=== PATIENT | female | born 1935 | race African-American/Black ===

== ENCOUNTER → 2017-01-03 | Outpatient (CLI) | payer MEDICARE, MEDICAID ==
[~2017-01-03] VITALS: Ht 162.6 cm; Wt 72.6 kg
[~2017-01-03] MED LIST: methylPREDNISolone 80 MG/ML (DEPO MEDROL) VIAL ONE
[2017-01-03 15:01] VITALS: BP 138/103
[2017-01-03 15:34] VITALS: BP 129/85
--- NOTE | 2017-01-07 16:44 | OPERATIVE REPORT ---
DATE OF SERVICE: 01/03/2017 DIAGNOSIS: Lumbar radiculopathy. PROCEDURE: Fluoroscopic guided interlaminar epidural steroid injection. PROCEDURE IN DETAIL: After obtaining informed consent from the patient, the patient's chart was reviewed. The patient was then brought to the procedure room and placed in the prone position. A timeout was performed. The back was prepped with antiseptic solution and under fluoro guidance, the patient's lumbar spine was identified at the level of L4-L5. The L4-L5 vertebra was identified with fluoro guidance and approximately 2 mL of 1.5% lidocaine solution was used to anesthetize the skin directly down to the pedicle of the L4-L5 and under fluoroscopic guidance, the tract was anesthetized up to the interlaminar space and the ligamentum flavum. This needle was withdrawn. Then, a 20-gauge 3.5 inch Tuohy needle was then directed following the same tract that was anesthetized with the spinal needle. Using loss of resistance, the epidural space was identified and then the syringe was switched for contrast solution which was injected, approximately 1 mL. After secondary confirmation of epidural access, another syringe was placed and 80 mg of Depo-Medrol was injected. The Tuohy needle was then flushed out with approximately 2 mL of the normal saline used from the loss of resistance syringe. Band-Aids were applied to all the procedure sites. The patient tolerated the procedure well and was taken to the recovery room in stable condition. COMPLICATIONS: None. Job ID: [id number] DocumentID: [id number] Dictated Date: 01/07/2017 09:33:11 Automatic Spreader Operator Date: 01/07/2017 16:44:12 Dictated By: JOEY ROGERS DO
== END ==
LOC: CARD 14:19
PROVIDERS: ATTEND Pain Medicine Interventional Pain Medicine
DX: M54.16 Radiculopathy, lumbar region (principal); M06.9 Rheumatoid arthritis, unspecified; M81.0 Age-related osteoporosis without current pathological fracture; F03.90 Unspecified dementia, unspecified severity, without behavioral disturbance, psychotic disturbance, mood disturbance, and anxiety; I11.9 Hypertensive heart disease without heart failure; G40.909 Epilepsy, unspecified, not intractable, without status epilepticus; D64.9 Anemia, unspecified; Z79.899 Other long term (current) drug therapy
CPT/HCPCS: 64483

== ENCOUNTER 2018-07-14 17:49 | Emergency (ER) | payer MEDICARE, MEDICAID ==
[~2018-07-14] VITALS: Ht 157.5 cm; Wt 71.7 kg
--- NOTE | 2018-07-14 18:32 | Diagnostic Imaging Report ---
INDICATION: Fall, left hip pain. EXAMINATION: Left hip dated 07/14/2018. COMPARISONS: None. FINDINGS: Three views of the left hip. There is marked deformity of the hip joint. There is diffuse subchondral cystic change and sclerosis. Marked narrowing in the joint space is also seen. The femoral head appears somewhat flattened perhaps due to chronic degenerative disease or superimposed AVN. A fracture of the hip is difficult to completely exclude given the marked deformity and positioning. There is a linear sclerotic line noted along the mid femoral neck on two views but not seen on the third view. A fracture in the region difficult to exclude. IMPRESSION: 1. Limited evaluation for fracture given the marked deformity and degenerative findings in the hip. A linear sclerotic appearing line is noted in the mid femoral neck and a fracture is difficult to exclude. Further imaging may be warranted. 2. Severe degenerative and chronic changes in the hip. Dictated by: Dictated on workstation # [id number]
--- OUTSIDE RECORDS SUMMARY | 2018-07-14 18:37 | XMS REPORT | Continuity of Care Document ---
Author Organization Unknown Address Unknown Allergies There is no data. Medications There is no data. Problems There is no data. Procedures There is no data. Results There is no data. Encounters ACCT No. Visit Date/Time Discharge Status Pt. Type Provider Facility Loc./Unit Complaint [id number] 06/04/2018 14:30:00 06/04/2018 23:59:59 [facility] Outpatient SHAYLEE MITCHELL [facility]
--- NOTE | 2018-07-14 18:41 | Diagnostic Imaging Report ---
INDICATION: Fall with neck pain TECHNIQUE: CT cervical spine obtained without IV contrast with axial slices and sagittal and coronal reconstructions FINDINGS: There is no evidence of cervical spine fracture. There is no subluxation or malalignment. There is diffuse degenerative change with disc space narrowing from C3-T1. There is diffuse facet degenerative change. There is loss of lordosis. IMPRESSION: Diffuse degenerative findings throughout the cervical spine at essentially all levels. No acute fracture or subluxation. Dictated by: Dictated on workstation # [id number]
[2018-07-14] MEDS ORDERED: HYDROcodone/APAP 10 MG/325 MG (LORTAB) TAB PO ONE (18:45)
--- NOTE | 2018-07-14 18:55 | ED Lower Extremity ---
General Chief Complaint: Lower Extremity Stated Complaint: FALL - LT HIP PAIN Nursing Triage Note: Patient c/o hip pain states she fell around 1530 landed on her left hip and also hit her head Nursing Sepsis Screen: No Definite Risk Source: patient Exam Limitations: no limitations History of Present Illness Date Seen by Provider: July 14, 2018 Time Seen by Provider: 18:00 Initial Comments Patient is an 82-year-old female who presents with accidental fall from walking. Patient was not using her walker and lost balance falling and hitting her left hip and striking her head. Patient denies headache, loss of consciousness or dizziness. She is not on anticoagulation therapy. She does report neck pain. Denies focal extremity weakness or loss of sensation. Also reports left hip pain. No deformity shortening or rotation on exam. No other acute symptoms or complaints. Patient denies medical symptoms prior to fall. Onset: just prior to arrival Method of Injury: fell Allergies and Home Medications Allergies Coded Allergies: No Known Drug Allergies (Unverified , 07/14/18) Patient Home Medication List Home Medication List Reviewed: Yes Review of Systems Constitutional: no symptoms reported, see HPI EENTM: see HPI Respiratory: no symptoms reported Cardiovascular: no symptoms reported Gastrointestinal: no symptoms reported Genitourinary: no symptoms reported Musculoskeletal: see HPI Skin: see HPI Psychiatric/Neurological: See HPI Past Xrwoipo-Lifekb-Qpznwx Hx Patient Social History Alcohol Use: Denies Use Recreational Drug Use: No Smoking Status: Never a Smoker 2nd Hand Smoke Exposure: No Recent Foreign Travel: No Contact w/Someone Who Travel: No Recent Infectious Disease Expo: No Recent Hopitalizations: No Physical Abuse: No Sexual Abuse: No Mistreated: No Fear: No Seasonal Allergies Seasonal Allergies: No Past Medical History Surgeries: Yes Tonsillectomy Respiratory: Yes Asthma Cardiac: Yes Hypertension Neurological: No Genitourinary: No Gastrointestinal: No Musculoskeletal: No Endocrine: No HEENT: No Cancer: No Psychosocial: No Integumentary: No Blood Disorders: No Physical Exam Vital Signs Vital Signs - First Documented 07/14/18 17:55 Temp 97.6 Pulse 74 Resp 16 B/P (MAP) 149/99 (116) Pulse Ox 95 O2 Delivery Room Air Capillary Refill : Less Than 3 Seconds Height, Weight, BMI Height: 5'2.00" Weight: 158lbs. 0.0oz. [id number]; 27.5 BMI Method:Stated General Appearance: WD/WN, no apparent distress HEENT: PERRL/EOMI, normal ENT inspection Neck: non-tender, full range of motion Cardiovascular: normal peripheral pulses, regular rate, rhythm, no edema Respiratory: chest non-tender, lungs clear Gastrointestinal: normal bowel sounds, non tender, soft Back: normal inspection, no CVA tenderness, no vertebral tenderness Hips: left hip bone tenderness, left hip limited range of motion, left hip pain , left hip soft tissue tenderness Legs: bilateral leg non-tender, bilateral leg normal inspection, bilateral leg normal range of motion Neurologic/Tendon: normal sensation, normal motor functions, normal tendon functions 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, no motor/sensory deficits, oriented x 3 Skin: normal color, warm/dry Progress/Results/Core Measures Results/Orders My Orders Orders - AYAKA MONIQUE DO Hip 2-3 View Left (07/14/18 18:04) Ct Cervical Spine Wo (07/14/18 18:04) Ct Pelvis Wo (07/14/18 18:36) Hydrocodone/Apap 10/325 Tablet (Lortab 1 (07/14/18 18:45) Medications Given in ED Current Medications Medications Dose Ordered Sig/Prakash Route Start Time Stop Time Status Last Admin Dose Admin Acetaminophen/ Hydrocodone Bitart 1 ea ONCE ONCE PO 07/14/18 18:45 07/14/18 18:46 DC 07/14/18 18:53 1 EA Vital Signs/I&O 07/14/18 17:55 Temp 97.6 Pulse 74 Resp 16 B/P (MAP) 149/99 (116) Pulse Ox 95 O2 Delivery Room Air Blood Pressure Mean: 116 Departure Communication (Admissions) CT cervical spine/pelvis, left hip/pelvis x-ray: No obvious displaced fracture on imaging review per radiology report Impression Primary Impression: Contracture, left hip Disposition: 01 HOME, SELF-CARE Condition: Improved Departure-Patient Inst. Decision time for Depature: 19:38 Referrals: SHAYLEE MITCHELL MD (PCP/Family) Primary Care Physician Patient Instructions: Contusion (DC) Add. Discharge Instructions: You were evaluated in the emergency department for an accidental fall resulting in neck pain and hip pain. CT imagings were performed do not show an obvious or displaced fracture. Please use walker at all times and continue home pain medication. Follow-up with your PCP in 3-5 days for reevaluation. All discharge instructions reviewed with patient and/or family. Voiced understanding. AYAKA MONIQUE DO July 14, 2018 18:55
--- NOTE | 2018-07-14 19:21 | Diagnostic Imaging Report ---
PROCEDURE: CT pelvis without contrast. TECHNIQUE: Multiple contiguous axial images were obtained through the pelvis without the use of intravenous contrast. Sagittal and coronal reformations were performed. Auto Exposure Controls were utilized during the CT exam to meet ALARA standards for radiation dose reduction. INDICATION: Left hip pain after fall. EXAMINATION: CT pelvis without contrast dated 07/14/2018. COMPARISON: Correlation made to radiographs of the left hip from the same date. FINDINGS: There is marked degenerative disease within the left hip with large subchondral cysts and sclerosis throughout the femoral head and adjacent acetabulum. Narrowing in the joint space is also seen with deformity of the femoral head chronic in appearance. There is also deformity of the left femoral neck. There are no displaced fractures. No dislocations. However, bone algorithm technique is not provided. There are degenerative findings throughout the right hip as well to a lesser degree with narrowing and spurring as well as subchondral cystic change. Diffuse degenerative findings and also postoperative changes seen in the visualized lumbar spine. The intrapelvic structures demonstrate no acute abnormalities. Multiple calcifications noted within the subcutaneous soft tissues in the buttock region bilaterally likely all iatrogenic perhaps injection granulomata. IMPRESSION: 1. Diffuse chronic degenerative findings in both hips left worse than right with acute fracture not visualized however given the marked degenerative findings and the osteopenia as well as lack of bone algorithm imaging, if patient has continued pain or cannot bear weight, MRI could evaluate for edema. Other findings as above. Dictated by: Dictated on workstation # [id number]
--- NOTE | 2018-07-14 19:38 | NUR ---
Patient able to ambulate with walker in room and hallway.
[2018-07-14 19:46] VITALS: BP 153/68
== END 2018-07-14 19:52 | disposition home or self-care (01) ==
LOC: EDUNIT# 17:49 → ER FS 17:51
DX: M24.552 Contracture, left hip (principal); J45.909 Unspecified asthma, uncomplicated; I10 Essential (primary) hypertension; Z90.89 Acquired absence of other organs; W01.198A Fall on same level from slipping, tripping and stumbling with subsequent striking against other object, initial encounter; Y93.01 Activity, walking, marching and hiking
CPT/HCPCS: 72125; 72192; 73502

== ENCOUNTER 2018-07-31 19:50 | Observation (INO) | payer MEDICARE, MEDICAID ==
[~2018-07-31] VITALS: Ht 157.5 cm; Wt 69.5 kg
--- OUTSIDE RECORDS SUMMARY | 2018-07-31 19:55 | XMS REPORT | Continuity of Care Document ---
Author Organization Unknown Address Unknown Allergies Active Description Code Type Severity Reaction Onset Reported/Identified Relationship to Patient Clinical Status Yes No Known Drug Allergies [id number] Drug Allergy Unknown N/A 07/14/2018 Medications There is no data. 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 01/17/2017 JOEY ROGERS DO, Ot M06.9 RHEUMATOID ARTHRITIS, UNSPECIFIED 01/17/2017 JOEY ROGERS DO Ot M54.16 RADICULOPATHY, LUMBAR REGION 01/17/2017 JOEY ROGERS DO Ot M81.0 AGE-RELATED OSTEOPOROSIS W/O CURRENT PAT 01/17/2017 JOEY ROGERS DO, Ot Z79.899 OTHER PRISON (CURRENT) DRUG THERAPY 01/19/2017 JOEY ROGERS DO, Ot D64.9 ANEMIA, UNSPECIFIED 01/19/2017 JOEY ROGERS DO, Ot F03.90 UNSPECIFIED DEMENTIA WITHOUT BEHAVIORAL 01/19/2017 JOEY ROGERS DO, Ot G40.909 EPILEPSY, UNSP, NOT INTRACTABLE, WITHOUT 01/19/2017 JOEY ROGERS DO, Ot 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 01/19/2017 JOEY ROGERS DO, Ot M06.9 RHEUMATOID ARTHRITIS, UNSPECIFIED 01/19/2017 JOEY ROGERS DO, Ot M54.16 RADICULOPATHY, LUMBAR REGION 01/19/2017 JOEY ROGERS DO Ot M81.0 AGE-RELATED OSTEOPOROSIS W/O CURRENT PAT 01/19/2017 KEN AQUINO JOEY Rider Ot Z79.899 OTHER PRISON (CURRENT) DRUG THERAPY 02/05/2017 HEARNDON DO, JOEY Rider Ot D64.9 ANEMIA, UNSPECIFIED 02/05/2017 HEARNDON DO, JOEY Rider Ot F03.90 UNSPECIFIED DEMENTIA WITHOUT BEHAVIORAL 02/05/2017 HEARNDON DO, JOEY Rider Ot G40.909 EPILEPSY, UNSP, NOT INTRACTABLE, WITHOUT 02/05/2017 HEARNDON DOJOEY Ot 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 02/05/2017 HEARNDON DO, JOEY Rider Ot M06.9 RHEUMATOID ARTHRITIS, UNSPECIFIED 02/05/2017 HEARNDON DO, JOEY Rider Ot M54.16 RADICULOPATHY, LUMBAR REGION 02/05/2017 HEARNDON DOJOEY Ot M81.0 AGE-RELATED OSTEOPOROSIS W/O CURRENT PAT 02/05/2017 HEARNDON DOJOEY Ot Z79.899 OTHER PRISON (CURRENT) DRUG THERAPY 02/14/2017 HEARNDON DOJOEY Ot D64.9 ANEMIA, UNSPECIFIED 02/14/2017 HEARNDON DO, JOEY Rider Ot F03.90 UNSPECIFIED DEMENTIA WITHOUT BEHAVIORAL 02/14/2017 HEARNDON DOJOEY Ot G40.909 EPILEPSY, UNSP, NOT INTRACTABLE, WITHOUT 02/14/2017 HEARNDON DOJOEY Ot 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 02/14/2017 HEARNDON DOJOEY Ot M06.9 RHEUMATOID ARTHRITIS, UNSPECIFIED 02/14/2017 HEARNDON DOJOEY Ot M54.16 RADICULOPATHY, LUMBAR REGION 02/14/2017 HEARNDON DOJOEY Ot M81.0 AGE-RELATED OSTEOPOROSIS W/O CURRENT PAT 02/14/2017 HEARNDON DOJOEY Ot 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 07/14/2018 HEARNDON DOJOEY Ot D64.9 ANEMIA, UNSPECIFIED 07/14/2018 HEARNDON DO, JOEY Rider Ot F03.90 UNSPECIFIED DEMENTIA WITHOUT BEHAVIORAL 07/14/2018 HEARNDON DO, JOEY Rider Ot G40.909 EPILEPSY, UNSP, NOT INTRACTABLE, WITHOUT 07/14/2018 HEARNDON DOJOEY Ot 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 07/14/2018 HEARNDON DO, JOEY Rider Ot M06.9 RHEUMATOID ARTHRITIS, UNSPECIFIED 07/14/2018 HEARNDSG DO, JOEY Rider Ot M54.16 RADICULOPATHY, LUMBAR REGION 07/14/2018 KEN AQUINOJOEY Ot M81.0 AGE-RELATED OSTEOPOROSIS W/O CURRENT PAT 07/14/2018 SUKUMARNDSG AQUINOJOEY Ot Z79.899 OTHER PRISON (CURRENT) DRUG THERAPY 07/14/2018 KEN AQUINOJOEY Ot D64.9 ANEMIA, UNSPECIFIED 07/14/2018 HEARNDON DO, JOEY Rider Ot F03.90 UNSPECIFIED DEMENTIA WITHOUT BEHAVIORAL 07/14/2018 SUKUMARNDSG AQUINOJOEY Ot G40.909 EPILEPSY, UNSP, NOT INTRACTABLE, WITHOUT 07/14/2018 HEARNDON DOJOEY Ot 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 07/14/2018 SUKUMARNDSG DOJOEY Ot M06.9 RHEUMATOID ARTHRITIS, UNSPECIFIED 07/14/2018 [facility] DOJOEY Ot M54.16 RADICULOPATHY, LUMBAR REGION 07/14/2018 [facility] INCEDSON DOJOEY Ot M81.0 AGE-RELATED OSTEOPOROSIS W/O CURRENT PAT 07/14/2018 SUKUMAREDSON AQUINOJOEY Ot Z79.899 OTHER PRISON (CURRENT) DRUG THERAPY 07/17/2018 AYAKA MONIQUE DO Ot I10 ESSENTIAL (PRIMARY) HYPERTENSION 07/17/2018 AYAKA MONIQUE DO Ot J45.909 UNSPECIFIED ASTHMA, UNCOMPLICATED 07/17/2018 AYAKA MONIQUE DO Ot 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, LEFT HIP 07/17/2018 AYAKA MONIQUE DO, Ot M25.552 PAIN IN LEFT HIP 07/17/2018 AYAKA MONIQUE DO Ot W01.198A FALL SAME LEV FROM SLIP/TRIP W STRIKE AG 07/17/2018 AYAKA MONIQUE DO Ot Y93.01 ACTIVITY, WALKING, MARCHING AND HIKING 07/17/2018 AYAKA MONIQUE DO Ot Z90.89 ACQUIRED ABSENCE OF OTHER ORGANS Procedures There is no data. Results There is no data. Encounters ACCT No. Visit Date/Time Discharge Status Pt. Type Provider Facility Loc./Unit Complaint [id number] 07/30/2018 13:30:00 [facility] Outpatient SHAYLEE MITCHELL [facility] [id number] 07/14/2018 17:51:00 07/14/2018 19:52:00 [facility] Outpatient AYAKA MONIQUE DO [facility] ER FS FALL - LT HIP PAIN [id number] 01/03/2017 14:19:00 01/03/2017 23:59:59 [facility] Outpatient JOEY ROGERS DO [facility] CARD M54.16 LUMBAR RADICULOPATHY
--- NOTE | 2018-07-31 20:53 | ED EENT ---
History of Present Illness General Chief Complaint: Facial Problems Stated Complaint: INSECT/ANIMAL BITE. RT SIDE FACIAL SWELLING & PAIN Nursing Triage Note: IT WAS REPORTED THAT THE PATIENT MAY HAVE A BUG BITE ON THE RIGHT SIDE OF HER FACE. UPON ARRIVAL TO ER5 THE PATIENT DOES HAVE RIGHT SIDED FACIAL SWELLING THE SITE IS RED AND SWOLLEN. PT. STATED HER EAR DOES NOT HURT JUST HER FACE. Source: patient, family History of Present Illness Date Seen by Provider: July 31, 2018 Time Seen by Provider: 20:53 Initial Comments 83-year-old female presenting with complaints of swelling and pain to the right side of her face. She states that she has felt like she was running a fever. She denies any trauma or injury to her face or top. She denies any pain going up into her ear. The area is red and swollen to the right mandible. She has increased pain with opening her mouth. She is edentulous. Allergies and Home Medications Allergies Coded Allergies: No Known Drug Allergies (Unverified , 07/14/18) Patient Home Medication List Home Medication List Reviewed: Yes Review of Systems Review of Systems Constitutional: No chills; fever (subjective), malaise Eyes: No Symptoms Reported Ears: No Symptoms Reported Nose: no symptoms reported Mouth: see HPI Throat: no symptoms reported Respiratory: no symptoms reported Cardiovascular: no symptoms reported Gastrointestinal: no symptoms reported Musculoskeletal: no symptoms reported Skin: see HPI Past Lpiedeq-Cevwkl-Rvoyhw Hx Past Med/Social Hx: Reviewed Nursing Past Med/Soc Hx Patient Social History 2nd Hand Smoke Exposure: No Recent Foreign Travel: No Contact w/Someone Who Travel: No Recent Infectious Disease Expo: No Recent Hopitalizations: No Physical Abuse: No Sexual Abuse: No Mistreated: No Fear: No Seasonal Allergies Seasonal Allergies: No Past Medical History Surgeries: Yes Tonsillectomy Respiratory: Yes Asthma Cardiac: Yes Hypertension Neurological: No Genitourinary: No Gastrointestinal: No Musculoskeletal: No Endocrine: No HEENT: No Cancer: No Psychosocial: No Integumentary: No Blood Disorders: No Physical Exam Vital Signs Vital Signs - First Documented 07/31/18 08/01/18 19:59 02:35 Temp 99.5 Pulse 107 Resp 16 B/P (MAP) 156/83 (107) Pulse Ox 94 O2 Delivery Room Air Height, Weight, BMI Height: 5'2.00" Weight: 158lbs. 0.0oz. 71.826104bk; 27.5 BMI Method:Stated General Appearance: WD/WN, no apparent distress Mouth/Throat: mandibular swelling (right side); No pharynx tenderness, No tongue swollen, No tonsillar exudate, No tonsillar swelling; trismus Neck: non-tender, full range of motion, supple Cardiovascular: normal peripheral pulses, regular rate, rhythm Respiratory: chest non-tender, lungs clear, normal breath sounds Gastrointestinal: normal bowel sounds, soft Neurologic/Psychiatric: alert, normal mood/affect, oriented x 3 Skin: warm/dry, other (erythema, swelling and pain to right mandible area) Progress/Results/Core Measures Results/Orders Lab Results Laboratory Tests Test 07/31/18 21:38 Range/Units White Blood Count 22.2 H 4.3-11.0 10^3/uL Red Blood Count 3.72 L 4.35-5.85 10^6/uL Hemoglobin 11.4 L 11.5-16.0 G/DL Hematocrit 34 L 35-52 % Mean Corpuscular Volume 92 80-99 FL Mean Corpuscular Hemoglobin 31 25-34 PG Mean Corpuscular Hemoglobin Concent 33 32-36 G/DL Red Cell Distribution Width 13.4 10.0-14.5 % Platelet Count 226 130-400 10^3/uL Mean Platelet Volume 9.9 7.4-10.4 FL Neutrophils (%) (Auto) 68 42-75 % Lymphocytes (%) (Auto) 22 12-44 % Monocytes (%) (Auto) 9 0-12 % Eosinophils (%) (Auto) 0 0-10 % Basophils (%) (Auto) 0 0-10 % Neutrophils # (Auto) 15.1 H 1.8-7.8 X 10^3 Lymphocytes # (Auto) 4.9 H 1.0-4.0 X 10^3 Monocytes # (Auto) 2.1 H 0.0-1.0 X 10^3 Eosinophils # (Auto) 0.1 0.0-0.3 10^3/uL Basophils # (Auto) 0.1 0.0-0.1 10^3/uL Neutrophils % (Manual) 65 % Lymphocytes % (Manual) 31 % Monocytes % (Manual) 4 % Eosinophils % (Manual) 0 % Basophils % (Manual) 0 % Band Neutrophils 0 % Blood Morphology Comment NORMAL Sodium Level 138 135-145 MMOL/L Potassium Level 4.7 3.6-5.0 MMOL/L Chloride Level 101 98-107 MMOL/L Carbon Dioxide Level 18 L 21-32 MMOL/L Anion Gap 19 H 5-14 MMOL/L Blood Urea Nitrogen 28 H 7-18 MG/DL Creatinine 1.27 0.60-1.30 MG/DL Estimat Glomerular Filtration Rate 48 BUN/Creatinine Ratio 22 Glucose Level 122 H 70-105 MG/DL Lactic Acid Level 0.70 0.50-2.00 MMOL/L Calcium Level 9.3 8.5-10.1 MG/DL Corrected Calcium 9.4 8.5-10.1 MG/DL Total Bilirubin 0.5 0.1-1.0 MG/DL Aspartate Amino Transf (AST/SGOT) 22 5-34 U/L Alanine Aminotransferase (ALT/SGPT) 14 0-55 U/L Alkaline Phosphatase 85 40-136 U/L Total Protein 6.7 6.4-8.2 GM/DL Albumin 3.9 3.2-4.5 GM/DL My Orders Orders - ABENA MEJIAS MD Cbc With Automated Diff (07/31/18 21:03) Comprehensive Metabolic Panel (07/31/18 21:03) Blood Culture (07/31/18 21:03) Ed Iv/Invasive Line Start (07/31/18 21:03) Ct Neck (Soft Tissue) W (07/31/18 21:03) Lactic Acid Analyzer (07/31/18 21:03) Manual Differential (07/31/18 21:38) Iohexol Injection (Omnipaque 350 Mg/Ml 1 (07/31/18 22:30) Received Contrast (Hold Metformin- Contr (07/31/18 22:30) Ns (Ivpb) (Sodium Chloride 0.9% Ivpb Bag (07/31/18 22:30) Ns Iv 500 Ml (Sodium Chloride 0.9%) (07/31/18 22:43) Fentanyl Injection (Sublimaze Injection (08/01/18 00:43) Clindamycin Injection (Cleocin Injection (08/01/18 00:43) Medications Given in ED Current Medications Medications Dose Ordered Sig/Prakash Route Start Time Stop Time Status Last Admin Dose Admin Iohexol 75 ml ONCE ONCE IV 07/31/18 22:30 07/31/18 22:31 DC 5/30/19 22:41 50 ML Sodium Chloride 100 ml ONCE ONCE IV 07/31/18 22:30 07/31/18 22:31 DC 07/31/18 22:41 100 ML Vital Signs/I&O 07/31/18 07/31/18 08/01/18 19:59 21:44 02:35 Temp 99.5 99.5 99.0 Pulse 107 107 105 Resp 16 16 20 B/P (MAP) 156/83 (107) 156/83 159/88 (111) Pulse Ox 94 O2 Delivery Room Air Room Air Room Air 08/01/18 00:00 Intake Total 500 ml Balance 500 ml Blood Pressure Mean: 107 Progress Progress Note #1: Progress Note Obtain labs and CT scan of the soft tissue neck to evaluate the swelling to her right cheek and mandible Progress Note #2: Progress Note Labs show elevated white blood cell count over 22,000. She has a negative lactic acid. She does have chronic renal insufficiency. The CT scan was showing evidence of parotitis without a stone present. There is a small amount of fluid present around the parotid gland. Will discuss with the hospitalist about admission for IV antibiotics Diagnostic Imaging Diagonstic Imaging: CT Plain Films/CT/US/NM/MRI: other (soft tissue neck) Comments Findings consistent with right parotitis without evidence of parotid stone or parotid ductal stone. Persistent patchy groundglass infiltrate to the right upper lobe. Read by radiologist Dr. Ernie Mccrary at [phone] with fax results at [phone] Departure Communication (Admissions) Time/Spoke to Admitting Phy: 01:21 D/w Dr. Ott about observation stay for IV antibiotics and treatment for Parotitis. Will place in isolation until further evaluated for possible Mumps per Dr. Ott. Impression Primary Impression: Acute suppurative parotitis Disposition: ADMITTED INPATIENT Condition: Stable Admissions Decision to Admit Reason: Admit from ER (General) Decision to Admit/Date: August 01, 2018 Time/Decision to Admit Time: 01:21 Departure-Patient Inst. Referrals: SHAYLEE MITCHELL MD (PCP/Family) Primary Care Physician Images Head/Face 1 - Moderate, Lesion (s), Swelling, Tenderness, Other-See Progress Note Progress area of firmness, swelling and erythema to Right mandible ABENA MEJIAS MD July 31, 2018 20:53
[2018-07-31 22:01] LABS: BASOPHILS # (AUTO) 0.1 10^3/uL (0.0-0.1); BASOPHILS % (AUTO) 0 % (0-10); EOSINOPHILS # (AUTO) 0.1 10^3/uL (0.0-0.3); EOSINOPHILS % (AUTO) 0 % (0-10); HEMATOCRIT 34 % (35-52); HEMOGLOBIN 11.4 G/DL (11.5-16.0); LYMPHOCYTES # (AUTO) 4.9 X 10^3 (1.0-4.0); LYMPHOCYTES % (AUTO) 22 % (12-44); MEAN CORPUSCULAR HEMOGLOBIN 31 PG (25-34); MEAN CORPUSCULAR HGB CONC 33 G/DL (32-36); MEAN CORPUSCULAR VOLUME 92 FL (80-99); MEAN PLATELET VOLUME 9.9 FL (7.4-10.4); MONOCYTES # (AUTO) 2.1 X 10^3 (0.0-1.0); MONOCYTES % (AUTO) 9 % (0-12); NEUTROPHILS # (AUTO) 15.1 X 10^3 (1.8-7.8); NEUTROPHILS % (AUTO) 68 % (42-75); PLATELET COUNT 226 10^3/uL (130-400); RED CELL DISTRIBUTION WIDTH 13.4 % (10.0-14.5); WHITE BLOOD COUNT 22.2 10^3/uL (4.3-11.0)
[2018-07-31 22:16] LABS: POTASSIUM 4.7 MMOL/L (3.6-5.0)
[2018-07-31 22:17] LABS: ALBUMIN 3.9 GM/DL (3.2-4.5); BILIRUBIN,TOTAL 0.5 MG/DL (0.1-1.0); CALCIUM 9.3 MG/DL (8.5-10.1); CREATININE SERUM 1.27 MG/DL (0.60-1.30); TOTAL PROTEIN 6.7 GM/DL (6.4-8.2)
[2018-07-31 22:21] LABS: BAND NEUTROPHILS 0 %; BASOPHILS % (MANUAL) 0 %; EOSINOPHILS % (MANUAL) 0 %; LYMPHOCYTES % (MANUAL) 31 %; MONOCYTES % (MANUAL) 4 %; NEUTROPHILS % (MANUAL) 65 %; RBC MORPH NORMAL
[2018-07-31] MEDS ORDERED: NS 100 ML (IVPB) BAG IV ONE (22:30)
[2018-07-31] MEDS ORDERED: HOLD METFORMIN - RECEIVED CONTRAST 20 ML VIAL IV SCH (22:30)
[2018-07-31] MEDS ORDERED: IOHEXOL 350 MG/ML 100 ML (OMNIPAQUE 350) VIAL IV ONE (22:30)
[2018-07-31] MEDS ORDERED: NS IV 500 ML 500 ML IV STA (22:43)
[2018-08-01] VITALS (7 sets, daily range): BP systolic 120–146; BP diastolic 61–74
[2018-08-01] MEDS ORDERED: fentaNYL INJECTION 100 MCG/2 ML AMP IVP STA (00:43)
[2018-08-01] MEDS ORDERED: CLINDAMYCIN INJECTION 300 MG in NS (IVPB) 50 ML IV STA (00:43)
--- OUTSIDE RECORDS SUMMARY | 2018-08-01 02:08 | XMS REPORT | Continuity of Care Document ---
Author Organization Unknown Address Unknown Allergies Active Description Code Type Severity Reaction Onset Reported/Identified Relationship to Patient Clinical Status Yes No Known Drug Allergies [id number] Drug Allergy Unknown N/A 07/14/2018 Medications There [...] 01/17/2017 JOEY ROGERS DO, Ot Z79.899 OTHER RETIREMENT (CURRENT) DRUG THERAPY 01/19/2017 JOEY ROGERS DO, [...] KEN AQUINO JOEY Rider Ot Z79.899 OTHER RETIREMENT (CURRENT) DRUG THERAPY 02/05/2017 HEARNDON DO, JOEY [...] PAT 02/05/2017 HEARNDON DOJOEY Ot Z79.899 OTHER RETIREMENT (CURRENT) DRUG THERAPY 02/14/2017 HEARNDON DOJOEY Ot [...] PAT 02/14/2017 HEARNDON DOJOEY Ot Z79.899 OTHER CAVALRY OFFICER (CURRENT) DRUG THERAPY 07/14/2018 HEARNDON DOJOEY Ot [...] PAT 07/14/2018 SUKUMARNDSG AQUINOJOEY Ot Z79.899 OTHER RETIREMENT (CURRENT) DRUG THERAPY 07/14/2018 KEN AQUINOJOEY Ot D64.9 ANEMIA, UNSPECIFIED 07/14/2018 HEARNDON DO, JOEY Rider Ot F03.90 UNSPECIFIED DEMENTIA WITHOUT BEHAVIORAL 07/14/2018 SUKUMARNDSG AQUINOJOEY Ot G40.909 EPILEPSY, UNSP, NOT INTRACTABLE, WITHOUT 07/14/2018 HEARNDON DOJOEY Ot 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 Type Provider Facility Loc./Unit Complaint [id number] 07/30/2018 13:30:00 ACT Outpatient SHAYLEE [facility] [id number] 07/14/2018 17:51:00 07/14/2018 19:52:00 DIS Outpatient AYAKA MONIQUE DO [facility] ER FS FALL - LT HIP PAIN [id number] 01/03/2017 14:19:00 01/03/2017 23:59:59 CLS Outpatient JOEY ROGERS DO [facility] CARD M54.16 LUMBAR RADICULOPATHY
[2018-08-01] MEDS: fentaNYL INJECTION 100 MCG/2 ML AMP IVP PRN ×5 (04:30→20:05)
[2018-08-01] MEDS ORDERED: AMPICILLIN/SULBACTAM INJECTION 3 GM in NS (IVPB) 100 ML IV SCH (08:45)
[2018-08-01 09:10] LABS: BASOPHILS % (AUTO) 0 % (0-10); EOSINOPHILS % (AUTO) 0 % (0-10); HEMATOCRIT 35 % (35-52); HEMOGLOBIN 11.5 G/DL (11.5-16.0); LYMPHOCYTES # (AUTO) 4.8 X 10^3 (1.0-4.0); LYMPHOCYTES % (AUTO) 22 % (12-44); MEAN CORPUSCULAR HEMOGLOBIN 30 PG (25-34); MEAN CORPUSCULAR HGB CONC 33 G/DL (32-36); MEAN CORPUSCULAR VOLUME 91 FL (80-99); MEAN PLATELET VOLUME 9.4 FL (7.4-10.4); MONOCYTES # (AUTO) 1.5 X 10^3 (0.0-1.0); MONOCYTES % (AUTO) 7 % (0-12); NEUTROPHILS # (AUTO) 15.5 X 10^3 (1.8-7.8); NEUTROPHILS % (AUTO) 71 % (42-75); PLATELET COUNT 232 10^3/uL (130-400); RED CELL DISTRIBUTION WIDTH 13.9 % (10.0-14.5); WHITE BLOOD COUNT 21.9 10^3/uL (4.3-11.0)
[2018-08-01 09:26] LABS: CALCIUM 9.6 MG/DL (8.5-10.1); CREATININE SERUM 1.07 MG/DL (0.60-1.30); POTASSIUM 4.3 MMOL/L (3.6-5.0)
[2018-08-01] MEDS ORDERED: POTA10TA10 PO (10:02)
[2018-08-01] MEDS ORDERED: PANT40TA3 PO (10:02)
[2018-08-01] MEDS ORDERED: MEMA14CA5 PO (10:02)
[2018-08-01] MEDS ORDERED: CHOL5000 PO (10:02)
[2018-08-01] MEDS ORDERED: CARV6.252 PO (10:02)
[2018-08-01] MEDS ORDERED: OXYC20TA54 PO (10:02)
[2018-08-01] MEDS ORDERED: FURO20TA4 PO (10:02)
[2018-08-01] MEDS ORDERED: TRAZ-222 PO (10:02)
[2018-08-01] MEDS ORDERED: MELO7.5T46 PO (10:02)
[2018-08-01] MEDS ORDERED: ASPI-983 PO (10:02)
[2018-08-01] MEDS ORDERED: LEVO50TA6 PO (10:02)
[2018-08-01] MEDS ORDERED: ACET-2267 PO (10:10)
[2018-08-01] MEDS ORDERED: IPRA3AMP31 NEB (10:10)
--- NOTE | 2018-08-01 10:21 | NUR ---
WENT OVER THE EXT MED HX WITH THE PATIENT AND SHE VERIFIED HOW SHE TAKES EACH MEDICATION. SHE STATES SHE TAKES HER LEVOTHYROXINE DAILY HOWEVER IT WAS DISPENSED 22 TABS FOR 28 DAYS. SHE STATE SHE DOES NOT TAKE ANYTHING OTC THAT IS NOT DISPENSED BY [facility] OTHER THAN TYLENOL PRN.
--- NOTE | 2018-08-01 10:49 | Diagnostic Imaging Report ---
PROCEDURE: CT neck soft tissue with contrast. TECHNIQUE: Multiple contiguous axial images were obtained through the neck after the administration of contrast. Auto Exposure Controls were utilized during the CT exam to meet ALARA standards for radiation dose reduction. DATE: July 31, 2018. INDICATION: 83-year-old female, dog bite on the right side of face. Right-sided facial swelling. COMPARISON: None. FINDINGS: There is heterogeneous attenuation of the right parotid gland with prominent inflammatory stranding adjacent to the right parotid gland. The left parotid gland is unremarkable in appearance. Unremarkable appearance of the bilateral submandibular glands. There is a right-sided low-attenuation thyroid nodule on axial image 58 which measures up to 9 mm in size. There is no identified mucosal or submucosal mass along the surface of the airway. There is no identified abnormally enlarged cervical lymph node which specifically meets CT size criteria for adenopathy. The partially visualized portions of the orbits are grossly unremarkable in appearance. There is a chronic appearing deformity of the right maxilla with areas of bone irregularity and bone thickening. There is no identified acute or aggressive appearing bone destruction. There are degenerative changes of the spine. There is chondrocalcinosis. There is no identified well marginated focal fluid collection to suggest abscess. There is a groundglass lung attenuation and a linear opacity in the right upper lobe may relate to chronic lung changes although are not specific. This appearance is unchanged from April 16, 2018. IMPRESSION: 1. Findings suggesting right-sided parotitis. Dictated by: Dictated on workstation # [id number]
[2018-08-01] MEDS ORDERED: 1/2 NS IV SOLUTION 1,000 ML IV SCH (12:00)
[2018-08-01] MEDS ORDERED: CATHETER FLUSH 10 ML SYR IV PRN (12:00)
--- NOTE | 2018-08-01 12:03 | History & Physicial (CHS) ---
HPI History of Present Illness: Right facial swelling x 2-3 days, congestion x 2 months. No fever. Date seen by provider: August 01, 2018 Time Seen by Provider: 11:55 Attending Physician Ghada Ott MD PCP Haim Talley MD Consult Date of Admission August 01, 2018 at 01:21 Home Medications Home Medications Reviewed patient Home Medication Reconciliation performed by pharmacy medication reconciliations natural gas technician and/or nursing. Patients Allergies have been reviewed. Allergies Coded Allergies: No Known Drug Allergies (Unverified , 07/14/18) NCG-Vxtjoy-Boxswc Hx Patient Social History Alcohol Use: Denies Use Recreational Drug Use: No Smoking Status: Former Smoker 2nd Hand Smoke Exposure: No Recent Foreign Travel: No Contact w/other who traveled: No Recent Hopitalizations: No Recent Infectious Disease Expo: No Past Medical History PMHx: HTN Pacemaker Alzheimer Osteoarthritis PSurgHx: Pacemaker Back surgery Appendectomy Review of Systems (CHC) Constitutional: No fever EENTM: see HPI Respiratory: No short of breath Cardiovascular: No chest pain Gastrointestinal: No abdominal pain Genitourinary: no symptoms reported Musculoskeletal: no symptoms reported Skin: no symptoms reported Psychiatric/Neurological: No Symptoms Reported Reviewed Test Results Reviewed Test Results Lab Laboratory Tests Test 07/31/18 21:38 08/01/18 09:03 Range/Units White Blood Count 22.2 H 21.9 H 4.3-11.0 10^3/uL Red Blood Count 3.72 L 3.85 L 4.35-5.85 10^6/uL Hemoglobin 11.4 L 11.5 11.5-16.0 G/DL Hematocrit 34 L 35 35-52 % Mean Corpuscular Volume 92 91 80-99 FL Mean Corpuscular Hemoglobin 31 30 25-34 PG Mean Corpuscular Hemoglobin Concent 33 33 32-36 G/DL Red Cell Distribution Width 13.4 13.9 10.0-14.5 % Platelet Count 226 232 130-400 10^3/uL Mean Platelet Volume 9.9 9.4 7.4-10.4 FL Neutrophils (%) (Auto) 68 71 42-75 % Lymphocytes (%) (Auto) 22 22 12-44 % Monocytes (%) (Auto) 9 7 0-12 % Eosinophils (%) (Auto) 0 0 0-10 % Basophils (%) (Auto) 0 0 0-10 % Neutrophils # (Auto) 15.1 H 15.5 H 1.8-7.8 X 10^3 Lymphocytes # (Auto) 4.9 H 4.8 H 1.0-4.0 X 10^3 Monocytes # (Auto) 2.1 H 1.5 H 0.0-1.0 X 10^3 Eosinophils # (Auto) 0.1 0.0 0.0-0.3 10^3/uL Basophils # (Auto) 0.1 0.0 0.0-0.1 10^3/uL Neutrophils % (Manual) 65 % Lymphocytes % (Manual) 31 % Monocytes % (Manual) 4 % Eosinophils % (Manual) 0 % Basophils % (Manual) 0 % Band Neutrophils 0 % Blood Morphology Comment NORMAL Sodium Level 138 136 135-145 MMOL/L Potassium Level 4.7 4.3 3.6-5.0 MMOL/L Chloride Level 101 106 98-107 MMOL/L Carbon Dioxide Level 18 L 22 21-32 MMOL/L Anion Gap 19 H 8 5-14 MMOL/L Blood Urea Nitrogen 28 H 18 7-18 MG/DL Creatinine 1.27 1.07 0.60-1.30 MG/DL Estimat Glomerular Filtration Rate 48 59 BUN/Creatinine Ratio 22 17 Glucose Level 122 H 111 H 70-105 MG/DL Lactic Acid Level 0.70 0.50-2.00 MMOL/L Calcium Level 9.3 9.6 8.5-10.1 MG/DL Corrected Calcium 9.4 8.5-10.1 MG/DL Total Bilirubin 0.5 0.1-1.0 MG/DL Aspartate Amino Transf (AST/SGOT) 22 5-34 U/L Alanine Aminotransferase (ALT/SGPT) 14 0-55 U/L Alkaline Phosphatase 85 40-136 U/L Total Protein 6.7 6.4-8.2 GM/DL Albumin 3.9 3.2-4.5 GM/DL Radiology CT neck 08/01: IMPRESSION: 1. Findings suggesting right-sided parotitis. Physical Exam-(CHC) Physical Exam Vital Signs VS - Last 72 Hours, by Label 07/31/18 07/31/18 08/01/18 08/01/18 19:59 21:44 02:35 03:45 Temp 99.5 99.5 99.0 Pulse 107 107 105 Resp 16 16 20 B/P (MAP) 156/83 (107) 156/83 159/88 (111) Pulse Ox 94 O2 Delivery Room Air Room Air Room Air Room Air 08/01/18 08/01/18 08/01/18 08/01/18 04:10 04:13 08:00 12:00 Temp 98.7 98.7 98.2 98.4 Pulse 88 88 89 93 Resp 20 20 18 20 B/P (MAP) 133/61 133/61 (85) 120/74 (89) 123/66 (85) Pulse Ox 93 93 95 95 O2 Delivery Room Air Room Air Room Air Room Air 08/01/18 16:00 Temp 98.8 Pulse 91 Resp 20 B/P (MAP) 129/61 (83) Pulse Ox 94 O2 Delivery Room Air Capillary Refill : Less Than 3 Seconds General Appearance: no apparent distress HEENT: other (right facial swelling and tenderness over maxilla to mandible, no pus spontaneously from [place]'s duct- difficult to visualize as she cannot open mouth adequately, edentulous) Respiratory: lungs clear, normal breath sounds Cardiovascular: regular rate, rhythm, no murmur Gastrointestinal: normal bowel sounds, tenderness Extremities: no pedal edema Assessment/Plan Assessment/Plan Admission Status: Observation (1) Acute suppurative parotitis Status: Acute Assessment & Plan: Suspect polymicrobial, age and dentures being risk factors. Unable to use Unasyn due to shortage. Nafcillin, ceftriaxone and metronidazole. (2) Sepsis Status: Acute Assessment & Plan: Secondary to parotitis, no evidence of severe sepsis. (3) Chronic pain Status: Chronic Assessment & Plan: Resume home meds, treat breakthrough with IV fentanyl (4) Alzheimer disease Status: Chronic Assessment & Plan: Resume home meds. Reports living at home, and is moderately independent in dressing and eating, uses walker for ambulating and toileting. Qualifiers: (5) Hypothyroidism Status: Chronic Assessment & Plan: Resume home levothyroxine (6) DVT prophylaxis Status: Acute Assessment & Plan: Enoxaparin Clinical Quality Measures DVT/VTE Risk/Contraindication: Risk Factor Score Per Nursin RFS Level Per Nursing on Admit: 3=High GHADA OTT MD August 01, 2018 12:03
--- NOTE | 2018-08-01 12:13 | NUR ---
Pt is Hinduism. Unitizer provided prayer and Communion.
[2018-08-01] MEDS: NS IV 1000 ML 1,000 ML IV SCH ×2 (12:17→22:02)
[2018-08-01] MEDS: SODIUM CHLORIDE IV SCH ×6 (12:18→22:02)
[2018-08-01] MEDS: NAFCILLIN IV SCH ×6 (12:18→22:02)
[2018-08-01] MEDS: cefTRIAXone 1,000 MG/SWFI 10 ML IV PUSH IV SCH ×2 (12:29)
[2018-08-01] MEDS: metroNIDAZOLE 500 MG/100 ML IVPB (PRE-MIX) IV SCH ×2 (14:41→22:02)
[2018-08-01] MEDS ORDERED: NON-FORMULARY MEDICATION 1 EA EA (Acetaminophen (Tylenol Extra Strength) 500 MG) PO PRN (15:30)
[2018-08-01] MEDS ORDERED: RT-ALBUTEROL/IPRATROPIUM 3 ML (DUONEB) VIAL IH PRN (15:30)
[2018-08-01] MEDS ORDERED: ACETAMINOPHEN 500 MG TAB (TYLENOL) PO PRN (16:45)
[2018-08-01] MEDS: ENOXAPARIN 40 MG/0.4 ML (LOVENOX) SYR SQ SCH (18:44)
[2018-08-01] MEDS ORDERED: OXYCODONE HCL 20 MG PO SCH (21:00)
[2018-08-01] MEDS ORDERED: oxyCODONE ER 20 MG (OxyCONTIN CR) TAB PO SCH (21:00)
[2018-08-01] MEDS: traZODone 50 MG (DESYREL) TAB PO SCH (22:01)
[2018-08-01] MEDS: CARVEDILOL 6.25 MG (COREG) TAB PO SCH (22:02)
[2018-08-02] MEDS: NAFCILLIN IV SCH ×12 (00:36→21:25)
[2018-08-02] MEDS: fentaNYL INJECTION 100 MCG/2 ML AMP IVP PRN ×5 (00:36→23:04)
[2018-08-02] MEDS: SODIUM CHLORIDE IV SCH ×12 (00:36→21:25)
--- NOTE | 2018-08-02 02:10 | NUR ---
PT STILL COMPLAINING OF SEVERE PAIN IN HER FACE. SPOKE WITH DR. VILLATORO AND INFORMED HER THAT THE PTS PAIN WAS NOT BEING CONTROLLED. TELEPHONE ORDERS RECEIVED FOR 1X DOSE FENTANYL 50MCG IV AND TO SWITCH SCHEDULED OXYCONTIN TO Q8HRS INSTEAD OF BID AND TO GIVE BOTH DOSES NOW. WILL CARRY OUT ORDERS AND CONTINUE TO MONITOR PT.
[2018-08-02] MEDS ORDERED: fentaNYL INJECTION 100 MCG/2 ML AMP IVP ONE (02:15)
[2018-08-02] MEDS: oxyCODONE ER 20 MG (OxyCONTIN CR) TAB PO SCH ×4 (02:32→21:25)
[2018-08-02 03:52] VITALS: BP 128/60
[2018-08-02] MEDS: metroNIDAZOLE 500 MG/100 ML IVPB (PRE-MIX) IV SCH ×3 (04:06→21:25)
[2018-08-02] MEDS: NS IV 1000 ML 1,000 ML IV SCH ×3 (04:07→21:26)
[2018-08-02 06:40] LABS: HEMOGLOBIN 10.9 G/DL (11.5-16.0); MEAN PLATELET VOLUME 10.2 FL (7.4-10.4); RED CELL DISTRIBUTION WIDTH 13.9 % (10.0-14.5); WHITE BLOOD COUNT 17.6 10^3/uL (4.3-11.0)
[2018-08-02] MEDS: LEVOTHYROXINE 50 MCG (LEVOTHROID) TAB PO SCH (06:41)
[2018-08-02] MEDS: KCL 10 MEQ TAB (MICRO K) PO SCH (06:41)
[2018-08-02] MEDS: PANTOPRAZOLE 40 MG (PROTONIX) TAB PO SCH (06:41)
[2018-08-02 06:58] LABS: BUN/CREATININE RATIO 14; CALCIUM 8.6 MG/DL (8.5-10.1); CARBON DIOXIDE 20 MMOL/L (21-32); CHLORIDE 111 MMOL/L (98-107); CREATININE SERUM 0.92 MG/DL (0.60-1.30); GFR ESTIMATED > 60; GLUCOSE 123 MG/DL (70-105); POTASSIUM 3.9 MMOL/L (3.6-5.0); SODIUM 140 MMOL/L (135-145)
[2018-08-02 08:00] VITALS: BP 100/52
[2018-08-02] MEDS: ASPIRIN E.C. 81 MG (ECOTRIN) TAB PO SCH (08:54)
[2018-08-02] MEDS: cefTRIAXone 1,000 MG/SWFI 10 ML IV PUSH IV SCH ×2 (08:54)
[2018-08-02] MEDS: CARVEDILOL 6.25 MG (COREG) TAB PO SCH ×2 (08:54→21:25)
[2018-08-02] MEDS: FUROSEMIDE 20 MG (LASIX) TAB PO SCH (08:54)
[2018-08-02] MEDS: MEMANTINE 5 MG (NAMENDA) TABLET PO SCH ×2 (08:55→21:25)
[2018-08-02] MEDS: MELOXICAM 7.5 MG (MOBIC) TABLET PO SCH (08:55)
[2018-08-02] MEDS ORDERED: MEMANTINE HCL 14 MG PO SCH (09:00)
[2018-08-02 12:00] VITALS: BP 122/65
[2018-08-02 15:50] VITALS: BP 146/73
[2018-08-02] MEDS: ENOXAPARIN 40 MG/0.4 ML (LOVENOX) SYR SQ SCH (18:18)
--- NOTE | 2018-08-02 20:02 | Progress Note (SOAP) ---
Subjective Subjective/Events-last exam States that she feels better this AM. She is taking PO easier today compared to yesterday. Tolerating PO and ambulation. Denies any shortness of breath, N/V. Review of Systems Date Seen by Provider: Aug 02, 2018 Time Seen by Provider: 14:00 Pulmonary: No Dyspnea, No Cough Cardiovascular: No: Chest Pain, Palpitations Gastrointestinal: Other (pain with swallowing); No: Nausea, Vomiting Focused Exam Lactate Level 07/31/18 21:38: Lactic Acid Level 0.70 Objective Exam Last Set of Vital Signs Vital Signs Date Time Temp Pulse Resp B/P (MAP) Pulse Ox O2 Delivery O2 Flow Rate FiO2 08/02/18 15:50 98.2 80 18 146/73 (97) 98 Room Air Capillary Refill : Less Than 3 Seconds I&O Intake and Output 08/02/18 00:00 Intake Total 3094 ml Balance 3094 ml Intake Oral 1790 ml IV Total 1304 ml # Voids 3 Daily Weight Change No No General: Alert, Oriented X3, Cooperative, No Acute Distress HEENT: Other (Right jaw swelling and erythema, ttp with induration around parotid gland) Neck: Supple, No Thyromegaly Lungs: Clear to Auscultation, Normal Air Movement Heart: Regular Rate, No Murmurs Abdomen: Normal Bowel Sounds, Soft, No Tenderness, No Masses Extremities: No Edema, No Tenderness/Swelling Results/Procedures Lab Laboratory Tests 08/02/18 06:07: White Blood Count 17.6H, Red Blood Count 3.63L, Hemoglobin 10.9L, Hematocrit 33L , Mean Corpuscular Volume 92, Mean Corpuscular Hemoglobin 30, Mean Corpuscular Hemoglobin Concent 33, Red Cell Distribution Width 13.9, Platelet Count 205, Mean Platelet Volume 10.2, Sodium Level 140, Potassium Level 3.9, Chloride Level 111H, Carbon Dioxide Level 20L, Anion Gap 9, Blood Urea Nitrogen 13, Creatinine 0.92, Estimat Glomerular Filtration Rate > 60, BUN/Creatinine Ratio 14, Glucose Level 123H, Calcium Level 8.6 Microbiology 07/31/18 Blood Culture - Preliminary, Resulted No growth Radiology CT neck 08/01: IMPRESSION: 1. Findings suggesting right-sided parotitis. Assessment/Plan Assessment/Plan (1) Acute suppurative parotitis Status: Acute Assessment & Plan: Suspect polymicrobial, age and dentures being risk factors. Unable to use Unasyn due to shortage. Nafcillin, ceftriaxone and metronidazole. 08/02: Continue IV antibiotics for at least 1 more day due to swelling and pain (2) Sepsis Status: Resolved Assessment & Plan: Secondary to parotitis, no evidence of severe sepsis. (3) Chronic pain Status: Chronic Assessment & Plan: Resume home meds, treat breakthrough with IV fentanyl (4) Alzheimer disease Status: Chronic Assessment & Plan: Resume home meds. Reports living at home, and is moderately independent in dressing and eating, uses walker for ambulating and toileting. Qualifiers: (5) Hypothyroidism Status: Chronic Assessment & Plan: Resume home levothyroxine (6) DVT prophylaxis Status: Acute Assessment & Plan: Enoxaparin Clinical Quality Measures DVT/VTE Risk/Contraindication: Risk Factor Score Per Nursin RFS Level Per Nursing on Admit: 3=High BEBA VILLATORO MD Aug 02, 2018 20:02
[2018-08-02 20:04] VITALS: BP 113/65
[2018-08-02] MEDS: traZODone 50 MG (DESYREL) TAB PO SCH (21:25)
[2018-08-02 23:54] VITALS: BP 134/63
[2018-08-03] MEDS: NS IV 1000 ML 1,000 ML IV SCH ×2 (01:21→07:10)
[2018-08-03] MEDS: SODIUM CHLORIDE IV SCH ×6 (01:21→07:12)
[2018-08-03] MEDS: NAFCILLIN IV SCH ×6 (01:21→07:12)
[2018-08-03] MEDS: fentaNYL INJECTION 100 MCG/2 ML AMP IVP PRN ×2 (02:27→07:09)
[2018-08-03 04:00] VITALS: BP 146/70
[2018-08-03] MEDS: metroNIDAZOLE 500 MG/100 ML IVPB (PRE-MIX) IV SCH (04:47)
[2018-08-03 05:18] VITALS: BP 146/70
[2018-08-03] MEDS: oxyCODONE ER 20 MG (OxyCONTIN CR) TAB PO SCH (06:07)
[2018-08-03] MEDS: PANTOPRAZOLE 40 MG (PROTONIX) TAB PO SCH (06:08)
[2018-08-03] MEDS: LEVOTHYROXINE 50 MCG (LEVOTHROID) TAB PO SCH (06:08)
[2018-08-03] MEDS: KCL 10 MEQ TAB (MICRO K) PO SCH (06:08)
[2018-08-03 07:12] LABS: BASOPHILS % (AUTO) 0 % (0-10); EOSINOPHILS # (AUTO) 0.3 10^3/uL (0.0-0.3); EOSINOPHILS % (AUTO) 3 % (0-10); HEMATOCRIT 31 % (35-52); HEMOGLOBIN 9.9 G/DL (11.5-16.0); LYMPHOCYTES # (AUTO) 3.6 X 10^3 (1.0-4.0); LYMPHOCYTES % (AUTO) 32 % (12-44); MEAN CORPUSCULAR HEMOGLOBIN 30 PG (25-34); MEAN CORPUSCULAR HGB CONC 32 G/DL (32-36); MEAN CORPUSCULAR VOLUME 94 FL (80-99); MEAN PLATELET VOLUME 9.7 FL (7.4-10.4); MONOCYTES # (AUTO) 0.8 X 10^3 (0.0-1.0); MONOCYTES % (AUTO) 7 % (0-12); NEUTROPHILS # (AUTO) 6.4 X 10^3 (1.8-7.8); NEUTROPHILS % (AUTO) 57 % (42-75); PLATELET COUNT 199 10^3/uL (130-400); RED CELL DISTRIBUTION WIDTH 14.3 % (10.0-14.5); WHITE BLOOD COUNT 11.2 10^3/uL (4.3-11.0)
[2018-08-03 08:00] VITALS: BP 126/84
[2018-08-03] MEDS: CARVEDILOL 6.25 MG (COREG) TAB PO SCH (08:40)
[2018-08-03] MEDS: FUROSEMIDE 20 MG (LASIX) TAB PO SCH (08:40)
[2018-08-03] MEDS: ASPIRIN E.C. 81 MG (ECOTRIN) TAB PO SCH (08:40)
[2018-08-03] MEDS: cefTRIAXone 1,000 MG/SWFI 10 ML IV PUSH IV SCH ×2 (08:40)
[2018-08-03] MEDS: MELOXICAM 7.5 MG (MOBIC) TABLET PO SCH (08:42)
[2018-08-03] MEDS: MEMANTINE 5 MG (NAMENDA) TABLET PO SCH (08:42)
--- NOTE | 2018-08-03 10:08 | Discharge Summary ---
Diagnosis/Chief Complaint Date of Admission August 01, 2018 at 01:21 Date of Discharge 08/03/18 Admission Diagnosis Admission Diagnosis See problem list Discharge Diagnosis See below Problems/Diagnosis: (1) Acute suppurative parotitis Assessment & Plan: Suspect polymicrobial, age and dentures being risk factors. Unable to use Unasyn due to shortage. Nafcillin, ceftriaxone and metronidazole. 08/02: Continue IV antibiotics for at least 1 more day due to swelling and pain 08/03: D/c with augmentin Status: Acute (2) Sepsis Assessment & Plan: Secondary to parotitis, no evidence of severe sepsis. Status: Resolved Resolution Date/Time: 08/02/18 @ 20:02 (3) Chronic pain Assessment & Plan: Resume home meds, treat breakthrough with IV fentanyl Status: Chronic (4) Alzheimer disease Assessment & Plan: Resume home meds. Reports living at home, and is moderately independent in dressing and eating, uses walker for ambulating and toileting. Qualifiers: Status: Chronic (5) Hypothyroidism Assessment & Plan: Resume home levothyroxine Status: Chronic (6) DVT prophylaxis Assessment & Plan: Enoxaparin Status: Acute Chief Complaint/HPI Chief Complaint/HPI Right facial swelling x 2-3 days, congestion x 2 months. No fever. Discharge Summary-Simple/Stand Consultations Discharge Physical Examination Allergies: Coded Allergies: No Known Drug Allergies (Unverified , 07/14/18) Vitals & I&Os Vital Sign - Last 12Hours Date Time Temp Pulse Resp B/P (MAP) Pulse Ox O2 Delivery O2 Flow Rate FiO2 08/03/18 08:00 97.3 77 18 126/84 (98) 93 Room Air Intake and Output 08/03/18 00:00 Intake Total 1550 ml Balance 1550 ml General Appearance: Alert, Oriented X3, Cooperative, No Acute Distress HEENT: Mucous Memb Moist/[place], Other (swelling and induration much improved, mild erythema ) Respiratory: Clear to Auscultation, Normal Air Movement Cardiovascular: Regular Rate, No Murmurs Abdominal: Normal Bowel Sounds, Soft, No Tenderness Extremities: No Edema, No Tenderness/Swelling Skin: No Rashes, No Breakdown Neuro: Normal Speech, Strength at 5/5 X4 Ext Psych/Mental Status: Mental Status NL, Mood NL Hospital Course Was the Problem List Reviewed?: Yes See final discharge diagnosis. Radiology Reviewed CT neck 08/01: IMPRESSION: 1. Findings suggesting right-sided parotitis. Discussion & Recommendations 83 yo F that was admitted with R acute parotidis. Improved with IV antibiotics and d/c to complete 10 day course. Pain well controlled at time of discharge. Discharge Condition at discharge stable Instructions to patient/family Please see electronic discharge instructions given to patient. Discharge Medications Reviewed and agree with Discharge Medication list on patient's Discharge Instruction sheet Clinical Quality Measures DVT/VTE Risk/Contraindication: Risk Factor Score Per Nursin RFS Level Per Nursing on Admit: 3=High Copy Copies To 1: SHAYLEE MITCHELL MD, HOLLY R MD Aug 03, 2018 10:08
[2018-08-03] MEDS ORDERED: AMOX-358 PO (10:10)
--- NOTE | 2018-08-03 10:11 | Discharge Instructions ---
Discharge [facility] Discharge Medications New, Converted or Re-Newed RX: Transmitted to Pharmacy New Medications: Amoxicillin/Potassium Clav (Augmentin 875-125 Tablet) 1 Each Tablet 1 EACH PO BID for 10 Days, #20 TAB Continued Medications: Acetaminophen (Tylenol Extra Strength) 500 Mg Tablet 500-1000 MG PO Q4H PRN for PAIN-MILD, TAB Aspirin (Aspirin EC) 81 Mg Tablet.dr 81 MG PO DAILY, TAB Carvedilol (Carvedilol) 6.25 Mg Tablet 6.25 MG PO BID, TAB Cholecalciferol (Vitamin D3) (Vitamin D3) 5,000 Unit Capsule 5000 UNITS PO Garcia, CAP Furosemide (Furosemide) 20 Mg Tablet 20 MG PO DAILY, TAB Ipratropium/Albuterol Sulfate (Iprat-Albut 0.5-3(2.5) mg/3 ml) 3 Ml Ampul.neb 3 ML NEB Q4H PRN for SHORTNESS OF BREATH, EA Levothyroxine Sodium (Levothyroxine Sodium) 50 Mcg Tablet 50 MCG PO DAILY, TAB Meloxicam (Meloxicam) 7.5 Mg Tablet 7.5 MG PO DAILY, TAB Memantine HCl (Memantine HCl ER) 14 Mg Cap.spr.24 14 MG PO DAILY, CAP Oxycodone HCl (Oxycontin) 20 Mg Tab.er.12h 20 MG PO BID, TAB Pantoprazole Sodium (Pantoprazole Sodium) 40 Mg Tablet.dr 40 MG PO DAILY, TAB Potassium Chloride (Potassium Chloride) 10 Meq Tablet.er 10 MEQ PO DAILY, TAB Trazodone HCl (Trazodone HCl) 50 Mg Tablet 50 MG PO HS, TAB Patient Instructions Goal/Follow Up Appt: F/u with Dr Mitchell next week Patient Instructions: - Make sure you complete your antibiotics Activity & Diet Discharge Diet: No Restrictions Activity as Tolerated: Yes Orders-Post D/C & Referrals Pneu Vac Indicated: Yes Copy Copies To 1: SHAYLEE MITCHELL MD, HOLLY R MD Aug 03, 2018 10:11
--- NOTE | 2018-08-03 11:00 | NUR ---
FOREST FIREFIGHTER NOTIFIED OF PT. NOT HAVING A RIDE HOME. CAB VOUCHER GIVEN TO PT.
[2018-08-03 11:10] VITALS: BP 126/84
--- NOTE | 2018-08-03 11:10 | NUR ---
FRANCO CHARLTON demonstrates understanding of discharge instructions and accurately returns instructions upon questioning. Copy of Post-Discharge Instructions given to PT. FRANCO CHARLTON is able to manage continuing needs after discharge. Patients belongings returned to PT. Patient discharged from [facility] on 08/03/18 at 11:10. FRANCO CHARLTON left floor via W/C, accompanied by STAFF AND AERIAL PHOTOGRAMMETRIST WITH VOUCHER TO RETURN HER HOME.
--- OUTSIDE RECORDS SUMMARY | 2018-08-05 14:11 | XMS REPORT | Continuity of Care Document ---
Author Organization Unknown Address Unknown Allergies Active Description Code Type Severity Reaction Onset Reported/Identified Relationship to Patient Clinical Status Yes No Known Drug Allergies [id number] Drug Allergy Unknown N/A 07/14/2018 Medications There [...] 01/17/2017 JOEY ROGERS DO, Ot Z79.899 OTHER DETENTION (CURRENT) DRUG THERAPY 01/19/2017 JOEY ROGERS DO, [...] KEN AQUINO JOEY Rider Ot Z79.899 OTHER DETENTION (CURRENT) DRUG THERAPY 02/05/2017 HEARNDON DO, JOEY [...] PAT 02/05/2017 HEARNDON DOJOEY Ot Z79.899 OTHER DETENTION (CURRENT) DRUG THERAPY 02/14/2017 HEARNDON DOJOEY Ot [...] PAT 02/14/2017 HEARNDON DOJOEY Ot Z79.899 OTHER LINING STRAP CLOSER (CURRENT) DRUG THERAPY 07/14/2018 HEARNDON DOJOEY Ot D64.9 ANEMIA, UNSPECIFIED 07/14/2018 HEARNDON DO, JOEY Rider Ot F03.90 UNSPECIFIED DEMENTIA WITHOUT BEHAVIORAL 07/14/2018 HEARNDON DO, JOEY Rider Ot G40.909 EPILEPSY, UNSP, NOT INTRACTABLE, WITHOUT 07/14/2018 HEARNDON DOJOEY Ot 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 07/14/2018 HEARNDON DO, JOEY L Ot M06.9 RHEUMATOID ARTHRITIS, UNSPECIFIED 07/14/2018 HEARNDSG DOJOEY Ot M54.16 RADICULOPATHY, LUMBAR REGION 07/14/2018 KEN AQUINOJOEY Ot M81.0 AGE-RELATED OSTEOPOROSIS W/O CURRENT PAT 07/14/2018 KEN AQUINOJOEY Ot Z79.899 OTHER DETENTION (CURRENT) DRUG THERAPY 07/14/2018 SUKUMAREDSON JOEY AQUINO Ot D64.9 ANEMIA, UNSPECIFIED 07/14/2018 SUKUMARNDON DO, JOEY Rider Ot F03.90 UNSPECIFIED DEMENTIA WITHOUT BEHAVIORAL 07/14/2018 SUKUMAREDSON AQUINOJOEY Ot G40.909 EPILEPSY, UNSP, NOT INTRACTABLE, WITHOUT 07/14/2018 SUKUMARNDON JOEY Ot 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 Results Test Result Range [facility] - 07/30/18 14:37 GLUCOSE 103 mg/dL 65-99 UREA NITROGEN (BUN) 32 mg/dL 7-25 CREATININE 1.60 mg/dL 0.60-0.88 eGFR NON-AFR. ANGUILLAN 29 mL/min/1.73m2 > OR=60 eGFR 34 mL/min/1.73m2 > OR=60 BUN/CREATININE RATIO 20 (calc) 6-22 SODIUM 138 mmol/L 135-146 POTASSIUM 5.7 mmol/L 3.5-5.3 CHLORIDE 106 mmol/L 98-110 CARBON DIOXIDE 21 mmol/L 20-32 CALCIUM 9.8 mg/dL 8.6-10.4 PROTEIN, TOTAL 6.8 g/dL 6.1-8.1 ALBUMIN 4.4 g/dL 3.6-5.1 GLOBULIN 2.4 g/dL (calc) 1.9-3.7 ALBUMIN/GLOBULIN RATIO 1.8 (calc) 1.0-2.5 BILIRUBIN, TOTAL 0.4 mg/dL 0.2-1.2 ALKALINE PHOSPHATASE 81 U/L 33-130 AST 22 U/L 10-35 ALT 11 U/L 6-29 CBC - 07/30/18 14:37 WHITE BLOOD CELL COUNT 13.1 Thousand/uL 3.8-10.8 RED BLOOD CELL COUNT 3.89 Million/uL 3.80-5.10 HEMOGLOBIN 12.0 g/dL 11.7-15.5 HEMATOCRIT 36.7 % 35.0-45.0 MCV 94.3 fL 80.0-100.0 MCH 30.8 pg 27.0-33.0 MCHC 32.7 g/dL 32.0-36.0 RDW 13.3 % 11.0-15.0 PLATELET COUNT 178 Thousand/uL 140-400 MPV 12.1 fL 7.5-12.5 ABSOLUTE NEUTROPHILS 7257 cells/uL 9806-5949 ABSOLUTE LYMPHOCYTES 4899 cells/uL 850-3900 ABSOLUTE MONOCYTES 603 cells/uL 200-950 ABSOLUTE EOSINOPHILS 236 cells/uL 15-500 ABSOLUTE BASOPHILS 105 cells/uL 0-200 NEUTROPHILS 55.4 % NRG LYMPHOCYTES 37.4 % NRG MONOCYTES 4.6 % NRG EOSINOPHILS 1.8 % NRG BASOPHILS 0.8 % NRG TSH - 07/30/18 14:37 TSH 0.90 mIU/L 0.40-4.50 CULTURE, URINE - 07/30/18 14:37 CULTURE, URINE, ROUTINE SEE NOTE NRG Bacterial blood culture - 07/31/18 10:38 Bacterial blood culture NG NRG Complete blood count (CBC) with automated white blood cell (WBC) differential - 07/31/18 21:38 Blood leukocytes automated count (number/volume) 22.2 10*3/uL 4.3-11.0 Blood erythrocytes automated count (number/volume) 3.72 10*6/uL 4.35-5.85 Venous blood hemoglobin measurement (mass/volume) 11.4 g/dL 11.5-16.0 Blood hematocrit (volume fraction) 34 % 35-52 Automated erythrocyte mean corpuscular volume 92 [foz_us] 80-99 Automated erythrocyte mean corpuscular hemoglobin (mass per erythrocyte) 31 pg 25-34 Automated erythrocyte mean corpuscular hemoglobin concentration measurement (mass/volume) 33 g/dL 32-36 Automated erythrocyte distribution width ratio 13.4 % 10.0- 14.5 Automated blood platelet count (count/volume) 226 10*3/uL 130-400 Automated blood platelet mean volume measurement 9.9 [foz_us] 7.4-10.4 Automated blood neutrophils/100 leukocytes 68 % 42-75 Automated blood lymphocytes/100 leukocytes 22 % 12-44 Blood monocytes/100 leukocytes 9 % 0-12 Automated blood eosinophils/100 leukocytes 0 % 0-10 Automated blood basophils/100 leukocytes 0 % 0-10 Blood neutrophils automated count (number/volume) 15.1 10*3 1.8-7.8 Blood lymphocytes automated count (number/volume) 4.9 10*3 1.0-4.0 Blood monocytes automated count (number/volume) 2.1 10*3 0.0- 1.0 Automated eosinophil count 0.1 10*3/uL 0.0-0.3 Automated blood basophil count (count/volume) 0.1 10*3/uL 0.0-0.1 Comprehensive metabolic panel - 07/31/18 21:38 Serum or plasma sodium measurement (moles/volume) 138 mmol/L 135-145 Serum or plasma potassium measurement (moles/volume) 4.7 mmol/L 3.6-5.0 Serum or plasma chloride measurement (moles/volume) 101 mmol/L 98-107 Carbon dioxide 18 mmol/L 21-32 Serum or plasma anion gap determination (moles/volume) 19 mmol/L 5-14 Serum or plasma urea nitrogen measurement (mass/volume) 28 mg/dL 7-18 Serum or plasma creatinine measurement (mass/volume) 1.27 mg/dL 0.60-1.30 Serum or plasma urea nitrogen/creatinine mass ratio 22 NRG Serum or plasma creatinine measurement with calculation of estimated glomerular filtration rate 48 NRG Serum or plasma glucose measurement (mass/volume) 122 mg/dL 70-105 Serum or plasma calcium measurement (mass/volume) 9.3 mg/dL 8.5-10.1 Serum or plasma total bilirubin measurement (mass/volume) 0.5 mg/dL 0.1-1.0 Serum or plasma alkaline phosphatase measurement (enzymatic activity/volume) 85 U/L 40-136 Serum or plasma aspartate aminotransferase measurement (enzymatic activity/volume) 22 U/L 5-34 Serum or plasma alanine aminotransferase measurement (enzymatic activity/volume) 14 U/L 0-55 Serum or plasma protein measurement (mass/volume) 6.7 g/dL 6.4-8.2 Serum or plasma albumin measurement (mass/volume) 3.9 g/dL 3.2-4.5 CALCIUM CORRECTED 9.4 mg/dL 8.5-10.1 Blood lactic acid measurement (moles/volume) - 07/31/18 21:38 Blood lactic acid measurement (moles/volume) 0.70 mmol/L 0.50- 2.00 Blood manual differential performed detection - 07/31/18 21:38 Blood monocytes/100 leukocytes 4 % NRG Manual blood segmented neutrophils/100 leukocytes 65 % NRG Blood band neutrophils/100 leukocytes 0 % NRG Manual blood lymphocytes/100 leukocytes 31 % NRG Manual eosinophils/100 leukocytes in nose 0 % NRG Manual blood basophils/100 leukocytes 0 % NRG Blood erythrocyte morphology finding identification NORMAL NR Bacterial blood culture - 07/31/18 21:38 Bacterial blood culture NG NR Complete blood count (CBC) with automated white blood cell (WBC) differential - 08/01/18 09:03 Blood leukocytes automated count (number/volume) 21.9 10*3/uL 4.3-11.0 Blood erythrocytes automated count (number/volume) 3.85 10*6/uL 4.35-5.85 Venous blood hemoglobin measurement (mass/volume) 11.5 g/dL 11.5-16.0 Blood hematocrit (volume fraction) 35 % 35-52 Automated erythrocyte mean corpuscular volume 91 [foz_us] 80-99 Automated erythrocyte mean corpuscular hemoglobin (mass per erythrocyte) 30 pg 25-34 Automated erythrocyte mean corpuscular hemoglobin concentration measurement (mass/volume) 33 g/dL 32-36 Automated erythrocyte distribution width ratio 13.9 % 10.0- 14.5 Automated blood platelet count (count/volume) 232 10*3/uL 130-400 Automated blood platelet mean volume measurement 9.4 [foz_us] 7.4-10.4 Automated blood neutrophils/100 leukocytes 71 % 42-75 Automated blood lymphocytes/100 leukocytes 22 % 12-44 Blood monocytes/100 leukocytes 7 % 0-12 Automated blood eosinophils/100 leukocytes 0 % 0-10 Automated blood basophils/100 leukocytes 0 % 0-10 Blood neutrophils automated count (number/volume) 15.5 10*3 1.8-7.8 Blood lymphocytes automated count (number/volume) 4.8 10*3 1.0-4.0 Blood monocytes automated count (number/volume) 1.5 10*3 0.0- 1.0 Automated eosinophil count 0.0 10*3/uL 0.0-0.3 Automated blood basophil count (count/volume) 0.0 10*3/uL 0.0-0.1 Whole blood basic metabolic panel - 08/01/18 09:03 Serum or plasma sodium measurement (moles/volume) 136 mmol/L 135-145 Serum or plasma potassium measurement (moles/volume) 4.3 mmol/L 3.6-5.0 Serum or plasma chloride measurement (moles/volume) 106 mmol/L 98-107 Carbon dioxide 22 mmol/L 21-32 Serum or plasma anion gap determination (moles/volume) 8 mmol/L 5-14 Serum or plasma urea nitrogen measurement (mass/volume) 18 mg/dL 7-18 Serum or plasma creatinine measurement (mass/volume) 1.07 mg/dL 0.60-1.30 Serum or plasma urea nitrogen/creatinine mass ratio 17 NRG Serum or plasma creatinine measurement with calculation of estimated glomerular filtration rate 59 NRG Serum or plasma glucose measurement (mass/volume) 111 mg/dL 70-105 Serum or plasma calcium measurement (mass/volume) 9.6 mg/dL 8.5-10.1 Automated blood complete blood count (hemogram) panel - 08/02/18 06:07 Blood leukocytes automated count (number/volume) 17.6 10*3/uL 4.3-11.0 Blood erythrocytes automated count (number/volume) 3.63 10*6/uL 4.35-5.85 Venous blood hemoglobin measurement (mass/volume) 10.9 g/dL 11.5-16.0 Blood hematocrit (volume fraction) 33 % 35-52 Automated erythrocyte mean corpuscular volume 92 [foz_us] 80-99 Automated erythrocyte mean corpuscular hemoglobin (mass per erythrocyte) 30 pg 25-34 Automated erythrocyte mean corpuscular hemoglobin concentration measurement (mass/volume) 33 g/dL 32-36 Automated erythrocyte distribution width ratio 13.9 % 10.0- 14.5 Automated blood platelet count (count/volume) 205 10*3/uL 130-400 Automated blood platelet mean volume measurement 10.2 [foz_us] 7.4-10.4 Whole blood basic metabolic panel - 08/02/18 06:07 Serum or plasma sodium measurement (moles/volume) 140 mmol/L 135-145 Serum or plasma potassium measurement (moles/volume) 3.9 mmol/L 3.6-5.0 Serum or plasma chloride measurement (moles/volume) 111 mmol/L 98-107 Carbon dioxide 20 mmol/L 21-32 Serum or plasma anion gap determination (moles/volume) 9 mmol/L 5-14 Serum or plasma urea nitrogen measurement (mass/volume) 13 mg/dL 7-18 Serum or plasma creatinine measurement (mass/volume) 0.92 mg/dL 0.60-1.30 Serum or plasma urea nitrogen/creatinine mass ratio 14 NRG Serum or plasma creatinine measurement with calculation of estimated glomerular filtration rate > NRG Serum or plasma glucose measurement (mass/volume) 123 mg/dL 70-105 Serum or plasma calcium measurement (mass/volume) 8.6 mg/dL 8.5-10.1 Complete blood count (CBC) with automated white blood cell (WBC) differential - 08/03/18 07:03 Blood leukocytes automated count (number/volume) 11.2 10*3/uL 4.3-11.0 Blood erythrocytes automated count (number/volume) 3.29 10*6/uL 4.35-5.85 Venous blood hemoglobin measurement (mass/volume) 9.9 g/dL 11.5-16.0 Blood hematocrit (volume fraction) 31 % 35-52 Automated erythrocyte mean corpuscular volume 94 [foz_us] 80-99 Automated erythrocyte mean corpuscular hemoglobin (mass per erythrocyte) 30 pg 25-34 Automated erythrocyte mean corpuscular hemoglobin concentration measurement (mass/volume) 32 g/dL 32-36 Automated erythrocyte distribution width ratio 14.3 % 10.0- 14.5 Automated blood platelet count (count/volume) 199 10*3/uL 130-400 Automated blood platelet mean volume measurement 9.7 [foz_us] 7.4-10.4 Automated blood neutrophils/100 leukocytes 57 % 42-75 Automated blood lymphocytes/100 leukocytes 32 % 12-44 Blood monocytes/100 leukocytes 7 % 0-12 Automated blood eosinophils/100 leukocytes 3 % 0-10 Automated blood basophils/100 leukocytes 0 % 0-10 Blood neutrophils automated count (number/volume) 6.4 10*3 1.8-7.8 Blood lymphocytes automated count (number/volume) 3.6 10*3 1.0-4.0 Blood monocytes automated count (number/volume) 0.8 10*3 0.0- 1.0 Automated eosinophil count 0.3 10*3/uL 0.0-0.3 Automated blood basophil count (count/volume) 0.0 10*3/uL 0.0-0.1 Encounters ACCT No. Visit Date/Time Discharge Status Pt. Type Provider Facility Loc./Unit Complaint [id number] 07/30/2018 13:30:00 07/30/2018 23:59:59 CLS Outpatient [facility] [id number] 07/30/2018 13:30:00 Document Registration [id number] 08/01/2018 01:21:00 08/03/2018 11:10:00 DIS Inpatient GHADA YEBOAH MD [facility] 4TH RIGHT PAROTITIS [id number] 07/14/2018 17:51:00 07/14/2018 19:52:00 DIS Outpatient AYAKA MONIQUE DO [facility] ER FS FALL - LT HIP PAIN [id number] 01/03/2017 14:19:00 01/03/2017 23:59:59 CLS Outpatient JOEY ROGERS DO [facility] CARD M54.16 LUMBAR RADICULOPATHY
== END 2018-08-03 10:10 | disposition home or self-care (01) ==
LOC: EDUNIT# 19:50 → ER FS 19:52 → 4TH 19:53 → UNDOADMOB 08-01 01:21 → 4TH 08-01 03:39 → UNDODISOB 08-03 11:10
PROVIDERS: ADMIT Family Medicine; ATTEND Family Medicine
DX: A41.9 Sepsis, unspecified organism (principal); K11.21 Acute sialoadenitis; I12.9 Hypertensive chronic kidney disease with stage 1 through stage 4 chronic kidney disease, or unspecified chronic kidney disease; N18.9 Chronic kidney disease, unspecified; J45.909 Unspecified asthma, uncomplicated; G30.9 Alzheimer's disease, unspecified; E03.9 Hypothyroidism, unspecified; M19.91 Primary osteoarthritis, unspecified site; G89.29 Other chronic pain; Z95.0 Presence of cardiac pacemaker; Z87.891 Personal history of nicotine dependence; Z79.891 Long term (current) use of opiate analgesic; Z79.899 Other long term (current) drug therapy
CPT/HCPCS: 36415; 70491; 80048; 80053; 83605; 85007; 85025; 85027; 87040; 94760; 96361; 96365; 96375; G0378

== ENCOUNTER → 2018-08-11 | Outpatient (CLI) | payer MEDICARE, MEDICAID ==
[~2018-08-11] MED LIST changes: +ACET-2267 PO; +AMOX-358 PO; +ASPI-983 PO; +CARV6.252 PO; +CHOL5000 PO; +FURO20TA4 PO; +IPRA3AMP31 NEB; +LEVO50TA6 PO; +MELO7.5T46 PO; +MEMA14CA5 PO; +OXYC20TA54 PO; +PANT40TA3 PO; +POTA10TA10 PO; +TRAZ-222 PO; -methylPREDNISolone 80 MG/ML (DEPO MEDROL) VIAL ONE
--- NOTE | 2018-08-11 13:41 | Diagnostic Imaging Report ---
INDICATION: Right foot pain. FINDINGS: Three views of the right foot show no fracture, dislocation, or other acute abnormalities. IMPRESSION: Negative right foot. Dictated by: Dictated on workstation # [id number]
== END ==
LOC: RAD FS 13:23
PROVIDERS: ATTEND Family Medicine
DX: M79.671 Pain in right foot (principal)
CPT/HCPCS: 73630

== ENCOUNTER 2018-11-01 08:50 | Inpatient (IN) | payer MEDICARE, MEDICAID | END 2018-11-17 12:15 | disposition home health service (06) ==

== ENCOUNTER → 2018-11-27 | Outpatient (CLI) | payer MEDICARE, MEDICAID ==
[~2018-11-27] MED LIST changes: +ACET325T49 PO; +ACHD5005 PO; +DICL100G18 TOP; +FERR325T18 PO; +HYDR100T27 PO; +MECL-106 PO; +POLY17PO6 PO; +TIZA2TAB4 PO
[2018-11-27 12:21] LABS: BACTERIA,URINE LARGE /HPF; BILIRUBIN,URINE NEGATIVE (NEGATIVE); CLARITY,URINE CLOUDY; COLOR,URINE YELLOW; GLUCOSE, URINE (UA) NEGATIVE (NEGATIVE); KETONES,URINE NEGATIVE (NEGATIVE); LEUKOCYTE ESTERASE ,URINE 3+ (NEGATIVE); NITRITE,URINE POSITIVE (NEGATIVE); PROTEIN,URINE 2+ (NEGATIVE); RBC,URINE 50-100 /HPF; UROBILINOGEN,URINE 0.2 MG/DL (NORMAL); WBC,URINE >100 /HPF
== END ==
LOC: LAB FS 11:24
PROVIDERS: ATTEND Family Medicine
DX: T14.8XXA Other injury of unspecified body region, initial encounter (principal); R30.0 Dysuria
CPT/HCPCS: 81000; 87077; 87088; 87186

== ENCOUNTER → 2019-01-08 | Outpatient (CLI) | payer MEDICARE, MEDICAID ==
--- NOTE | 2019-01-08 11:51 | Diagnostic Imaging Report ---
EXAMINATION: Lumbar spine at 1034 hours. INDICATION: Back pain. AP, lateral and spot lateral views were obtained. There are no prior lumbar spine examinations available for comparison. There is dextroscoliosis of the lumbar spine and there is moderate degenerative disc disease throughout the lumbar spine. There is no fracture or acute bony abnormality identified but the osseous structures are demineralized and difficult to assess. There is no sign of a paraspinal mass. There is a 1.1 cm perfectly rounded density overlying the gastric air shadow on the AP view. I suspect that this is related to ingested medication There also appears to be at least a moderate amount of fecal material within the colon. IMPRESSION: 1. There is dextroscoliosis of the lumbar spine and degenerative disease but there is no sign of an acute bony abnormality. 2. As with recommendation for the thoracic spine exam, if further imaging for an acute or subacute abnormality is desired, then CT should be performed. Dictated by: Dictated on workstation # [id number]
--- NOTE | 2019-01-08 11:56 | Diagnostic Imaging Report ---
Thoracic spine at 1032 hours. INDICATION: Back pain. AP, lateral and swimmer's views were obtained. FINDINGS: The AP view reveals that there is levoscoliosis of the lower thoracic spine. The levoscoliosis does seem somewhat more exaggerated than noted on the prior exam of 11/03/2018 but this is probably related to positioning. The vertebral body heights are within normal limits. There is no fracture identified. There is moderate generalized narrowing of the disc spaces at every level. There is no sign of a paraspinal mass. IMPRESSION: 1. There is levoscoliosis of the lower thoracic spine and degenerative disc disease throughout the spine. There is no acute bony abnormality identified. 2. If clinical concern regarding an underlying abnormality persists, then CT would be recommended for further study. The patient does have a pacemaker in place and this would preclude further evaluation by MRI. Dictated by: Dictated on workstation # [id number]
== END ==
LOC: RAD FS 10:27
PROVIDERS: ATTEND Nurse Practitioner
DX: M47.816 Spondylosis without myelopathy or radiculopathy, lumbar region (principal); M41.84 Other forms of scoliosis, thoracic region; M41.86 Other forms of scoliosis, lumbar region; M51.34 Other intervertebral disc degeneration, thoracic region
CPT/HCPCS: 72072; 72100

== ENCOUNTER 2019-01-21 09:37 | Emergency (ER) | payer MEDICARE, MEDICAID ==
[~2019-01-21] VITALS: Ht 157.5 cm; Wt 72.2 kg
--- NOTE | 2019-01-21 09:53 | ED General ---
General Stated Complaint: HIGH BP; SOB; DIZZINESS History of Present Illness Date Seen by Provider: Jan 21, 2019 Time Seen by Provider: 09:53 Initial Comments Patient presenting to emergency department for evaluation of multiple complaints including chest pain shortness of breath dizziness. She says the chest pain has been going on for 1 week constantly and she cannot characterize it further other than saying it hurts a 5 out of 10 level throughout her entire anterior chest with no radiation. She says she feels short of breath at both rest and exertion. The dizziness is a lightheaded sensation that comes and goes. She checks her blood pressure quite frequently and says that some of her blood pressures have been quite elevated in the 160/90 range but it has been lower as well such as right now it is 126/59. She said she called her primary care provider and was told to come to the emergency department. She does have a history of coronary artery disease and has had blood clots before in the past but she takes no blood thinners at this time. She is in no obvious distress with normal vital signs. Allergies and Home Medications Allergies Coded Allergies: aspirin (Verified Allergy, Severe, 11/01/18) clindamycin (Verified Allergy, Severe, swelling, 11/01/18) fosinopril (Verified Allergy, Severe, Rash, 11/01/18) lisinopril (Verified Allergy, Severe, Rash, 11/01/18) Home Medications Acetaminophen 325 Mg Tablet, 325 MG PO Q4H PRN for PAIN-MILD, (Reported) Carvedilol 6.25 Mg Tablet, 6.25 MG PO BID, (Reported) Cholecalciferol (Vitamin D3) 5,000 Unit Capsule, 5,000 UNITS PO Garcia, (Reported) Diclofenac Sodium 100 Gm Gel..gram., 1 GM TOP QID PRN for Pain Prescribed by: ELENA FRANCISCO on 11/16/18 1350 Ferrous Sulfate 325 Mg Tablet, 325 MG PO Q48H Prescribed by: ELENA FRANCISCO on 11/16/18 1350 Furosemide 20 Mg Tablet, 20 MG PO DAILY, (Reported) Hydralazine HCl 100 Mg Tablet, 100 MG PO Q6H PRN for BLOOD PRESSURE, (Reported) Hydrocodone Bit/Acetaminophen 1 Tab Tab, 1 TAB PO Q12HR PRN for PAIN-MODERATE Prescribed by: ELENA FRANCISCO on 11/16/18 1351 Levothyroxine Sodium 50 Mcg Tablet, 50 MCG PO DAILY, (Reported) Meclizine HCl 25 Mg Tablet, 25 MG PO DAILY PRN for DIZZINESS, (Reported) Memantine HCl 14 Mg Cap.spr.24, 14 MG PO DAILY, (Reported) Oxycodone HCl 20 Mg Tab.er.12h, 20 MG PO Q12H Prescribed by: ELENA FRANCISCO on 11/16/18 1350 Pantoprazole Sodium 40 Mg Tablet.dr, 40 MG PO DAILY, (Reported) Polyethylene Glycol 3350 17 Gm Powd.pack, 17 GM PO Q48H, (Reported) Potassium Chloride 10 Meq Tablet.er, 10 MEQ PO DAILY, (Reported) Tizanidine HCl 2 Mg Tablet, 2 MG PO TID PRN for MUSCLE SPASMS, (Reported) Trazodone HCl 50 Mg Tablet, 50 MG PO HS, (Reported) Patient Home Medication List Home Medication List Reviewed: Yes Review of Systems Review of Systems Constitutional: dizziness EENTM: no symptoms reported Respiratory: short of breath Cardiovascular: chest pain Gastrointestinal: nausea Genitourinary: no symptoms reported Musculoskeletal: no symptoms reported Skin: no symptoms reported Psychiatric/Neurological: No Symptoms Reported All Other Systems Reviewed Negative Unless Noted: Yes Past Soquaxg-Brvryv-Ggkwxa Hx Patient Social History Former Smoker, Quit: Nov 02, 1959 2nd Hand Smoke Exposure: No Recent Foreign Travel: No Recent Hopitalizations: Yes (LEFT HIP REPLACEMENT -) Seasonal Allergies Seasonal Allergies: No Past Medical History Surgeries: Yes Orthopedic, Tonsillectomy Respiratory: Yes Asthma, COPD Currently Using CPAP: No Currently Using BIPAP: No Cardiac: Yes Hypertension Neurological: Yes Dementia Genitourinary: Yes Bladder Infection Gastrointestinal: No Gastroesophageal Reflux, Hiatal Hernia Musculoskeletal: Yes (OSTEOARTHRITIS) Endocrine: Yes HEENT: Yes Hearing Impairment: Hard of Hearing Cancer: Yes Cervical Psychosocial: No Integumentary: No Blood Disorders: Yes (ANEMIA) Family Medical History Cardiovascular disease G8 BROTHER Diabetes mellitus 19 FATHER FH: leukemia 19 FATHER Hypertension 19 MOTHER Physical Exam Vital Signs Vital Signs - First Documented 01/21/19 09:39 Temp 37.0 Pulse 84 Resp 16 B/P (MAP) 139/69 (92) Pulse Ox 95 O2 Delivery Room Air Capillary Refill : Height, Weight, BMI Height: 5'2.00" Weight: 163lbs. 1.6oz. [id number]; 29.3 BMI Method:Stated General Appearance: No Apparent Distress, WD/WN HEENT: PERRL/EOMI Neck: Supple Respiratory: Lungs Clear, No Respiratory Distress Cardiovascular: Regular Rate, Rhythm Gastrointestinal: Non Tender, Soft Back: Normal Inspection Extremity: Normal Capillary Refill, No Pedal Edema Neurologic/Psychiatric: Alert, Oriented x3 Skin: Warm/Dry Progress/Results/Core Measures Suspected Sepsis SIRS Temperature: Pulse: Respiratory Rate: Laboratory Tests 01/21/19 10:05: White Blood Count 11.1H Blood Pressure / Mean: Laboratory Tests 01/21/19 10:05: Creatinine 1.50H, INR Comment 0.9, Platelet Count 289, Total Bilirubin 0.4 Results/Orders Lab Results Laboratory Tests Test 01/21/19 10:05 01/21/19 11:00 Range/Units White Blood Count 11.1 H 4.3-11.0 10^3/uL Red Blood Count 4.51 4.35-5.85 10^6/uL Hemoglobin 13.7 11.5-16.0 G/DL Hematocrit 43 35-52 % Mean Corpuscular Volume 95 80-99 FL Mean Corpuscular Hemoglobin 30 25-34 PG Mean Corpuscular Hemoglobin Concent 32 32-36 G/DL Red Cell Distribution Width 13.8 10.0-14.5 % Platelet Count 289 130-400 10^3/uL Mean Platelet Volume 9.5 7.4-10.4 FL Neutrophils (%) (Auto) 44 42-75 % Lymphocytes (%) (Auto) 47 H 12-44 % Monocytes (%) (Auto) 6 0-12 % Eosinophils (%) (Auto) 2 0-10 % Basophils (%) (Auto) 1 0-10 % Neutrophils # (Auto) 4.8 1.8-7.8 X 10^3 Lymphocytes # (Auto) 5.2 H 1.0-4.0 X 10^3 Monocytes # (Auto) 0.6 0.0-1.0 X 10^3 Eosinophils # (Auto) 0.3 0.0-0.3 10^3/uL Basophils # (Auto) 0.1 0.0-0.1 10^3/uL Prothrombin Time 12.3 12.2-14.7 SEC INR Comment 0.9 0.8-1.4 Activated Partial Thromboplast Time 25 24-35 SEC D-Dimer 7.40 H 0.00-0.49 UG/ML Sodium Level 139 135-145 MMOL/L Potassium Level 4.7 3.6-5.0 MMOL/L Chloride Level 101 98-107 MMOL/L Carbon Dioxide Level 23 21-32 MMOL/L Anion Gap 15 H 5-14 MMOL/L Blood Urea Nitrogen 20 H 7-18 MG/DL Creatinine 1.50 H 0.60-1.30 MG/DL Estimat Glomerular Filtration Rate 40 BUN/Creatinine Ratio 13 Glucose Level 125 H 70-105 MG/DL Calcium Level 10.1 8.5-10.1 MG/DL Corrected Calcium 9.9 8.5-10.1 MG/DL Magnesium Level 2.0 1.6-2.4 MG/DL Total Bilirubin 0.4 0.1-1.0 MG/DL Aspartate Amino Transf (AST/SGOT) 30 5-34 U/L Alanine Aminotransferase (ALT/SGPT) 22 0-55 U/L Alkaline Phosphatase 139 H 40-136 U/L Troponin I < 0.30 <0.30 NG/ML Pro-B-Type Natriuretic Peptide 413.3 H <75.0 PG/ML Total Protein 7.4 6.4-8.2 GM/DL Albumin 4.3 3.2-4.5 GM/DL Lipase 28 8-78 U/L Urine Color YELLOW Urine Clarity 7.0 Urine pH 1.010 5-9 Urine Specific [place] NEG 1.016-1.022 Urine Protein NEGATIVE NEGATIVE Urine Glucose (UA) NEGATIVE NEGATIVE Urine Ketones NEGATIVE NEGATIVE Urine Nitrite NEGATIVE NEGATIVE Urine Bilirubin NEGATIVE NEGATIVE Urine Urobilinogen 0.2 < = 1.0 MG/DL Urine Leukocyte Esterase TRACE H NEGATIVE Urine RBC (Auto) NEGATIVE NEGATIVE Urine RBC 0-2 /HPF Urine WBC 0-2 /HPF Urine Squamous Epithelial Cells NONE /HPF Urine Crystals NONE /LPF Urine Bacteria NEGATIVE /HPF Urine Casts NONE /LPF Urine Mucus NONE /LPF Urine Other /HPF Urine Culture Indicated NO My Orders Orders - MALINDA AVILA DO Cbc With Automated Diff (01/21/19 10:00) Comprehensive Metabolic Panel (01/21/19 10:00) Fibrin Degradation Products (01/21/19 10:00) Lipase (01/21/19 10:00) Magnesium (01/21/19 10:00) Partial Thromboplastin Time (01/21/19 10:00) Protime With Inr (01/21/19 10:00) Probnp Fs (01/21/19 10:00) Troponin I Fs (01/21/19 10:00) Ua Culture If Indicated (01/21/19 10:00) Chest 1 View Ap/Pa Only (01/21/19 10:00) Ekg Tracing (01/21/19 10:00) Fentanyl Injection (Sublimaze Injection (01/21/19 10:00) Ondansetron Injection (Zofran Injectio (01/21/19 10:00) Ed Iv/Invasive Line Start (01/21/19 10:21) Ct Angio Chest W (01/21/19 12:05) Ns Iv 500 Ml (Sodium Chloride 0.9%) (01/21/19 12:15) Iohexol Injection (Omnipaque 350 Mg/Ml 1 (01/21/19 12:45) Received Contrast (Hold Metformin- Contr (01/21/19 12:45) Sodium Chloride Flush (Catheter Flush Sy (01/21/19 12:45) Ns (Ivpb) (Sodium Chloride 0.9% Ivpb Bag (01/21/19 12:45) Ns Iv 500 Ml (Sodium Chloride 0.9%) (01/21/19 13:15) Medications Given in ED Current Medications Medications Dose Ordered Sig/Prakash Route Start Time Stop Time Status Last Admin Dose Admin Fentanyl Citrate 75 mcg ONCE ONCE IVP 01/21/19 10:00 01/21/19 10:02 DC 01/21/19 10:35 75 MCG Iohexol 100 ml ONCE ONCE IV 01/21/19 12:45 01/21/19 12:46 DC 01/21/19 13:08 100 ML Ondansetron HCl 4 mg ONCE ONCE IVP 01/21/19 10:00 01/21/19 10:02 DC 01/21/19 10:35 4 MG Sodium Chloride 10 ml NEEDED PRN IV 01/21/19 12:45 01/21/19 13:08 10 ML Sodium Chloride 100 ml ONCE ONCE IV 01/21/19 12:45 01/21/19 12:46 DC 01/21/19 13:08 80 ML Vital Signs/I&O 01/21/19 09:39 Temp 37.0 Pulse 84 Resp 16 B/P (MAP) 139/69 (92) Pulse Ox 95 O2 Delivery Room Air Capillary Refill : Progress Note : Progress Note Patient with multiple complaints in the setting of extensive medical history so she will get labs imaging attempt to treat symptoms. She looks quite comfortable with no respiratory distress and normal vital signs at this time. Workup unremarkable except for mildly elevated d-dimer and BNP. No signs of infection acute coronary syndrome or other acute pathology. CT angiogram showed no evidence of pulmonary emboli or aortic dissection. She has remained very comfortable throughout her entire emergency department stay and her vital signs of state normal as well. Her blood pressure is slightly on the lower side which is contributing to her dizziness in my opinion so told her she should follow with her primary care provider within the next 2-3 days to have her blood pressure rechecked and medicines modified if needed and she can also discuss getting an outpatient echocardiogram and cardiology consultation. Patient aware and agreeable with plan for discharge and verbalized understanding of the need for short-term follow-up and strict ED return precautions discussed as above. Departure Impression Primary Impression: Chest pain at rest Additional Impressions: Elevated d-dimer Elevated brain natriuretic peptide (BNP) level CRI (chronic renal insufficiency) Disposition: 01 HOME, SELF-CARE Condition: Stable Departure-Patient Inst. Referrals: SHAYLEE MITCHELL MD (PCP/Family) Primary Care Physician Patient Instructions: Chest Pain (DC) Add. Discharge Instructions: Follow with pcp in the next 2-3 days. Come back with any new or worsening symptoms. Thank you! MALINDA AVILA DO Jan 21, 2019 09:53 POS
[2019-01-21] MEDS ORDERED: fentaNYL INJECTION 100 MCG/2 ML AMP IVP ONE (10:00)
[2019-01-21] MEDS ORDERED: ONDANSETRON 4 MG/2 ML (SDV) Z0FRAN IVP ONE (10:00)
[2019-01-21 10:14] LABS: BASOPHILS % (AUTO) 1 % (0-10); EOSINOPHILS % (AUTO) 2 % (0-10); HEMATOCRIT 43 % (35-52); HEMOGLOBIN 13.7 G/DL (11.5-16.0); LYMPHOCYTES % (AUTO) 47 % (12-44); MEAN CORPUSCULAR HEMOGLOBIN 30 PG (25-34); MEAN CORPUSCULAR HGB CONC 32 G/DL (32-36); MEAN CORPUSCULAR VOLUME 95 FL (80-99); MEAN PLATELET VOLUME 9.5 FL (7.4-10.4); MONOCYTES % (AUTO) 6 % (0-12); NEUTROPHILS % (AUTO) 44 % (42-75); PLATELET COUNT 289 10^3/uL (130-400); RED CELL DISTRIBUTION WIDTH 13.8 % (10.0-14.5); WHITE BLOOD COUNT 11.1 10^3/uL (4.3-11.0)
[2019-01-21 10:15] LABS: BASOPHILS # (AUTO) 0.1 10^3/uL (0.0-0.1); EOSINOPHILS # (AUTO) 0.3 10^3/uL (0.0-0.3); LYMPHOCYTES # (AUTO) 5.2 X 10^3 (1.0-4.0); MONOCYTES # (AUTO) 0.6 X 10^3 (0.0-1.0); NEUTROPHILS # (AUTO) 4.8 X 10^3 (1.8-7.8)
--- NOTE | 2019-01-21 10:32 | Diagnostic Imaging Report ---
INDICATION: Chest pain and pressure. TIME OF EXAM: 09:59 a.m. Correlation is made with prior chest from 11/03/2018. FINDINGS: Heart size is stable. Cardiac pacemaker remains in place. There is some linear scarring or atelectasis in the left base. No infiltrate or failure is seen. There is no effusion or pneumothorax. IMPRESSION: Stable chest. No acute cardiopulmonary process is detected. Dictated by: Dictated on workstation # [id number]
[2019-01-21 10:45] LABS: ALANINE AMINOTRANSFERASE 22 U/L (0-55); ALKALINE PHOSPHATASE 139 U/L (40-136); BILIRUBIN,TOTAL 0.4 MG/DL (0.1-1.0); BUN/CREATININE RATIO 13; CALCIUM 10.1 MG/DL (8.5-10.1); CARBON DIOXIDE 23 MMOL/L (21-32); CHLORIDE 101 MMOL/L (98-107); GFR ESTIMATED 40; GLUCOSE 125 MG/DL (70-105); POTASSIUM 4.7 MMOL/L (3.6-5.0); SODIUM 139 MMOL/L (135-145)
[2019-01-21 10:46] LABS: ALBUMIN 4.3 GM/DL (3.2-4.5); LIPASE 28 U/L (8-78); TOTAL PROTEIN 7.4 GM/DL (6.4-8.2)
[2019-01-21 11:29] LABS: BILIRUBIN,URINE NEGATIVE (NEGATIVE); COLOR,URINE YELLOW; GLUCOSE, URINE (UA) NEGATIVE (NEGATIVE); KETONES,URINE NEGATIVE (NEGATIVE); NITRITE,URINE NEGATIVE (NEGATIVE); PROTEIN,URINE NEGATIVE (NEGATIVE)
[2019-01-21 11:30] LABS: BACTERIA,URINE NEGATIVE /HPF; LEUKOCYTE ESTERASE ,URINE TRACE (NEGATIVE); RBC,URINE 0-2 /HPF; WBC,URINE 0-2 /HPF
[2019-01-21 11:59] LABS: FIBRIN DEGRADATION PRODUCTS 7.4 UG/ML (0.00-0.49); INR 0.9 (0.8-1.4); PROTHROMBIN TIME PATIENT 12.3 SEC (12.2-14.7)
[2019-01-21] MEDS ORDERED: NS IV 500 ML 500 ML IV SCH ×2 (12:15→13:15)
[2019-01-21] MEDS ORDERED: HOLD METFORMIN - RECEIVED CONTRAST 20 ML VIAL IV SCH (12:45)
[2019-01-21] MEDS ORDERED: IOHEXOL 350 MG/ML 100 ML (OMNIPAQUE 350) VIAL IV ONE (12:45)
[2019-01-21] MEDS ORDERED: CATHETER FLUSH 10 ML SYR IV PRN (12:45)
[2019-01-21] MEDS ORDERED: NS 100 ML (IVPB) BAG IV ONE (12:45)
--- NOTE | 2019-01-21 13:39 | Diagnostic Imaging Report ---
INDICATION: Shortness of breath, recent left hip replacement. TECHNIQUE: Multiple contiguous axial images were obtained through the chest after uneventful bolus administration of intravenous contrast. 3D reconstructed CTA MIP acquisitions were also performed. Auto Exposure Controls were utilized during the CT exam to meet ALARA standards for radiation dose reduction. COMPARISON: There is no prior CTA chest for comparison. FINDINGS: The pulmonary parenchymal vessels are well-opacified with no CT evidence of pulmonary emboli. The thoracic aorta shows tortuosity but no evidence of aneurysm or dissection. The great vessel origins are patent and without stenosis. There is a dual-lead pacemaker device in place. There is cardiomegaly. There are no enlarged mediastinal or hilar nodes. There are no enlarged axillary nodes or chest wall lesions. There is no pleural or pericardial fluid. There are some calcified subcarinal nodes, compatible with old granulomatous disease. Lung parenchymal windows demonstrate some areas of linear scarring versus atelectasis in the lower lobes on both sides. There is no consolidation or pulmonary parenchymal mass. IMPRESSION: No CT evidence of pulmonary emboli, aortic dissection, or aneurysm. Parenchymal scarring in both lung bases with no consolidation or pleural fluid. Underlying cardiomegaly. Dictated by: Dictated on workstation # [id number]
[2019-01-21 14:05] VITALS: BP 124/61
== END 2019-01-21 14:05 | disposition home or self-care (01) ==
LOC: EDUNIT# 09:37 → ER FS 09:38
DX: R07.9 Chest pain, unspecified (principal); R79.1 Abnormal coagulation profile; R79.89 Other specified abnormal findings of blood chemistry; I12.9 Hypertensive chronic kidney disease with stage 1 through stage 4 chronic kidney disease, or unspecified chronic kidney disease; N18.9 Chronic kidney disease, unspecified; I25.10 Atherosclerotic heart disease of native coronary artery without angina pectoris; J44.9 Chronic obstructive pulmonary disease, unspecified; F03.90 Unspecified dementia, unspecified severity, without behavioral disturbance, psychotic disturbance, mood disturbance, and anxiety; K21.9 Gastro-esophageal reflux disease without esophagitis; Z85.41 Personal history of malignant neoplasm of cervix uteri; Z79.82 Long term (current) use of aspirin; Z88.1 Allergy status to other antibiotic agents; Z88.8 Allergy status to other drugs, medicaments and biological substances; Z87.891 Personal history of nicotine dependence; Z96.642 Presence of left artificial hip joint; Z90.89 Acquired absence of other organs; Z82.49 Family history of ischemic heart disease and other diseases of the circulatory system; Z80.6 Family history of leukemia
CPT/HCPCS: 36415; 71045; 71275; 80053; 81000; 83690; 83735; 83880; 84484; 85025; 85379; 85610; 85730; 93005; 96361; 96374; 96375

== ENCOUNTER 2019-03-01 17:41 | Inpatient (IN) | payer MEDICARE, MEDICAID ==
[~2019-03-01] VITALS: Ht 157.4 cm; Wt 74.0 kg
[2019-03-01] MEDS ORDERED: NS IV 1000 ML 1,000 ML IV SCH (17:48)
[2019-03-01] MEDS ORDERED: NS 100 ML (IVPB) BAG IV ONE (18:00)
[2019-03-01] MEDS ORDERED: HOLD METFORMIN - RECEIVED CONTRAST 20 ML VIAL IV SCH (18:00)
[2019-03-01] MEDS ORDERED: IOHEXOL 350 MG/ML 100 ML (OMNIPAQUE 350) VIAL IV ONE (18:00)
[2019-03-01] MEDS ORDERED: fentaNYL INJECTION 100 MCG/2 ML AMP IVP ONE (18:00)
[2019-03-01] MEDS ORDERED: CATHETER FLUSH 10 ML SYR IV PRN (18:00)
[2019-03-01] MEDS ORDERED: ONDANSETRON 4 MG/2 ML (SDV) Z0FRAN IVP ONE (18:00)
[2019-03-01 18:07] LABS: BASOPHILS # (AUTO) 0.1 10^3/uL (0.0-0.1); BASOPHILS % (AUTO) 1 % (0-10); EOSINOPHILS # (AUTO) 0.3 10^3/uL (0.0-0.3); EOSINOPHILS % (AUTO) 3 % (0-10); HEMATOCRIT 39 % (35-52); HEMOGLOBIN 12.5 G/DL (11.5-16.0); LYMPHOCYTES # (AUTO) 3.9 X 10^3 (1.0-4.0); LYMPHOCYTES % (AUTO) 37 % (12-44); MEAN CORPUSCULAR HEMOGLOBIN 30 PG (25-34); MEAN CORPUSCULAR HGB CONC 32 G/DL (32-36); MEAN CORPUSCULAR VOLUME 93 FL (80-99); MEAN PLATELET VOLUME 9.2 FL (7.4-10.4); MONOCYTES # (AUTO) 0.7 X 10^3 (0.0-1.0); MONOCYTES % (AUTO) 7 % (0-12); NEUTROPHILS # (AUTO) 5.5 X 10^3 (1.8-7.8); NEUTROPHILS % (AUTO) 52 % (42-75); PLATELET COUNT 254 10^3/uL (130-400); RED CELL DISTRIBUTION WIDTH 13.2 % (10.0-14.5); WHITE BLOOD COUNT 10.5 10^3/uL (4.3-11.0)
--- NOTE | 2019-03-01 18:29 | ED Abdominal Pain ---
General Chief Complaint: Abdominal/GI Problems Stated Complaint: ABD PAIN Nursing Triage Note: Brought in by EMS for abdominal pain that started 2 hours ago. States it is currently a 10/10 on pain scale. Denies fevers or vomiting. Has had some nausea. Last bowel movement was today and states it was a normal consistency. Sepsis Screen: No Definite Risk Source of Information: Patient, EMS History of Present Illness Date Seen by Provider: Mar 01, 2019 Time Seen by Provider: 17:41 Initial Comments 83 yo F presenting by EMS with complaints of severe pain in the abdomen. This started about 2 hours prior to arrival. She is rating the pain at 10 out of 10. She denies any fever or chills. She has had nausea but no vomiting. She has had decreased appetite and oral intake in the last day or 2. Her last bowel movement was today after the pain started and did not have any effect on the pain. She denied having any blood in the stool and no dark tarry stools. She denies any pain with urination and no blood in her urine. She denies having pain like this in the past in her abdomen. She has had surgery on her abdomen with a hysterectomy and appendectomy in the past. Allergies and Home Medications Allergies Coded Allergies: aspirin (Verified Allergy, Severe, 11/01/18) clindamycin (Verified Allergy, Severe, swelling, 11/01/18) fosinopril (Verified Allergy, Severe, Rash, 11/01/18) lisinopril (Verified Allergy, Severe, Rash, 11/01/18) Home Medications Acetaminophen 325 Mg Tablet, 325 MG PO Q4H PRN for PAIN-MILD, (Reported) Carvedilol 6.25 Mg Tablet, 6.25 MG PO BID, (Reported) Cholecalciferol (Vitamin D3) 5,000 Unit Capsule, 5,000 UNITS PO Garcia, (Reported) Diclofenac Sodium 100 Gm Gel..gram., 1 GM TOP QID PRN for Pain Prescribed by: ELENA FRANCISCO on 11/16/18 1350 Ferrous Sulfate 325 Mg Tablet, 325 MG PO Q48H Prescribed by: ELENA FRANCISCO on 11/16/18 1350 Furosemide 20 Mg Tablet, 20 MG PO DAILY, (Reported) Hydralazine HCl 100 Mg Tablet, 100 MG PO Q6H PRN for BLOOD PRESSURE, (Reported) Hydrocodone Bit/Acetaminophen 1 Tab Tab, 1 TAB PO Q12HR PRN for PAIN-MODERATE Prescribed by: ELENA FRANCISCO on 11/16/18 1351 Levothyroxine Sodium 50 Mcg Tablet, 50 MCG PO DAILY, (Reported) Meclizine HCl 25 Mg Tablet, 25 MG PO DAILY PRN for DIZZINESS, (Reported) Memantine HCl 14 Mg Cap.spr.24, 14 MG PO DAILY, (Reported) Oxycodone HCl 20 Mg Tab.er.12h, 20 MG PO Q12H Prescribed by: ELENA FRANCISCO on 11/16/18 1350 Pantoprazole Sodium 40 Mg Tablet.dr, 40 MG PO DAILY, (Reported) Polyethylene Glycol 3350 17 Gm Powd.pack, 17 GM PO Q48H, (Reported) Potassium Chloride 10 Meq Tablet.er, 10 MEQ PO DAILY, (Reported) Tizanidine HCl 2 Mg Tablet, 2 MG PO TID PRN for MUSCLE SPASMS, (Reported) Trazodone HCl 50 Mg Tablet, 50 MG PO HS, (Reported) Patient Home Medication List Home Medication List Reviewed: Yes Review of Systems Review of Systems Constitutional: No chills, No fever EENTM: No Symptoms Reported Respiratory: No Symptoms Reported Cardiovascular: No Symptoms Reported Gastrointestinal: See HPI Genitourinary: See HPI Musculoskeletal: no symptoms reported Skin: no symptoms reported Psychiatric/Neurological: No Symptoms Reported Endocrine: No Symptoms Reported Past Nlgjxjy-Oogejx-Dzkihq Hx Past Med/Social Hx: Reviewed Nursing Past Med/Soc Hx Patient Social History Alcohol Use: Denies Use Recreational Drug Use: No Smoking Status: Former Smoker Former Smoker, Quit: Nov 02, 1959 2nd Hand Smoke Exposure: No Recent Foreign Travel: No Contact w/Someone Who Travel: No Recent Infectious Disease Expo: No Recent Hopitalizations: Yes (LEFT HIP REPLACEMENT 8-19) Physical Abuse: No Sexual Abuse: No Mistreated: No Fear: No Seasonal Allergies Seasonal Allergies: No Past Medical History Surgeries: Yes Appendectomy, Hysterectomy, Orthopedic, Pacemaker, Tonsillectomy Respiratory: Yes Asthma, COPD Currently Using CPAP: No Currently Using BIPAP: No Cardiac: Yes Hypertension Neurological: Yes Dementia Genitourinary: Yes Bladder Infection Gastrointestinal: No Gastroesophageal Reflux, Hiatal Hernia Musculoskeletal: Yes (OSTEOARTHRITIS) Endocrine: Yes HEENT: Yes Hearing Impairment: Hard of Hearing Cancer: Yes Cervical Psychosocial: No Integumentary: No Blood Disorders: Yes (ANEMIA) Family Medical History Cardiovascular disease G8 BROTHER Diabetes mellitus 19 FATHER FH: leukemia 19 FATHER Hypertension 19 MOTHER Physical Exam Vital Signs Vital Signs - First Documented 03/01/19 17:57 Temp 36.3 Pulse 91 Resp 20 B/P (MAP) 171/104 (126) Pulse Ox 93 Capillary Refill : Less Than 3 Seconds Height/Weight/BMI Height: 5'2.00" Weight: 163lbs. 1.6oz. [id number]; 30.00 BMI Method:Stated General Appearance: moderate distress (complaining of abdominal pain and moaning in pain) HEENT: PERRL/EOMI (arcus senilis), pharynx normal Neck: non-tender, normal inspection Respiratory: chest non-tender, lungs clear, normal breath sounds Cardiovascular: normal peripheral pulses, regular rate, rhythm Gastrointestinal: soft, no pulsatile mass, abnormal bowel sounds (hypoactive bowel sounds), guarding; No rebound; tenderness (diffuse tenderness with guarding. no rebound) Rectal: deferred Extremities: normal range of motion, non-tender, normal capillary refill Neurologic/Psychiatric: alert; No oriented x 3 (oriented to self and place) Skin: normal color, warm/dry Focused Exam Lactate Level 03/01/19 17:50: Lactic Acid Level 1.07 Lactic Acid Level Laboratory Tests Test 03/01/19 17:50 Lactic Acid Level 1.07 MMOL/L (0.50-2.00) Progress/Results/Core Measures Results/Orders Lab Results Laboratory Tests Test 03/01/19 17:50 03/01/19 19:01 Range/Units White Blood Count 10.5 4.3-11.0 10^3/uL Red Blood Count 4.16 L 4.35-5.85 10^6/uL Hemoglobin 12.5 11.5-16.0 G/DL Hematocrit 39 35-52 % Mean Corpuscular Volume 93 80-99 FL Mean Corpuscular Hemoglobin 30 25-34 PG Mean Corpuscular Hemoglobin Concent 32 32-36 G/DL Red Cell Distribution Width 13.2 10.0-14.5 % Platelet Count 254 130-400 10^3/uL Mean Platelet Volume 9.2 7.4-10.4 FL Neutrophils (%) (Auto) 52 42-75 % Lymphocytes (%) (Auto) 37 12-44 % Monocytes (%) (Auto) 7 0-12 % Eosinophils (%) (Auto) 3 0-10 % Basophils (%) (Auto) 1 0-10 % Neutrophils # (Auto) 5.5 1.8-7.8 X 10^3 Lymphocytes # (Auto) 3.9 1.0-4.0 X 10^3 Monocytes # (Auto) 0.7 0.0-1.0 X 10^3 Eosinophils # (Auto) 0.3 0.0-0.3 10^3/uL Basophils # (Auto) 0.1 0.0-0.1 10^3/uL Sodium Level 138 135-145 MMOL/L Potassium Level 5.3 H 3.6-5.0 MMOL/L Chloride Level 103 98-107 MMOL/L Carbon Dioxide Level 23 21-32 MMOL/L Anion Gap 12 5-14 MMOL/L Blood Urea Nitrogen 23 H 7-18 MG/DL Creatinine 1.35 H 0.60-1.30 MG/DL Estimat Glomerular Filtration Rate 45 BUN/Creatinine Ratio 17 Glucose Level 121 H 70-105 MG/DL Lactic Acid Level 1.07 0.50-2.00 MMOL/L Calcium Level 9.5 8.5-10.1 MG/DL Corrected Calcium 9.7 8.5-10.1 MG/DL Total Bilirubin 0.2 0.1-1.0 MG/DL Aspartate Amino Transf (AST/SGOT) 108 H 5-34 U/L Alanine Aminotransferase (ALT/SGPT) 44 0-55 U/L Alkaline Phosphatase 135 40-136 U/L Troponin I < 0.30 <0.30 NG/ML Total Protein 6.8 6.4-8.2 GM/DL Albumin 3.7 3.2-4.5 GM/DL Lipase 1246 H 8-78 U/L Urine Color YELLOW Urine Clarity CLEAR Urine pH 5.5 5-9 Urine Specific [place] 1.015 L 1.016-1.022 Urine Protein NEGATIVE NEGATIVE Urine Glucose (UA) NEGATIVE NEGATIVE Urine Ketones NEGATIVE NEGATIVE Urine Nitrite NEGATIVE NEGATIVE Urine Bilirubin NEGATIVE NEGATIVE Urine Urobilinogen 0.2 < = 1.0 MG/DL Urine Leukocyte Esterase TRACE NEGATIVE Urine RBC (Auto) NEGATIVE NEGATIVE Urine RBC NONE /HPF Urine WBC 10-25 H /HPF Urine Squamous Epithelial Cells 10-25 H /HPF Urine Crystals NONE /LPF Urine Bacteria TRACE /HPF Urine Casts NONE /LPF Urine Mucus SMALL H /LPF Urine Culture Indicated YES My Orders Orders - ABENA MEJIAS MD Oxygen-Administer DAILY (03/01/19 20:28) Ns Iv 1000 Ml (Sodium Chloride 0.9%) (03/01/19 20:28) Piperacillin Sodium/Tazobactam (Zosyn Vi (03/01/19 20:38) Medications Given in ED Current Medications Medications Dose Ordered Sig/Prakash Route Start Time Stop Time Status Last Admin Dose Admin Fentanyl Citrate 50 mcg ONCE ONCE IVP 03/01/19 18:00 03/01/19 18:01 DC 03/01/19 18:15 50 MCG Iohexol 100 ml ONCE ONCE IV 03/01/19 18:00 03/01/19 18:01 DC 03/01/19 19:13 100 ML Ondansetron HCl 4 mg ONCE ONCE IVP 03/01/19 18:00 03/01/19 18:01 DC 03/01/19 18:15 4 MG Sodium Chloride 10 ml NEEDED PRN IV 03/01/19 18:00 03/01/19 19:13 10 ML Sodium Chloride 100 ml ONCE ONCE IV 03/01/19 18:00 03/01/19 18:01 DC 03/01/19 19:13 100 ML Vital Signs/I&O 03/01/19 17:57 Temp 36.3 Pulse 91 Resp 20 B/P (MAP) 171/104 (126) Pulse Ox 93 Blood Pressure Mean: 126 Progress Progress Note #1: Progress Note Patient was initially seen by Dr. Quigley on patient's arrival by EMS. He placed initial orders. On my evaluation of the patient she stated that she had not had pain like this before. She also denied having any history diverticulitis. Her pain did seem to be a little worse on the left side of her abdomen but was diffusely tender. There was no rebound tenderness and she had no rigidity of her abdomen. Awaiting labs to ensure that her creatinine was stable to be able to perform a CT scan with contrast. A lactic acid had also been ordered to evaluate for possible ischemic bowel. She had orders for that note for pain, Zofran for nausea and IV fluids for hydration. Progress Note #2: Progress Note Labs show white blood cell count of 10.5. Her hemoglobin was stable at 12.5. Her chemistry showed mild elevation of her creatinine of 1.35. Her lipase was having to be diluted due to how high it was. This would indicate that she has some pancreatitis. Her CT scan was able to be performed but she does have some renal insufficiency. Her electrocardiogram shows a paced rhythm. Her symptoms were improved with treatment. Awaiting CT and final lipase result. Progress Note #3: Progress Note CT scan shows cholecystitis but no inflammation of the pancreas. Discussed with Dr. Wheat from the surgery standpoint and Dr. Foster from a medical standpoint. They accepted the patient for admission to [facility]. She will be treated with IV antibiotics as well as fluids and pain medicine. Allow her gallbladder and pancreas to settle down from an inflammation standpoint prior to surgery. Initial ECG Impression Date: Mar 01, 2019 Initial ECG Impression Time: 17:58 Initial ECG Rate: 89 Initial ECG Comparisson: Unchanged Comment Paced rhythm with heart rate of 89 bpm. NC interval 193 ms. QT interval 376 ms and a QT corrected interval of 458 ms. This appears similar to prior tracings. Diagnostic Imaging Diagonstic Imaging: CT Plain Films/CT/US/NM/MRI: abdomen, pelvis Comments NAME: FRANCO CHARLTON MED REC#: [id number] PT STATUS: REG ER : 1935 PHYSICIAN: WING QUIGLEY MD ADMIT DATE: 03/01/19/ER FS Signed Date of Exam:03/01/19 CT ABDOMEN/PELVIS W PROCEDURE: CT abdomen and pelvis with contrast. TECHNIQUE: Multiple contiguous axial images were obtained through the abdomen and pelvis after administration of intravenous contrast. Auto Exposure Controls were utilized during the CT exam to meet ALARA standards for radiation dose reduction. INDICATION: Generalized abdominal pain COMPARISON: None FINDINGS: Lung bases are clear. There is some slight distention of the gallbladder with questionable pericholecystic fluid. No obvious gallstones or gallbladder wall thickening are seen. Consider ultrasound correlation. The liver, spleen, pancreas, adrenal glands and kidneys are grossly unremarkable. There is some mild constipation throughout the colon without obstruction or ileus. There is diverticulosis of the descending colon without diverticulitis. The small bowel is normal. Distal ureters and urinary bladder are normal. The appendix is not seen. However, no indirect signs of acute appendicitis are identified. Osseous structures are age-appropriate. IMPRESSION: 1. Slight gallbladder distention with questionable pericholecystic fluid. Consider ultrasound to exclude cholecystitis. 2. Normal-appearing pancreas. No CT evidence for acute pancreatitis is identified. 3. Mild constipation without bowel obstruction. 4. Diverticulosis of the descending and sigmoid colon without diverticulitis. Dictated by: Dictated on workstation # [id number] Dict: 03/01/191927 Trans: 03/01/191941 [facility] [id number] Interpreted by: STELLA DIGGS Electronically signed by: STELLA DIGGS 03/01/191941 Departure Communication (Admissions) Time/Spoke to Admitting Phy: 20:[address] Foster who is on-call for [facility] since patient follows with Dr. Mitchell. She accepted the patient for admission with a surgery consult from Dr. Wheat. Will continue IV antibiotics and hydration. Keep the patient nothing by mouth except meds with small sips for her cholecystitis and pancreatitis. Time/Spoke to Consulting Phy: 20:[address] Wehat to review the patient had findings for acute cholecystitis and pancreatitis from her CT scan and labs. He stated that he would see the patient in consult and have her get IVF, antibiotics and let her gallbladder and pancreas inflammation settle some before doing surgery and then plan to do a cholangiogram intraoperatively. Impression Primary Impression: Acute acalculous cholecystitis Additional Impression: Acute pancreatitis Qualified Codes: K85.90 - Acute pancreatitis without necrosis or infection, unspecified Disposition: ADMITTED INPATIENT Condition: Stable Admissions Decision to Admit Reason: Admit from ER (General) Decision to Admit/Date: Mar 01, 2019 Time/Decision to Admit Time: 20:34 Departure-Patient Inst. Referrals: SHAYLEE MITCHELL MD (PCP/Family) Primary Care Physician ABENA MEJIAS MD Mar 01, 2019 18:29
[2019-03-01 18:39] LABS: BILIRUBIN,TOTAL 0.2 MG/DL (0.1-1.0); BUN/CREATININE RATIO 17; CALCIUM 9.5 MG/DL (8.5-10.1); CARBON DIOXIDE 23 MMOL/L (21-32); CHLORIDE 103 MMOL/L (98-107); CREATININE SERUM 1.35 MG/DL (0.60-1.30); GFR ESTIMATED 45; GLUCOSE 121 MG/DL (70-105); POTASSIUM 5.3 MMOL/L (3.6-5.0); SODIUM 138 MMOL/L (135-145)
[2019-03-01 18:40] LABS: ALANINE AMINOTRANSFERASE 44 U/L (0-55); ALBUMIN 3.7 GM/DL (3.2-4.5); ALKALINE PHOSPHATASE 135 U/L (40-136); TOTAL PROTEIN 6.8 GM/DL (6.4-8.2)
[2019-03-01 19:13] LABS: LIPASE 1246 U/L (8-78)
[2019-03-01 19:14] LABS: BILIRUBIN,URINE NEGATIVE (NEGATIVE); CLARITY,URINE CLEAR; COLOR,URINE YELLOW; GLUCOSE, URINE (UA) NEGATIVE (NEGATIVE); KETONES,URINE NEGATIVE (NEGATIVE); LEUKOCYTE ESTERASE ,URINE TRACE (NEGATIVE); NITRITE,URINE NEGATIVE (NEGATIVE); PH,URINE 5.5 (5-9); PROTEIN,URINE NEGATIVE (NEGATIVE)
[2019-03-01 19:15] LABS: BACTERIA,URINE TRACE /HPF
--- NOTE | 2019-03-01 19:34 | Diagnostic Imaging Report ---
PROCEDURE: CT abdomen and pelvis with contrast. TECHNIQUE: Multiple contiguous axial images were obtained through the abdomen and pelvis after administration of intravenous contrast. Auto Exposure Controls were utilized during the CT exam to meet ALARA standards for radiation dose reduction. INDICATION: Generalized abdominal pain COMPARISON: None FINDINGS: Lung bases are clear. There is some slight distention of the gallbladder with questionable pericholecystic fluid. No obvious gallstones or gallbladder wall thickening are seen. Consider ultrasound correlation. The liver, spleen, pancreas, adrenal glands and kidneys are grossly unremarkable. There is some mild constipation throughout the colon without obstruction or ileus. There is diverticulosis of the descending colon without diverticulitis. The small bowel is normal. Distal ureters and urinary bladder are normal. The appendix is not seen. However, no indirect signs of acute appendicitis are identified. Osseous structures are age-appropriate. IMPRESSION: 1. Slight gallbladder distention with questionable pericholecystic fluid. Consider ultrasound to exclude cholecystitis. 2. Normal-appearing pancreas. No CT evidence for acute pancreatitis is identified. 3. Mild constipation without bowel obstruction. 4. Diverticulosis of the descending and sigmoid colon without diverticulitis. Dictated by: Dictated on workstation # [id number]
[2019-03-01] MEDS ORDERED: NS IV 1000 ML 1,000 ML IV STA (20:28)
[2019-03-01] MEDS ORDERED: PIPERACILLIN SODIUM/TAZOBACTAM 4.5 GM in NS (IVPB) 100 ML IV STA (20:38)
--- NOTE | 2019-03-01 22:00 | NUR ---
FRANCO GREENUGHN admitted to room 432-1, with an admitting diagnosis of ACUTE CHOLECYSTITIS, ACUTE PANCREATITIS, on 03/01/19 from [facility] ED via EMS, accompanied by EMS STAFF. FRANCO CHARLTON introduced to surroundings, call light, bed controls, phone, TV, temperature control, lights, meal times, smoking policy, visitor policy, side rail policy, bathrooms and showers. Patient Rights given to patient in the handbook. FRANCO CHARLTON verbalizes understanding that [facility] is not responsible for the loss or damage to any personal effects or valuables that are kept in the patients posession during their hospitalization. FRANCO CHARLTON verbalizes understanding of Interdisciplinary Patient Education. Patient and/or family were informed about the Rapid Response Team and its purpose.
[2019-03-01 23:43] VITALS: BP 157/87
[2019-03-01] MEDS ORDERED: ONDANSETRON 4 MG/2 ML (SDV) Z0FRAN IV PRN (23:45)
[2019-03-02] VITALS (7 sets, daily range): BP systolic 138–156; BP diastolic 68–112
[2019-03-02] MEDS: NS IV 1000 ML 1,000 ML IV SCH ×4 (00:11→23:53)
[2019-03-02] MEDS ORDERED: PIPERACILLIN/TAZO 4.5 GM VIAL (ZOSYN) IV ONE (01:50)
[2019-03-02] MEDS ORDERED: NS (IVPB) 100 ML ONE (01:50)
[2019-03-02] MEDS: PIPERACILLIN/TAZO 4.5 GM/NS 100 ML IV SCH ×6 (03:10→18:16)
[2019-03-02] MEDS: morphine INJ 4 MG/ML 1 ML (VIAL/SYRINGE) IV PRN ×3 (04:17→15:47)
[2019-03-02 06:39] LABS: BASOPHILS % (AUTO) 1 % (0-10); EOSINOPHILS # (AUTO) 0.2 10^3/uL (0.0-0.3); EOSINOPHILS % (AUTO) 3 % (0-10); HEMATOCRIT 36 % (35-52); HEMOGLOBIN 11.9 G/DL (11.5-16.0); LYMPHOCYTES # (AUTO) 3.1 X 10^3 (1.0-4.0); LYMPHOCYTES % (AUTO) 42 % (12-44); MEAN CORPUSCULAR HEMOGLOBIN 30 PG (25-34); MEAN CORPUSCULAR HGB CONC 33 G/DL (32-36); MEAN CORPUSCULAR VOLUME 92 FL (80-99); MEAN PLATELET VOLUME 9.1 FL (7.4-10.4); MONOCYTES # (AUTO) 0.4 X 10^3 (0.0-1.0); MONOCYTES % (AUTO) 6 % (0-12); NEUTROPHILS # (AUTO) 3.5 X 10^3 (1.8-7.8); NEUTROPHILS % (AUTO) 48 % (42-75); PLATELET COUNT 239 10^3/uL (130-400); RED CELL DISTRIBUTION WIDTH 13.5 % (10.0-14.5); WHITE BLOOD COUNT 7.2 10^3/uL (4.3-11.0)
[2019-03-02 07:00] LABS: ALBUMIN 3.3 GM/DL (3.2-4.5); BILIRUBIN,TOTAL 0.3 MG/DL (0.1-1.0); CREATININE SERUM 1.27 MG/DL (0.60-1.30); POTASSIUM 4.9 MMOL/L (3.6-5.0); TOTAL PROTEIN 5.8 GM/DL (6.4-8.2)
--- NOTE | 2019-03-02 09:00 | NUR ---
DR. FRANCISCO NOTIFIED OF ELEVATED BP, NEED FOR HOME MEDS, AND DVT PROPHYLAXIS.
[2019-03-02] MEDS ORDERED: amLODIPine 5 MG (NORVASC) TAB PO ONE (09:15)
[2019-03-02] MEDS ORDERED: CYCL10TA9 PO (09:30)
[2019-03-02] MEDS ORDERED: FURO-125 PO (09:30)
[2019-03-02] MEDS ORDERED: AMOX1TAB12 PO (09:30)
[2019-03-02] MEDS ORDERED: MELO7.5T46 PO (09:30)
[2019-03-02] MEDS ORDERED: ASPI-983 PO (09:30)
[2019-03-02] MEDS ORDERED: CARV3.122 PO (09:30)
[2019-03-02] MEDS ORDERED: FERR325T18 PO (09:30)
[2019-03-02] MEDS ORDERED: HYDR-3812 PO (09:40)
[2019-03-02] MEDS ORDERED: OXYC20TA54 PO (09:41)
--- NOTE | 2019-03-02 10:35 | NUR ---
SPOKE WITH THE PT , WENT THRU THE EXT MED HIST, AND CALLED MAIN TO COMPLETE THE MED REC. PT WAS ABLE TO TELL ME HER MEDS AND HOW/WHEN SHE TAKES EACH. HYDROCODONE 5/325: THIS WAS FILLED ON 12-25-2018 AND PT SAYS SHE TAKES IT PRN BETWEEN HER DOSES OF OXYCONTIN. HYDRALAZINE 100M Q 6 H PRF UNCONTROLLED HIGH BLOOD PRESSURE- PT COULD NOT REMEMBER AT WHAT READINGS TO TAKE THIS (SAYS SHE HAS IT WRITTEN AT HOME) AND IT WAS NOT LISTED ON THE PRESCRIPTION AT THE PHARMACY. VIT D 5,000: PT SAYS SHE IS NOW TAKING 2 CAPS TO EQUAL 10,000 ONCE WEEKLY, HOWEVER THE PHARMACY DOES NOT HAVE AN RX TO REFLECT THAT. OTC MEDS: TYLENOL ASPIRIN MIRALAX
--- NOTE | 2019-03-02 10:54 | History & Physical-Hospitalist ---
History of Present Illness HPI/Chief Complaint CC: Abdominal pain HPI: This is a 83yo -[place] female known to me from inpatient rehab course several months ago after a hip replacement who presented with abdominal pain, found to have elevated lipase and Dr. Wheat was consulted. Pt remains NPO. Pain is a lot better this morning. Lovenox 40 Mg subQ daily will be given. Home meds will be restarted. Tylenol will be given for her headache. I did give her a dose of Norvasc for elevated BP. Source: patient Exam Limitations: no limitations Date Seen 03/02/19 Time Seen by a Provider: 10:00 Attending Physician Tami Foster MD PCP Haim Talley MD Referring Physician Date of Admission Mar 01, 2019 at 21:06 Home Medications & Allergies Home Medications Reviewed patient Home Medication Reconciliation performed by pharmacy medication reconciliations tire technician and/or nursing. Patients Allergies have been reviewed. 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) Alcohol Use: Denies Use Recreational Drug Use: No Smoking Status: Former Smoker Former Smoker, Quit: Nov 02, 1959 2nd Hand Smoke Exposure: No Recent Foreign Travel: No Contact w/other who traveled: No Recent Hopitalizations: Yes (LEFT HIP REPLACEMENT 10-20) Recent Infectious Disease Expo: No Immunizations Up To Date Date of Pneumonia Vaccine: Mar 04, 2016 Date of Influenza Vaccine: Dec 02, 2018 Seasonal Allergies Seasonal Allergies: No Past Medical History Surgeries: Appendectomy, Hysterectomy, Orthopedic, Pacemaker, Tonsillectomy Respiratory: Pneumonia Currently Using CPAP: No Currently Using BIPAP: No Cardiac: Chronic Edema/Swelling, Hypertension Neurological: Dementia Genitourinary: Bladder Infection Gastrointestinal: Gastroesophageal Reflux, Hiatal Hernia Hearing Impairment: Hard of Hearing Cancer: Cervical History of Blood Disorders: Yes (ANEMIA) Family History Cardiovascular disease G8 BROTHER Diabetes mellitus 19 FATHER FH: leukemia 19 FATHER Hypertension 19 MOTHER Review of Systems Constitutional: see HPI Gastrointestinal: RUQ, abdominal pain, nausea, vomiting Physical Exam Physical Exam Vital Signs Vital Signs - First Documented 03/01/19 03/01/19 17:57 21:19 Temp 36.3 Pulse 91 Resp 20 B/P (MAP) 171/104 (126) Pulse Ox 93 O2 Delivery Room Air Capillary Refill : Less Than 3 Seconds Height, Weight, BMI Height: 5'2.00" Weight: 163lbs. 1.6oz. 73.736480sp; 29.86 BMI Method:Stated General Appearance: No Apparent Distress, WD/WN, Chronically ill Eyes: Right Eye Normal Inspection, Right Eye PERRL HEENT: PERRL/EOMI, Normal ENT Inspection, Pharynx Normal, Moist Mucous Membranes Neck: Full Range of Motion, Normal Inspection, Non Tender Respiratory: Chest Non Tender, Lungs Clear, Normal Breath Sounds, No Accessory Muscle Use, No Respiratory Distress Cardiovascular: Regular Rate, Rhythm, No Edema, No Gallop, No JVD, No Murmur, Normal Peripheral Pulses Gastrointestinal: Normal Bowel Sounds, No Organomegaly, No Pulsatile Mass, Soft, Tenderness Back: Normal Inspection, No CVA Tenderness, No Vertebral Tenderness Extremity: Normal Capillary Refill, Normal Inspection, Normal Range of Motion, Non Tender, No Calf Tenderness, No Pedal Edema Neurologic/Psychiatric: Alert, Oriented x3, No Motor/Sensory Deficits, Normal Mood/Affect Skin: Normal Color, Warm/Dry Lymphatic: No Adenopathy Results Results/Procedures Labs Laboratory Tests 03/01/19 17:50 03/02/19 06:26 Patient resulted labs reviewed. Assessment/Plan Admission Diagnosis Assessment: Acute pancreatitis Abdominal pain HTN HLP OA Plan: IVF Supportive care IV Zofran Admission Status: Inpatient Order (span 2 midnights) Reason for Inpatient Admission: pancreatitis Diagnosis/Problems Diagnosis/Problems (1) Acute pancreatitis Status: Acute Qualifiers: Pancreatitis type: unspecified pancreatitis type Acute pancreatitis complication: no infection or necrosis Qualified Codes: K85.90 - Acute pancreatitis without necrosis or infection, unspecified (2) Acute acalculous cholecystitis Status: Acute (3) Oxygen dependent Status: Chronic (4) Hypoxia Status: Acute (5) Chronic pain Status: Chronic (6) Hypertension Status: Chronic (7) Hypothyroidism Status: Chronic (8) Alzheimer disease Status: Chronic (9) CRI (chronic renal insufficiency) Status: Acute Clinical Quality Measures DVT/VTE Risk/Contraindication: Risk Factor Score Per Nursin RFS Level Per Nursing on Admit: 4+=Very High ELENA FRANCISCO DO Mar 02, 2019 10:54
[2019-03-02] MEDS ORDERED: DICLOFENAC 1% GEL 100 GM (VOLTAREN) TUBE TOP PRN (11:00)
[2019-03-02] MEDS ORDERED: FUROSEMIDE 20 MG (LASIX) TAB PO PRN (11:00)
[2019-03-02] MEDS ORDERED: MECLIZINE 25 MG (ANTIVERT) TAB PO PRN (11:00)
[2019-03-02] MEDS: FERROUS SULF 325 MG (IRON) TAB PO SCH (11:36)
[2019-03-02] MEDS: KCL 10 MEQ TAB (MICRO K) PO SCH (11:36)
[2019-03-02] MEDS: ACETAMINOPHEN 325 MG TABLET PO PRN (11:38)
[2019-03-02] MEDS ORDERED: hydrALAZINE (APRESOLINE) 25 MG TAB PO PRN (11:45)
[2019-03-02] MEDS: CYCLOBENZAPRINE 10 MG (FLEXERIL) TAB PO SCH ×2 (13:38→21:00)
[2019-03-02] MEDS: HYDROcodone/APAP 5 MG/325 MG (LORTAB) TAB PO PRN (13:40)
--- NOTE | 2019-03-02 13:42 | NUR ---
LORTAB PO FOR C/O PAIN.
--- NOTE | 2019-03-02 14:43 | NUR ---
Pt is Hindu. Web Marketing Strategist provided prayer and Communion.
--- NOTE | 2019-03-02 15:20 | Consultation - Surgery ---
LEO HINSON,MED STUDENT 03/02/19 1520: History of Present Illness History of Present Illness Patient Consulted On(dashawn/time) 03/02/19 15:19 Date Seen by Provider: Mar 02, 2019 Time Seen by Provider: 15:00 Reason for Visit: Abdominal Pain History of Present Illness Surgery was consulted regarding Acute Cholesystitis and Acute Pancreatitis HPI per ED report 03/01: 83 yo F presenting by EMS with complaints of severe pain in the abdomen. This started about 2 hours prior to arrival. She is rating the pain at 10 out of 10. She denies any fever or chills. She has had nausea but no vomiting. She has had decreased appetite and oral intake in the last day or 2. Her last bowel movement was today after the pain started and did not have any effect on the pain. She denied having any blood in the stool and no dark tarry stools. She denies any pain with urination and no blood in her urine. She denies having pain like this in the past in her abdomen. She has had surgery on her abdomen with a hysterectomy and appendectomy in the past. The patient reports that the pain started randomly while she was sitting and talking to a friend. She states it progressively got worse before she went to the ED. She states it is worse on the left side of her abdomen. She is also complaining of a headache but it has improved with the pain medication. Allergies and Home Medications Allergies Coded Allergies: aspirin (Verified Allergy, Severe, 11/01/18) clindamycin (Verified Allergy, Severe, swelling, 11/01/18) fosinopril (Verified Allergy, Severe, Rash, 11/01/18) lisinopril (Verified Allergy, Severe, Rash, 11/01/18) Home Medications Acetaminophen 325 Mg Tablet, 325 MG PO Q4H PRN for PAIN-MILD, (Reported) Amoxicillin/Potassium Clav 1 Each Tablet, 1 TAB PO BID, (Reported) FILLED #14 /7DS ON 02-27-2019 Aspirin 81 Mg Tablet.dr, 81 MG PO DAILY, (Reported) Carvedilol 3.125 Mg Tablet, 3.125 MG PO BID, (Reported) Cholecalciferol (Vitamin D3) 5,000 Unit Capsule, 10,000 UNITS PO Garcia, (Reported) Cyclobenzaprine HCl 10 Mg Tablet, 10 MG PO TID, (Reported) Diclofenac Sodium 100 Gm Gel..gram., 1 GM TOP QID PRN for Pain Prescribed by: ELENA FRANCISCO on 11/16/18 1350 Ferrous Sulfate 325 Mg Tablet, 325 MG PO Q48H, (Reported) Furosemide 20 Mg Tablet, 20 MG PO DAILY, (Reported) Furosemide 20 Mg Tablet, 20 MG PO DAILY PRN for FLUID RETENTION, (Reported) Hydralazine HCl 100 Mg Tablet, 100 MG PO Q6H PRN for BLOOD PRESSURE, (Reported) Hydrocodone/Acetaminophen 1 Each Tablet, 1 TAB PO Q12H PRN for PAIN-MODERATE (5- 7), (Reported) Levothyroxine Sodium 50 Mcg Tablet, 50 MCG PO DAILY, (Reported) Meclizine HCl 25 Mg Tablet, 25 MG PO DAILY PRN for DIZZINESS, (Reported) Meloxicam 7.5 Mg Tablet, 7.5 MG PO DAILY, (Reported) Memantine HCl 14 Mg Cap.spr.24, 14 MG PO DAILY, (Reported) Oxycodone HCl 20 Mg Tab.er.12h, 20 MG PO BID, (Reported) Pantoprazole Sodium 40 Mg Tablet.dr, 40 MG PO DAILY, (Reported) Polyethylene Glycol 3350 17 Gm Powd.pack, 17 GM PO DAILY PRN for CONSTIPATION- 2ND LINE, (Reported) Potassium Chloride 10 Meq Tablet.er, 10 MEQ PO 1200, (Reported) Trazodone HCl 50 Mg Tablet, 50 MG PO HS, (Reported) Past Ialsllv-Mtzbij-Abnwin Hx Patient Social History Alcohol Use: Denies Use Recreational Drug Use: No Smoking Status: Former Smoker Former Smoker, Quit: Nov 02, 1959 2nd Hand Smoke Exposure: No Recent Foreign Travel: No Contact w/Someone Who Travel: No Recent Infectious Disease Expo: No Recent Hopitalizations: Yes (LEFT HIP REPLACEMENT 8-19) Immunizations Up To Date Date of Pneumonia Vaccine: Mar 04, 2016 Date of Influenza Vaccine: Dec 02, 2018 Seasonal Allergies Seasonal Allergies: No Surgeries History of Surgeries: Yes Surgeries: Appendectomy, Hysterectomy, Orthopedic, Pacemaker, Tonsillectomy Respiratory History of Respiratory Disorde: Yes Respiratory Disorders: Asthma, COPD Cardiovascular History of Cardiac Disorders: Yes Cardiac Disorders: Hypertension Neurological History of Neurological Disord: Yes Neurological Disorders: Dementia 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 Genitourinary History of Genitourinary Disor: Yes Genitourinary Disorders: Bladder Infection Gastrointestinal History of Gastrointestinal Di: No Gastrointestinal Disorders: Gastroesophageal Reflux, Hiatal Hernia Musculoskeletal History of Musculoskeletal Dis: Yes (OSTEOARTHRITIS) Endocrine History of Endocrine Disorders: Yes HEENT History of HEENT Disorders: Yes Hearing Impairment: Hard of Hearing Cancer History of Cancer: Yes Cancer: Cervical Psychosocial History of Psychiatric Problem: No Integumentary History of Skin or Integumenta: No Blood Transfusions History of Blood Disorders: Yes (ANEMIA) Family Medical History Family Medial History: Cardiovascular disease G8 BROTHER Diabetes mellitus 19 FATHER FH: leukemia 19 FATHER Hypertension 19 MOTHER Review of Systems-General Constitutional: No dizziness, No fever, No weakness; other (headache) EENTM: nose congestion; No blurred vision, No double vision Respiratory: No cough, No short of breath, No wheezing Cardiovascular: No chest pain, No palpitations Gastrointestinal: abdominal pain (LUQ), constipation; No diarrhea, No melena Genitourinary: No decreased output, No dysuria, No frequency, No hematuria Musculoskeletal: No muscle weakness Skin: no symptoms reported Psychiatric/Neurological: No Symptoms Reported Physical Exam-General Problems Physical Exam Vital Signs Vital Signs - First Documented 03/01/19 03/01/19 17:57 21:19 Temp 36.3 Pulse 91 Resp 20 B/P (MAP) 171/104 (126) Pulse Ox 93 O2 Delivery Room Air Capillary Refill : Less Than 3 SecondsLess Than 3 Seconds General Appearance: no apparent distress HEENT: PERRL/EOMI, pharynx normal; No scleral icterus (R), No scleral icterus (L), No pharyngeal erythema, No tonsillar exudate Neck: supple, lymphadenopathy (L), tender lateral (tender under left side of mandible); No thyromegaly Respiratory: lungs clear, no respiratory distress, no accessory muscle use; No crackles, No wheezing Cardiovascular: normal peripheral pulses, regular rate, rhythm, no edema, no murmur Gastrointestinal: soft, no pulsatile mass, tenderness (worse on left side) Extremities: no pedal edema, normal capillary refill Neurologic/Psychiatric: alert, normal mood/affect Skin: normal color, warm/dry Lymphatic: other Data Review Labs Laboratory Tests 03/01/19 17:50: White Blood Count 10.5, Red Blood Count 4.16L, Hemoglobin 12.5, Hematocrit 39, Mean Corpuscular Volume 93, Mean Corpuscular Hemoglobin 30, Mean Corpuscular Hemoglobin Concent 32, Red Cell Distribution Width 13.2, Platelet Count 254, Mean Platelet Volume 9.2, Neutrophils (%) (Auto) 52, Lymphocytes (%) (Auto) 37, Monocytes (%) (Auto) 7, Eosinophils (%) (Auto) 3, Basophils (%) (Auto) 1, Neutrophils # (Auto) 5.5, Lymphocytes # (Auto) 3.9, Monocytes # (Auto) 0.7, Eosinophils # (Auto) 0.3, Basophils # (Auto) 0.1, Sodium Level 138, Potassium Level 5.3H, Chloride Level 103, Carbon Dioxide Level 23, Anion Gap 12, Blood Urea Nitrogen 23H, Creatinine 1.35H, Estimat Glomerular Filtration Rate 45, BUN/Creatinine Ratio 17, Glucose Level 121H, Lactic Acid Level 1.07, Calcium Level 9.5, Corrected Calcium 9.7, Total Bilirubin 0.2, Aspartate Amino Transf (AST/SGOT) 108H, Alanine Aminotransferase (ALT/SGPT) 44, Alkaline Phosphatase 135, Troponin I < 0.30, Total Protein 6.8, Albumin 3.7, Amylase Level 393H, Lipase 1246H 03/01/19 19:01: Urine Color YELLOW, Urine Clarity CLEAR, Urine pH 5.5, Urine Specific [place] 1.015L, Urine Protein NEGATIVE, Urine Glucose (UA) NEGATIVE, Urine Ketones NEGATIVE, Urine Nitrite NEGATIVE, Urine Bilirubin NEGATIVE, Urine Urobilinogen 0.2, Urine Leukocyte Esterase TRACE, Urine RBC (Auto) NEGATIVE, Urine RBC NONE, Urine WBC 10-25H, Urine Squamous Epithelial Cells 10-25H, Urine Crystals NONE, Urine Bacteria TRACE, Urine Casts NONE, Urine Mucus SMALLH, Urine Culture Indicated YES 03/02/19 06:26: White Blood Count 7.2, Red Blood Count 3.96L, Hemoglobin 11.9, Hematocrit 36, Mean Corpuscular Volume 92, Mean Corpuscular Hemoglobin 30, Mean Corpuscular Hemoglobin Concent 33, Red Cell Distribution Width 13.5, Platelet Count 239, Mean Platelet Volume 9.1, Neutrophils (%) (Auto) 48, Lymphocytes (%) (Auto) 42, Monocytes (%) (Auto) 6, Eosinophils (%) (Auto) 3, Basophils (%) (Auto) 1, Neutrophils # (Auto) 3.5, Lymphocytes # (Auto) 3.1, Monocytes # (Auto) 0.4, Eosinophils # (Auto) 0.2, Basophils # (Auto) 0.0, Sodium Level 141, Potassium Level 4.9, Chloride Level 109H, Carbon Dioxide Level 22, Anion Gap 10, Blood Urea Nitrogen 16, Creatinine 1.27, Estimat Glomerular Filtration Rate 48, BUN/Creatinine Ratio 13, Glucose Level 114H, Calcium Level 9.0, Corrected Calcium 9.6, Total Bilirubin 0.3, Aspartate Amino Transf (AST/SGOT) 83H, Alanine Aminotransferase (ALT/SGPT) 71H, Alkaline Phosphatase 120, Total Protein 5.8L, Albumin 3.3 Radiology per radiology report, CT scan done 03/01 showed gallbladder distension and possible pericholecystic fluid. There was also constipation with no evidence of bowel obstruction Clinical Quality Measures DVT/VTE Risk/Contraindication: Risk Factor Score Per Nursin RFS Level Per Nursing on Admit: 4+=Very High TAMAR GREEN DO 03/02/19 1607: History of Present Illness History of Present Illness Time Seen by Provider: 15:06 History of Present Illness Pt does not think she has had GB problems before this; denies problems with certain foods. Allergies and Home Medications Allergies Coded Allergies: aspirin (Verified Allergy, Severe, 11/01/18) clindamycin (Verified Allergy, Severe, swelling, 11/01/18) fosinopril (Verified Allergy, Severe, Rash, 11/01/18) lisinopril (Verified Allergy, Severe, Rash, 11/01/18) Home Medications Acetaminophen 325 Mg Tablet, 325 MG PO Q4H PRN for PAIN-MILD, (Reported) Amoxicillin/Potassium Clav 1 Each Tablet, 1 TAB PO BID, (Reported) FILLED #14 /7DS ON 02-27-2019 Aspirin 81 Mg Tablet.dr, 81 MG PO DAILY, (Reported) Carvedilol 3.125 Mg Tablet, 3.125 MG PO BID, (Reported) Cholecalciferol (Vitamin D3) 5,000 Unit Capsule, 10,000 UNITS PO Garcia, (Reported) Cyclobenzaprine HCl 10 Mg Tablet, 10 MG PO TID, (Reported) Diclofenac Sodium 100 Gm Gel..gram., 1 GM TOP QID PRN for Pain Prescribed by: ELENA FRANCISCO on 11/16/18 1350 Ferrous Sulfate 325 Mg Tablet, 325 MG PO Q48H, (Reported) Furosemide 20 Mg Tablet, 20 MG PO DAILY, (Reported) Furosemide 20 Mg Tablet, 20 MG PO DAILY PRN for FLUID RETENTION, (Reported) Hydralazine HCl 100 Mg Tablet, 100 MG PO Q6H PRN for BLOOD PRESSURE, (Reported) Hydrocodone/Acetaminophen 1 Each Tablet, 1 TAB PO Q12H PRN for PAIN-MODERATE (5- 7), (Reported) Levothyroxine Sodium 50 Mcg Tablet, 50 MCG PO DAILY, (Reported) Meclizine HCl 25 Mg Tablet, 25 MG PO DAILY PRN for DIZZINESS, (Reported) Meloxicam 7.5 Mg Tablet, 7.5 MG PO DAILY, (Reported) Memantine HCl 14 Mg Cap.spr.24, 14 MG PO DAILY, (Reported) Oxycodone HCl 20 Mg Tab.er.12h, 20 MG PO BID, (Reported) Pantoprazole Sodium 40 Mg Tablet.dr, 40 MG PO DAILY, (Reported) Polyethylene Glycol 3350 17 Gm Powd.pack, 17 GM PO DAILY PRN for CONSTIPATION- 2ND LINE, (Reported) Potassium Chloride 10 Meq Tablet.er, 10 MEQ PO 1200, (Reported) Trazodone HCl 50 Mg Tablet, 50 MG PO HS, (Reported) Patient Home Medication List Home Medication List Reviewed: Yes Past Zwiseyt-Byyhqq-Ihrzbk Hx Patient Social History Alcohol Use: Denies Use Smoking Status: Never a Smoker Surgeries History of Surgeries: Yes Surgeries: Appendectomy, Hysterectomy, Orthopedic, Pacemaker Family Medical History Significant Family History: Cancer, CAD Under 55 Years Old, Diabetes, Hypertension Family Medial History: Cardiovascular disease G8 BROTHER Diabetes mellitus 19 FATHER FH: leukemia 19 FATHER Hypertension 19 MOTHER Review of Systems-General Musculoskeletal: joint pain Skin: No change in color, No change in hair/nails Psychiatric/Neurological: Denies Anxiety, Denies Depressed, Denies Tremors; Other (Dementia) Other pt denies any hx of abnormal bleeding or bruising. Physical Exam-General Problems Physical Exam General Appearance: WD/WN, no apparent distress Eyes: Bilateral Eye PERRL, Bilateral Eye EOMI Gastrointestinal: no organomegaly, tenderness (worse on left side and pt stated when pushing on right, made left side hurt), other (??minimally firm on left) Extremities: no pedal edema, no calf tenderness Lymphatic: no adenopathy (neck, axilla or groin) Data Review Radiology CT ABDOMEN/PELVIS W PROCEDURE: CT abdomen and pelvis with contrast. TECHNIQUE: Multiple contiguous axial images were obtained through the abdomen and pelvis after administration of intravenous contrast. Auto Exposure Controls were utilized during the CT exam to meet ALARA standards for radiation dose reduction. INDICATION: Generalized abdominal pain COMPARISON: None FINDINGS: Lung bases are clear. There is some slight distention of the gallbladder with questionable pericholecystic fluid. No obvious gallstones or gallbladder wall thickening are seen. Consider ultrasound correlation. The liver, spleen, pancreas, adrenal glands and kidneys are grossly unremarkable. There is some mild constipation throughout the colon without obstruction or ileus. There is diverticulosis of the descending colon without diverticulitis. The small bowel is normal. Distal ureters and urinary bladder are normal. The appendix is not seen. However, no indirect signs of acute appendicitis are identified. Osseous structures are age-appropriate. IMPRESSION: 1. Slight gallbladder distention with questionable pericholecystic fluid. Consider ultrasound to exclude cholecystitis. 2. Normal-appearing pancreas. No CT evidence for acute pancreatitis is identified. 3. Mild constipation without bowel obstruction. 4. Diverticulosis of the descending and sigmoid colon without diverticulitis. Dictated by: Dictated on workstation # [id number] Assessment/Plan Assessment/Plan Assessment/Plan Acute Cholecystitis unknown status of cholelithiasis Pancreatitis Constipation HTN, COPD, Dementia, GERD, Osteoarthritis I looked at CT and saw carley-cholecystic fluid and ??inflammation at the head of pancreas. No obvious stones were seen, pt could have sludge but stones are better seen on US. Bilirubin was not elevated so I doubt she has a blocked CBD. Plan is to give IV fluids, IV ABX, pain control, NPO and then once abdominal pain is almost gone and pancreatic enzymes are back to normal will do Laparoscopic Cholecystectomy. I will do an Intraoperative Cholangiogram to make sure CBD is not obstructed. Discussed surgery with pt; risks and complications not limited to pain, bleeding, infection, scar, damage to bowel or bile duct and need for futher procedure. All questions answered to her satisfaction. Supervisory-Addendum Brief Verification & Attestation Participated in pt care: history, MDM, physical Personally performed: exam, history, MDM Care discussed with: Medical Student Procedures: n/a Verification and Attestation of Medical Student E/M Service A medical student performed and documented this service in my presence. I reviewed and verified all information documented by the medical student and made modifications to such information, when appropriate. I personally performed the physical exam and medical decision making. Tamar Green, Mar 02, 2019,16:14 LEO HINSON,MED STUDENT Mar 02, 2019 15:20 TAMAR GREEN DO Mar 02, 2019 16:07
[2019-03-02] MEDS: ENOXAPARIN 40 MG/0.4 ML (LOVENOX) SYR SC SCH (15:47)
[2019-03-02] MEDS: MEMANTINE 5 MG (NAMENDA) TABLET PO SCH (21:00)
[2019-03-02] MEDS: CARVEDILOL 3.125 MG (COREG) TABLET PO SCH (21:00)
[2019-03-02] MEDS: traZODone 50 MG (DESYREL) TAB PO SCH (21:00)
[2019-03-02] MEDS: oxyCODONE ER 20 MG (OxyCONTIN CR) TAB PO SCH (21:01)
[2019-03-03] MEDS: PIPERACILLIN/TAZO 4.5 GM/NS 100 ML IV SCH ×6 (02:16→18:14)
[2019-03-03 03:29] VITALS: BP 145/75
[2019-03-03 05:26] LABS: BASOPHILS # (AUTO) 0.1 10^3/uL (0.0-0.1); BASOPHILS % (AUTO) 1 % (0-10); EOSINOPHILS # (AUTO) 0.2 10^3/uL (0.0-0.3); EOSINOPHILS % (AUTO) 3 % (0-10); HEMATOCRIT 36 % (35-52); HEMOGLOBIN 11.6 G/DL (11.5-16.0); LYMPHOCYTES # (AUTO) 3.5 X 10^3 (1.0-4.0); LYMPHOCYTES % (AUTO) 44 % (12-44); MEAN CORPUSCULAR HEMOGLOBIN 30 PG (25-34); MEAN CORPUSCULAR HGB CONC 32 G/DL (32-36); MEAN CORPUSCULAR VOLUME 93 FL (80-99); MEAN PLATELET VOLUME 9.1 FL (7.4-10.4); MONOCYTES # (AUTO) 0.6 X 10^3 (0.0-1.0); MONOCYTES % (AUTO) 8 % (0-12); NEUTROPHILS # (AUTO) 3.5 X 10^3 (1.8-7.8); NEUTROPHILS % (AUTO) 44 % (42-75); PLATELET COUNT 235 10^3/uL (130-400); RED CELL DISTRIBUTION WIDTH 13.7 % (10.0-14.5); WHITE BLOOD COUNT 7.9 10^3/uL (4.3-11.0)
[2019-03-03 05:41] LABS: ALBUMIN 3.3 GM/DL (3.2-4.5); BILIRUBIN,TOTAL 0.4 MG/DL (0.1-1.0); CALCIUM 8.7 MG/DL (8.5-10.1); CREATININE SERUM 1.19 MG/DL (0.60-1.30); POTASSIUM 4.7 MMOL/L (3.6-5.0); TOTAL PROTEIN 5.5 GM/DL (6.4-8.2)
[2019-03-03] MEDS: NS IV 1000 ML 1,000 ML IV SCH ×2 (07:50→16:57)
[2019-03-03 08:00] VITALS: BP 145/75
--- NOTE | 2019-03-03 08:10 | Progress Note - Surgery ---
LEO HINSON,MED STUDENT 03/03/19 0810: Subjective Date Seen by a Provider: Mar 03, 2019 Time Seen by a Provider: 07:35 Subjective/Events-last exam Patient seen and examined in bed this morning. She feels like her abdominal pain has improved since yesterday. She states she was up multiple times throughout the night to urinate though. Her last bowel movement was 2 days ago. After palpating her abdomen, her pain returned. She states it is still worse on her left side Review of Systems General: No Chills, No Fatigue HEENT: No Head Aches, No Visual Changes Pulmonary: No Dyspnea, No Cough Cardiovascular: No: Chest Pain, Palpitations, Edema Gastrointestinal: Abdominal Pain (after palpation, worse on her left side), Constipation; No: Nausea, Vomiting Neurological: No: Weakness, Numbness Focused Exam Lactate Level 03/01/19 17:50: Lactic Acid Level 1.07 Objective Exam Vital Signs Date Time Temp Pulse Resp B/P (MAP) Pulse Ox O2 Delivery O2 Flow Rate FiO2 03/03/19 03:29 36.6 79 18 145/75 (98) 92 Room Air 03/02/19 23:44 36.7 77 20 142/68 (92) 91 Room Air 03/02/19 20:50 Room Air 03/02/19 19:33 36.4 87 20 156/81 (106) 94 Room Air 03/02/19 15:40 36.2 78 20 146/77 (100) 94 Room Air 03/02/19 11:54 36.4 73 18 142/69 (93) 93 Room Air I & O 03/03/19 07:00 Intake Total 2240 ml Balance 2240 ml Capillary Refill : Less Than 3 SecondsLess Than 3 Seconds General Appearance: No Apparent Distress, Chronically ill HEENT: PERRL/EOMI; No Scleral Icterus (L), No Scleral Icterus (R) Neck: Non Tender, Supple Respiratory: Lungs Clear, No Accessory Muscle Use Cardiovascular: Regular Rate, Rhythm, No Edema, No Murmur Peripheral Pulses: 2+ Dorsalis Pedis (R), 2+ Left Dors-Pedis (L), 2+ Radial Pulses (R), 2+ Radial Pulses (L) Gastrointestinal: no organomegaly, tenderness (worse on left side and pt stated when pushing on right, made left side hurt), other (??minimally firm on left) Extremity: Normal Capillary Refill, No Pedal Edema Neurologic/Psychiatric: Alert, Oriented x3, No Motor/Sensory Deficits, Normal Mood/Affect Skin: Normal Color, Warm/Dry Lymphatic: No Adenopathy (cervical, supraclavicular) Results Lab Laboratory Tests 03/03/19 05:10: White Blood Count 7.9, Red Blood Count 3.91L, Hemoglobin 11.6, Hematocrit 36, Mean Corpuscular Volume 93, Mean Corpuscular Hemoglobin 30, Mean Corpuscular Hemoglobin Concent 32, Red Cell Distribution Width 13.7, Platelet Count 235, Mean Platelet Volume 9.1, Neutrophils (%) (Auto) 44, Lymphocytes (%) (Auto) 44, Monocytes (%) (Auto) 8, Eosinophils (%) (Auto) 3, Basophils (%) (Auto) 1, Neutrophils # (Auto) 3.5, Lymphocytes # (Auto) 3.5, Monocytes # (Auto) 0.6, Eosinophils # (Auto) 0.2, Basophils # (Auto) 0.1, Sodium Level 143, Potassium Level 4.7, Chloride Level 113H, Carbon Dioxide Level 19L, Anion Gap 11, Blood Urea Nitrogen 12, Creatinine 1.19, Estimat Glomerular Filtration Rate 52, BUN/Creatinine Ratio 10, Glucose Level 92, Calcium Level 8.7, Corrected Calcium 9.3, Total Bilirubin 0.4, Aspartate Amino Transf (AST/SGOT) 48H, Alanine Aminotransferase (ALT/SGPT) 53, Alkaline Phosphatase 94, Total Protein 5.5L, Albumin 3.3, Lipase 40 Assessment/Plan Assessment/Plan Assessment/Plan Acute Cholecystitis unknown status of cholelithiasis Pancreatitis Constipation HTN, COPD, Dementia, GERD, Osteoarthritis I looked at CT and saw carley-cholecystic fluid and ??inflammation at the head of pancreas. No obvious stones were seen, pt could have sludge but stones are better seen on US. Bilirubin was not elevated so I doubt she has a blocked CBD. Plan is to give IV fluids, IV ABX, pain control, NPO and then once abdominal pain is almost gone and pancreatic enzymes are back to normal will do Laparoscopic Cholecystectomy. I will do an Intraoperative Cholangiogram to make sure CBD is not obstructed. Discussed surgery with pt; risks and complications not limited to pain, bleeding, infection, scar, damage to bowel or bile duct and need for futher procedure. All questions answered to her satisfaction. Clinical Quality Measures DVT/VTE Risk/Contraindication: Risk Factor Score Per Nursin RFS Level Per Nursing on Admit: 4+=Very High DIDIER WHEAT DO 03/03/19 1310: Subjective Time Seen by a Provider: 12:33 Subjective/Events-last exam Pt seen and examined, states pain is better. She is concerned because she was having occasional CP and is supposed to see Cardiology. Review of Systems General: No Chills, No Fatigue Pulmonary: No Dyspnea, No Cough Cardiovascular: Chest Pain; No: Palpitations Gastrointestinal: No: Nausea, Vomiting, Abdominal Pain (after palpation, worse on her left side) Objective Exam General Appearance: No Apparent Distress, Chronically ill HEENT: PERRL/EOMI, Other (edentulous) Respiratory: Lungs Clear, No Accessory Muscle Use, No Respiratory Distress Cardiovascular: Regular Rate, Rhythm, No Murmur Gastrointestinal: soft, no organomegaly, tenderness (worse on left side and pt stated when pushing on right, made left side hurt - better than yesterday) Assessment/Plan Assessment/Plan Assessment/Plan Pt still has some abdominal pain, but pancreatic enzymes are normal now. Will have Cardiology consult for surgical clearance and plan for surgery on ; pt is agreeable to this. Will start her on . Supervisory-Addendum Brief Verification & Attestation Participated in pt care: history, MDM, physical Personally performed: exam, history, MDM Care discussed with: Medical Student Procedures: n/a Verification and Attestation of Medical Student E/M Service A medical student performed and documented this service in my presence. I reviewed and verified all information documented by the medical student and made modifications to such information, when appropriate. I personally performed the physical exam and medical decision making. Didier Wheat, Mar 03, 2019,13:10 LEO HINSON,MED STUDENT Mar 03, 2019 08:10 DIDIER WHEAT DO Mar 03, 2019 13:10
[2019-03-03] MEDS: CYCLOBENZAPRINE 10 MG (FLEXERIL) TAB PO SCH ×2 (08:44→16:57)
[2019-03-03] MEDS: LEVOTHYROXINE 50 MCG (LEVOTHROID) TAB PO SCH (08:44)
[2019-03-03] MEDS: CARVEDILOL 3.125 MG (COREG) TABLET PO SCH ×2 (08:44→20:30)
[2019-03-03] MEDS: ASPIRIN E.C. 81 MG (ECOTRIN) TAB PO SCH (08:44)
[2019-03-03] MEDS: FUROSEMIDE 20 MG (LASIX) TAB PO SCH (08:44)
[2019-03-03] MEDS: PANTOPRAZOLE 40 MG (PROTONIX) TAB PO SCH (08:44)
[2019-03-03] MEDS: MEMANTINE 5 MG (NAMENDA) TABLET PO SCH ×2 (08:48→20:34)
[2019-03-03] MEDS: MELOXICAM 7.5 MG (MOBIC) TABLET PO SCH (08:48)
[2019-03-03] MEDS: oxyCODONE ER 20 MG (OxyCONTIN CR) TAB PO SCH ×2 (08:48→20:34)
--- NOTE | 2019-03-03 11:17 | Progress Note - Hospitalist ---
Subjective HPI/CC On Admission Date Seen by Provider: Mar 03, 2019 Time Seen by Provider: 10:00 CC: Abdominal pain HPI: This is a 83yo -[place] female known to me from inpatient rehab course several months ago after a hip replacement who presented with abdominal pain, found to have elevated lipase and Dr. Wheat was consulted. Pt remains NPO. Pain is a lot better this morning. Lovenox 40 Mg subQ daily will be given. Home meds will be restarted. Tylenol will be given for her headache. I did give her a dose of Norvasc for elevated BP. Subjective/Events-last exam Patient ready for cholecystectomy Abdominal pain much improved Had a little bit of nausea earlier today Checked meds and labs Appreciate general surgery Review of Systems Gastrointestinal: Nausea Focused Exam Lactate Level 03/01/19 17:50: Lactic Acid Level 1.07 Objective Exam Vital Signs Vital Signs Date Time Temp Pulse Resp B/P (MAP) Pulse Ox O2 Delivery O2 Flow Rate FiO2 03/03/19 08:00 Room Air 03/03/19 08:00 36.5 75 16 145/75 (98) 96 Capillary Refill : Less Than 3 SecondsLess Than 3 Seconds General Appearance: No Apparent Distress, WD/WN, Chronically ill Respiratory: Chest Non Tender, Lungs Clear, Normal Breath Sounds, No Accessory Muscle Use, No Respiratory Distress Cardiovascular: Regular Rate, Rhythm, No Edema, No Gallop, No JVD, No Murmur, Normal Peripheral Pulses Neurologic/Psychiatric: Alert, Oriented x3, No Motor/Sensory Deficits, Normal Mood/Affect Results/Procedures Lab Laboratory Tests 03/03/19 05:10 Patient resulted labs reviewed. Assessment/Plan Assessment and Plan Assess & Plan/Chief Complaint Assessment: Acute pancreatitis Gallbladder disease Abdominal pain HTN HLP OA Plan: IVF Nothing by mouth Cholecystectomy today Supportive care IV Zofran Diagnosis/Problems Diagnosis/Problems (1) Acute pancreatitis Status: Acute Qualifiers: Pancreatitis type: unspecified pancreatitis type Acute pancreatitis complication: no infection or necrosis Qualified Codes: K85.90 - Acute pancreatitis without necrosis or infection, unspecified (2) Acute acalculous cholecystitis Status: Acute (3) Oxygen dependent Status: Chronic (4) Hypoxia Status: Acute (5) Chronic pain Status: Chronic (6) Hypertension Status: Chronic (7) Hypothyroidism Status: Chronic (8) Alzheimer disease Status: Chronic (9) CRI (chronic renal insufficiency) Status: Acute Clinical Quality Measures DVT/VTE Risk/Contraindication: Risk Factor Score Per Nursin RFS Level Per Nursing on Admit: 4+=Very High ELENA FRANCISCO DO Mar 03, 2019 11:17
--- NOTE | 2019-03-03 11:32 | NUR ---
CM/SS: Visited with pt as to plan for discharge Plan: Pt to have surgery and return home with [facility] to be resumed Summary: Pt reports doing ok, and that she is to have gallbladder surgery sometime today as they are awaiting lab work. Pt asked about having a cardiac clearance, indicating that she has had some heart issues not too long ago. This information is reported to FERCHO Smith. Pt plans to go home on and wants to have [facility] Res[facility]. Pt is encouraged to call her daughter who lives in [place] and let her know about her possible surgery. Pt verbalizes understanding.
[2019-03-03 12:00] VITALS: BP 138/60
[2019-03-03 16:00] VITALS: BP 102/62
--- NOTE | 2019-03-03 16:20 | Consultation-Cardiology ---
HPI-Cardiology Cardiology Consultation: Date of Consultation 03/03/19 Date of Admission Attending Physician Catalina Francisco DO Admitting Physician Haim Talley MD Consulting Physician Joann DELEON MD HPI: Time Seen by a Provider: 14:00 Chief Complaint: Abdominal discomfort This is a 83-year-old lady who presented with severe abdominal pain. Diagnosis was acute pancreatitis, acute cholecystitis requiring gallbladder surgery on 03/05/2019. Dr. Wheat requested cardiology consultation for perioperative cardiovascular risk assessment. Patient has previous history of permanent pacem walt done for bradycardia. No details are available. According to the patient she does not have any other known cardiac problems. She was supposed to see Dr. Maloney who requested echocardiogram and nuclear stress testing previously however that was never done. She does have occasional chest discomfort. She denies any shortness of breath, syncope, near-syncope or palpitations. She denies active smoking. She denies any premature CAD in the family. She has reasonable functional capacity. Review of Systems-Cardiology Review of Systems Constitutional: As described under HPI; No As described under HPI, No no symptoms reported, No chills, No fever, No lightheadedness Eyes: No As described under HPI, No no symptoms reported, No blindness, No blurred vision, No contact lenses, No drainage, No decreased acuity, No foreign body sensation, No pain, No vision change Ears/Nose/Throat: No As described under HPI, No no symptoms reported, No chronic hearing loss, No ear discharge, No ear pain, No nasal drainage, No ulcerations Respiratory: No no symptoms reported; As described under HPI; No As described under HPI, No cough, No orthopnea, No shortness of breath, No SOB with excertion Cardiovascular: No no symptoms reported; As described under HPI; No As described under HPI, No chest pain, No edema, No irregular heart rate, No lightheadedness, No palpitations Gastrointestinal: No no symptoms reported, No As described under HPI, No abdomen distended; abdominal pain; No blood streaked bowels, No constipation, No diarrhea, No nausea, No vomiting, No stool coloration changes Genitourinary: No As described under HPI, No burning, No dysuria, No discharge, No frequency, No flank pain, No hematuria, No urgency : Yes : No Skin: No rash, No skin related problems, No ulcerations Psychiatric/Neurological: No anxiety, No depression, No seizure, No focal weakness, No syncope Hematologic: No bleeding abnormalities [id number] Hx Patient Social History Marrital Status: single 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 Family Medical History Family History: Cardiovascular disease G8 BROTHER Diabetes mellitus 19 FATHER FH: leukemia 19 FATHER Hypertension 19 MOTHER Allergies and Home Medications Allergies Coded Allergies: aspirin (Verified Allergy, Severe, 11/01/18) clindamycin (Verified Allergy, Severe, swelling, 11/01/18) fosinopril (Verified Allergy, Severe, Rash, 11/01/18) lisinopril (Verified Allergy, Severe, Rash, 11/01/18) Home Medications Acetaminophen 325 Mg Tablet, 325 MG PO Q4H PRN for PAIN-MILD, (Reported) Amoxicillin/Potassium Clav 1 Each Tablet, 1 TAB PO BID, (Reported) FILLED #14 /7DS ON 02-27-2019 Aspirin 81 Mg Tablet.dr, 81 MG PO DAILY, (Reported) Carvedilol 3.125 Mg Tablet, 3.125 MG PO BID, (Reported) Cholecalciferol (Vitamin D3) 5,000 Unit Capsule, 10,000 UNITS PO Garcia, (Reported) Cyclobenzaprine HCl 10 Mg Tablet, 10 MG PO TID, (Reported) Diclofenac Sodium 100 Gm Gel..gram., 1 GM TOP QID PRN for Pain Prescribed by: CATALINA FRANCISCO on 11/16/18 1350 Ferrous Sulfate 325 Mg Tablet, 325 MG PO Q48H, (Reported) Furosemide 20 Mg Tablet, 20 MG PO DAILY, (Reported) Furosemide 20 Mg Tablet, 20 MG PO DAILY PRN for FLUID RETENTION, (Reported) Hydralazine HCl 100 Mg Tablet, 100 MG PO Q6H PRN for BLOOD PRESSURE, (Reported) Hydrocodone/Acetaminophen 1 Each Tablet, 1 TAB PO Q12H PRN for PAIN-MODERATE (5- 7), (Reported) Levothyroxine Sodium 50 Mcg Tablet, 50 MCG PO DAILY, (Reported) Meclizine HCl 25 Mg Tablet, 25 MG PO DAILY PRN for DIZZINESS, (Reported) Meloxicam 7.5 Mg Tablet, 7.5 MG PO DAILY, (Reported) Memantine HCl 14 Mg Cap.spr.24, 14 MG PO DAILY, (Reported) Oxycodone HCl 20 Mg Tab.er.12h, 20 MG PO BID, (Reported) Pantoprazole Sodium 40 Mg Tablet.dr, 40 MG PO DAILY, (Reported) Polyethylene Glycol 3350 17 Gm Powd.pack, 17 GM PO DAILY PRN for CONSTIPATION- 2ND LINE, (Reported) Potassium Chloride 10 Meq Tablet.er, 10 MEQ PO 1200, (Reported) Trazodone HCl 50 Mg Tablet, 50 MG PO HS, (Reported) Patient Home Medication List Home Medication List Reviewed: Yes Physical Exam-Cardiology Physical Exam Vital Signs/I&O 03/03/19 03/03/19 03/03/19 08:00 08:00 12:00 Temp 36.5 36.5 Pulse 75 82 Resp 16 16 B/P (MAP) 145/75 (98) 138/60 (86) Pulse Ox 96 91 O2 Delivery Room Air Room Air Room Air 03/03/19 00:00 Intake Total 2120 ml Balance 2120 ml Capillary Refill : Less Than 3 SecondsLess Than 3 Seconds Constitutional: appears stated age, AAO x 3; No apparent distress; well- developed, well-nourished HEENT: PERRL; No discharge; hearing is well preserved, oral hygience is good; No ulceration, No xanthelasmas are seen Neck: No carotid bruit; carotid pulses are 2 + bilaterally Respiratory: chest is bilaterally symmetric, lungs clear to auscultation Cardiovascular: regular rate-rhythm, S1 and S2 Gastrointestinal: tenderness, audible bowel sounds; No spleenomegaly Rectal: deferred Extremities: No clubbing, No cyanosis; no lower extremity edema bilateral; No significant edema Neurologic/Psychiatric: no motor/sensory deficits, alert, normal mood/affect, oriented x 3, power is 5/5 both on sides Skin: normal color; No rash, No ulcerations Lymphatic: no adenopathy (neck, axilla or groin) Data Review Labs Laboratory Tests 03/03/19 05:10: White Blood Count 7.9, Red Blood Count 3.91L, Hemoglobin 11.6, Hematocrit 36, Mean Corpuscular Volume 93, Mean Corpuscular Hemoglobin 30, Mean Corpuscular Hemoglobin Concent 32, Red Cell Distribution Width 13.7, Platelet Count 235, Mean Platelet Volume 9.1, Neutrophils (%) (Auto) 44, Lymphocytes (%) (Auto) 44, Monocytes (%) (Auto) 8, Eosinophils (%) (Auto) 3, Basophils (%) (Auto) 1, Neutrophils # (Auto) 3.5, Lymphocytes # (Auto) 3.5, Monocytes # (Auto) 0.6, Eosinophils # (Auto) 0.2, Basophils # (Auto) 0.1, Sodium Level 143, Potassium Level 4.7, Chloride Level 113H, Carbon Dioxide Level 19L, Anion Gap 11, Blood Urea Nitrogen 12, Creatinine 1.19, Estimat Glomerular Filtration Rate 52, BUN/Creatinine Ratio 10, Glucose Level 92, Calcium Level 8.7, Corrected Calcium 9.3, Total Bilirubin 0.4, Aspartate Amino Transf (AST/SGOT) 48H, Alanine Aminotransferase (ALT/SGPT) 53, Alkaline Phosphatase 94, Total Protein 5.5L, Albumin 3.3, Lipase 40 Microbiology 03/01/19 Urine Culture - Final, Complete NO GROWTH ECG Impression ECG Initial ECG Rhythm: S.Tach Comment PVCs, left bundle branch block. A/P-Cardiology Assessment/Admission Diagnosis Acute pancreatitis, Acute cholecystitis, gallbladder surgery planned for 03/05/2019, Perioperative cardiovascular risk assessment, Cardiac pacemaker. Plan Acute pancreatitis, Acute cholecystitis, gallbladder surgery planned for 03/05/2019, Perioperative cardiovascular risk assessment, I will recommend an echocardiogram. I will discuss with Dr. Wheat to see if he can perform nuclear stress testing on morning. Cardiac pacemaker. No acute cardiac issues. Will try to get old records. Thank you for your consultation. Please call me if you have any questions. Hellen Deleon MD, FACP, FACC, FSCAI, FHRS, CCDS Interventional Cardiology Cardiac Electrophysiology Vascular Medicine and Endovascular Interventions Clinical Quality Measures DVT/VTE Risk/Contraindication: Risk Factor Score Per Nursin RFS Level Per Nursing on Admit: 4+=Very High Joann DELEON MD Mar 03, 2019 16:19
[2019-03-03] MEDS: KCL 10 MEQ TAB (MICRO K) PO SCH (16:57)
[2019-03-03] MEDS: ENOXAPARIN 40 MG/0.4 ML (LOVENOX) SYR SC SCH (16:58)
[2019-03-03 20:32] VITALS: BP 102/61
[2019-03-03] MEDS: traZODone 50 MG (DESYREL) TAB PO SCH (20:34)
[2019-03-03] MEDS: POLYETHYLENE GLYCOL 17 GM (MIRALAX) PACK PO PRN (20:34)
[2019-03-04 00:02] VITALS: BP 110/70
[2019-03-04] MEDS: CYCLOBENZAPRINE 10 MG (FLEXERIL) TAB PO SCH ×4 (00:05→20:43)
[2019-03-04] MEDS: NS IV 1000 ML 1,000 ML IV SCH ×2 (01:21→11:15)
[2019-03-04] MEDS: PIPERACILLIN/TAZO 4.5 GM/NS 100 ML IV SCH ×6 (02:33→17:54)
[2019-03-04 08:00] VITALS: BP 117/77
[2019-03-04] MEDS: PANTOPRAZOLE 40 MG (PROTONIX) TAB PO SCH (08:10)
[2019-03-04] MEDS: MEMANTINE 5 MG (NAMENDA) TABLET PO SCH ×2 (08:10→20:43)
[2019-03-04] MEDS: oxyCODONE ER 20 MG (OxyCONTIN CR) TAB PO SCH ×2 (08:10→20:43)
[2019-03-04] MEDS: ASPIRIN E.C. 81 MG (ECOTRIN) TAB PO SCH (08:10)
[2019-03-04] MEDS: ACETAMINOPHEN 325 MG TABLET PO PRN (08:11)
[2019-03-04] MEDS: FUROSEMIDE 20 MG (LASIX) TAB PO SCH (08:11)
[2019-03-04] MEDS: MELOXICAM 7.5 MG (MOBIC) TABLET PO SCH (08:11)
[2019-03-04] MEDS: LEVOTHYROXINE 50 MCG (LEVOTHROID) TAB PO SCH (08:11)
[2019-03-04] MEDS: CARVEDILOL 3.125 MG (COREG) TABLET PO SCH ×2 (08:11→20:43)
[2019-03-04] MEDS: POLYETHYLENE GLYCOL 17 GM (MIRALAX) PACK PO PRN (08:20)
[2019-03-04] MEDS: FERROUS SULF 325 MG (IRON) TAB PO SCH (11:15)
[2019-03-04] MEDS: KCL 10 MEQ TAB (MICRO K) PO SCH (11:15)
--- NOTE | 2019-03-04 12:31 | Progress Note - Hospitalist ---
Subjective HPI/CC On Admission Date Seen by Provider: Mar 04, 2019 Time Seen by Provider: 11:00 CC: Abdominal pain HPI: This is a 83yo -Russian female known to me from inpatient rehab course several months ago after a hip replacement who presented with abdominal pain, found to have elevated lipase and Dr. Wheat was consulted. Pt remains NPO. Pain is a lot better this morning. Lovenox 40 Mg subQ daily will be given. Home meds will be restarted. Tylenol will be given for her headache. I did give her a dose of Norvasc for elevated BP. Subjective/Events-last exam Choly scheduled for tomorrow Cardiology assessed the patient to be stable to undergo surgery BM large one today after Miralax HLIVF since she appears to be wheezing a bit Kpad will be ordered for her back pain which was helpful when she was in IRF Nebs ordered Conferred with professional bass fisherman of Systems General: Fatigue Focused Exam Lactate Level 03/01/19 17:50: Lactic Acid Level 1.07 Objective Exam Vital Signs Vital Signs Date Time Temp Pulse Resp B/P (MAP) Pulse Ox O2 Delivery O2 Flow Rate FiO2 03/04/19 08:00 36.5 69 16 117/77 (90) 92 Room Air 03/04/19 00:02 2.00 Capillary Refill : Less Than 3 SecondsLess Than 3 Seconds General Appearance: No Apparent Distress, WD/WN, Chronically ill Respiratory: Chest Non Tender, Lungs Clear, Normal Breath Sounds, No Accessory Muscle Use, No Respiratory Distress, Wheezing (subtle) Cardiovascular: Regular Rate, Rhythm, No Edema, No Gallop, No JVD, No Murmur, Normal Peripheral Pulses Neurologic/Psychiatric: Alert, Oriented x3, No Motor/Sensory Deficits, Normal Mood/Affect Results/Procedures Lab Patient resulted labs reviewed. Assessment/Plan Assessment and Plan Assess & Plan/Chief Complaint Assessment: Acute pancreatitis Gallbladder disease will have choly tomorrow Abdominal pain HTN HLP OA Plan: IVF NPO after midnight Cholecystectomy tomorrow Supportive care IV Zofran Kpad HLIVF Diagnosis/Problems Diagnosis/Problems (1) Acute pancreatitis Status: Acute Qualifiers: Pancreatitis type: unspecified pancreatitis type Acute pancreatitis complication: no infection or necrosis Qualified Codes: K85.90 - Acute pancreatitis without necrosis or infection, unspecified (2) Acute acalculous cholecystitis Status: Acute (3) Oxygen dependent Status: Chronic (4) Hypoxia Status: Acute (5) Chronic pain Status: Chronic (6) Hypertension Status: Chronic (7) Hypothyroidism Status: Chronic (8) Alzheimer disease Status: Chronic (9) CRI (chronic renal insufficiency) Status: Acute Clinical Quality Measures DVT/VTE Risk/Contraindication: Risk Factor Score Per Nursin RFS Level Per Nursing on Admit: 4+=Very High ELENA FRANCISCO DO Mar 04, 2019 12:31
--- NOTE | 2019-03-04 14:07 | Progress Note - Surgery ---
Subjective Time Seen by a Provider: 12:47 Subjective/Events-last exam Pt seen and examined, states basically no pain today. She was seen by Cardiology and plan is for stress test tomorrow am. Pt is tolerating diet. Review of Systems General: No Chills, No Night Sweats Pulmonary: No Dyspnea, No Cough Cardiovascular: No: Chest Pain, Palpitations Gastrointestinal: No: Nausea, Vomiting, Abdominal Pain Focused Exam Lactate Level 03/01/19 17:50: Lactic Acid Level 1.07 Objective Exam Vital Signs Date Time Temp Pulse Resp B/P (MAP) Pulse Ox O2 Delivery O2 Flow Rate FiO2 03/04/19 08:00 36.5 69 16 117/77 (90) 92 Room Air 03/04/19 08:00 95 Room Air 03/04/19 00:02 36.6 70 16 110/70 (83) 95 Nasal Cannula 2.00 03/03/19 20:32 102/61 (75) 03/03/19 20:00 Nasal Cannula 03/03/19 16:00 36.5 82 20 102/62 (75) 93 Room Air I & O 03/04/19 07:00 Intake Total 3320 ml Output Total 800 ml Balance 2520 ml Capillary Refill : Less Than 3 SecondsLess Than 3 Seconds General Appearance: No Apparent Distress, Chronically ill HEENT: PERRL/EOMI, Other (edentulous) Neck: Non Tender, Supple Respiratory: Lungs Clear, No Accessory Muscle Use, No Respiratory Distress Cardiovascular: Regular Rate, Rhythm, No Murmur Peripheral Pulses: 2+ Dorsalis Pedis (R), 2+ Left Dors-Pedis (L), 2+ Radial Pulses (R), 2+ Radial Pulses (L) Gastrointestinal: soft, no organomegaly, tenderness (worse on left side and pt stated when pushing on right, made left side hurt - better than yesterday) Extremity: Normal Capillary Refill, No Pedal Edema Neurologic/Psychiatric: Alert, Oriented x3, Normal Mood/Affect Results Lab Microbiology 03/01/19 Urine Culture - Final, Complete NO GROWTH Assessment/Plan Assessment/Plan Assessment/Plan Acute Pancreatitis - resolved Acute Cholecystitis CAD Pt is getting stress test and if cleared, I have added her to the surgery schedule tomorrow. Again discussed surgery with her and all questions answered to her satisfaction. Clinical Quality Measures DVT/VTE Risk/Contraindication: Risk Factor Score Per Nursin RFS Level Per Nursing on Admit: 4+=Very High TAMAR GREEN DO Mar 04, 2019 14:07
[2019-03-04] MEDS: RT-ALBUTEROL SULF 2.5 MG/3 ML PRE-MIX VIAL INH SCH ×2 (15:33→19:55)
--- NOTE | 2019-03-04 16:02 | Cardiology Progress Note ---
Cardiology SOAP Progress Note Subjective: No cardiac complaints. Objective: I&O/Vital Signs 03/04/19 03/04/19 08:00 08:00 Temp 36.5 Pulse 69 Resp 16 B/P (MAP) 117/77 (90) Pulse Ox 95 92 O2 Delivery Room Air Room Air 03/04/19 00:00 Intake Total 1200 ml Balance 1200 ml Weight (Pounds): 163 Weight (Ounces): 1.6 Weight (Calculated Kilograms): [id number] Constitutional: appears stated age, AAO x 3; No apparent distress; well- developed, well-nourished Respiratory: chest is bilaterally symmetric, lungs clear to auscultation Cardiovascular: regular rate-rhythm, S1 and S2 Gastrointestional: tenderness, audible bowel sounds; No spleenomegaly Extremities: No clubbing, No cyanosis; no lower extremity edema bilateral; No significant edema Neurologic/Psychiatric: no motor/sensory deficits, alert, normal mood/affect, oriented x 3, power is 5/5 both on sides Skin: normal color; No rash, No ulcerations Results/Procedures: Labs Microbiology 03/01/19 Urine Culture - Final, Complete NO GROWTH A/P: Assessment/Dx: Acute pancreatitis, Acute cholecystitis, gallbladder surgery planned for 03/05/2019, Perioperative cardiovascular risk assessment, Cardiac pacemaker. Plan: Acute pancreatitis, Acute cholecystitis, gallbladder surgery planned for 03/05/2019, Perioperative cardiovascular risk assessment, echocardiogram done 03/03/2019 shows normal LV function with moderate diastolic dysfunction. Moderate pulmonary hypertension is noted. Nuclear stress test tomorrow morning. Pulmonary hypertension. Cardiac pacemaker. No acute cardiac issues. Will try to get old records. Thank you for your consultation. Please call me if you have any questions. Hellen Deleon MD, FACP, FACC, FSCAI, FHRS, CCDS Interventional Cardiology Cardiac Electrophysiology Vascular Medicine and Endovascular Interventions Focused Exam Lactate Level 03/01/19 17:50: Lactic Acid Level 1.07 Joann DELEON MD Mar 04, 2019 16:02
[2019-03-04] MEDS: ENOXAPARIN 40 MG/0.4 ML (LOVENOX) SYR SC SCH (16:51)
[2019-03-04 16:55] VITALS: BP 105/59
[2019-03-04 19:50] VITALS: BP 124/61
[2019-03-04] MEDS: traZODone 50 MG (DESYREL) TAB PO SCH (20:43)
[2019-03-05] VITALS (11 sets, daily range): BP systolic 117–175; BP diastolic 57–95
[2019-03-05] MEDS: PIPERACILLIN/TAZO 4.5 GM/NS 100 ML IV SCH ×6 (02:22→19:31)
[2019-03-05 06:27] LABS: BASOPHILS # (AUTO) 0.1 10^3/uL (0.0-0.1); BASOPHILS % (AUTO) 1 % (0-10); EOSINOPHILS # (AUTO) 0.3 10^3/uL (0.0-0.3); EOSINOPHILS % (AUTO) 6 % (0-10); HEMATOCRIT 36 % (35-52); LYMPHOCYTES # (AUTO) 2.8 X 10^3 (1.0-4.0); LYMPHOCYTES % (AUTO) 48 % (12-44); MEAN CORPUSCULAR HEMOGLOBIN 29 PG (25-34); MEAN CORPUSCULAR HGB CONC 31 G/DL (32-36); MEAN CORPUSCULAR VOLUME 95 FL (80-99); MEAN PLATELET VOLUME 9.1 FL (7.4-10.4); MONOCYTES # (AUTO) 0.4 X 10^3 (0.0-1.0); MONOCYTES % (AUTO) 7 % (0-12); NEUTROPHILS # (AUTO) 2.2 X 10^3 (1.8-7.8); NEUTROPHILS % (AUTO) 38 % (42-75); PLATELET COUNT 189 10^3/uL (130-400); RED CELL DISTRIBUTION WIDTH 14.1 % (10.0-14.5); WHITE BLOOD COUNT 5.8 10^3/uL (4.3-11.0)
[2019-03-05] MEDS ORDERED: REGADENOSON 0.4 MG/5 ML SYR (LEXISCAN) IV ONE (06:45)
[2019-03-05 06:59] LABS: ALBUMIN 3.4 GM/DL (3.2-4.5); BILIRUBIN,TOTAL 0.3 MG/DL (0.1-1.0); CALCIUM 8.7 MG/DL (8.5-10.1); CREATININE SERUM 1.28 MG/DL (0.60-1.30); POTASSIUM 4.3 MMOL/L (3.6-5.0); TOTAL PROTEIN 5.8 GM/DL (6.4-8.2)
--- NOTE | 2019-03-05 07:42 | Progress Note - Surgery ---
LEO HINSON,MED STUDENT 03/05/19 0742: Subjective Date Seen by a Provider: Mar 05, 2019 Time Seen by a Provider: 06:09 Subjective/Events-last exam Patient seen and examined in bed this morning. She states she is feeling much better, and is not having any abdominal pain anymore. She is NPO for potential surgery today, pending results of a stress test. Review of Systems General: Chills; No Fatigue, No Malaise HEENT: No Head Aches, No Visual Changes Pulmonary: No Dyspnea, No Cough Cardiovascular: No: Chest Pain, Palpitations Gastrointestinal: No: Nausea, Vomiting, Abdominal Pain, Diarrhea, Constipation Musculoskeletal: back pain Objective Exam Vital Signs Date Time Temp Pulse Resp B/P (MAP) Pulse Ox O2 Delivery O2 Flow Rate FiO2 03/05/19 00:00 36.4 72 18 117/57 (77) 91 Room Air 03/04/19 20:40 Room Air 03/04/19 19:55 93 Room Air 03/04/19 19:50 36.8 80 20 124/61 (82) 92 Room Air 03/04/19 16:55 37.0 66 18 105/59 (74) 94 Room Air 03/04/19 08:00 36.5 69 16 117/77 (90) 92 Room Air 03/04/19 08:00 95 Room Air I & O 03/05/19 07:00 Intake Total 7160 ml Output Total 1100 ml Balance 6060 ml Capillary Refill : Less Than 3 SecondsLess Than 3 Seconds General Appearance: No Apparent Distress, WD/WN, Chronically ill HEENT: PERRL/EOMI; No Pharyngeal Erythema, No Scleral Icterus (L), No Scleral Icterus (R); Other (edentulous) Neck: Non Tender, Supple; No Lymphadenopathy (L), No Lymphadenopathy (R) Respiratory: Chest Non Tender, Lungs Clear, No Accessory Muscle Use, No Respiratory Distress Cardiovascular: Regular Rate, Rhythm, No Edema, No Murmur Peripheral Pulses: 2+ Dorsalis Pedis (R), 2+ Left Dors-Pedis (L), 2+ Radial Pulses (R), 2+ Radial Pulses (L) Gastrointestinal: non tender, soft, no organomegaly; No distended Extremity: Normal Capillary Refill, No Pedal Edema Neurologic/Psychiatric: Alert, Oriented x3, No Motor/Sensory Deficits, Normal Mood/Affect Results Lab Laboratory Tests 03/05/19 06:19: White Blood Count 5.8, Red Blood Count 3.81L, Hemoglobin 11.0L, Hematocrit 36, Mean Corpuscular Volume 95, Mean Corpuscular Hemoglobin 29, Mean Corpuscular Hemoglobin Concent 31L, Red Cell Distribution Width 14.1, Platelet Count 189, Mean Platelet Volume 9.1, Neutrophils (%) (Auto) 38L, Lymphocytes (%) (Auto) 48H , Monocytes (%) (Auto) 7, Eosinophils (%) (Auto) 6, Basophils (%) (Auto) 1, Neutrophils # (Auto) 2.2, Lymphocytes # (Auto) 2.8, Monocytes # (Auto) 0.4, Eosinophils # (Auto) 0.3, Basophils # (Auto) 0.1, Sodium Level 142, Potassium Level 4.3, Chloride Level 113H, Carbon Dioxide Level 18L, Anion Gap 11, Blood Urea Nitrogen 8, Creatinine 1.28, Estimat Glomerular Filtration Rate 48, BUN/Creatinine Ratio 6, Glucose Level 89, Calcium Level 8.7, Corrected Calcium 9.2, Total Bilirubin 0.3, Aspartate Amino Transf (AST/SGOT) 28, Alanine Aminotransferase (ALT/SGPT) 35, Alkaline Phosphatase 87, Total Protein 5.8L, Albumin 3.4 Microbiology 03/01/19 Urine Culture - Final, Complete NO GROWTH Assessment/Plan Assessment/Plan Assessment/Plan Acute Pancreatitis - resolved Acute Cholecystitis CAD Pt is getting stress test and if cleared, I have added her to the surgery schedule tomorrow. Again discussed surgery with her and all questions answered to her satisfaction. Clinical Quality Measures DVT/VTE Risk/Contraindication: Risk Factor Score Per Nursin RFS Level Per Nursing on Admit: 4+=Very High DIDIER WHEAT DO 03/05/191: Subjective Time Seen by a Provider: 09:46 Subjective/Events-last exam Pt seen and examined, she is ready for surgery but we are waiting on her stress test from this am. Objective Exam Respiratory: Chest Non Tender, Lungs Clear Gastrointestinal: non tender, soft; No distended Assessment/Plan Assessment/Plan Assessment/Plan Spoke with Dr. Deleon, he has not read stress test yet. Will await surgical clearance. Supervisory-Addendum Brief Verification & Attestation Participated in pt care: history, MDM, physical Personally performed: exam, history, MDM Care discussed with: Medical Student Procedures: n/a Verification and Attestation of Medical Student E/M Service A medical student performed and documented this service in my presence. I reviewed and verified all information documented by the medical student and made modifications to such information, when appropriate. I personally performed the physical exam and medical decision making. Didier Wheat, Mar 05, 2019,21:01 LEO HINSON,MED STUDENT Mar 05, 2019 07:42 DIDIER WHEAT DO Mar 05, 2019 21:01
--- NOTE | 2019-03-05 08:30 | NUR ---
patient off floor at this time for stress test via w/c. Addendum: 03/05/19 at 0831 by NAV GUIDO RN left floor at 0800
[2019-03-05] MEDS: RT-ALBUTEROL SULF 2.5 MG/3 ML PRE-MIX VIAL INH SCH (08:57)
--- NOTE | 2019-03-05 10:33 | NUR ---
Patient back to floor at this time via w/c, Dr. Norris notified that the patient was back in her room at this time.
[2019-03-05] MEDS: ASPIRIN E.C. 81 MG (ECOTRIN) TAB PO SCH (10:37)
[2019-03-05] MEDS: oxyCODONE ER 20 MG (OxyCONTIN CR) TAB PO SCH ×3 (10:42→20:24)
[2019-03-05] MEDS: CYCLOBENZAPRINE 10 MG (FLEXERIL) TAB PO SCH ×3 (10:42→19:32)
[2019-03-05] MEDS: PANTOPRAZOLE 40 MG (PROTONIX) TAB PO SCH (10:42)
[2019-03-05] MEDS: CARVEDILOL 3.125 MG (COREG) TABLET PO SCH ×2 (10:42→19:32)
[2019-03-05] MEDS: MELOXICAM 7.5 MG (MOBIC) TABLET PO SCH (10:43)
[2019-03-05] MEDS: MEMANTINE 5 MG (NAMENDA) TABLET PO SCH ×2 (10:43→19:32)
[2019-03-05] MEDS: FUROSEMIDE 20 MG (LASIX) TAB PO SCH (10:43)
[2019-03-05] MEDS: LEVOTHYROXINE 50 MCG (LEVOTHROID) TAB PO SCH (10:43)
--- NOTE | 2019-03-05 10:49 | Progress Note - Hospitalist ---
Subjective HPI/CC On Admission Date Seen by Provider: Mar 05, 2019 Time Seen by Provider: 09:00 CC: Abdominal pain HPI: This is a 83yo -[place] female known to me from inpatient rehab course several months ago after a hip replacement who presented with abdominal pain, found to have elevated lipase and Dr. Wheat was consulted. Pt remains NPO. Pain is a lot better this morning. Lovenox 40 Mg subQ daily will be given. Home meds will be restarted. Tylenol will be given for her headache. I did give her a dose of Norvasc for elevated BP. Subjective/Events-last exam Stress today before surgery. Cholecystectomy planned. Otherwise feels pretty good. Review of Systems Gastrointestinal: Abdominal Pain Objective Exam Vital Signs Vital Signs Date Time Temp Pulse Resp B/P (MAP) Pulse Ox O2 Delivery O2 Flow Rate FiO2 03/05/19 19:40 Room Air 03/05/19 18:00 81 16 168/80 (109) 03/05/19 16:00 94 03/05/19 16:00 36.7 03/05/19 08:00 2.00 Capillary Refill : Less Than 3 SecondsLess Than 3 Seconds General Appearance: No Apparent Distress, WD/WN, Chronically ill Results/Procedures Lab Laboratory Tests 03/05/19 06:19 Patient resulted labs reviewed. Assessment/Plan Assessment and Plan Assess & Plan/Chief Complaint Assessment: Acute pancreatitis Gallbladder disease will have choly today after EST Abdominal pain HTN HLP OA Plan: IVF NPO Cholecystectomy today Supportive care IV Zofran Kpad HLIVF Diagnosis/Problems Diagnosis/Problems (1) Acute pancreatitis Status: Acute Qualifiers: Pancreatitis type: unspecified pancreatitis type Acute pancreatitis complication: no infection or necrosis Qualified Codes: K85.90 - Acute pancreatitis without necrosis or infection, unspecified (2) Acute acalculous cholecystitis Status: Acute (3) Oxygen dependent Status: Chronic (4) Hypoxia Status: Acute (5) Chronic pain Status: Chronic (6) Hypertension Status: Chronic (7) Hypothyroidism Status: Chronic (8) Alzheimer disease Status: Chronic (9) CRI (chronic renal insufficiency) Status: Acute Clinical Quality Measures DVT/VTE Risk/Contraindication: Risk Factor Score Per Nursin RFS Level Per Nursing on Admit: 4+=Very High ELENA FRANCISCO DO Mar 05, 2019 10:49
--- NOTE | 2019-03-05 10:52 | NUR ---
CM/SS: Visited with pt as to plan for discharge Plan: Pt will have gallbladder surgery today and return home with Home Care resumed. Summary: Pt reports having a pretty good day. Pt shares she will have surgery today for her gallbladder and should be able to go home tomorrow with Home Care resumed. This worker will check back with pt to ensure follow up documentation sent to Home Care prior to discharge.
[2019-03-05] MEDS: KCL 10 MEQ TAB (MICRO K) PO SCH (11:24)
[2019-03-05] MEDS ORDERED: LIDOCAINE 1% INJ 20 ML 20 ML VIAL ONE (12:26)
[2019-03-05] MEDS ORDERED: HEParin 1000 UNIT/ML (10ML VIAL) FOR BOLUS ONE (12:26)
[2019-03-05] MEDS ORDERED: NS IV 1000 ML 3,000 ML ONE (12:26)
[2019-03-05] MEDS ORDERED: NS IV 1000 ML 1,000 ML IV SCH ×2 (14:00→14:23)
[2019-03-05] MEDS ORDERED: hydrALAZINE (APESOLINE) 20 MG/ML VIAL ONE (14:03)
--- NOTE | 2019-03-05 14:18 | Cardiology Progress Note ---
Cardiology SOAP Progress Note Subjective: No cardiac complaints. Objective: I&O/Vital Signs 03/05/19 03/05/19 03/05/19 08:00 08:00 09:40 Temp 36.2 Pulse 98 75 Resp 16 18 B/P (MAP) 118/58 (78) 159/92 (114) Pulse Ox 91 97 97 O2 Delivery Room Air Room Air Room Air O2 Flow Rate 2.00 03/05/19 00:00 Intake Total 3920 ml Balance 3920 ml Weight (Pounds): 163 Weight (Ounces): 1.6 Weight (Calculated Kilograms): 73.017990 Constitutional: appears stated age, AAO x 3; No apparent distress; well- developed, well-nourished Respiratory: chest is bilaterally symmetric, lungs clear to auscultation Cardiovascular: regular rate-rhythm, S1 and S2 Gastrointestional: tenderness, audible bowel sounds; No spleenomegaly Extremities: No clubbing, No cyanosis; no lower extremity edema bilateral; No significant edema Neurologic/Psychiatric: no motor/sensory deficits, alert, normal mood/affect, oriented x 3, power is 5/5 both on sides Skin: normal color; No rash, No ulcerations Results/Procedures: Labs Laboratory Tests 03/05/19 06:19: White Blood Count 5.8, Red Blood Count 3.81L, Hemoglobin 11.0L, Hematocrit 36, Mean Corpuscular Volume 95, Mean Corpuscular Hemoglobin 29, Mean Corpuscular Hemoglobin Concent 31L, Red Cell Distribution Width 14.1, Platelet Count 189, Mean Platelet Volume 9.1, Neutrophils (%) (Auto) 38L, Lymphocytes (%) (Auto) 48H , Monocytes (%) (Auto) 7, Eosinophils (%) (Auto) 6, Basophils (%) (Auto) 1, Neutrophils # (Auto) 2.2, Lymphocytes # (Auto) 2.8, Monocytes # (Auto) 0.4, Eosinophils # (Auto) 0.3, Basophils # (Auto) 0.1, Sodium Level 142, Potassium Level 4.3, Chloride Level 113H, Carbon Dioxide Level 18L, Anion Gap 11, Blood Urea Nitrogen 8, Creatinine 1.28, Estimat Glomerular Filtration Rate 48, BUN/Creatinine Ratio 6, Glucose Level 89, Calcium Level 8.7, Corrected Calcium 9.2, Total Bilirubin 0.3, Aspartate Amino Transf (AST/SGOT) 28, Alanine Aminotransferase (ALT/SGPT) 35, Alkaline Phosphatase 87, Total Protein 5.8L, Albumin 3.4 Microbiology 03/01/19 Urine Culture - Final, Complete NO GROWTH A/P: Assessment/Dx: Acute pancreatitis, Acute cholecystitis, gallbladder surgery planned for 03/05/2019, Perioperative cardiovascular risk assessment, Cardiac pacemaker. Plan: Acute pancreatitis, Acute cholecystitis, gallbladder surgery planned for 03/05/2019, Perioperative cardiovascular risk assessment, echocardiogram done 03/03/2019 shows normal LV function with moderate diastolic dysfunction. Moderate pulmonary hypertension is noted. Nuclear stress test done 03/05/2019 showed evidence of distal anterior/apical ischemia. Mild intensity. Small size. Coronary angiography is recommended. Pulmonary hypertension. Cardiac pacemaker. No acute cardiac issues. Will try to get old records. Thank you for your consultation. Please call me if you have any questions. Hellen Deleon MD, FACP, FACC, FSCAI, FHRS, CCDS Interventional Cardiology Cardiac Electrophysiology Vascular Medicine and Endovascular Interventions Joann DELEON MD Mar 05, 2019 14:18
--- NOTE | 2019-03-05 14:18 | Cardiology Stress Test Report ---
Stress Test Report Type of NM Stress Test: Test Type: LEXISCAN 0.4MG/5ML Date of Procedure/Referring: Date of Procedure: Mar 05, 2019 PCP Catalina Norris DO Admitting Physician Haim Talley MD Indications: Preoperative cardiovascular risk assessment. Baseline Heart Rate: 74 Baseline Blood Pressure: Blood Pressure Systolic: 159 Blood Pressure Diastolic: 92 Baseline EKG: Baseline EKG: sinus rhythm Summary & Conclusion: Summary: The patient was brought to the stress lab after informed consent was taken. Stress test was performed according to the Lexiscan protocol. 0.4 mg of IV Lexiscan was given. Low-grade exercise was performed. Baseline EKG showed sinus rhythm at 74 BPM. Blood pressure 172/94 mmHg. Maximum heart rate 82 bpm and blood pressure 170/95 mmHg. Patient did not have any chest pain, arrhythmias or ST segment changes during the stress test. 9.8 mCi of Myoview were given for rest imaging and 30.1 mCi of Myoview given for stress imaging. Transient ischemic dilatation score 1.11, EF 64 percent. Normal wall motion. Mild distal anterior apical reversible defect. SSS 6, SRS 4, SDS 2. Conclusion: Pharmacological stress test was negative for ischemia. Normal LV function with no wall motion abnormalities. Possible distal anterior apical ischemia. Coronary angiography is recommended. Joann GAONA MD Mar 05, 2019 14:18
--- NOTE | 2019-03-05 14:22 | Coronary Angiography Report ---
Coronary Angiography Report DATE OF PROCEDURE: 03/05/19 INDICATION: Perioperative cardiovascular risk assessment, abnormal nuclear stress test. PREOPERATIVE DIAGNOSIS: Perioperative cardiovascular risk assessment, abnormal nuclear stress test. POSTOPERATIVE DIAGNOSIS: Mild mid LAD bridging. HISTORY: This is a 83-year-old lady who has history of a permanent pacemaker. She presented with acute pancreatitis/cholecystitis. She needs to undergo gallbladder surgery. Cardiology was consulted for perioperative cardiovascular risk assessment. An echocardiogram was done which showed normal LV function w ith no wall motion abnormalities. Nuclear stress test showed evidence of distal anterior/apical ischemia. Therefore, the patient was scheduled for coronary angiography. PROCEDURES PERFORMED: 1.Coronary angiography. 2.Left heart catheterization. COMPLICATIONS: None. SPECIMENS: None. ESTIMATED BLOOD LOSS: 10 mL ANESTHESIA: Conscious sedation ANTICOAGULATION: None. CONTRAST: 44 mL. FLUOROSCOPY: 1.8 minutes. FLOUROSCOPY DOSE: 312 mgy. PROCEDURE DETAILS: The patient is a 83 female and was brought to the floating labor gang supervisor after informed consent was taken. All the risks and complications were explained in detail; this included the risk of bleeding, vascular damage, stroke, CA and even . The patient was draped and prepped in the usual sterile fashion. Keny's test was abnormal. Access was gained in the right femoral artery with a 6 Bengali sheath. Coronary angiography and left heart catheterization was performed with a JR4 and JL4 catheter. FINDINGS: 1.Left main: Patent. 2.LAD: Mid mild LAD bridging. No focal stenosis. Small vessel distally. 3.Left circumflex artery: Patent. 4.RCA: Patent. Nondominant. 5.Left heart catheterization: LV pressure 177/12 mmHg. LVEDP 23 mmHg. Aortic pressure 171/84 mmHg. Normal LV function with no wall motion abnormalities. No gradient across the aortic valve. CONCLUSIONS: 1. Patient is considered to be at low risk for major adverse perioperative cardiovascular events undergoing an intermediate risk noncardiac surgery. There is no cardiac contraindication for gallbladder surgery. Dr. Wheat was notified. 2. Hypertensive heart disease with elevated LVEDP suggesting diastolic dysfunction. Aggressive management of hypertension. Hellen Deleon MD, FACP, FACC, [facility] Interventional Cardiology Joann DELEON MD Mar 05, 2019 14:22
[2019-03-05] MEDS ORDERED: PATIENT MAY USE OWN MEDS, ALL PO SCH (14:30)
--- NOTE | 2019-03-05 18:35 | NUR ---
To room 432 from ICU post recovery from Heart Cath today. Awake and alert. Will resume care from FERCHO Boswell at shift change.
[2019-03-05] MEDS: ENOXAPARIN 40 MG/0.4 ML (LOVENOX) SYR SC SCH (19:16)
--- NOTE | 2019-03-05 19:17 | NUR ---
Do not administer scheduled 1600 Lovenox per Adrienne per FERCHO Boswell.
[2019-03-05] MEDS: traZODone 50 MG (DESYREL) TAB PO SCH (19:32)
[2019-03-06] VITALS (13 sets, daily range): BP systolic 16–180; BP diastolic 64–155
[2019-03-06] MEDS: PIPERACILLIN/TAZO 4.5 GM/NS 100 ML IV SCH ×6 (02:42→19:33)
[2019-03-06 06:19] LABS: BASOPHILS # (AUTO) 0.1 10^3/uL (0.0-0.1); BASOPHILS % (AUTO) 1 % (0-10); EOSINOPHILS # (AUTO) 0.3 10^3/uL (0.0-0.3); EOSINOPHILS % (AUTO) 4 % (0-10); HEMATOCRIT 37 % (35-52); LYMPHOCYTES # (AUTO) 3.3 X 10^3 (1.0-4.0); LYMPHOCYTES % (AUTO) 44 % (12-44); MEAN CORPUSCULAR HEMOGLOBIN 30 PG (25-34); MEAN CORPUSCULAR HGB CONC 32 G/DL (32-36); MEAN CORPUSCULAR VOLUME 92 FL (80-99); MEAN PLATELET VOLUME 9.6 FL (7.4-10.4); MONOCYTES # (AUTO) 0.4 X 10^3 (0.0-1.0); MONOCYTES % (AUTO) 6 % (0-12); NEUTROPHILS # (AUTO) 3.4 X 10^3 (1.8-7.8); NEUTROPHILS % (AUTO) 46 % (42-75); PLATELET COUNT 258 10^3/uL (130-400); RED CELL DISTRIBUTION WIDTH 13.7 % (10.0-14.5); WHITE BLOOD COUNT 7.5 10^3/uL (4.3-11.0)
[2019-03-06 06:36] LABS: ALBUMIN 3.3 GM/DL (3.2-4.5); BILIRUBIN,TOTAL 0.3 MG/DL (0.1-1.0); CALCIUM 8.9 MG/DL (8.5-10.1); CREATININE SERUM 1.3 MG/DL (0.60-1.30); POTASSIUM 3.9 MMOL/L (3.6-5.0); TOTAL PROTEIN 5.7 GM/DL (6.4-8.2)
--- NOTE | 2019-03-06 07:43 | Progress Note - Surgery ---
LEO HINSON,MED STUDENT 03/06/19 0743: Subjective Date Seen by a Provider: Mar 06, 2019 Time Seen by a Provider: 06:50 Subjective/Events-last exam Patient seen and examined this morning in bed. She states she is feeling well. She went to the laboratory technology teacher yesterday and has been having some chest pain on and off since then. She also states she is having some sinus pressure for the past few weeks. Denies abdominal pain. Review of Systems General: No Chills, No Night Sweats, No Fatigue HEENT: Head Aches; No Visual Changes, No Eye Pain; Sinus Congestion, Post Nasal Drip Pulmonary: No Dyspnea, No Cough Cardiovascular: Chest Pain; No: Palpitations, Edema Gastrointestinal: No: Nausea, Vomiting, Abdominal Pain, Diarrhea, Constipation Neurological: No: Weakness, Numbness Objective Exam Vital Signs Date Time Temp Pulse Resp B/P (MAP) Pulse Ox O2 Delivery O2 Flow Rate FiO2 03/06/19 03:55 36.2 81 18 156/70 (98) 94 Room Air 03/06/19 01:00 83 03/06/19 00:00 36.4 84 16 139/65 (89) 93 Room Air 03/05/19 19:40 Room Air 03/05/19 18:00 81 16 168/80 (109) Room Air 03/05/19 17:00 79 10 175/94 (121) Room Air 03/05/19 16:00 86 38 156/83 (107) 94 Room Air 03/05/19 16:00 36.7 03/05/19 15:30 87 16 151/95 (113) 97 Room Air 03/05/19 15:15 89 17 147/74 (98) 96 Room Air 03/05/19 15:00 91 03/05/19 15:00 89 20 141/71 (94) Room Air 03/05/19 14:45 91 15 122/64 (83) 98 Room Air 03/05/19 14:30 36.3 92 20 130/65 (86) 99 Room Air 03/05/19 09:40 75 18 159/92 (114) 97 Room Air 03/05/19 08:00 36.2 98 16 118/58 (78) 97 Room Air 03/05/19 08:00 91 Room Air 2.00 I & O 03/06/19 07:00 Intake Total 4450 ml Output Total 3250 ml Balance 1200 ml Capillary Refill : Less Than 3 SecondsLess Than 3 Seconds General Appearance: No Apparent Distress, WD/WN, Chronically ill HEENT: PERRL/EOMI, Pharynx Normal; No Pharyngeal Erythema, No Scleral Icterus (L), No Scleral Icterus (R); Other (edentulous) Neck: Non Tender (left sided tenderness), Supple; No Lymphadenopathy (L), No Lymphadenopathy (R) Respiratory: Chest Non Tender, Lungs Clear Cardiovascular: Regular Rate, Rhythm, No Edema, No Murmur Peripheral Pulses: 2+ Dorsalis Pedis (R), 2+ Left Dors-Pedis (L), 2+ Radial Pu lses (R), 2+ Radial Pulses (L) Gastrointestinal: normal bowel sounds, non tender, soft; No distended Extremity: Normal Capillary Refill, No Pedal Edema Neurologic/Psychiatric: Alert, Oriented x3, No Motor/Sensory Deficits, Normal Mood/Affect Skin: Normal Color, Warm/Dry Results Lab Laboratory Tests 03/06/19 05:45: White Blood Count 7.5, Red Blood Count 4.01L, Hemoglobin 12.0, Hematocrit 37, Mean Corpuscular Volume 92, Mean Corpuscular Hemoglobin 30, Mean Corpuscular Hemoglobin Concent 32, Red Cell Distribution Width 13.7, Platelet Count 258, Mean Platelet Volume 9.6, Neutrophils (%) (Auto) 46, Lymphocytes (%) (Auto) 44, Monocytes (%) (Auto) 6, Eosinophils (%) (Auto) 4, Basophils (%) (Auto) 1, Neutrophils # (Auto) 3.4, Lymphocytes # (Auto) 3.3, Monocytes # (Auto) 0.4, Eosinophils # (Auto) 0.3, Basophils # (Auto) 0.1, Sodium Level 143, Potassium Level 3.9, Chloride Level 111H, Carbon Dioxide Level 21, Anion Gap 11, Blood Urea Nitrogen 9, Creatinine 1.30, Estimat Glomerular Filtration Rate 47, BUN/Creatinine Ratio 7, Glucose Level 111H, Calcium Level 8.9, Corrected Calcium 9.5, Total Bilirubin 0.3, Aspartate Amino Transf (AST/SGOT) 24, Alanine Aminotransferase (ALT/SGPT) 27, Alkaline Phosphatase 83, Total Protein 5.7L, Albumin 3.3 Microbiology 03/01/19 Urine Culture - Final, Complete NO GROWTH Clinical Quality Measures DVT/VTE Risk/Contraindication: Risk Factor Score Per Nursin RFS Level Per Nursing on Admit: 4+=Very High DIDIER WHEAT DO 03/06/19 2300: Subjective Time Seen by a Provider: 09:21 Subjective/Events-last exam Pt seen just before surgery, no questions. Assessment/Plan Assessment/Plan Assessment/Plan Acute cholecystitis Plan to OR for lap isaías with IOC. Supervisory-Addendum Brief Verification & Attestation Participated in pt care: history, MDM, physical Personally performed: exam, history, MDM Care discussed with: Medical Student Procedures: n/a Verification and Attestation of Medical Student E/M Service A medical student performed and documented this service in my presence. I reviewed and verified all information documented by the medical student and made modifications to such information, when appropriate. I personally performed the physical exam and medical decision making. Didier Wheat, Mar 06, 2019,23:00 LEO HINSON,MED STUDENT Mar 06, 2019 07:43 DIDIER WHEAT DO Mar 06, 2019 23:00
[2019-03-06] MEDS: ASPIRIN E.C. 81 MG (ECOTRIN) TAB PO SCH (08:00)
[2019-03-06] MEDS: CARVEDILOL 3.125 MG (COREG) TABLET PO SCH ×2 (08:24→21:35)
[2019-03-06] MEDS ORDERED: proPOfol 200 MG/20 ML (DIPRIVAN) VIAL IV ONE (08:33)
[2019-03-06] MEDS ORDERED: ROCURONIUM 10 MG/ML 5 ML SYRINGE IV ONE (08:33)
[2019-03-06] MEDS ORDERED: NEOSTIGMINE 3 MG/3 ML VIAL ONE (08:33)
[2019-03-06] MEDS ORDERED: LIDOCAINE PF 2% 5 ML (XYLOCAINE) VIAL ONE (08:33)
[2019-03-06] MEDS ORDERED: ONDANSETRON 4 MG/2 ML (SDV) Z0FRAN ONE (08:33)
[2019-03-06] MEDS ORDERED: fentaNYL INJECTION 100 MCG/2 ML AMP ONE (08:33)
[2019-03-06] MEDS ORDERED: GLYCOPYRROLATE 0.2 MG/ML (ROBINUL) 2 ML VIAL ONE (08:33)
[2019-03-06] MEDS ORDERED: DEXAMETHASONE 10 MG/ML (DECADRON) 1 ML VIAL ONE (08:33)
--- NOTE | 2019-03-06 08:58 | NUR ---
Patient off floor to surgery at this time.
[2019-03-06] MEDS: CYCLOBENZAPRINE 10 MG (FLEXERIL) TAB PO SCH ×3 (09:00→21:35)
[2019-03-06] MEDS: FUROSEMIDE 20 MG (LASIX) TAB PO SCH (09:00)
[2019-03-06] MEDS: LEVOTHYROXINE 50 MCG (LEVOTHROID) TAB PO SCH (09:00)
[2019-03-06] MEDS: MELOXICAM 7.5 MG (MOBIC) TABLET PO SCH (09:00)
[2019-03-06] MEDS: oxyCODONE ER 20 MG (OxyCONTIN CR) TAB PO SCH ×2 (09:00→21:37)
[2019-03-06] MEDS: PANTOPRAZOLE 40 MG (PROTONIX) TAB PO SCH (09:00)
[2019-03-06] MEDS: MEMANTINE 5 MG (NAMENDA) TABLET PO SCH ×2 (09:00→21:37)
[2019-03-06] MEDS ORDERED: SEVOFLURANE (ULTANE) 15 ML INHAL SOLN ONE ×2 (10:52→11:07)
--- NOTE | 2019-03-06 10:52 | Diagnostic Imaging Report ---
INDICATION: Fluoroscopy during intraoperative cholangiogram. 11 seconds of fluoroscopic time was utilized for intraoperative cholangiogram. Contrast is seen within intrahepatic and extrahepatic bile ducts. Contrast passes into the duodenum. No filling defects are seen to suggest retained stone. IMPRESSION: Fluoroscopy for intraoperative cholangiogram. Dictated by: Dictated on workstation # [id number]
[2019-03-06] MEDS: FERROUS SULF 325 MG (IRON) TAB PO SCH (11:00)
[2019-03-06] MEDS ORDERED: BUP/EPI 0.5% 1:200,000 (SENSORCAINE) 30 ML VIAL ONE (11:05)
--- NOTE | 2019-03-06 11:15 | Progress Note-Post Operative ---
Post-Operative Progess Note Surgeon (s)/Tab Card Press Operator (s) Surgeon TAMAR GREEN DO Tab Card Press Operator: Justin Pre-Operative Diagnosis Acute Cholecystitis, Acute pancreatitis Post-Operative Diagnosis same plus adhesions Procedure & Operative Findings Date of Procedure 03/06/19 Procedure Performed/Findings Lap isaías with IOC Anesthesia Type GET Estimated Blood Loss Estimated blood loss (mL): 50ml Specimens/Packing Specimens Removed GB and contents TAMAR GREEN DO Mar 06, 2019 11:15
[2019-03-06] MEDS ORDERED: ONDANSETRON 4 MG/2 ML (SDV) Z0FRAN IVP PRN (11:30)
[2019-03-06] MEDS ORDERED: morphine INJ 10 MG/ML 1ML (SYR OR VIAL) IVP ONE (11:30)
[2019-03-06] MEDS ORDERED: MEPERIDINE (DEMEROL) INJ 50 MG/ML IVP ONE (11:30)
[2019-03-06] MEDS: morphine INJ 10 MG/ML 1ML (SYR OR VIAL) ONE ×2 (11:49→14:25)
--- NOTE | 2019-03-06 12:55 | Cardiology Progress Note ---
Cardiology SOAP Progress Note Subjective: Complaining of belly discomfort. Postop gallbladder surgery. Objective: I&O/Vital Signs 03/07/19 03/07/19 03/07/19 03/07/19 07:00 07:01 07:55 08:00 Temp 36.4 36.4 Pulse 88 88 Resp 20 B/P (MAP) 170/88 (115) 162/78 (106) Pulse Ox 95 O2 Delivery Room Air 03/07/19 03/07/19 03/07/19 03/07/19 08:04 09:05 09:45 09:45 Temp 36.4 36.4 Pulse Ox 94 O2 Delivery Room Air Room Air 03/07/19 03/07/19 13:00 14:26 Temp 36.4 Pulse 78 03/07/19 00:00 Intake Total 740 ml Balance 740 ml Weight (Pounds): 163 Weight (Ounces): 1.6 Weight (Calculated Kilograms): 73.583266 Constitutional: appears stated age, AAO x 3; No apparent distress; well-dev eloped, well-nourished Respiratory: chest is bilaterally symmetric, lungs clear to auscultation Cardiovascular: regular rate-rhythm, S1 and S2 Gastrointestional: tenderness, audible bowel sounds; No spleenomegaly Extremities: No clubbing, No cyanosis; no lower extremity edema bilateral; No significant edema Neurologic/Psychiatric: no motor/sensory deficits, alert, normal mood/affect, oriented x 3, power is 5/5 both on sides Skin: normal color; No rash, No ulcerations Results/Procedures: Labs Laboratory Tests 03/07/19 06:04: Sodium Level 139, Potassium Level 4.1, Chloride Level 109H, Carbon Dioxide Level 19L, Anion Gap 11, Blood Urea Nitrogen 11, Creatinine 1.18, Estimat Glomerular Filtration Rate 53, BUN/Creatinine Ratio 9, Glucose Level 117H, Calcium Level 8.5, Corrected Calcium 9.1, Total Bilirubin 0.3, Aspartate Amino Transf (AST/SGOT) 57H, Alanine Aminotransferase (ALT/SGPT) 42, Alkaline Phosphatase 78, Total Protein 5.8L, Albumin 3.3 03/07/19 06:43: White Blood Count 14.7H, Red Blood Count 3.83L, Hemoglobin 11.6, Hematocrit 36, Mean Corpuscular Volume 93, Mean Corpuscular Hemoglobin 30, Mean Corpuscular Hemoglobin Concent 33, Red Cell Distribution Width 14.0, Platelet Count 231, Mean Platelet Volume 9.2, Neutrophils (%) (Auto) 75, Lymphocytes (%) (Auto) 20, Monocytes (%) (Auto) 5, Eosinophils (%) (Auto) 0, Basophils (%) (Auto) 0, Neutrophils # (Auto) 11.0H, Lymphocytes # (Auto) 2.9, Monocytes # (Auto) 0.8, Eosinophils # (Auto) 0.0, Basophils # (Auto) 0.0, Neutrophils % (Manual) 76, Lymphocytes % (Manual) 21, Monocytes % (Manual) 3, Eosinophils % (Manual) 0, Basophils % (Manual) 0, Band Neutrophils 0, Blood Morphology Comment NORMAL Microbiology 03/04/19 MRSA Screen - Final, Complete MRSA not isolated 03/01/19 Urine Culture - Final, Complete NO GROWTH A/P: Assessment/Dx: Acute pancreatitis, Acute cholecystitis, gallbladder surgery planned for 03/05/2019, Perioperative cardiovascular risk assessment, Cardiac pacemaker. Plan: Acute pancreatitis, Acute cholecystitis, postop gallbladder surgery. Perioperative cardiovascular risk assessment, echocardiogram done 03/03/2019 shows normal LV function with moderate diastolic dysfunction. Moderate pulmonary hypertension is noted. Nuclear stress test done 03/05/2019 showed evidence of distal anterior/apical ischemia. Mild intensity. Small size. Coronary angiography did not show any significant CAD. Patient is considered to be low risk for operative major adverse cardiac events undergoing an intermediate risk noncardiac surgery gallbladder surgery. Pulmonary hypertension. Cardiac pacemaker. No acute cardiac issues. Will try to get old records. Thank you for your consultation. Please call me if you have any questions. Hellen Deleon MD, FACP, FACC, FSCAI, FHRS, CCDS Interventional Cardiology Cardiac Electrophysiology Vascular Medicine and Endovascular Interventions Joann DELEON MD Mar 06, 2019 12:55
--- NOTE | 2019-03-06 15:43 | NUR ---
CM/SS: Visited with pt as to plan for discharge Plan: Upon discharge pt to be returned home with [facility] to be resumed Summary: Pt resting from her surgery. Pt reports she is unclear as to when she can go home. Pt reports she will need a ride. Ride will need to be requested though her logisticare . . [facility]. This worker will leave this information with primary RN taking care of pt.
[2019-03-06] MEDS: KCL 10 MEQ TAB (MICRO K) PO SCH (15:44)
--- NOTE | 2019-03-06 15:52 | NUR ---
[facility] - [facility] - . To arrange transportation for pt to get home from Hospital.
[2019-03-06] MEDS: HYDROcodone/APAP 5 MG/325 MG (LORTAB) TAB PO PRN (17:27)
[2019-03-06] MEDS: ENOXAPARIN 40 MG/0.4 ML (LOVENOX) SYR SC SCH (17:35)
[2019-03-06] MEDS: RT-ALBUTEROL SULF 2.5 MG/3 ML PRE-MIX VIAL INH SCH ×2 (18:39→20:06)
--- NOTE | 2019-03-06 19:30 | OPERATIVE REPORT ---
DATE OF SERVICE: PREOPERATIVE DIAGNOSES: Acute cholecystitis and acute pancreatitis. POSTOPERATIVE DIAGNOSES: Acute cholecystitis and acute pancreatitis plus adhesions. PROCEDURE: Laparoscopic cholecystectomy, intraoperative cholangiogram. SURGEON: Didier Wheat DO. ADMIN ASSISTANT: Larry Anderson DO. ANESTHESIA: General endotracheal tube. SPECIMEN: Gallbladder and contents. BLOOD LOSS: Approximately 50 mL. FLUIDS: Per anesthesia. POSTOPERATIVE CONDITION: Stable. INDICATION FOR PROCEDURE: The patient is an 83-year-old female who had acute cholecystitis and pancreatitis has resolved and needs to get her gallbladder out. I believe she had a stone in the gallbladder as well. FINDINGS: The patient had multiple adhesions from her previous surgery, had a little bit of lysis of adhesions to be able to find the gallbladder and then the gallbladder looked like it had a stone in it. PROCEDURE NOTE: After informed consent was obtained, the patient was brought to the operating room, placed on the table in supine position. She was sterilely prepped and draped in normal fashion. Local lidocaine was used to infiltrate the skin above the umbilicus. I made the incision with #11 blade, carried down through the skin and subcutaneous tissue, then deepened down to subcutaneous tissue with Bovie electrocautery down to the fascia. Fascia was incised with Bovie electrocautery and then bluntly entered the abdomen, swept a finger around, felt adhesions, carefully tried to dissect these off bluntly with my finger. I then placed a limited trocar port, just started to create a pneumoperitoneum. There were a lot of adhesions. I used the scope to carefully bluntly dissect some of these down, able to continue gently dissecting these down, able to finally get over and see the right side of the abdomen, placed a 5 mm port with the VersaStep system done under direct visualization using local lidocaine, 11 blade for stab incision and watched the VersaStep come in. I then using this, started taking down these adhesions, found that the gallbladder and liver were stuck up to the abdominal wall, carefully continued taking down the adhesions. We were able to actually get into the midline a little bit just below the xiphoid, could see the abdominal wall and then put another port, another 5 mm VersaStep using local lidocaine, 11 blade for stab incision and VersaStep system, all done under direct visualization. At this point, I then able to grasp the gallbladder and take some adhesions off and then pulled the Mclaughlin's pouch down in the inferolateral direction, started dissecting out the cystic duct and cystic artery, able to get around the cystic duct and the cystic artery and placed 1 clip distally in the cystic duct and then 1 distally, 1 proximally in the cystic artery. Cut the cystic duct skilled nursing through Metzenbaum scissors and shot a cholangiogram. Good spillage of dye down the cystic duct into the common bile duct into the small intestine as well as up into common hepatic and right and left hepatics and actually started to see the pancreatic, which looked kind of like it had a big opening at the end with a very small, almost stricture at the duct between the pancreatic duct and the common bile duct. At this point, I then removed the cholangiogram catheter, placed 2 clips proximally on the cystic duct and cut the cystic duct and cystic artery with Metzenbaum scissors and then took the gallbladder off the bed of liver with L-hook cautery. There was some bleeding from the bed of the liver. This was controlled with Bovie electrocautery, placed a bag in the abdomen, placed the gallbladder in a bag and then removed through supraumbilical incision. There was some bleeding from the omentum and we had to open the midline incision, the supraumbilical incision just a little bit more to be able to get a hold of the omentum and control this. Once we were able to finally control this, I then also placed Surgicel and Gelfoam and then elected to close this incision with a #1 double stranded PDS suture running from superior portion to inferior portion tying to itself and then copiously irrigated the incisions and pulled all ports out under direct visualization, allowed pneumoperitoneum to escape and closed all the skin with felipe. Area was cleaned and dried, dressing was placed. The patient then transferred to recovery room in stable condition. Sponge, instrument and needle count correct at the end of the case. Dr. Anderson assisted in this case helping to make incisions, close incisions and identify anatomy, hold anatomy out of the way. Job ID: [id number] DocumentID: [id number] Dictated Date: 03/06/2019 12:08:41 Settlement Processor Date: 03/06/2019 19:29:43 Dictated By: DO RUSTY REEVES
[2019-03-06] MEDS: traZODone 50 MG (DESYREL) TAB PO SCH (21:35)
[2019-03-07] VITALS: BP 145/80
--- NOTE | 2019-03-07 00:30 | NUR ---
PT COMPLAINS OF COUGH, DR FRANCISCO CONTACTED, NEW MED ORDER RECEIVED, SEE ORDER HISTORY
[2019-03-07] MEDS: ACETAMINOPHEN 325 MG TABLET PO PRN (06:29)
[2019-03-07 06:35] LABS: ALBUMIN 3.3 GM/DL (3.2-4.5); BILIRUBIN,TOTAL 0.3 MG/DL (0.1-1.0); CALCIUM 8.5 MG/DL (8.5-10.1); CREATININE SERUM 1.18 MG/DL (0.60-1.30); POTASSIUM 4.1 MMOL/L (3.6-5.0); TOTAL PROTEIN 5.8 GM/DL (6.4-8.2)
[2019-03-07 06:53] LABS: BASOPHILS % (AUTO) 0 % (0-10); EOSINOPHILS % (AUTO) 0 % (0-10); HEMATOCRIT 36 % (35-52); HEMOGLOBIN 11.6 G/DL (11.5-16.0); LYMPHOCYTES # (AUTO) 2.9 X 10^3 (1.0-4.0); LYMPHOCYTES % (AUTO) 20 % (12-44); MEAN CORPUSCULAR HEMOGLOBIN 30 PG (25-34); MEAN CORPUSCULAR HGB CONC 33 G/DL (32-36); MEAN CORPUSCULAR VOLUME 93 FL (80-99); MEAN PLATELET VOLUME 9.2 FL (7.4-10.4); MONOCYTES # (AUTO) 0.8 X 10^3 (0.0-1.0); MONOCYTES % (AUTO) 5 % (0-12); NEUTROPHILS % (AUTO) 75 % (42-75); PLATELET COUNT 231 10^3/uL (130-400); WHITE BLOOD COUNT 14.7 10^3/uL (4.3-11.0)
[2019-03-07 07:28] LABS: BAND NEUTROPHILS 0 %; LYMPHOCYTES % (MANUAL) 21 %; MONOCYTES % (MANUAL) 3 %; NEUTROPHILS % (MANUAL) 76 %
[2019-03-07 07:29] LABS: BASOPHILS % (MANUAL) 0 %; EOSINOPHILS % (MANUAL) 0 %; RBC MORPH NORMAL
[2019-03-07 07:55] VITALS: BP 170/88
[2019-03-07 08:00] VITALS: BP 162/78
[2019-03-07] MEDS: RT-ALBUTEROL SULF 2.5 MG/3 ML PRE-MIX VIAL INH SCH ×3 (09:04→19:18)
[2019-03-07] MEDS: guaiFENesin/DM (ROBITUSSIN DM) 10 ML UDC PO PRN ×2 (09:12→22:02)
[2019-03-07] MEDS: FUROSEMIDE 20 MG (LASIX) TAB PO SCH (09:12)
[2019-03-07] MEDS: LEVOTHYROXINE 50 MCG (LEVOTHROID) TAB PO SCH (09:12)
[2019-03-07] MEDS: MEMANTINE 5 MG (NAMENDA) TABLET PO SCH ×2 (09:13→22:03)
[2019-03-07] MEDS: CARVEDILOL 3.125 MG (COREG) TABLET PO SCH ×2 (09:13→22:02)
[2019-03-07] MEDS: MELOXICAM 7.5 MG (MOBIC) TABLET PO SCH (09:13)
[2019-03-07] MEDS: PANTOPRAZOLE 40 MG (PROTONIX) TAB PO SCH (09:13)
[2019-03-07] MEDS: ASPIRIN E.C. 81 MG (ECOTRIN) TAB PO SCH (09:13)
[2019-03-07] MEDS: CYCLOBENZAPRINE 10 MG (FLEXERIL) TAB PO SCH ×3 (09:13→22:02)
[2019-03-07] MEDS: oxyCODONE ER 20 MG (OxyCONTIN CR) TAB PO SCH ×2 (09:14→22:03)
--- NOTE | 2019-03-07 12:01 | Discharge Inst-Surgical ---
D/C Lap Instructions-KIDO Reconcile Patient Problems Problems Reviewed?: Yes New, Converted, or Re-Newed RX: RX on Chart Follow Up Appt in [address] Wheat Activity as tolerated No driving while on pain medications Incentive Spirometry use every 2 hours while awake Regular Diet Symptoms to Report: Fever over 101 degree F, Nausea/Vomiting Infection Signs and Symptoms to report: Increased redness, Foul odor of wound, Increased drainage Bathing instructions: May shower Operative Area Clean/Dry; Keep incision clean/dry If any problems/questions: Contact your physician or go to Emergency Room DENI MAI APRN Mar 07, 2019 12:01
--- NOTE | 2019-03-07 12:07 | Progress Note ---
Subjective Date Seen by a Provider: Mar 07, 2019 Time Seen by a Provider: 11:30 Subjective/Events-last exam Patient seen with Dr. Valladares. Patient reports doing well. Tolerating diet with no N/V. Reports minimal abdominal discomfort. Ambulating. No Fever/chills. Objective Exam Vital Signs Date Time Temp Pulse Resp B/P (MAP) Pulse Ox O2 Delivery O2 Flow Rate FiO2 03/07/19 09:45 36.4 03/07/19 09:45 36.4 03/07/19 09:05 94 Room Air 03/07/19 08:04 Room Air 03/07/19 08:00 162/78 (106) 03/07/19 07:55 36.4 88 20 170/88 (115) 95 Room Air 03/07/19 07:01 36.4 03/07/19 07:00 88 03/07/19 01:00 87 03/07/19 00:00 36.5 85 18 145/80 (101) 92 Room Air 03/06/19 20:07 93 Room Air 03/06/19 20:00 Room Air 03/06/19 19:00 95 03/06/19 15:51 36.4 79 20 137/64 (88) 94 Nasal Cannula 3.00 03/06/19 12:45 Nasal Cannula 3 03/06/19 12:35 Nasal Cannula 3 03/06/19 12:30 36.8 16/155 (109) 70 Nasal Cannula 3 03/06/19 12:20 16 147/69 (95) 98 OxyMask 3 03/06/19 12:20 OxyMask 3 03/06/19 12:10 16 163/81 (108) 99 OxyMask 3 03/06/19 12:05 OxyMask 3 I & O 03/07/19 07:00 Intake Total 860 ml Balance 860 ml Capillary Refill : Less Than 3 SecondsLess Than 3 Seconds General Appearance: No Apparent Distress, WD/WN Neck: Full Range of Motion, Non Tender, Supple Respiratory: Normal Breath Sounds, No Accessory Muscle Use, No Respiratory Distress Cardiovascular: Regular Rate, Rhythm, No Murmur Gastrointestinal: normal bowel sounds, soft, tenderness Extremity: Normal Capillary Refill, Normal Inspection, Normal Range of Motion Neurologic/Psychiatric: Alert, Oriented x3 Skin: Normal Color, Warm/Dry, Other (Abdominal incision C/D/I with Skin felipe in place.) Results Lab Laboratory Tests 03/07/19 06:04: Sodium Level 139, Potassium Level 4.1, Chloride Level 109H, Carbon Dioxide Level 19L, Anion Gap 11, Blood Urea Nitrogen 11, Creatinine 1.18, Estimat Glomerular Filtration Rate 53, BUN/Creatinine Ratio 9, Glucose Level 117H, Calcium Level 8.5, Corrected Calcium 9.1, Total Bilirubin 0.3, Aspartate Amino Transf (AST/SGOT) 57H, Alanine Aminotransferase (ALT/SGPT) 42, Alkaline Phosphatase 78, Total Protein 5.8L, Albumin 3.3 03/07/19 06:43: White Blood Count 14.7H, Red Blood Count 3.83L, Hemoglobin 11.6, Hematocrit 36, Mean Corpuscular Volume 93, Mean Corpuscular Hemoglobin 30, Mean Corpuscular Hemoglobin Concent 33, Red Cell Distribution Width 14.0, Platelet Count 231, Mean Platelet Volume 9.2, Neutrophils (%) (Auto) 75, Lymphocytes (%) (Auto) 20, Monocytes (%) (Auto) 5, Eosinophils (%) (Auto) 0, Basophils (%) (Auto) 0, Neutrophils # (Auto) 11.0H, Lymphocytes # (Auto) 2.9, Monocytes # (Auto) 0.8, Eosinophils # (Auto) 0.0, Basophils # (Auto) 0.0, Neutrophils % (Manual) 76, Lymphocytes % (Manual) 21, Monocytes % (Manual) 3, Eosinophils % (Manual) 0, Basophils % (Manual) 0, Band Neutrophils 0, Blood Morphology Comment NORMAL Microbiology 03/04/19 MRSA Screen - Final, Complete MRSA not isolated 03/01/19 Urine Culture - Final, Complete NO GROWTH Assessment/Plan Assessment/Plan Assess & Plan/Chief Complaint An 83 year old female who is S/P lap isaías with IOC. Tolerating diet Ambulating well VSS Ok to DC from surgical standpoint and patient has pain meds at home that she takes on regular basis. Follow up with Dr. Wheat in 2 weeks. Clinical Quality Measures DVT/VTE Risk/Contraindication: Risk Factor Score Per Nursin RFS Level Per Nursing on Admit: 4+=Very High DENI MAI MEDICAL OFFICE ASSISTANT Mar 07, 2019 12:07
[2019-03-07] MEDS: KCL 10 MEQ TAB (MICRO K) PO SCH (12:17)
--- NOTE | 2019-03-07 12:35 | Discharge Summary ---
Discharge Summary Hospital Course Was the Problem List Reviewed?: Yes Problems/Dx: (1) Acute pancreatitis Status: Acute Qualifiers: Qualified Codes: K85.90 - Acute pancreatitis without necrosis or infection, unspecified (2) Acute acalculous cholecystitis Status: Acute (3) Oxygen dependent Status: Chronic (4) Hypoxia Status: Acute (5) Chronic pain Status: Chronic (6) Hypertension Status: Chronic (7) Hypothyroidism Status: Chronic (8) Alzheimer disease Status: Chronic (9) CRI (chronic renal insufficiency) Status: Acute Hospital Course Date of Admission: Mar 01, 2019 at 21:06 Admission Diagnosis : Family Physician/Provider: Haim Talley MD Date of Discharge: 03/07/19 Discharge Diagnosis: acute pancreatitis, s/p choly, chronic pain, left hip pain chronic s/p replacement 2018 Dr Estrada, HTN, dementia Hospital Course: Had a lengthy hospital course after admitted for abdominal pain and dx with acute pancreatitis so consulted Dr Wheat and found to have GB source so she was provided NPO status and supportive care and pain control and underwent cardiac evaluation and then had an uncomplicated choly and was deemed stable for DC and will restart all of her regular meds. Labs and Pending Lab Test: Laboratory Tests 03/07/19 06:04: Sodium Level 139, Potassium Level 4.1, Chloride Level 109H, Carbon Dioxide Level 19L, Anion Gap 11, Blood Urea Nitrogen 11, Creatinine 1.18, Estimat Glomerular Filtration Rate 53, BUN/Creatinine Ratio 9, Glucose Level 117H, Calcium Level 8.5, Corrected Calcium 9.1, Total Bilirubin 0.3, Aspartate Amino Transf (AST/SGOT) 57H, Alanine Aminotransferase (ALT/SGPT) 42, Alkaline Phosphatase 78, Total Protein 5.8L, Albumin 3.3 03/07/19 06:43: White Blood Count 14.7H, Red Blood Count 3.83L, Hemoglobin 11.6, Hematocrit 36, Mean Corpuscular Volume 93, Mean Corpuscular Hemoglobin 30, Mean Corpuscular Hemoglobin Concent 33, Red Cell Distribution Width 14.0, Platelet Count 231, Mean Platelet Volume 9.2, Neutrophils (%) (Auto) 75, Lymphocytes (%) (Auto) 20, Monocytes (%) (Auto) 5, Eosinophils (%) (Auto) 0, Basophils (%) (Auto) 0, Neutrophils # (Auto) 11.0H, Lymphocytes # (Auto) 2.9, Monocytes # (Auto) 0.8, Eosinophils # (Auto) 0.0, Basophils # (Auto) 0.0, Neutrophils % (Manual) 76, Lymphocytes % (Manual) 21, Monocytes % (Manual) 3, Eosinophils % (Manual) 0, Basophils % (Manual) 0, Band Neutrophils 0, Blood Morphology Comment NORMAL Microbiology 03/04/19 MRSA Screen - Final, Complete MRSA not isolated 03/01/19 Urine Culture - Final, Complete NO GROWTH Home Meds Active Voltaren (Diclofenac Sodium) 100 Gm Gel..gram. 1 Gm TOP QID PRN Reported Oxycontin (Oxycodone HCl) 20 Mg Tab.er.12h 20 Mg PO BID 7 Days Hydrocodone-Acetamin 5-325 mg (Hydrocodone/Acetaminophen) 1 Each Tablet 1 Tab PO Q12H PRN 7 Days Meloxicam 7.5 Mg Tablet 7.5 Mg PO DAILY Carvedilol 3.125 Mg Tablet 3.125 Mg PO BID Aspirin EC (Aspirin) 81 Mg Tablet.dr 81 Mg PO DAILY Lasix (Furosemide) 20 Mg Tablet 20 Mg PO DAILY PRN Ferrous Sulfate 325 Mg Tablet 325 Mg PO Q48H Cyclobenzaprine HCl 10 Mg Tablet 10 Mg PO TID Amox Tr-K Clv 875-125 mg Tab (Amoxicillin/Potassium Clav) 1 Each Tablet 1 Tab PO BID FILLED #14 /7DS ON 02-27-2019 Hydralazine HCl 100 Mg Tablet 100 Mg PO Q6H PRN Meclizine HCl 25 Mg Tablet 25 Mg PO DAILY PRN Miralax (Polyethylene Glycol 3350) 17 Gm Powd.pack 17 Gm PO DAILY PRN Acetaminophen 325 Mg Tablet 325 Mg PO Q4H PRN Memantine HCl ER (Memantine HCl) 14 Mg Cap.spr.24 14 Mg PO DAILY Trazodone HCl 50 Mg Tablet 50 Mg PO HS Pantoprazole Sodium 40 Mg Tablet.dr 40 Mg PO DAILY Vitamin D3 (Cholecalciferol (Vitamin D3)) 5,000 Unit Capsule 10,000 Units PO MARINO Furosemide 20 Mg Tablet 20 Mg PO DAILY Levothyroxine Sodium 50 Mcg Tablet 50 Mcg PO DAILY Potassium Chloride 10 Meq Tablet.er 10 Meq PO 1200 Assessment/Pt Instructions [facility]C 1 week Discharge Planning: <30 minutes discharge planning Discharge Instructions Discharge Diet: No Restrictions Activity as Tolerated: Yes Discharge Physical Examination Vital Signs Vital Signs Date Time Temp Pulse Resp B/P (MAP) Pulse Ox O2 Delivery O2 Flow Rate FiO2 03/07/19 09:45 36.4 03/07/19 09:05 94 Room Air 03/07/19 08:00 162/78 (106) 03/07/19 07:55 88 20 03/06/19 15:51 3.00 General Appearance: No Apparent Distress, WD/WN Respiratory: Chest Non Tender, Lungs Clear, Normal Breath Sounds, No Accessory Muscle Use, No Respiratory Distress Cardiovascular: Regular Rate, Rhythm, No Edema, No Gallop, No JVD, No Murmur, Normal Peripheral Pulses Neurologic/Psychiatric: Alert, Oriented x3, No Motor/Sensory Deficits, Normal Mood/Affect Allergies: Coded Allergies: aspirin (Verified Allergy, Severe, 11/01/18) clindamycin (Verified Allergy, Severe, swelling, 11/01/18) fosinopril (Verified Allergy, Severe, Rash, 11/01/18) lisinopril (Verified Allergy, Severe, Rash, 11/01/18) Discharge Summary Date of Admission Mar 01, 2019 at 21:06 Date of Discharge Discharge Date: Mar 07, 2019 Admission Diagnosis Assessment: Acute pancreatitis Abdominal pain HTN HLP OA Plan: IVF Supportive care IV Zofran Discharge Diagnosis Assessment: Acute pancreatitis Gallbladder disease will have choly today after EST Abdominal pain HTN HLP OA Plan: IVF NPO Cholecystectomy today Supportive care IV Zofran Kpad HLIVF (1) Acute pancreatitis Status: Acute Qualifiers: Qualified Codes: K85.90 - Acute pancreatitis without necrosis or infection, unspecified (2) Acute acalculous cholecystitis Status: Acute (3) Oxygen dependent Status: Chronic (4) Hypoxia Status: Acute (5) Chronic pain Status: Chronic (6) Hypertension Status: Chronic (7) Hypothyroidism Status: Chronic (8) Alzheimer disease Status: Chronic (9) CRI (chronic renal insufficiency) Status: Acute Clinical Quality Measures DVT/VTE Risk/Contraindication: Risk Factor Score Per Nursin RFS Level Per Nursing on Admit: 4+=Very High ELENA FRANCISCO DO Mar 07, 2019 12:35
--- NOTE | 2019-03-07 12:39 | D/C HH Face to Face Order ---
D/C Face to Face Orders Reconcile Patient Problems Problems Reviewed?: Yes Instructions for Patient Integrity Home Health Patient Instructions/FollowUp: Resume previous care Physician to follow Patient: Dr Talley Discharge Diet for Home: No Restrictions Patient Problems: s/p choly s/p pancreatitis Goals for Patient: independence Patient Data-Allergies,Ht & Wt Patient Allergies: Coded Allergies: aspirin (Verified Allergy, Severe, 11/01/18) clindamycin (Verified Allergy, Severe, swelling, 11/01/18) fosinopril (Verified Allergy, Severe, Rash, 11/01/18) lisinopril (Verified Allergy, Severe, Rash, 11/01/18) Height (Feet): 5 Height (Inches): 2.00 Weight (Pounds): 163 Weight (Ounces): 1.6 Home Health Need/Face to Face Date of Face to Face: Mar 07, 2019 Clinical Findings: Generalized weakness and fatigue, Instability, Muscle weakness, Unsteady gait I have seen Pt [id number]: Yes Discharged To: Home Diagnosis/Conditions: s/p choly s/p pancreatitis Patient is Homebound due to: CognItive deficits, Cl fall risk due to instabilty, Muscle weakness Homebound Status Due to the above stated illness, injury or surgical procedure (medical condition or diagnosis) and associated clinical findings, the patient is homebound because of his/her inability to leave home except with aid of a supportive device and/or person AND leaving the home requires a considerable and taxing effort or is medically contraindicated. Pt req the following assistanc: [facility] Nursing Orders Home Health Services Order: Nursing Services, Parent Educator-Evaluate & Treat, Physical Therapy-Evaluate & Treat Home Health Infusion Therapy Line Start Date: Mar 01, 2019 Certify Stmt I certify that this patient is under my care and that I, a nurse practitioner or a physician; a orthopedic physician assistant working with me, had a face to face encounter that - meets the physician face to face encounter requirements with this patient as dated. ELENA FRANCISCO DO Mar 07, 2019 12:39
--- NOTE | 2019-03-07 14:25 | NUR ---
NOTE THAT NUMBER FOR RIDE HOME WAS CALLED AND THIS RN WAS INFORMED THAT IT WOULD TAKE UP TO 4 HR Addendum: 03/07/19 at 1726 by AKIRA MCKINNEY RN Adry RIVERA SITE -- DSG WAS REMOVED SITE CLEANSED AND BANAID TO SITE -- ABD INCISON WITH STAPLE SITE -- DSG WAS REMOVED AND SITE CLEANSED WITH ALCOHOL AND ISLAND DSG APPLIED
[2019-03-07] MEDS: HYDROcodone/APAP 5 MG/325 MG (LORTAB) TAB PO PRN (14:26)
[2019-03-07 16:25] VITALS: BP 132/61
[2019-03-07] MEDS: ENOXAPARIN 40 MG/0.4 ML (LOVENOX) SYR SC SCH (17:00)
--- NOTE | 2019-03-07 20:16 | NUR ---
TRANSPORTATION SERVICE CALLED AT THIS TIME, THEY STATE THAT THEY ARE ARRANGING A NEW RIDE FOR PT.
--- NOTE | 2019-03-07 20:40 | Anesthesia-General Post-Op ---
General Patient Condition Mental Status/LOC: Same as Preop Cardiovascular: Satisfactory Nausea/Vomiting: Absent Respiratory: Satisfactory Pain: Controlled Complications: Absent Post Op Complications Complications None Follow Up Care/Instructions Patient Instructions None needed. Anesthesia/Patient Condition Patient Condition Patient is doing well, no complaints, stable vital signs, no apparent adverse anesthesia problems. No complications reported per nursing. ELAINE GUTIERREZ CRNA Mar 07, 2019 20:40
--- NOTE | 2019-03-07 20:53 | NUR ---
PT RIDE YET TO COME, NUMBER FOR TRANSPORTATION CALLED AGAIN, THEY STATE THEY WOULD REQUEST A RIDE AGAIN
[2019-03-07] MEDS: traZODone 50 MG (DESYREL) TAB PO SCH (22:03)
--- NOTE | 2019-03-07 22:18 | NUR ---
TRANSPORTATION SERVICE CALLED AGAIN AT THIS TIME
--- NOTE | 2019-03-07 23:00 | NUR ---
TRANSPORTATION SERVICE CALLED AGAIN AT THIS TIME, STATES THEY WOULD RE ROUTE THE RIDE REQUEST TO ANOTHER COMPANY AND WILL UPDATE THIS RN ONCE IT IS ARRANGED.
[2019-03-08] VITALS: BP 133/79
--- NOTE | 2019-03-08 00:45 | NUR ---
TRANSPORTATION SERVICE CALLED TO TELL THIS RN THEY WONT BE ABLE TO ARRANGE FOR A RIDE UNTIL MORNING FOR PT. INFORMATION RESOURCES DIRECTOR AND DR FRANCISCO NOTIFIED
[2019-03-08] MEDS: HYDROcodone/APAP 5 MG/325 MG (LORTAB) TAB PO PRN (05:54)
--- NOTE | 2019-03-08 06:50 | NUR ---
transportation service called at this time. said that they will arrange for a ride and call to update when ride will come to hospital
[2019-03-08] MEDS: FUROSEMIDE 20 MG (LASIX) TAB PO SCH (08:06)
[2019-03-08] MEDS: MEMANTINE 5 MG (NAMENDA) TABLET PO SCH (08:06)
[2019-03-08] MEDS: LEVOTHYROXINE 50 MCG (LEVOTHROID) TAB PO SCH (08:06)
[2019-03-08] MEDS: MELOXICAM 7.5 MG (MOBIC) TABLET PO SCH (08:06)
[2019-03-08] MEDS: CYCLOBENZAPRINE 10 MG (FLEXERIL) TAB PO SCH (08:06)
[2019-03-08] MEDS: CARVEDILOL 3.125 MG (COREG) TABLET PO SCH (08:06)
[2019-03-08] MEDS: PANTOPRAZOLE 40 MG (PROTONIX) TAB PO SCH (08:06)
[2019-03-08] MEDS: ASPIRIN E.C. 81 MG (ECOTRIN) TAB PO SCH (08:08)
[2019-03-08] MEDS: oxyCODONE ER 20 MG (OxyCONTIN CR) TAB PO SCH (08:12)
[2019-03-08 08:18] VITALS: BP 133/79
--- NOTE | 2019-03-08 08:18 | NUR ---
NOTE THAT [employer] [facility] HAD NOT GOT RIDE FOR PT TO GO HOME IN [facility], THIS RN CALLED [facility] AND ASKED ABOUT HOME ON [place] -- THIS WAS ARRANGED AND VOUCHE WAS DONE -- ATTEMPTS TO CALL [employer] [facility] was meet with that ride fell through to it will WILL BE SOON TO NOT BEING ABLE TO GIVE TIME ..
[2019-03-08] MEDS ORDERED: VITAMIN D3 5,000 UNITS (CHOLECALCIFEROL ) CAPSULE PO SCH (09:00)
== END 2019-03-08 08:18 | disposition home health service (06) | DRG 418 ==
LOC: EDUNIT# 17:41 → ER FS 17:42 → 4TH 21:06 → ICU 03-05 14:35 → 4TH 03-05 19:05
PROVIDERS: ADMIT Internal Medicine; ATTEND Internal Medicine
PROC: 4A023N7 Measurement of Cardiac Sampling and Pressure, Left Heart, Percutaneous Approach (ICD-10-PCS; 2019-03-05)
PROC: B2111ZZ Fluoroscopy of Multiple Coronary Arteries using Low Osmolar Contrast (ICD-10-PCS; 2019-03-05)
PROC: BF141ZZ Fluoroscopy of Gallbladder, Bile Ducts and Pancreatic Ducts using Low Osmolar Contrast (ICD-10-PCS; 2019-03-06)
PROC: 0FT44ZZ Resection of Gallbladder, Percutaneous Endoscopic Approach (ICD-10-PCS; principal; 2019-03-06 09:17)
DX: K85.90 Acute pancreatitis without necrosis or infection, unspecified (principal); K81.0 Acute cholecystitis; G89.29 Other chronic pain; I12.9 Hypertensive chronic kidney disease with stage 1 through stage 4 chronic kidney disease, or unspecified chronic kidney disease; G30.9 Alzheimer's disease, unspecified; F02.80 Dementia in other diseases classified elsewhere, unspecified severity, without behavioral disturbance, psychotic disturbance, mood disturbance, and anxiety; N18.9 Chronic kidney disease, unspecified; K59.00 Constipation, unspecified; K21.9 Gastro-esophageal reflux disease without esophagitis; J44.9 Chronic obstructive pulmonary disease, unspecified; Z95.0 Presence of cardiac pacemaker; Z87.891 Personal history of nicotine dependence; Z85.41 Personal history of malignant neoplasm of cervix uteri; M19.90 Unspecified osteoarthritis, unspecified site; Z87.01 Personal history of pneumonia (recurrent); E78.5 Hyperlipidemia, unspecified; Z90.710 Acquired absence of both cervix and uterus; Z90.49 Acquired absence of other specified parts of digestive tract; Z90.89 Acquired absence of other organs; I27.20 Pulmonary hypertension, unspecified; Z88.1 Allergy status to other antibiotic agents; Z88.8 Allergy status to other drugs, medicaments and biological substances; Z99.81 Dependence on supplemental oxygen
CPT/HCPCS: 36415; 74177; 78452; 80053; 81000; 82150; 83605; 83690; 84484; 85007; 85025; 85027; 87081; 87088; 88304; 93005; 93017; 93306; 93458; 94640; 94760; 96361; 96365; 96375

== ENCOUNTER 2019-05-05 10:15 | Outpatient (CLI) | payer MEDICARE, MEDICAID ==
[~2019-05-05] VITALS: Ht 157.5 cm; Wt 73.6 kg
[~2019-05-05 10:15] MED LIST changes: +AMOX1TAB12 PO; +CARV3.122 PO; +CYCL10TA9 PO; +FURO-125 PO; -MECL-106 PO; +MECL-149 PO; -TRAZ-222 PO; +TRZ50T PO
== END 2019-05-05 10:35 | disposition home or self-care (01) ==
LOC: PREOP 10:15
PROVIDERS: ATTEND Surgery
DX: Z01.818 Encounter for other preprocedural examination (principal)

== ENCOUNTER 2019-05-11 09:26 | Day surgery (SDC) | payer MEDICARE, MEDICAID ==
[2019-05-11 09:30] VITALS: BP 146/73
--- NOTE | 2019-05-11 09:30 | NUR ---
PATIENT REFUSES TO TAKE EGD ONLY COLONOSCOPY AND REPORTS TO TAKING ALL MEDICATIONS ON LIST YESTERDAY EXCEPT ASA 1 WEEK AGO.
[2019-05-11] MEDS ORDERED: PROPOFOL INJECTION 50 ML IV ONE (09:36)
[2019-05-11] MEDS ORDERED: LACTATED RINGERS 1,000 ML IV ONE (09:38)
[2019-05-11] MEDS ORDERED: LACTATED RINGERS 1,000 ML IV STA (09:39)
--- NOTE | 2019-05-11 09:41 | Progress Note-Pre Operative ---
Pre-Operative Progress Note H&P Reviewed The H&P was reviewed, patient examined and no changes noted. Time Seen by Provider: 09:38 Date H&P Reviewed: May 11, 2019 Time H&P Reviewed: 09:39 Pre-Operative Diagnosis: +Cologuard, Gastritis, abdominal pain TAMAR GREEN DO May 11, 2019 09:40
[2019-05-11] MEDS ORDERED: HURRICAINE EXT TUBE (BENZOCAINE) XX PRN (09:45)
[2019-05-11 10:30] VITALS: BP 70/37
--- NOTE | 2019-05-11 10:33 | Progress Note-Post Operative ---
Post-Operative Progess Note Surgeon (s)/Filenet P8 Developer (s) Surgeon TAMAR GREEN DO Filenet P8 Developer: none Pre-Operative Diagnosis +Cologuard, Gastritis, abdominal pain Post-Operative Diagnosis Diverticula Internal hemorrhoids Procedure & Operative Findings Date of Procedure 05/11/19 Procedure Performed/Findings colonoscopy Anesthesia Type IV sedation by DEBUBBLIZER Estimated Blood Loss Estimated blood loss (mL): none Specimens/Packing Specimens Removed none TAMAR GREEN DO May 11, 2019 10:33
[2019-05-11 10:35] VITALS: BP 87/47
--- NOTE | 2019-05-11 10:36 | Endoscopy Discharge Instruct ---
Endo Procedure/Findings Findings 1.: Diverticulosis 2.: Internal Hemorrhoids Discharge Instructions - Activity: You might feel a little sleepy until tomorrow. This is due to the medicine you received to relax you. Until tomorrow, you should: NOT drive a car, operate machinery or power tools. NOT drink any alcoholic beverages. NOT make any important decisions or sign importortant papers. Do not return to work until tomorrow, unless otherwise instructed. Resume previous activities tomorrow. Diet: Start by taking liquids. If you tolerate liquids, advance to solid food. make an appointment for 2 weeks. Notify Physician - If you experience excessive bleeding, unusual abdominal pain, fever, or chest pain, contact your doctor immediately. TAMAR GREEN DO May 11, 2019 10:36
[2019-05-11 10:40] VITALS: BP 93/48
[2019-05-11 10:45] VITALS: BP 93/48
--- NOTE | 2019-05-11 10:45 | Anesthesia-General Post-Op ---
MAC Patient Condition Mental Status/LOC: Same as Preop Cardiovascular: Satisfactory Nausea/Vomiting: Absent Respiratory: Satisfactory Pain: Controlled Complications: Absent Post Op Complications Complications None Follow Up Care/Instructions Patient Instructions None needed. Anesthesiology Discharge Order Discharge Order Patient is doing well, no complaints, stable vital signs, no apparent adverse anesthesia problems. No complications reported per nursing. VON DOMINGO CRNA May 11, 2019 10:44
[2019-05-11 11:18] VITALS: BP 96/57
--- NOTE | 2019-05-11 22:28 | OPERATIVE REPORT ---
DATE OF SERVICE: 05/11/2019 PREOPERATIVE DIAGNOSIS: Positive Cologuard. POSTOPERATIVE DIAGNOSES: Diverticula, internal hemorrhoids. PROCEDURE: Colonoscopy. SURGEON: Didier Wheat DO SOCIAL SERVICES SPECIALIST: None. ANESTHESIA: IV sedation by the PRODUCTION GRAPHIC DESIGNER. SPECIMENS: None. BLOOD LOSS: None. FLUIDS: Per anesthesia. POSTOPERATIVE CONDITION: Stable. INDICATION FOR PROCEDURE: The patient is an 83-year-old female who had a positive Cologuard and needed a workup. FINDINGS: The patient had some diverticula and internal hemorrhoids, but no other obvious pathology seen. PROCEDURE NOTE: After informed consent was obtained, the patient was brought to the endoscopy suite, placed in bed in left lateral decubitus position. She was administered IV sedation by the PRODUCTION GRAPHIC DESIGNER who then monitored her vitals the entire time, heart rate, blood pressure and pulse ox and the scope was inserted, pushed all the way to 140 cm, able to get all the way to cecum. On the way in, noted some diverticula, took picture of this. Once in the cecum, able to take a picture of appendiceal orifice, noted the ileocecal valve and then slowly withdrew the scope insufflating to look circumferentially at the qiu looking the cecum, up the ascending colon to the hepatic flexure, then down the transverse colon to the splenic flexure, into the descending colon and then down into the sigmoid and finally into the rectum, retroflexed in rectal vault, saw some minimal internal hemorrhoids. No other obvious pathology. Scope was removed. The patient tolerated the procedure, recovered in endoscopy suite. Job ID: [id number] DocumentID: [id number] Dictated Date: 05/11/2019 16:10:49 Supervisor In Charge Date: 05/11/2019 22:27:49 Dictated By: DIDIER WHEAT DO
--- OUTSIDE RECORDS SUMMARY | 2019-05-13 18:35 | XMS REPORT | Continuity of Care Document ---
Author Organization Unknown Address Unknown Phone Unavailable Allergies Active Description Code Type Severity Reaction Onset Reported/Identified Relationship to Patient Clinical Status Yes No Known Drug Allergies [id number] Drug Allergy Unknown N/A 07/14/2018 Yes aspirin [id number] Drug Allergy Severe N/A 05/11/2019 Yes clindamycin [id number] Drug Aller gy Severe swelling 05/11/2019 Yes fosinopril [id number] Drug Allerg y Severe Rash 05/11/2019 Yes lisinopril [id number] Drug Allerg y Severe Rash 05/11/2019 Medications There is no data. 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 01/19/2017 HEARNDON DO, JOEY Rider Ot M06.9 RHEUMATOID ARTHRITIS, UNSPECIFIED 01/19/2017 HEARNDON DO, JOEY Rider Ot M54.16 RADICULOPATHY, LUMBAR REGION 01/19/2017 HEARNDON DO, JOEY Rider Ot M81.0 AGE-RELATED OSTEOPOROSIS W/O CURRENT PAT 01/19/2017 HEARNDON DO, JOEY L Ot Z79.899 OTHER [facility] (CURRENT) DRUG THERAPY 02/05/2017 HEARNDON DO, JOEY Rider Ot D64.9 ANEMIA, UNSPECIFIED 02/05/2017 HEARNDON DO, JOEY L Ot F03.90 UNSPECIFIED DEMENTIA WITHOUT BEHAVIORAL 02/05/2017 HEARNDON DO, JOEY Rider Ot G40.909 EPILEPSY, UNSP, NOT INTRACTABLE, WITHOUT 02/05/2017 HEARNDON DOJOEY Ot 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 02/05/2017 HEARNDON DOJOEY Ot M06.9 RHEUMATOID ARTHRITIS, UNSPECIFIED 02/05/2017 HEARNDON DOJOEY Ot M54.16 RADICULOPATHY, LUMBAR REGION 02/05/2017 HEARNDON DOJOEY Ot M81.0 AGE-RELATED OSTEOPOROSIS W/O CURRENT PAT 02/05/2017 HEARNDON DO, JOEY iRder Ot Z79.899 OTHER [facility] (CURRENT) DRUG THERAPY 02/14/2017 HEARNDON DOJOEY Ot D64.9 ANEMIA, UNSPECIFIED 02/14/2017 HEARNDON DO, JOEY Rider Ot F03.90 UNSPECIFIED DEMENTIA WITHOUT BEHAVIORAL 02/14/2017 HEARNDON DOJOEY Ot G40.909 EPILEPSY, UNSP, NOT INTRACTABLE, WITHOUT 02/14/2017 HEARNDON DO, JOEY Rider Ot 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 02/14/2017 HEARNDON DO, JOEY Rider Ot M06.9 RHEUMATOID ARTHRITIS, UNSPECIFIED 02/14/2017 HEARNDON DO, JOEY Rider Ot M54.16 RADICULOPATHY, LUMBAR REGION 02/14/2017 HEARNDON DO, JOEY Rider Ot M81.0 AGE-RELATED OSTEOPOROSIS W/O CURRENT PAT 02/14/2017 HEARNDON DOJOEY Ot Z79.899 OTHER [employer]AD [employer] (CURRENT) DRUG THERAPY 07/14/2018 HEARNDON DOJOEY Ot D64.9 ANEMIA, UNSPECIFIED 07/14/2018 HEARNDON DO, JOEY Rider Ot F03.90 UNSPECIFIED DEMENTIA WITHOUT BEHAVIORAL 07/14/2018 HEARNDON DO, JOEY Rider Ot G40.909 EPILEPSY, UNSP, NOT INTRACTABLE, WITHOUT 07/14/2018 HEARNDON DO, JOEY Rider Ot 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 07/14/2018 HEARNDON DO, JOEY Rider Ot M06.9 RHEUMATOID ARTHRITIS, UNSPECIFIED 07/14/2018 HEARNDON DO, JOEY Rider Ot M54.16 RADICULOPATHY, LUMBAR REGION 07/14/2018 HEARNDON DO, JOEY Rider Ot M81.0 AGE-RELATED OSTEOPOROSIS W/O CURRENT PAT 07/14/2018 HEARNDON DO, JOEY Rider Ot Z79.899 OTHER [employer] (CURRENT) DRUG THERAPY 07/14/2018 HEARNDON DO, JOEY Rider Ot D64.9 ANEMIA, UNSPECIFIED 07/14/2018 HEARNDON DO, JOEY Rider Ot F03.90 UNSPECIFIED DEMENTIA WITHOUT BEHAVIORAL 07/14/2018 HEARNDON DO, JOEY Rider Ot G40.909 EPILEPSY, UNSP, NOT INTRACTABLE, WITHOUT 07/14/2018 HEARNDON DO, JOEY Rider Ot 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 07/14/2018 HEARNDON DO, JOEY Rider Ot M06.9 RHEUMATOID ARTHRITIS, UNSPECIFIED 07/14/2018 HEARNDON DO, JOEY Rider Ot M54.16 RADICULOPATHY, LUMBAR REGION 07/14/2018 HEARNDON DO, JOEY Rider Ot M81.0 AGE-RELATED OSTEOPOROSIS W/O CURRENT PAT 07/14/2018 HEARNDON DOJOEY Ot Z79.899 OTHER [facility] (CURRENT) DRUG THERAPY 07/14/2018 AYAKA MONIQUE DO Ot I10 ESSENTIAL (PRIMARY) HYPERTENSION 07/14/2018 AYAKA MONIQUE DO Ot J45.909 UNSPECIFIED ASTHMA, UNCOMPLICATED 07/14/2018 AYAKA MONIQUE DO Ot 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, LEFT HIP 07/14/2018 AYAKA MONIQUE DO Ot M25.552 PAIN IN LEFT HIP 07/14/2018 AYAKA MONIQUE DO Ot W01.198A FALL SAME LEV FROM SLIP/TRIP W STRIKE AG 07/14/2018 AYAKA MONIQUE DO Ot Y93.01 ACTIVITY, WALKING, MARCHING AND HIKING 07/14/2018 AYAKA MONIQUE DO Ot Z90.89 ACQUIRED ABSENCE OF OTHER ORGANS 07/17/2018 MONIQUE DO, AYAKA Ot I10 ESSENTIAL (PRIMARY) HYPERTENSION 07/17/2018 MONIQUE DO, AYAKA Ot J45.909 UNSPECIFIED ASTHMA, UNCOMPLICATED 07/17/2018 MONIQUE DO, AYAKA Ot 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, LEFT HIP 07/17/2018 MONIQUE DO, AYAKA Ot M25.552 PAIN IN LEFT HIP 07/17/2018 MONIQUE DO, AYAKA Ot W01.198A FALL SAME LEV FROM SLIP/TRIP W STRIKE AG 07/17/2018 MONIQUE DO, AYAKA Ot Y93.01 ACTIVITY, WALKING, MARCHING AND HIKING 07/17/2018 MONIQUE DO, AYAKA Ot Z90.89 ACQUIRED ABSENCE OF OTHER ORGANS 08/03/2018 GHADA YEBOAH MD Ot A41 .9 SEPSIS, UNSPECIFIED ORGANISM 08/03/2018 GHADA YEBOAH MD, Ot E03 .9 HYPOTHYROIDISM, UNSPECIFIED 08/03/2018 GHADA YEBOAH MD Ot G30 .9 ALZHEIMER'S DISEASE, UNSPECIFIED 08/03/2018 GHADA YEBOAH MD Ot G89.29 OTHER CHRONIC PAIN 08/03/2018 GHADA YEBOAH MD, Ot I12 .9 HYPERTENSIVE CHRONIC KIDNEY DISEASE W ST 08/03/2018 GHADA YEBOAH MD, Ot J45.909 UNSPECIFIED ASTHMA, UNCOMPLICATED 08/03/2018 GHADA YEBOAH MD Ot K11.21 ACUTE SIALOADENITIS 08/03/2018 GHADA YEBOAH MD Ot M19.91 PRIMARY OSTEOARTHRITIS, UNSPECIFIED SITE 08/03/2018 GHADA YEBOAH MD, Ot N18 .9 CHRONIC KIDNEY DISEASE, UNSPECIFIED 08/03/2018 GHADA YEBOAH MD Ot Z79.891 [employer] (CURRENT) USE OF OPIATE ANALGE 08/03/2018 GHADA YEBOAH MD, Ot Z79.899 OTHER [facility] (CURRENT) DRUG THERAPY 08/03/2018 GHADA YEBOAH MD, Ot Z87.891 PERSONAL HISTORY OF NICOTINE DEPENDENCE 08/03/2018 GHADA YEBOAH MD Ot Z95 .0 PRESENCE OF CARDIAC PACEMAKER 08/17/2018 STEPHEN WILKERSON, SHAYLEE Isabel Ot M79.671 PAIN IN RIGHT FOOT 11/17/2018 ELENA FRANCISCO DO Ot B96.5 PSEUDOMONAS (MALLEI) CAUSING DISEASES CL 11/17/2018 FRANCISCO DO, ELENA Ot D64.9 ANEMIA, UNSPECIFIED 11/17/2018 FRANCISCO DO, ELENA Ot E03.9 HYPOTHYROIDISM, UNSPECIFIED 11/17/2018 FRANCISCO DO, ELENA Ot F02.80 DEMENTIA IN OT DISEASES CLASSD ELSWHR W 11/17/2018 FRANCISCO DO, ELENA Ot F32.9 MAJOR DEPRESSIVE DISORDER, SINGLE EPISOD 11/17/2018 FRANCISCO DO, ELENA Ot F41.9 ANXIETY DISORDER, UNSPECIFIED 11/17/2018 FRANCISCO DO, ELENA Ot G30.9 ALZHEIMER'S DISEASE, UNSPECIFIED 11/17/2018 FRANCISCO DO, ELENA Ot H61.21 IMPACTED CERUMEN, RIGHT EAR 11/17/2018 FRANCISCO DO, ELENA Ot I12.9 HYPERTENSIVE CHRONIC KIDNEY DISEASE W ST 11/17/2018 FRANCISCO DO, ELENA Ot J98.11 ATELECTASIS 11/17/2018 FRANCISCO DO, ELENA Ot K21.0 GASTRO-ESOPHAGEAL REFLUX DISEASE WITH ES 11/17/2018 FRANCISCO DO, ELENA Ot K22.2 ESOPHAGEAL OBSTRUCTION 11/17/2018 FRANCISCO DO, ELENA Ot K29.70 GASTRITIS, UNSPECIFIED, WITHOUT BLEEDING 11/17/2018 FRANCISCO DO, ELENA Ot K59.03 DRUG INDUCED CONSTIPATION 11/17/2018 FRANCISCO DO, ELENA Ot N18.9 CHRONIC KIDNEY DISEASE, UNSPECIFIED 11/17/2018 FRANCISCO DO, ELENA Ot N31.9 NEUROMUSCULAR DYSFUNCTION OF BLADDER, UN 11/17/2018 FRANCISCO DO, ELENA Ot N32.81 OVERACTIVE BLADDER 11/17/2018 FRANCISCO DO, ELENA Ot N39.0 URINARY TRACT INFECTION, SITE NOT SPECIF 11/17/2018 FRANCISCO DO, ELENA Ot R09.02 HYPOXEMIA 11/17/2018 FRANCISCO DO, ELENA Ot R13.10 DYSPHAGIA, UNSPECIFIED 11/17/2018 FRANCISCO DO, ELENA Ot R29.6 REPEATED FALLS 11/17/2018 FRANCISCO DO, ELENA Ot R32 UNSPECIFIED URINARY INCONTINENCE 11/17/2018 FRANCISCO DO, ELENA Ot R33.9 RETENTION OF URINE, UNSPECIFIED 11/17/2018 FRANCISCO DO, ELENA Ot T40.60 5A ADVERSE EFFECT OF UNSPECIFIED NARCOTICS, 11/17/2018 ELENA FRANCISCO DO, Ot Z47.1 AFTERCARE FOLLOWING JOINT REPLACEMENT MARINO 11/17/2018 ELENA FRANCISCO DO, Ot Z96.64 2 PRESENCE OF LEFT ARTIFICIAL HIP JOINT 11/17/2018 ELENA FRANCISCO DO, Ot Z99.81 DEPENDENCE ON SUPPLEMENTAL OXYGEN 11/30/2018 SHAYLEE MITCHELL MD Ot R30.0 DYSURIA 11/30/2018 SHAYLEE MITCHELL MD Ot T14.8XXA OTHER INJURY OF UNSPECIFIED BODY REGION, 01/21/2019 MALINDA AVILA DO, Ot F03.90 UNSPECIFIED DEMENTIA WITHOUT BEHAVIORAL 01/21/2019 MALINDA AVILA DO, Ot I12 .9 HYPERTENSIVE CHRONIC KIDNEY DISEASE W ST 01/21/2019 MALINDA AVILA DO, Ot I25.10 ATHSCL HEART DISEASE OF [place] CORONARY 01/21/2019 MALINDA AVILA DO, Ot J44 .9 CHRONIC OBSTRUCTIVE PULMONARY DISEASE, U 01/21/2019 MALINDA AVILA DO, Ot K21 .9 GASTRO-ESOPHAGEAL REFLUX DISEASE WITHOUT 01/21/2019 MALINDA AVILA DO, Ot N18 .9 CHRONIC KIDNEY DISEASE, UNSPECIFIED 01/21/2019 MALINDA AVILA DO, Ot R07 .9 CHEST PAIN, UNSPECIFIED 01/21/2019 MALINDA AVILA DO, Ot R79 .1 ABNORMAL COAGULATION PROFILE 01/21/2019 MALINDA AVILA DO, Ot R79.89 OTHER SPECIFIED ABNORMAL FINDINGS OF BLO 01/21/2019 MALINDA AVILA DO, Ot Z79.82 [facility] (CURRENT) USE OF ASPIRIN 01/21/2019 MALINDA AVILA DO, Ot Z80 .6 FAMILY HISTORY OF LEUKEMIA 01/21/2019 MALINDA AVILA DO, Ot Z82.49 FAMILY HX OF ISCHEM HEART DIS AND OTH DI 01/21/2019 MALINDA AVILA DO, Ot Z85.41 PERSONAL HISTORY OF MALIGNANT NEOPLASM O 01/21/2019 MALINDA AVILA DO, Ot Z87.891 PERSONAL HISTORY OF NICOTINE DEPENDENCE 01/21/2019 MALINDA AVILA DO, Ot Z88 .1 ALLERGY STATUS TO OTHER ANTIBIOTIC AGENT 01/21/2019 MALINDA AVILA DO, Ot Z88 .8 ALLERGY STATUS TO [facility] DRUG/MEDS/BIOL SUB 01/21/2019 MALINDA AVILA DO, Ot Z90.89 ACQUIRED ABSENCE OF OTHER ORGANS 01/21/2019 MALINDA AVILA DO, Ot Z96.642 PRESENCE OF LEFT ARTIFICIAL HIP JOINT 01/23/2019 MALINDA AVILA DO, Ot F03.90 UNSPECIFIED DEMENTIA WITHOUT BEHAVIORAL 01/23/2019 MALINDA AVILA DO, Ot I12 .9 HYPERTENSIVE CHRONIC KIDNEY DISEASE W ST 01/23/2019 MALINDA AVILA DO, Ot I25.10 ATHSCL HEART DISEASE OF [place] CORONARY 01/23/2019 MALINDA AVILA DO, Ot J44 .9 CHRONIC OBSTRUCTIVE PULMONARY DISEASE, U 01/23/2019 MALINDA AVILA DO, Ot K21 .9 GASTRO-ESOPHAGEAL REFLUX DISEASE WITHOUT 01/23/2019 MALINDA AVILA DO, Ot N18 .9 CHRONIC KIDNEY DISEASE, UNSPECIFIED 01/23/2019 MALINDA AVILA DO, Ot R07 .9 CHEST PAIN, UNSPECIFIED 01/23/2019 MALINDA AVILA DO, Ot R79 .1 ABNORMAL COAGULATION PROFILE 01/23/2019 MALINDA AVILA DO, Ot R79.89 OTHER SPECIFIED ABNORMAL FINDINGS OF BLO 01/23/2019 MALINDA AVILA DO, Ot Z79.82 LEAD [employer] (CURRENT) USE OF ASPIRIN 01/23/2019 MALINDA AVILA DO, Ot Z80 .6 FAMILY HISTORY OF LEUKEMIA 01/23/2019 MALINDA AVILA DO, Ot Z82.49 FAMILY HX OF ISCHEM HEART DIS AND OTH DI 01/23/2019 MALINDA AVILA DO, Ot Z85.41 PERSONAL HISTORY OF MALIGNANT NEOPLASM O 01/23/2019 MALINDA AVILA DO, Ot Z87.891 PERSONAL HISTORY OF NICOTINE DEPENDENCE 01/23/2019 MALINDA AVILA DO, Ot Z88 .1 ALLERGY STATUS TO OTHER ANTIBIOTIC AGENT 01/23/2019 MALINDA AVILA DO, Ot Z88 .8 ALLERGY STATUS TO OT DRUG/MEDS/BIOL SUB 01/23/2019 MALINDA AVILA DO, Ot Z90.89 ACQUIRED ABSENCE OF OTHER ORGANS 01/23/2019 MALINDA AVILA DO, Ot Z96.642 PRESENCE OF LEFT ARTIFICIAL HIP JOINT 02/19/2019 STEPHEN WILKERSON, SHAYLEE Isabel Ot M79.671 PAIN IN RIGHT FOOT 03/04/2019 ELENA FRANCISCO DO Ot E78.5 HYPERLIPIDEMIA, UNSPECIFIED 03/04/2019 ELENA FRANCISCO DO Ot F02.80 DEMENTIA IN OT DISEASES CLASSD ELSWHR W 03/04/2019 FRANCISCO DO, ELENA Ot G30.9 ALZHEIMER'S DISEASE, UNSPECIFIED 03/04/2019 FRANCISCO DO, ELENA Ot G89.29 OTHER CHRONIC PAIN 03/04/2019 FRANCISCO DO, ELENA Ot I12.9 HYPERTENSIVE CHRONIC KIDNEY DISEASE W ST 03/04/2019 FRANCISCO DO, ELENA Ot J44.9 CHRONIC OBSTRUCTIVE PULMONARY DISEASE, U 03/04/2019 FRANCISCO DO, ELENA Ot K21.9 GASTRO-ESOPHAGEAL REFLUX DISEASE WITHOUT 03/04/2019 FRANCISCO DO, ELENA Ot K44.9 DIAPHRAGMATIC HERNIA WITHOUT OBSTRUCTION 03/04/2019 FRANCISCO DO, ELENA Ot K59.00 CONSTIPATION, UNSPECIFIED 03/04/2019 FRANCISCO DO, ELENA Ot K81.0 ACUTE CHOLECYSTITIS 03/04/2019 FRANCISCO DO, ELENA Ot K85.90 ACUTE PANCREATITIS WITHOUT NECROSIS OR I 03/04/2019 FRANCISCO DO, ELENA Ot M19.91 PRIMARY OSTEOARTHRITIS, UNSPECIFIED SITE 03/04/2019 FRANCISCO DO, ELENA Ot N18.9 CHRONIC KIDNEY DISEASE, UNSPECIFIED 03/04/2019 FRANCISCO DO, ELENA Ot Z85.41 PERSONAL HISTORY OF MALIGNANT NEOPLASM O 03/04/2019 FRANCISCO DO, ELENA Ot Z87.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 03/04/2019 FRANCISCO DO, ELENA Ot Z90.49 ACQUIRED ABSENCE OF OTHER SPECIFIED PART 03/04/2019 FRANCISCO DO, ELENA Ot Z90.71 0 ACQUIRED ABSENCE OF BOTH CERVIX AND UTER 03/04/2019 FRANCISCO DO, ELENA Ot Z90.89 ACQUIRED ABSENCE OF OTHER ORGANS 03/04/2019 FRANCISCO DO, ELENA Ot Z95.0 PRESENCE OF CARDIAC PACEMAKER 03/04/2019 FRANCISCO DO, ELENA Ot Z99.81 DEPENDENCE ON SUPPLEMENTAL OXYGEN 03/05/2019 FRANCISCO DO, ELENA Ot E78.5 HYPERLIPIDEMIA, UNSPECIFIED 03/05/2019 FRANCISCO DO, ELENA Ot F02.80 DEMENTIA IN OTH DISEASES CLASSD ELSWHR W 03/05/2019 FRANCISCO DO, ELENA Ot G30.9 ALZHEIMER'S DISEASE, UNSPECIFIED 03/05/2019 FRANCISCO DO, ELENA Ot G89.29 OTHER CHRONIC PAIN 03/05/2019 FRANCISCO DO, ELENA Ot I12.9 HYPERTENSIVE CHRONIC KIDNEY DISEASE W ST 03/05/2019 FRANCISCO DO, ELENA Ot J44.9 CHRONIC OBSTRUCTIVE PULMONARY DISEASE, U 03/05/2019 FRANCISCO DO, ELENA Ot K21.9 GASTRO-ESOPHAGEAL REFLUX DISEASE WITHOUT 03/05/2019 FRANCISCO DO, ELENA Ot K44.9 DIAPHRAGMATIC HERNIA WITHOUT OBSTRUCTION 03/05/2019 FRANCISCO DO, ELENA Ot K59.00 CONSTIPATION, UNSPECIFIED 03/05/2019 FRANCISCO DO, ELENA Ot K81.0 ACUTE CHOLECYSTITIS 03/05/2019 FRANCISCO DO, ELENA Ot K85.90 ACUTE PANCREATITIS WITHOUT NECROSIS OR I 03/05/2019 FRANCISCO DO, ELENA Ot M19.91 PRIMARY OSTEOARTHRITIS, UNSPECIFIED SITE 03/05/2019 FRANCISCO DO, ELENA Ot N18.9 CHRONIC KIDNEY DISEASE, UNSPECIFIED 03/05/2019 FRANCISCO DO, ELENA Ot Z85.41 PERSONAL HISTORY OF MALIGNANT NEOPLASM O 03/05/2019 FRANCISCO DO, ELENA Ot Z87.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 03/05/2019 FRANCISCO DO, ELENA Ot Z90.49 ACQUIRED ABSENCE OF OTHER SPECIFIED PART 03/05/2019 FRANCISCO DO, ELENA Ot Z90.71 0 ACQUIRED ABSENCE OF BOTH CERVIX AND UTER 03/05/2019 FRANCISCO DO, ELENA Ot Z90.89 ACQUIRED ABSENCE OF OTHER ORGANS 03/05/2019 FRANCISCO DO, ELENA Ot Z95.0 PRESENCE OF CARDIAC PACEMAKER 03/05/2019 FRANCISCO DO, ELENA Ot Z99.81 DEPENDENCE ON SUPPLEMENTAL OXYGEN 03/05/2019 FRANCISCO DO, ELENA Ot E78.5 HYPERLIPIDEMIA, UNSPECIFIED 03/05/2019 FRANCISCO DO, ELENA Ot F02.80 DEMENTIA IN OT DISEASES CLASSD ELSWHR W 03/05/2019 FRANCISCO DO, ELENA Ot G30.9 ALZHEIMER'S DISEASE, UNSPECIFIED 03/05/2019 FRANCISCO DO, ELENA Ot G89.29 OTHER CHRONIC PAIN 03/05/2019 FRANCISCO DO, ELENA Ot I12.9 HYPERTENSIVE CHRONIC KIDNEY DISEASE W ST 03/05/2019 FRANCISCO DO, ELENA Ot J44.9 CHRONIC OBSTRUCTIVE PULMONARY DISEASE, U 03/05/2019 FRANCISCO DO, ELENA Ot K21.9 GASTRO-ESOPHAGEAL REFLUX DISEASE WITHOUT 03/05/2019 FRANCISCO DO, ELENA Ot K44.9 DIAPHRAGMATIC HERNIA WITHOUT OBSTRUCTION 03/05/2019 FRANCISCO DO, ELENA Ot K59.00 CONSTIPATION, UNSPECIFIED 03/05/2019 FRANCISCO DO, ELENA Ot K81.0 ACUTE CHOLECYSTITIS 03/05/2019 FRANCISCO DO, ELENA Ot K85.90 ACUTE PANCREATITIS WITHOUT NECROSIS OR I 03/05/2019 FRANCISCO DO, ELENA Ot M19.91 PRIMARY OSTEOARTHRITIS, UNSPECIFIED SITE 03/05/2019 FRANCISCO DO, ELENA Ot N18.9 CHRONIC KIDNEY DISEASE, UNSPECIFIED 03/05/2019 FRANCISCO DO, ELENA Ot Z85.41 PERSONAL HISTORY OF MALIGNANT NEOPLASM O 03/05/2019 FRANCISCO DO, ELENA Ot Z87.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 03/05/2019 FRANCISCO DO, ELENA Ot Z90.49 ACQUIRED ABSENCE OF OTHER SPECIFIED PART 03/05/2019 FRANCISCO DO, ELENA Ot Z90.71 0 ACQUIRED ABSENCE OF BOTH CERVIX AND UTER 03/05/2019 FRANCISCO DO, ELENA Ot Z90.89 ACQUIRED ABSENCE OF OTHER ORGANS 03/05/2019 FRANCISCO DO, ELENA Ot Z95.0 PRESENCE OF CARDIAC PACEMAKER 03/05/2019 FRANCISCO DO, ELENA Ot Z99.81 DEPENDENCE ON SUPPLEMENTAL OXYGEN 03/05/2019 FRANCISCO DO, ELENA Ot E78.5 HYPERLIPIDEMIA, UNSPECIFIED 03/05/2019 FRANCISCO DO, ELENA Ot F02.80 DEMENTIA IN OT DISEASES CLASSD ELSWHR W 03/05/2019 FRANCISCO DO, ELENA Ot G30.9 ALZHEIMER'S DISEASE, UNSPECIFIED 03/05/2019 FRANCISCO DO, ELENA Ot G89.29 OTHER CHRONIC PAIN 03/05/2019 FRANCISCO DO, ELENA Ot I12.9 HYPERTENSIVE CHRONIC KIDNEY DISEASE W ST 03/05/2019 FRANCISCO DO, ELENA Ot J44.9 CHRONIC OBSTRUCTIVE PULMONARY DISEASE, U 03/05/2019 FRANCISCO DO, ELENA Ot K21.9 GASTRO-ESOPHAGEAL REFLUX DISEASE WITHOUT 03/05/2019 FRANCISCO DO, ELENA Ot K44.9 DIAPHRAGMATIC HERNIA WITHOUT OBSTRUCTION 03/05/2019 FRANCISCO DO, ELENA Ot K59.00 CONSTIPATION, UNSPECIFIED 03/05/2019 FRANCISCO DO, ELENA Ot K81.0 ACUTE CHOLECYSTITIS 03/05/2019 FRANCISCO DO, ELENA Ot K85.90 ACUTE PANCREATITIS WITHOUT NECROSIS OR I 03/05/2019 FRANCISCO DO, ELENA Ot M19.91 PRIMARY OSTEOARTHRITIS, UNSPECIFIED SITE 03/05/2019 FRANCISCO DO, ELENA Ot N18.9 CHRONIC KIDNEY DISEASE, UNSPECIFIED 03/05/2019 FRANCISCO DO, ELENA Ot Z85.41 PERSONAL HISTORY OF MALIGNANT NEOPLASM O 03/05/2019 FRANCISCO DO, ELENA Ot Z87.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 03/05/2019 FRANCISCO DO, ELENA Ot Z90.49 ACQUIRED ABSENCE OF OTHER SPECIFIED PART 03/05/2019 FRANCISCO DO, ELENA Ot Z90.71 0 ACQUIRED ABSENCE OF BOTH CERVIX AND UTER 03/05/2019 FRANCISCO DO, ELENA Ot Z90.89 ACQUIRED ABSENCE OF OTHER ORGANS 03/05/2019 FRANCISCO DO, ELENA Ot Z95.0 PRESENCE OF CARDIAC PACEMAKER 03/05/2019 FRANCISCO DO, ELENA Ot Z99.81 DEPENDENCE ON SUPPLEMENTAL OXYGEN 03/05/2019 FRANCISCO DO, ELENA Ot E78.5 HYPERLIPIDEMIA, UNSPECIFIED 03/05/2019 FRANCISCO DO, ELENA Ot F02.80 DEMENTIA IN OT DISEASES CLASSD ELSWHR W 03/05/2019 FRANCISCO DO, ELENA Ot G30.9 ALZHEIMER'S DISEASE, UNSPECIFIED 03/05/2019 FRANCISCO DO, ELENA Ot G89.29 OTHER CHRONIC PAIN 03/05/2019 FRANCISCO DO, ELENA Ot I12.9 HYPERTENSIVE CHRONIC KIDNEY DISEASE W ST 03/05/2019 FRANCISCO DO, ELENA Ot J44.9 CHRONIC OBSTRUCTIVE PULMONARY DISEASE, U 03/05/2019 FRANCISCO DO, ELENA Ot K21.9 GASTRO-ESOPHAGEAL REFLUX DISEASE WITHOUT 03/05/2019 FRANCISCO DO, ELENA Ot K44.9 DIAPHRAGMATIC HERNIA WITHOUT OBSTRUCTION 03/05/2019 FRANCISCO DO, ELENA Ot K59.00 CONSTIPATION, UNSPECIFIED 03/05/2019 FRANCISCO DO, ELENA Ot K81.0 ACUTE CHOLECYSTITIS 03/05/2019 FRANCISCO DO, ELENA Ot K85.90 ACUTE PANCREATITIS WITHOUT NECROSIS OR I 03/05/2019 FRANCISCO DO, ELENA Ot M19.91 PRIMARY OSTEOARTHRITIS, UNSPECIFIED SITE 03/05/2019 FRANCISCO DO, ELENA Ot N18.9 CHRONIC KIDNEY DISEASE, UNSPECIFIED 03/05/2019 FRANCISCO DO, ELENA Ot Z85.41 PERSONAL HISTORY OF MALIGNANT NEOPLASM O 03/05/2019 FRANCISCO DO, ELENA Ot Z87.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 03/05/2019 FRANCISCO DO, ELENA Ot Z90.49 ACQUIRED ABSENCE OF OTHER SPECIFIED PART 03/05/2019 FRANCISCO DO, ELENA Ot Z90.71 0 ACQUIRED ABSENCE OF BOTH CERVIX AND UTER 03/05/2019 FRANCISCO DO, ELENA Ot Z90.89 ACQUIRED ABSENCE OF OTHER ORGANS 03/05/2019 FRANCISCO DO, ELENA Ot Z95.0 PRESENCE OF CARDIAC PACEMAKER 03/05/2019 FRANCISCO DO, ELENA Ot Z99.81 DEPENDENCE ON SUPPLEMENTAL OXYGEN 03/05/2019 FRANCISCO DO, ELENA Ot E78.5 HYPERLIPIDEMIA, UNSPECIFIED 03/05/2019 FRANCISCO DO, ELENA Ot F02.80 DEMENTIA IN OT DISEASES CLASSD ELSWHR W 03/05/2019 FRANCISCO DO, ELENA Ot G30.9 ALZHEIMER'S DISEASE, UNSPECIFIED 03/05/2019 FRANCISCO DO, ELENA Ot G89.29 OTHER CHRONIC PAIN 03/05/2019 FRANCISCO DO, ELENA Ot I12.9 HYPERTENSIVE CHRONIC KIDNEY DISEASE W ST 03/05/2019 FRANCISCO DO, ELENA Ot J44.9 CHRONIC OBSTRUCTIVE PULMONARY DISEASE, U 03/05/2019 FRANCISCO DO, ELENA Ot K21.9 GASTRO-ESOPHAGEAL REFLUX DISEASE WITHOUT 03/05/2019 FRANCISCO DO, ELENA Ot K44.9 DIAPHRAGMATIC HERNIA WITHOUT OBSTRUCTION 03/05/2019 FRANCISCO DO, ELENA Ot K59.00 CONSTIPATION, UNSPECIFIED 03/05/2019 FRANCISCO DO, ELENA Ot K81.0 ACUTE CHOLECYSTITIS 03/05/2019 FRANCISCO DO, ELENA Ot K85.90 ACUTE PANCREATITIS WITHOUT NECROSIS OR I 03/05/2019 FRANCISCO DO, ELENA Ot M19.91 PRIMARY OSTEOARTHRITIS, UNSPECIFIED SITE 03/05/2019 FRANCISCO DO, ELENA Ot N18.9 CHRONIC KIDNEY DISEASE, UNSPECIFIED 03/05/2019 FRANCISCO DO, ELENA Ot Z85.41 PERSONAL HISTORY OF MALIGNANT NEOPLASM O 03/05/2019 FRANCISCO DO, ELENA Ot Z87.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 03/05/2019 FRANCISCO DO, ELENA Ot Z90.49 ACQUIRED ABSENCE OF OTHER SPECIFIED PART 03/05/2019 FRANCISCO DO, ELENA Ot Z90.71 0 ACQUIRED ABSENCE OF BOTH CERVIX AND UTER 03/05/2019 FRANCISCO DO, ELENA Ot Z90.89 ACQUIRED ABSENCE OF OTHER ORGANS 03/05/2019 FRANCISCO DO, ELENA Ot Z95.0 PRESENCE OF CARDIAC PACEMAKER 03/05/2019 FRANCISCO DO, ELENA Ot Z99.81 DEPENDENCE ON SUPPLEMENTAL OXYGEN 03/05/2019 FRANCISCO DO, ELENA Ot E78.5 HYPERLIPIDEMIA, UNSPECIFIED 03/05/2019 FRANCISCO DO, ELENA Ot F02.80 DEMENTIA IN OTH DISEASES CLASSD ELSWHR W 03/05/2019 FRANCISCO DO, ELENA Ot G30.9 ALZHEIMER'S DISEASE, UNSPECIFIED 03/05/2019 FRANCISCO DO, ELENA Ot G89.29 OTHER CHRONIC PAIN 03/05/2019 FRANCISCO DO, ELENA Ot I12.9 HYPERTENSIVE CHRONIC KIDNEY DISEASE W ST 03/05/2019 FRANCISCO DO, ELENA Ot J44.9 CHRONIC OBSTRUCTIVE PULMONARY DISEASE, U 03/05/2019 FRANCISCO DO, ELENA Ot K21.9 GASTRO-ESOPHAGEAL REFLUX DISEASE WITHOUT 03/05/2019 FRANCISCO DO, ELENA Ot K44.9 DIAPHRAGMATIC HERNIA WITHOUT OBSTRUCTION 03/05/2019 FRANCISCO DO, ELENA Ot K59.00 CONSTIPATION, UNSPECIFIED 03/05/2019 FRANCISCO DO, ELENA Ot K81.0 ACUTE CHOLECYSTITIS 03/05/2019 FRANCISCO DO, ELENA Ot K85.90 ACUTE PANCREATITIS WITHOUT NECROSIS OR I 03/05/2019 FRANCISCO DO, ELENA Ot M19.91 PRIMARY OSTEOARTHRITIS, UNSPECIFIED SITE 03/05/2019 FRANCISCO DO, ELENA Ot N18.9 CHRONIC KIDNEY DISEASE, UNSPECIFIED 03/05/2019 FRANCISCO DO, ELENA Ot Z85.41 PERSONAL HISTORY OF MALIGNANT NEOPLASM O 03/05/2019 FRANCISCO DO, ELENA Ot Z87.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 03/05/2019 FRANCISCO DO, ELENA Ot Z90.49 ACQUIRED ABSENCE OF OTHER SPECIFIED PART 03/05/2019 FRANCISCO DO, ELENA Ot Z90.71 0 ACQUIRED ABSENCE OF BOTH CERVIX AND UTER 03/05/2019 FRANCISCO DO, ELENA Ot Z90.89 ACQUIRED ABSENCE OF OTHER ORGANS 03/05/2019 FRANCISCO DO, ELENA Ot Z95.0 PRESENCE OF CARDIAC PACEMAKER 03/05/2019 FRANCISCO DO, ELENA Ot Z99.81 DEPENDENCE ON SUPPLEMENTAL OXYGEN 03/08/2019 FRANCISCO DO, ELENA Ot E78.5 HYPERLIPIDEMIA, UNSPECIFIED 03/08/2019 FRANCISCO DO, ELENA Ot F02.80 DEMENTIA IN OTH DISEASES CLASSD ELSWHR W 03/08/2019 FRANCISCO DO, ELENA Ot G30.9 ALZHEIMER'S DISEASE, UNSPECIFIED 03/08/2019 FRANCISCO DO, ELENA Ot G89.29 OTHER CHRONIC PAIN 03/08/2019 FRANCISCO DO, ELENA Ot I12.9 HYPERTENSIVE CHRONIC KIDNEY DISEASE W ST 03/08/2019 FRANCISCO DO, ELENA Ot J44.9 CHRONIC OBSTRUCTIVE PULMONARY DISEASE, U 03/08/2019 FRANCISCO DO, ELENA Ot K21.9 GASTRO-ESOPHAGEAL REFLUX DISEASE WITHOUT 03/08/2019 FRANCISCO DO, ELENA Ot K44.9 DIAPHRAGMATIC HERNIA WITHOUT OBSTRUCTION 03/08/2019 FRANCISCO DO, ELENA Ot K59.00 CONSTIPATION, UNSPECIFIED 03/08/2019 FRANCISCO DO, ELENA Ot K81.0 ACUTE CHOLECYSTITIS 03/08/2019 FRANCISCO DO, ELENA Ot K85.90 ACUTE PANCREATITIS WITHOUT NECROSIS OR I 03/08/2019 FRANCISCO DO, ELENA Ot M19.91 PRIMARY OSTEOARTHRITIS, UNSPECIFIED SITE 03/08/2019 FRANCISCO DO, ELENA Ot N18.9 CHRONIC KIDNEY DISEASE, UNSPECIFIED 03/08/2019 FRANCISCO DO, ELENA Ot Z85.41 PERSONAL HISTORY OF MALIGNANT NEOPLASM O 03/08/2019 FRANCISCO DO, ELENA Ot Z87.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 03/08/2019 FRANCISCO DO, ELENA Ot Z90.49 ACQUIRED ABSENCE OF OTHER SPECIFIED PART 03/08/2019 FRANCISCO DO, ELENA Ot Z90.71 0 ACQUIRED ABSENCE OF BOTH CERVIX AND UTER 03/08/2019 FRANCISCO DO, ELENA Ot Z90.89 ACQUIRED ABSENCE OF OTHER ORGANS 03/08/2019 FRANCISCO DO, ELENA Ot Z95.0 PRESENCE OF CARDIAC PACEMAKER 03/08/2019 FRANCISCO DO, ELENA Ot Z99.81 DEPENDENCE ON SUPPLEMENTAL OXYGEN 03/08/2019 FRANCISCO DO, ELENA Ot E78.5 HYPERLIPIDEMIA, UNSPECIFIED 03/08/2019 FRANCISCO DO, ELENA Ot F02.80 DEMENTIA IN OTH DISEASES CLASSD ELSWHR W 03/08/2019 FRANCISCO DO, ELENA Ot G30.9 ALZHEIMER'S DISEASE, UNSPECIFIED 03/08/2019 FRANCISCO DO, ELENA Ot G89.29 OTHER CHRONIC PAIN 03/08/2019 FRANCISCO DO, ELENA Ot I12.9 HYPERTENSIVE CHRONIC KIDNEY DISEASE W ST 03/08/2019 FRANCISCO DO, ELENA Ot I27.20 PULMONARY HYPERTENSION, UNSPECIFIED 03/08/2019 FRANCISCO DO, ELENA Ot J44.9 CHRONIC OBSTRUCTIVE PULMONARY DISEASE, U 03/08/2019 FRANCISCO DO, ELENA Ot K21.9 GASTRO-ESOPHAGEAL REFLUX DISEASE WITHOUT 03/08/2019 FRANCISCO DO, ELENA Ot K44.9 DIAPHRAGMATIC HERNIA WITHOUT OBSTRUCTION 03/08/2019 FRANCISCO DO, ELENA Ot K59.00 CONSTIPATION, UNSPECIFIED 03/08/2019 FRANCISCO DO, ELENA Ot K81.0 ACUTE CHOLECYSTITIS 03/08/2019 FRANCISCO DO, ELENA Ot K85.90 ACUTE PANCREATITIS WITHOUT NECROSIS OR I 03/08/2019 FRANCISCO DO, ELENA Ot M19.90 UNSPECIFIED OSTEOARTHRITIS, UNSPECIFIED 03/08/2019 FRANCISCO DO, ELENA Ot M19.91 PRIMARY OSTEOARTHRITIS, UNSPECIFIED SITE 03/08/2019 FRANCISCO DO, ELENA Ot N18.9 CHRONIC KIDNEY DISEASE, UNSPECIFIED 03/08/2019 FRANCISCO DO, ELENA Ot Z85.41 PERSONAL HISTORY OF MALIGNANT NEOPLASM O 03/08/2019 FRANCISCO DO, ELENA Ot Z87.01 PERSONAL HISTORY OF PNEUMONIA (RECURRENT 03/08/2019 FRANCISCO DO, ELENA Ot Z87.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 03/08/2019 FRANCISCO DO, ELENA Ot Z88.1 ALLERGY STATUS TO OTHER ANTIBIOTIC AGENT 03/08/2019 FRANCISCO DO, ELENA Ot Z88.8 ALLERGY STATUS TO OTH DRUG/MEDS/BIOL SUB 03/08/2019 FRANCISCO DO, ELENA Ot Z90.49 ACQUIRED ABSENCE OF OTHER SPECIFIED PART 03/08/2019 FRANCISCO DO, ELENA Ot Z90.71 0 ACQUIRED ABSENCE OF BOTH CERVIX AND UTER 03/08/2019 FRANCISCO DO, ELENA Ot Z90.89 ACQUIRED ABSENCE OF OTHER ORGANS 03/08/2019 FRANCISCO DO, ELENA Ot Z95.0 PRESENCE OF CARDIAC PACEMAKER 03/08/2019 NOLAN DO ELENA Ot Z99.81 DEPENDENCE ON SUPPLEMENTAL OXYGEN 03/09/2019 JOEY ROGERS DO Ot D64.9 ANEMIA, UNSPECIFIED 03/09/2019 JOEY ROGERS DO Ot F03.90 UNSPECIFIED DEMENTIA WITHOUT BEHAVIORAL 03/09/2019 JOEY ROGERS DO Ot G40.909 EPILEPSY, UNSP, NOT INTRACTABLE, WITHOUT 03/09/2019 HEARNDON DO, JOEY Rider Ot 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 03/09/2019 HEARNDON DO, JOEY Rider Ot M06.9 RHEUMATOID ARTHRITIS, UNSPECIFIED 03/09/2019 HEARNDON DO, JOEY Rider Ot M54.16 RADICULOPATHY, LUMBAR REGION 03/09/2019 SUKUMARNDON JOEY AQUINO Ot M81.0 AGE-RELATED OSTEOPOROSIS W/O CURRENT PAT 03/09/2019 SUKUMARNDON , JOEY Rider Ot Z79.899 OTHER [facility] (CURRENT) DRUG THERAPY 03/09/2019 STEPHEN WILKERSON, SHAYLEE Isabel Ot M79.671 PAIN IN RIGHT FOOT 03/09/2019 STEPHEN WILKERSON, SHAYLEE Isabel Ot R30.0 DYSURIA 03/09/2019 STEPHEN WILKERSON, SHAYLEE Isabel Ot T14.8XXA OTHER INJURY OF UNSPECIFIED BODY REGION, 03/09/2019 WYATT SIDDIQUI Ot M41.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, THORACIC REGIO 03/09/2019 WYATT SIDDIQUI Ot M41.86 OTHER FORMS OF SCOLIOSIS, LUMBAR REGION 03/09/2019 WYATT SIDDIQUI Ot M47.816 SPONDYLOSIS W/O MYELOPATHY OR RADICULOPA 03/09/2019 WYATT SIDDIQUI Ot M51.34 OTHER INTERVERTEBRAL DISC DEGENERATION, 05/05/2019 TAMAR GREEN DO Ot Z01.8 18 ENCOUNTER FOR OTHER PREPROCEDURAL EXAMIN 05/11/2019 JOEY ROGERS DO Ot D64.9 ANEMIA, UNSPECIFIED 05/11/2019 SUKUMARND DOJOEY Ot F03.90 UNSPECIFIED DEMENTIA WITHOUT BEHAVIORAL 05/11/2019 SUKUMARND DOJOEY Ot G40.909 EPILEPSY, UNSP, NOT INTRACTABLE, WITHOUT 05/11/2019 HEARNDON DO, JOEY Rider Ot 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 05/11/2019 SUKUMARNDON DO, JOEY Rider Ot M06.9 RHEUMATOID ARTHRITIS, UNSPECIFIED 05/11/2019 SUKUMARNDON DOJOEY Ot M54.16 RADICULOPATHY, LUMBAR REGION 05/11/2019 SUKUMARND DOJOEY Ot M81.0 AGE-RELATED OSTEOPOROSIS W/O CURRENT PAT 05/11/2019 JOEY ROGERS DO Ot Z79.899 OTHER [facility] (CURRENT) DRUG THERAPY 05/11/2019 STEPHEN WILKERSON, SHAYLEE Isabel Ot M79.671 PAIN IN RIGHT FOOT 05/11/2019 STEPHEN WILKERSON, SHAYLEE Isabel Ot R30.0 DYSURIA 05/11/2019 STEPHEN WILKERSON, SHAYLEE Isabel Ot T14.8XXA OTHER INJURY OF UNSPECIFIED BODY REGION, 05/11/2019 WYATT SIDDIQUI Ot M41.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, THORACIC REGIO 05/11/2019 WYATT SIDDIQUI Ot M41.86 OTHER FORMS OF SCOLIOSIS, LUMBAR REGION 05/11/2019 WYATT SIDDIQUI Ot M47.816 SPONDYLOSIS W/O MYELOPATHY OR RADICULOPA 05/11/2019 WYATT SIDDIQUI Ot M51.34 OTHER INTERVERTEBRAL DISC DEGENERATION, 05/13/2019 NORMA AQUINO TAMAR B Ot D64.9 ANEMIA, UNSPECIFIED 05/13/2019 NORMA AQUINO TAMAR B Ot F03.9 0 UNSPECIFIED DEMENTIA WITHOUT BEHAVIORAL 05/13/2019 NORMA AQUINO TAMAR B Ot I13.0 HYP HRT CHR KDNY DIS W HRT FAIL AND ST 05/13/2019 NORMA AQUINO TAMAR B Ot I50.9 HEART FAILURE, UNSPECIFIED 05/13/2019 NORMA AQUINO TAMAR B Ot J44.9 CHRONIC OBSTRUCTIVE PULMONARY DISEASE, U 05/13/2019 NORMA AQUINO TAMAR B Ot K21.9 GASTRO-ESOPHAGEAL REFLUX DISEASE WITHOUT 05/13/2019 NORMA AQUINO TAMAR B Ot K29.5 0 UNSPECIFIED CHRONIC GASTRITIS WITHOUT BL 05/13/2019 NORMA AQUINO TAMAR B Ot K57.3 0 DVRTCLOS OF LG INT W/O PERFORATION OR AB 05/13/2019 NORMA AQUINO TAMAR B Ot K64.8 OTHER HEMORRHOIDS 05/13/2019 NORMA AQUINO TAMAR B Ot M19.9 0 UNSPECIFIED OSTEOARTHRITIS, UNSPECIFIED 05/13/2019 NORMA AQUINO TAMAR B Ot N18.9 CHRONIC KIDNEY DISEASE, UNSPECIFIED 05/13/2019 NORMA AQUINO TAMAR B Ot R19.5 OTHER FECAL ABNORMALITIES 05/13/2019 NORMA AQUINO TAMAR B Ot Z79.8 2 LEAD [employer] (CURRENT) USE OF ASPIRIN 05/13/2019 NORMA AQUINO TAMAR B Ot Z79.8 99 OTHER LEAD [employer]ON T[employer]ER (CURRENT) DRUG THERAPY 05/13/2019 NORMA AQUINO TAMAR B Ot Z83.3 FAMILY HISTORY OF DIABETES MELLITUS 05/13/2019 NORMA AQUINO TAMAR B Ot Z87.8 91 PERSONAL HISTORY OF NICOTINE DEPENDENCE 05/13/2019 NORMA AQUINO TAMAR B Ot Z88.1 ALLERGY STATUS TO OTHER ANTIBIOTIC AGENT 05/13/2019 NORMA AQUINO TAMAR B Ot Z88.6 ALLERGY STATUS TO ANALGESIC AGENT STATUS 05/13/2019 NORMA AQUINO TAMAR B Ot Z88.8 ALLERGY STATUS TO OTH DRUG/MEDS/BIOL SUB 05/13/2019 JANEEN GREEN DOIC B Ot Z90.4 9 ACQUIRED ABSENCE OF OTHER SPECIFIED PART 05/13/2019 JANEEN GREEN DOIC B Ot Z90.7 10 ACQUIRED ABSENCE OF BOTH CERVIX AND UTER 05/13/2019 NORMA AQUINO TAMAR B Ot Z90.8 9 ACQUIRED ABSENCE OF OTHER ORGANS 05/13/2019 NORMA AQUINO TAMAR B Ot 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 Procedures Code Description Performed By Per johan On [id number] DI LATION OF LOWER ESOPHAGUS, ENDO 11/03/2018 [id number] EX CISION OF ESOPHAGOGASTRIC JUNCTION, EN 11/03/2018 [id number] EX CISION OF STOMACH, PYLORUS, ENDO, DIAG 11/03/2018 [id number] ME ASURE OF CARDIAC SAMPL PRESSURE, L H 03/05/2019 [id number] FL UOROSCOPY OF MULT COR ART USING L OSM 03/05/2019 [id number] RE SECTION OF GALLBLADDER, PERCUTANEOUS E 03/06/2019 [id number] FL UOROSCOPY OF GALLBL, BILE, PANCR DUCT 03/06/2019 Results Test Result Range [facility] - 07/30/18 14:37 GLUCOSE 103 mg/dL 65-99 UREA NITROGEN (BUN) 32 mg/dL 7-25 CREATININE 1.60 mg/dL 0.60-0.88 eGFR NON-AFR. BELGIAN 29 mL/min/1.73m2 > OR = 60 eGFR 34 mL/min/1.73m2 > OR = 60 BUN/CREATININE RATIO 20 (calc) 6-22 SODIUM 138 mmol/L 135-146 POTASSIUM 5.7 mmol/L 3.5-5.3 CHLORIDE 106 mmol/L 98-110 CARBON DIOXIDE 21 mmol/L 20-32 CALCIUM 9.8 mg/dL 8.6-10.4 PROTEIN, TOTAL 6.8 g/dL 6.1-8.1 ALBUMIN 4.4 g/dL 3.6-5.1 GLOBULIN 2.4 g/dL (calc) 1.9-3.7 ALBUMIN/GLOBULIN RATIO 1.8 (calc) 1.0-2. 5 BILIRUBIN, TOTAL 0.4 mg/dL 0.2-1.2 ALKALINE PHOSPHATASE 81 U/L 33-130 AST 22 U/L 10-35 ALT 11 U/L 6-29 CBC - 07/30/18 14:37 WHITE BLOOD CELL COUNT 13.1 Thousand/uL 3.8-10.8 RED BLOOD CELL COUNT 3.89 Million/uL 3.8 0-5.10 HEMOGLOBIN 12.0 g/dL 11.7-15.5 HEMATOCRIT 36.7 % 35.0-45.0 MCV 94.3 fL 80.0-100.0 MCH 30.8 pg 27.0-33.0 MCHC 32.7 g/dL 32.0-36.0 RDW 13.3 % 11.0-15.0 PLATELET COUNT 178 Thousand/uL 140-400 MPV 12.1 fL 7.5-12.5 ABSOLUTE NEUTROPHILS 7257 cells/uL 1500- 7800 ABSOLUTE LYMPHOCYTES 4899 cells/uL 850-3 900 ABSOLUTE MONOCYTES 603 cells/uL 200-950 ABSOLUTE EOSINOPHILS [...] NG NRG Complete blood count (CBC) with automate d white blood cell (WBC) differential - 07/31/18 21:38 Blood leukocytes automated count (number/volume) 22.2 10*3/uL 4.3-11.0 Blood erythrocytes automated count (number/volume) 3.72 10*6/uL 4.35-5.85 Venous blood hemoglobin measurement (mass/volume) 11.4 g/dL 11.5-16.0 Blood hematocrit (volume fraction) 34 % 35-52 Automated erythrocyte mean corpuscular volume 92 [ foz_us] 80-99 Automated erythrocyte mean corpuscular h emoglobin (mass per erythrocyte) 31 pg 25-34 Automated erythrocyte mean corpuscular h emoglobin concentration measurement (mass/volume) 33 g/dL 32-36 Automated erythrocyte distribution width ratio 13. 4 % 10.0- 14.5 Automated blood platelet count [...] 10*3 1.0-4.0 Blood monocytes automated count (number/volume) 2. 1 10*3 0.0-1.0 Automated eosinophil count 0.1 10*3/uL 0 .0-0.3 Automated blood basophil count (count/volume) 0.1 10*3/uL 0.0-0.1 Comprehensive metabolic panel - 07/31/18 21:38 Serum or plasma sodium measurement (moles/volume) 138 mmol/L 135-145 Serum or plasma potassium measurement (moles/volume) 4.7 mmol/L 3.6-5.0 Serum or plasma chloride measurement (moles/volume) 101 mmol/L 98-107 Carbon dioxide 18 mmol/L 21-32 Serum or plasma anion gap determination (moles/volume) 19 mmol/L 5-14 Serum or plasma urea nitrogen measurement (mass/volume ) 28 mg/dL 7-18 Serum or plasma creatinine measurement (mass/volume) 1.27 mg/dL 0.60-1.30 Serum or plasma urea nitrogen/creatinine mass ratio 22 NRG Serum or plasma creatinine measurement w ith calculation of estimated glomerular filtration rate 48 NRG Serum or plasma glucose measurement (mass/volume) 122 mg/dL 70-105 Serum or plasma calcium measurement (mass/volume) 9.3 mg/dL 8.5-10.1 Serum or plasma total bilirubin measurement (mass/volu me) 0.5 mg/dL 0.1-1.0 Serum or plasma alkaline phosphatase mau surement (enzymatic activity/volume) 85 U/L 40-136 Serum or plasma aspartate aminotransfera se measurement (enzymatic activity/volume) 22 U/L 5-34 Serum or plasma alanine aminotransferase measurement (enzymatic activity/volume) 14 U/L 0-55 Serum or plasma protein measurement (mass/volume) 6.7 g/dL 6.4-8.2 Serum or plasma albumin measurement (mass/volume) 3.9 g/dL 3.2-4.5 CALCIUM CORRECTED 9.4 mg/dL 8.5-10.1 Blood lactic acid measurement (moles/vol ume) - 07/31/18 21:38 Blood lactic acid measurement (moles/volume) 0.70 mmol/L 0.50-2.00 Blood manual differential performed dete ction - 07/31/18 21:38 Blood monocytes/100 leukocytes 4 % NRG Manual blood segmented neutrophils/100 leukocytes 65 % NRG Blood band neutrophils/100 leukocytes 0 % NRG Manual blood lymphocytes/100 leukocytes 31 % NRG Manual eosinophils/100 leukocytes in nose 0 % NRG Manual blood basophils/100 leukocytes 0 % NRG Blood erythrocyte morphology finding identification NORMAL NRG Bacterial blood culture - 07/31/18 21:38 Bacterial blood culture NG NRG Complete blood count (CBC) with automate d white blood cell (WBC) differential - 08/01/18 09:03 Blood leukocytes automated count (number/volume) 21.9 10*3/uL 4.3-11.0 Blood erythrocytes automated count (number/volume) 3.85 10*6/uL 4.35-5.85 Venous blood hemoglobin measurement (mass/volume) 11.5 g/dL 11.5-16.0 Blood hematocrit (volume fraction) 35 % 35-52 Automated erythrocyte mean corpuscular volume 91 [ foz_us] 80-99 Automated erythrocyte mean corpuscular h emoglobin (mass per erythrocyte) 30 pg 25-34 Automated erythrocyte mean corpuscular h emoglobin concentration measurement (mass/volume) 33 g/dL 32-36 Automated erythrocyte distribution width ratio 13. 9 % 10.0- 14.5 Automated blood platelet count [...] 10*3 1.0-4.0 Blood monocytes automated count (number/volume) 1. 5 10*3 0.0-1.0 Automated eosinophil count 0.0 10*3/uL 0 .0-0.3 Automated blood basophil count (count/volume) 0.0 10*3/uL 0.0-0.1 Whole blood basic metabolic panel - 07/04 03/22 09:03 Serum or plasma sodium measurement (moles/volume) 136 mmol/L 135-145 Serum or plasma potassium measurement (moles/volume) 4.3 mmol/L 3.6-5.0 Serum or plasma chloride measurement (moles/volume) 106 mmol/L 98-107 Carbon dioxide 22 mmol/L 21-32 Serum or plasma anion gap determination (moles/volume) 8 mmol/L 5-14 Serum or plasma urea nitrogen measurement (mass/volume ) 18 mg/dL 7-18 Serum or plasma creatinine measurement (mass/volume) 1.07 mg/dL 0.60-1.30 Serum or plasma urea nitrogen/creatinine mass ratio 17 NRG Serum or plasma creatinine measurement w ith calculation of estimated glomerular filtration rate 59 NRG Serum or plasma glucose measurement (mass/volume) 111 mg/dL 70-105 Serum or plasma calcium measurement (mass/volume) 9.6 mg/dL 8.5-10.1 Automated blood complete blood count (he mogram) panel - 08/02/18 06:07 Blood leukocytes automated count (number/volume) 17.6 10*3/uL 4.3-11.0 Blood erythrocytes automated count (number/volume) 3.63 10*6/uL 4.35-5.85 Venous blood hemoglobin measurement (mass/volume) 10.9 g/dL 11.5-16.0 Blood hematocrit (volume fraction) 33 % 35-52 Automated erythrocyte mean corpuscular volume 92 [ foz_us] 80-99 Automated erythrocyte mean corpuscular h emoglobin (mass per erythrocyte) 30 pg 25-34 Automated erythrocyte mean corpuscular h emoglobin concentration measurement (mass/volume) 33 g/dL 32-36 Automated erythrocyte distribution width ratio 13. 9 % 10.0- 14.5 Automated blood platelet count (count/volume) 205 10*3/uL 130-400 Automated blood platelet mean volume measurement 10.2 [foz_us] 7.4-10.4 Whole blood basic metabolic panel - 03/22 06:07 Serum or plasma sodium measurement (moles/volume) 140 mmol/L 135-145 Serum or plasma potassium measurement (moles/volume) 3.9 mmol/L 3.6-5.0 Serum or plasma chloride measurement (moles/volume) 111 mmol/L 98-107 Carbon dioxide 20 mmol/L 21-32 Serum or plasma anion gap determination (moles/volume) 9 mmol/L 5-14 Serum or plasma urea nitrogen measurement (mass/volume ) 13 mg/dL 7-18 Serum or plasma creatinine measurement (mass/volume) 0.92 mg/dL 0.60-1.30 Serum or plasma urea nitrogen/creatinine mass ratio 14 NRG Serum or plasma creatinine measurement w ith calculation of estimated glomerular filtration rate > NRG Serum or plasma glucose measurement (mass/volume) 123 mg/dL 70-105 Serum or plasma calcium measurement (mass/volume) 8.6 mg/dL 8.5-10.1 Complete blood count (CBC) with automate d white blood cell (WBC) differential - 08/03/18 07:03 Blood leukocytes automated count (number/volume) 11.2 10*3/uL 4.3-11.0 Blood erythrocytes automated count (number/volume) 3.29 10*6/uL 4.35-5.85 Venous blood hemoglobin measurement (mass/volume) 9.9 g/dL 11.5-16.0 Blood hematocrit (volume fraction) 31 % 35-52 Automated erythrocyte mean corpuscular volume 94 [ foz_us] 80-99 Automated erythrocyte mean corpuscular h emoglobin (mass per erythrocyte) 30 pg 25-34 Automated erythrocyte mean corpuscular h emoglobin concentration measurement (mass/volume) 32 g/dL 32-36 Automated erythrocyte distribution width ratio 14. 3 % 10.0- 14.5 Automated blood platelet count [...] 10*3 1.0-4.0 Blood monocytes automated count (number/volume) 0. 8 10*3 0.0-1.0 Automated eosinophil count 0.3 10*3/uL 0 .0-0.3 Automated blood basophil count (count/volume) 0.0 10*3/uL 0.0-0.1 Complete blood count (CBC) with automate d white blood cell (WBC) differential - 11/01/18 11:29 Blood leukocytes automated count (number/volume) 13.1 10*3/uL 4.3-11.0 Blood erythrocytes automated count (number/volume) 2.54 10*6/uL 4.35-5.85 Venous blood hemoglobin measurement (mass/volume) 7.9 g/dL 11.5-16.0 Blood hematocrit (volume fraction) 25 % 35-52 Automated erythrocyte mean corpuscular volume 97 [ foz_us] 80-99 Automated erythrocyte mean corpuscular h emoglobin (mass per erythrocyte) 31 pg 25-34 Automated erythrocyte mean corpuscular h emoglobin concentration measurement (mass/volume) 32 g/dL 32-36 Automated erythrocyte distribution width ratio 12. 9 % 10.0- 14.5 Automated blood platelet count (count/volume) 175 10*3/uL 130-400 Automated blood platelet mean volume measurement 9.6 [foz_us] 7.4-10.4 Automated blood neutrophils/100 leukocytes 69 % 42-75 Automated blood lymphocytes/100 leukocytes 22 % 12-44 Blood monocytes/100 leukocytes 8 % 0-12 Automated blood eosinophils/100 leukocytes 1 % 0-10 Automated blood basophils/100 leukocytes 0 % 0-10 Blood neutrophils automated count (number/volume) 9.0 10*3 1.8-7.8 Blood lymphocytes automated count (number/volume) 2.9 10*3 1.0-4.0 Blood monocytes automated count (number/volume) 1. 0 10*3 0.0-1.0 Automated eosinophil count 0.1 10*3/uL 0 .0-0.3 Automated blood basophil count (count/volume) 0.0 10*3/uL 0.0-0.1 Comprehensive metabolic panel - 11/01/18 11:29 Serum or plasma sodium measurement (moles/volume) 137 mmol/L 135-145 Serum or plasma potassium measurement (moles/volume) 4.1 mmol/L 3.6-5.0 Serum or plasma chloride measurement (moles/volume) 103 mmol/L 98-107 Carbon dioxide 25 mmol/L 21-32 Serum or plasma anion gap determination (moles/volume) 9 mmol/L 5-14 Serum or plasma urea nitrogen measurement (mass/volume ) 20 mg/dL 7-18 Serum or plasma creatinine measurement (mass/volume) 1.07 mg/dL 0.60-1.30 Serum or plasma urea nitrogen/creatinine mass ratio 19 NRG Serum or plasma creatinine measurement w ith calculation of estimated glomerular filtration rate 59 NRG Serum or plasma glucose measurement (mass/volume) 125 mg/dL 70-105 Serum or plasma calcium measurement (mass/volume) 8.9 mg/dL 8.5-10.1 Serum or plasma total bilirubin measurement (mass/volu me) 0.7 mg/dL 0.1-1.0 Serum or plasma alkaline phosphatase mau surement (enzymatic activity/volume) 75 U/L 40-136 Serum or plasma aspartate aminotransfera se measurement (enzymatic activity/volume) 40 U/L 5-34 Serum or plasma alanine aminotransferase measurement (enzymatic activity/volume) 10 U/L 0-55 Serum or plasma protein measurement (mass/volume) 5.9 g/dL 6.4-8.2 Serum or plasma albumin measurement (mass/volume) 3.2 g/dL 3.2-4.5 CALCIUM CORRECTED 9.5 mg/dL 8.5-10.1 THYROID STIMULATING HORMONE - 11/01/18 1 1:29 THYROID STIMULATING HORMONE 0.25 u[iU]/mL 0.35-4.94 IRON TEST - 11/01/18 11:29 Serum or plasma iron measurement (mass/volume) 13 % 35-180 Complete blood count (CBC) with automate d white blood cell (WBC) differential - 11/02/18 13:30 Blood leukocytes automated count (number/volume) 17.6 10*3/uL 4.3-11.0 Blood erythrocytes automated count (number/volume) 2.90 10*6/uL 4.35-5.85 Venous blood hemoglobin measurement (mass/volume) 9.0 g/dL 11.5-16.0 Blood hematocrit (volume fraction) 28 % 35-52 Automated erythrocyte mean corpuscular volume 96 [ foz_us] 80-99 Automated erythrocyte mean corpuscular h emoglobin (mass per erythrocyte) 31 pg 25-34 Automated erythrocyte mean corpuscular h emoglobin concentration measurement (mass/volume) 32 g/dL 32-36 Automated erythrocyte distribution width ratio 12. 5 % 10.0- 14.5 Automated blood platelet count (count/volume) 260 10*3/uL 130-400 Automated blood platelet mean volume measurement 9.4 [foz_us] 7.4-10.4 Automated blood neutrophils/100 leukocytes 68 % 42-75 Automated blood lymphocytes/100 leukocytes 27 % 12-44 Blood monocytes/100 leukocytes 5 % 0-12 Automated blood eosinophils/100 leukocytes 0 % 0-10 Automated blood basophils/100 leukocytes 0 % 0-10 Blood neutrophils automated count (number/volume) 12.0 10*3 1.8-7.8 Blood lymphocytes automated count (number/volume) 4.8 10*3 1.0-4.0 Blood monocytes automated count (number/volume) 0. 8 10*3 0.0-1.0 Automated eosinophil count 0.0 10*3/uL 0 .0-0.3 Automated blood basophil count (count/volume) 0.0 10*3/uL 0.0-0.1 Comprehensive metabolic panel - 11/02/18 13:30 Serum or plasma sodium measurement (moles/volume) 140 mmol/L 135-145 Serum or plasma potassium measurement (moles/volume) 4.4 mmol/L 3.6-5.0 Serum or plasma chloride measurement (moles/volume) 103 mmol/L 98-107 Carbon dioxide 25 mmol/L 21-32 Serum or plasma anion gap determination (moles/volume) 12 mmol/L 5-14 Serum or plasma urea nitrogen measurement (mass/volume ) 18 mg/dL 7-18 Serum or plasma creatinine measurement (mass/volume) 0.83 mg/dL 0.60-1.30 Serum or plasma urea nitrogen/creatinine mass ratio 22 NRG Serum or plasma creatinine measurement w ith calculation of estimated glomerular filtration rate > NRG Serum or plasma glucose measurement (mass/volume) 148 mg/dL 70-105 Serum or plasma calcium measurement (mass/volume) 9.9 mg/dL 8.5-10.1 Serum or plasma total bilirubin measurement (mass/volu me) 0.9 mg/dL 0.1-1.0 Serum or plasma alkaline phosphatase mau surement (enzymatic activity/volume) 67 U/L 40-136 Serum or plasma aspartate aminotransfera se measurement (enzymatic activity/volume) 32 U/L 5-34 Serum or plasma alanine aminotransferase measurement (enzymatic activity/volume) 12 U/L 0-55 Serum or plasma protein measurement (mass/volume) 6.7 g/dL 6.4-8.2 Serum or plasma albumin measurement (mass/volume) 3.6 g/dL 3.2-4.5 CALCIUM CORRECTED 10.2 mg/dL 8.5-10.1 Manual absolute plasma cell count - 03/22 13:30 Blood monocytes/100 leukocytes 5 % NRG Manual blood segmented neutrophils/100 leukocytes 75 % NRG Blood band neutrophils/100 leukocytes 0 % NRG Manual blood lymphocytes/100 leukocytes 20 % NRG Manual eosinophils/100 leukocytes in nose 0 % NRG Manual blood basophils/100 leukocytes 0 % NRG Blood polychromasia detection by light microscopy SLIGHT NRG Blood hypochromia detection by light microscopy SL IGHT NRG Methicillin resistant Staphylococcus aur eus (MRSA) screening culture - 11/02/18 16:30 Methicillin resistant Staphylococcus aureus (MRSA) scr eening culture NEG NRG Complete urinalysis with reflex to cultu re - 11/02/18 16:45 Urine color determination YELLOW NRG Urine clarity determination CLEAR NR G Urine pH measurement by test strip 5 5-9 Specific gravity of urine by test strip 1.020 1.016-1.022 Urine protein assay by test strip, semi-quantitative 2+ NEGATIVE Urine glucose detection by automated test strip NE GATIVE NEGATIVE Erythrocytes detection in urine sediment by light micr oscopy 2+ NEGATIVE Urine ketones detection by automated test strip 3+ NEGATIVE Urine nitrite detection by test strip NEGATIVE NEGATIVE Urine total bilirubin detection by test strip NEGA TIVE NEGATIVE Urine urobilinogen measurement by automated test strip (mass/volume) NORMAL NORMAL Urine leukocyte esterase detection by dipstick 3+ NEGATIVE Automated urine sediment erythrocyte cou nt by microscopy (number/high power field) [HPF] NRG Automated urine sediment leukocyte count by microscopy (number/high power field) [HPF] NRG Bacteria detection in urine sediment by light microsco py TRACE NRG Squamous epithelial cells detection in u rine sediment by light microscopy 2-5 NRG Crystals detection in urine sediment by light microsco py NONE NRG Casts detection in urine sediment by light microscopy PRESENT NRG Mucus detection in urine sediment by light microscopy NEGATIVE NRG Complete urinalysis with reflex to culture YES NRG Hyaline casts detection in urine sediment by light ольга roscopy RARE NRG Bacterial urine culture - 11/02/18 16:45 Bacterial urine culture [id number] NRG COLONY COUNT >100,000/ML NRG FTX;REPORTABLE SUSCEPTIBILITY REPORTED 11/04 12:15 NRG Dirithromycin susceptibility test by dis k diffusion - 11/02/18 16:45 Gentamicin susceptibility test by minimum inhibitory c oncentration <= NRG Levofloxacin susceptibility test by minimum inhibitory concentration 2 NRG Tobramycin susceptibility test by minimum inhibitory c oncentration <= NRG Piperacillin/tazobactam susceptibility t est by minimum inhibitory concentration = NRG Ciprofloxacin susceptibility test by minimum inhibitor y concentration <= NRG Meropenem susceptibility test by minimum inhibitory co ncentration 0.5 NRG Aztreonam susceptibility test by minimum inhibitory co ncentration 8 NRG Cefepime susceptibility test by minimum inhibitory con centration 4 NRG Imipenem susceptibility test by minimum inhibitory con centration 2 NRG Ceftazidime susceptibility test by minimum inhibitory concentration 4 NRG Complete blood count (CBC) with automate d white blood cell (WBC) differential - 11/03/18 07:11 Blood leukocytes automated count (number/volume) 10.1 10*3/uL 4.3-11.0 Blood erythrocytes automated count (number/volume) 2.44 10*6/uL 4.35-5.85 Venous blood hemoglobin measurement (mass/volume) 7.5 g/dL 11.5-16.0 Blood hematocrit (volume fraction) 24 % 35-52 Automated erythrocyte mean corpuscular volume 97 [ foz_us] 80-99 Automated erythrocyte mean corpuscular h emoglobin (mass per erythrocyte) 31 pg 25-34 Automated erythrocyte mean corpuscular h emoglobin concentration measurement (mass/volume) 32 g/dL 32-36 Automated erythrocyte distribution width ratio 12. 9 % 10.0- 14.5 Automated blood platelet count (count/volume) 233 10*3/uL 130-400 Automated blood platelet mean volume measurement 9.6 [foz_us] 7.4-10.4 Automated blood neutrophils/100 leukocytes 58 % 42-75 Automated blood lymphocytes/100 leukocytes 33 % 12-44 Blood monocytes/100 leukocytes 8 % 0-12 Automated blood eosinophils/100 leukocytes 2 % 0-10 Automated blood basophils/100 leukocytes 0 % 0-10 Blood neutrophils automated count (number/volume) 5.8 10*3 1.8-7.8 Blood lymphocytes automated count (number/volume) 3.3 10*3 1.0-4.0 Blood monocytes automated count (number/volume) 0. 8 10*3 0.0-1.0 Automated eosinophil count 0.2 10*3/uL 0 .0-0.3 Automated blood basophil count (count/volume) 0.0 10*3/uL 0.0-0.1 Comprehensive metabolic panel - 11/03/18 07:11 Serum or plasma sodium measurement (moles/volume) 140 mmol/L 135-145 Serum or plasma potassium measurement (moles/volume) 3.6 mmol/L 3.6-5.0 Serum or plasma chloride measurement (moles/volume) 106 mmol/L 98-107 Carbon dioxide 27 mmol/L 21-32 Serum or plasma anion gap determination (moles/volume) 7 mmol/L 5-14 Serum or plasma urea nitrogen measurement (mass/volume ) 20 mg/dL 7-18 Serum or plasma creatinine measurement (mass/volume) 0.99 mg/dL 0.60-1.30 Serum or plasma urea nitrogen/creatinine mass ratio 20 NRG Serum or plasma creatinine measurement w ith calculation of estimated glomerular filtration rate > NRG Serum or plasma glucose measurement (mass/volume) 112 mg/dL 70-105 Serum or plasma calcium measurement (mass/volume) 8.8 mg/dL 8.5-10.1 Serum or plasma total bilirubin measurement (mass/volu me) 1.0 mg/dL 0.1-1.0 Serum or plasma alkaline phosphatase mau surement (enzymatic activity/volume) 63 U/L 40-136 Serum or plasma aspartate aminotransfera se measurement (enzymatic activity/volume) 27 U/L 5-34 Serum or plasma alanine aminotransferase measurement (enzymatic activity/volume) 11 U/L 0-55 Serum or plasma protein measurement (mass/volume) 5.5 g/dL 6.4-8.2 Serum or plasma albumin measurement (mass/volume) 2.9 g/dL 3.2-4.5 CALCIUM CORRECTED 9.7 mg/dL 8.5-10.1 Complete blood count (CBC) with automate d white blood cell (WBC) differential - 11/04/18 07:36 Blood leukocytes automated count (number/volume) 9.8 10*3/uL 4.3-11.0 Blood erythrocytes automated count (number/volume) 2.34 10*6/uL 4.35-5.85 Venous blood hemoglobin measurement (mass/volume) 7.2 g/dL 11.5-16.0 Blood hematocrit (volume fraction) 23 % 35-52 Automated erythrocyte mean corpuscular volume 98 [ foz_us] 80-99 Automated erythrocyte mean corpuscular h emoglobin (mass per erythrocyte) 31 pg 25-34 Automated erythrocyte mean corpuscular h emoglobin concentration measurement (mass/volume) 31 g/dL 32-36 Automated erythrocyte distribution width ratio 12. 9 % 10.0- 14.5 Automated blood platelet count (count/volume) 226 10*3/uL 130-400 Automated blood platelet mean volume measurement 9.3 [foz_us] 7.4-10.4 Automated blood neutrophils/100 leukocytes 56 % 42-75 Automated blood lymphocytes/100 leukocytes 33 % 12-44 Blood monocytes/100 leukocytes 9 % 0-12 Automated blood eosinophils/100 leukocytes 2 % 0-10 Automated blood basophils/100 leukocytes 0 % 0-10 Blood neutrophils automated count (number/volume) 5.5 10*3 1.8-7.8 Blood lymphocytes automated count (number/volume) 3.2 10*3 1.0-4.0 Blood monocytes automated count (number/volume) 0. 9 10*3 0.0-1.0 Automated eosinophil count 0.2 10*3/uL 0 .0-0.3 Automated blood basophil count (count/volume) 0.0 10*3/uL 0.0-0.1 Comprehensive metabolic panel - 11/04/18 07:36 Serum or plasma sodium measurement (moles/volume) 142 mmol/L 135-145 Serum or plasma potassium measurement (moles/volume) 3.5 mmol/L 3.6-5.0 Serum or plasma chloride measurement (moles/volume) 109 mmol/L 98-107 Carbon dioxide 25 mmol/L 21-32 Serum or plasma anion gap determination (moles/volume) 8 mmol/L 5-14 Serum or plasma urea nitrogen measurement (mass/volume ) 18 mg/dL 7-18 Serum or plasma creatinine measurement (mass/volume) 0.99 mg/dL 0.60-1.30 Serum or plasma urea nitrogen/creatinine mass ratio 18 NRG Serum or plasma creatinine measurement w ith calculation of estimated glomerular filtration rate > NRG Serum or plasma glucose measurement (mass/volume) 110 mg/dL 70-105 Serum or plasma calcium measurement (mass/volume) 8.8 mg/dL 8.5-10.1 Serum or plasma total bilirubin measurement (mass/volu me) 0.8 mg/dL 0.1-1.0 Serum or plasma alkaline phosphatase mau surement (enzymatic activity/volume) 54 U/L 40-136 Serum or plasma aspartate aminotransfera se measurement (enzymatic activity/volume) 19 U/L 5-34 Serum or plasma alanine aminotransferase measurement (enzymatic activity/volume) 9 U/L 0-55 Serum or plasma protein measurement (mass/volume) 5.2 g/dL 6.4-8.2 Serum or plasma albumin measurement (mass/volume) 2.9 g/dL 3.2-4.5 CALCIUM CORRECTED 9.7 mg/dL 8.5-10.1 Complete blood count (CBC) with automate d white blood cell (WBC) differential - 11/05/18 06:20 Blood leukocytes automated count (number/volume) 10.2 10*3/uL 4.3-11.0 Blood erythrocytes automated count (number/volume) 2.26 10*6/uL 4.35-5.85 Venous blood hemoglobin measurement (mass/volume) 7.0 g/dL 11.5-16.0 Blood hematocrit (volume fraction) 22 % 35-52 Automated erythrocyte mean corpuscular volume 97 [ foz_us] 80-99 Automated erythrocyte mean corpuscular h emoglobin (mass per erythrocyte) 31 pg 25-34 Automated erythrocyte mean corpuscular h emoglobin concentration measurement (mass/volume) 32 g/dL 32-36 Automated erythrocyte distribution width ratio 12. 9 % 10.0- 14.5 Automated blood platelet count (count/volume) 270 10*3/uL 130-400 Automated blood platelet mean volume measurement 9.0 [foz_us] 7.4-10.4 Automated blood neutrophils/100 leukocytes 54 % 42-75 Automated blood lymphocytes/100 leukocytes 35 % 12-44 Blood monocytes/100 leukocytes 9 % 0-12 Automated blood eosinophils/100 leukocytes 2 % 0-10 Automated blood basophils/100 leukocytes 0 % 0-10 Blood neutrophils automated count (number/volume) 5.5 10*3 1.8-7.8 Blood lymphocytes automated count (number/volume) 3.5 10*3 1.0-4.0 Blood monocytes automated count (number/volume) 0. 9 10*3 0.0-1.0 Automated eosinophil count 0.2 10*3/uL 0 .0-0.3 Automated blood basophil count (count/volume) 0.0 10*3/uL 0.0-0.1 Comprehensive metabolic panel - 11/05/18 06:20 Serum or plasma sodium measurement (moles/volume) 141 mmol/L 135-145 Serum or plasma potassium measurement (moles/volume) 3.7 mmol/L 3.6-5.0 Serum or plasma chloride measurement (moles/volume) 110 mmol/L 98-107 Carbon dioxide 24 mmol/L 21-32 Serum or plasma anion gap determination (moles/volume) 7 mmol/L 5-14 Serum or plasma urea nitrogen measurement (mass/volume ) 15 mg/dL 7-18 Serum or plasma creatinine measurement (mass/volume) 0.98 mg/dL 0.60-1.30 Serum or plasma urea nitrogen/creatinine mass ratio 15 NRG Serum or plasma creatinine measurement w ith calculation of estimated glomerular filtration rate > NRG Serum or plasma glucose measurement (mass/volume) 111 mg/dL 70-105 Serum or plasma calcium measurement (mass/volume) 8.6 mg/dL 8.5-10.1 Serum or plasma total bilirubin measurement (mass/volu me) 0.5 mg/dL 0.1-1.0 Serum or plasma alkaline phosphatase mau surement (enzymatic activity/volume) 55 U/L 40-136 Serum or plasma aspartate aminotransfera se measurement (enzymatic activity/volume) 18 U/L 5-34 Serum or plasma alanine aminotransferase measurement (enzymatic activity/volume) 10 U/L 0-55 Serum or plasma protein measurement (mass/volume) 5.1 g/dL 6.4-8.2 Serum or plasma albumin measurement (mass/volume) 2.8 g/dL 3.2-4.5 CALCIUM CORRECTED 9.6 mg/dL 8.5-10.1 RED CELLS LEUKO REDUCED AS1 - 11/05/18 0 9:30 RED CELLS LEUKO REDUCED AS1 T RANSFUSED 11/05/18 1440 NRG Blood type T Indirect antibody screen pa tammy - 11/05/18 09:30 WRISTBAND NUMBER [id number] NRG ABO+Rh group OP NRG Blood group antibody screen NEGATIVE NR G Complete blood count (CBC) with automate d white blood cell (WBC) differential - 11/06/18 04:24 Blood leukocytes automated count (number/volume) 14.2 10*3/uL 4.3-11.0 Blood erythrocytes automated count (number/volume) 3.20 10*6/uL 4.35-5.85 Venous blood hemoglobin measurement (mass/volume) 9.7 g/dL 11.5-16.0 Blood hematocrit (volume fraction) 29 % 35-52 Automated erythrocyte mean corpuscular volume 92 [ foz_us] 80-99 Automated erythrocyte mean corpuscular h emoglobin (mass per erythrocyte) 30 pg 25-34 Automated erythrocyte mean corpuscular h emoglobin concentration measurement (mass/volume) 33 g/dL 32-36 Automated erythrocyte distribution width ratio 14. 8 % 10.0- 14.5 Automated blood platelet count (count/volume) 288 10*3/uL 130-400 Automated blood platelet mean volume measurement 9.1 [foz_us] 7.4-10.4 Automated blood neutrophils/100 leukocytes 59 % 42-75 Automated blood lymphocytes/100 leukocytes 33 % 12-44 Blood monocytes/100 leukocytes 7 % 0-12 Automated blood eosinophils/100 leukocytes 2 % 0-10 Automated blood basophils/100 leukocytes 0 % 0-10 Blood neutrophils automated count (number/volume) 8.3 10*3 1.8-7.8 Blood lymphocytes automated count (number/volume) 4.6 10*3 1.0-4.0 Blood monocytes automated count (number/volume) 1. 0 10*3 0.0-1.0 Automated eosinophil count 0.2 10*3/uL 0 .0-0.3 Automated blood basophil count (count/volume) 0.0 10*3/uL 0.0-0.1 Manual absolute plasma cell count - 07/20 04:24 Blood monocytes/100 leukocytes 6 % NRG Manual blood segmented neutrophils/100 leukocytes 65 % NRG Blood band neutrophils/100 leukocytes 0 % NRG Manual blood lymphocytes/100 leukocytes 29 % NRG Manual eosinophils/100 leukocytes in nose 0 % NRG Manual blood basophils/100 leukocytes 0 % NRG Blood anisocytosis detection by light microscopy S LIGHT NRG Blood hypersegmented neutrophils detection by light mi croscopy SLIGHT NRG Comprehensive metabolic panel - 11/06/18 04:24 Serum or plasma sodium measurement (moles/volume) 141 mmol/L 135-145 Serum or plasma potassium measurement (moles/volume) 3.8 mmol/L 3.6-5.0 Serum or plasma chloride measurement (moles/volume) 109 mmol/L 98-107 Carbon dioxide 23 mmol/L 21-32 Serum or plasma anion gap determination (moles/volume) 9 mmol/L 5-14 Serum or plasma urea nitrogen measurement (mass/volume ) 14 mg/dL 7-18 Serum or plasma creatinine measurement (mass/volume) 0.86 mg/dL 0.60-1.30 Serum or plasma urea nitrogen/creatinine mass ratio 16 NRG Serum or plasma creatinine measurement w ith calculation of estimated glomerular filtration rate > NRG Serum or plasma glucose measurement (mass/volume) 108 mg/dL 70-105 Serum or plasma calcium measurement (mass/volume) 8.7 mg/dL 8.5-10.1 Serum or plasma total bilirubin measurement (mass/volu me) 0.8 mg/dL 0.1-1.0 Serum or plasma alkaline phosphatase mau surement (enzymatic activity/volume) 60 U/L 40-136 Serum or plasma aspartate aminotransfera se measurement (enzymatic activity/volume) 18 U/L 5-34 Serum or plasma alanine aminotransferase measurement (enzymatic activity/volume) 11 U/L 0-55 Serum or plasma protein measurement (mass/volume) 5.2 g/dL 6.4-8.2 Serum or plasma albumin measurement (mass/volume) 3.0 g/dL 3.2-4.5 CALCIUM CORRECTED 9.5 mg/dL 8.5-10.1 Complete blood count (CBC) with automate d white blood cell (WBC) differential - 11/10/18 06:13 Blood leukocytes automated count (number/volume) 11.3 10*3/uL 4.3-11.0 Blood erythrocytes automated count (number/volume) 3.08 10*6/uL 4.35-5.85 Venous blood hemoglobin measurement (mass/volume) 9.4 g/dL 11.5-16.0 Blood hematocrit (volume fraction) 29 % 35-52 Automated erythrocyte mean corpuscular volume 96 [ foz_us] 80-99 Automated erythrocyte mean corpuscular h emoglobin (mass per erythrocyte) 31 pg 25-34 Automated erythrocyte mean corpuscular h emoglobin concentration measurement (mass/volume) 32 g/dL 32-36 Automated erythrocyte distribution width ratio 13. 7 % 10.0- 14.5 Automated blood platelet count (count/volume) 336 10*3/uL 130-400 Automated blood platelet mean volume measurement 9.0 [foz_us] 7.4-10.4 Automated blood neutrophils/100 leukocytes 59 % 42-75 Automated blood lymphocytes/100 leukocytes 32 % 12-44 Blood monocytes/100 leukocytes 7 % 0-12 Automated blood eosinophils/100 leukocytes 2 % 0-10 Automated blood basophils/100 leukocytes 0 % 0-10 Blood neutrophils automated count (number/volume) 6.7 10*3 1.8-7.8 Blood lymphocytes automated count (number/volume) 3.6 10*3 1.0-4.0 Blood monocytes automated count (number/volume) 0. 8 10*3 0.0-1.0 Automated eosinophil count 0.2 10*3/uL 0 .0-0.3 Automated blood basophil count (count/volume) 0.0 10*3/uL 0.0-0.1 Comprehensive metabolic panel - 11/10/18 06:13 Serum or plasma sodium measurement (moles/volume) 143 mmol/L 135-145 Serum or plasma potassium measurement (moles/volume) 3.8 mmol/L 3.6-5.0 Serum or plasma chloride measurement (moles/volume) 110 mmol/L 98-107 Carbon dioxide 24 mmol/L 21-32 Serum or plasma anion gap determination (moles/volume) 9 mmol/L 5-14 Serum or plasma urea nitrogen measurement (mass/volume ) 13 mg/dL 7-18 Serum or plasma creatinine measurement (mass/volume) 0.81 mg/dL 0.60-1.30 Serum or plasma urea nitrogen/creatinine mass ratio 16 NRG Serum or plasma creatinine measurement w ith calculation of estimated glomerular filtration rate > NRG Serum or plasma glucose measurement (mass/volume) 110 mg/dL 70-105 Serum or plasma calcium measurement (mass/volume) 9.0 mg/dL 8.5-10.1 Serum or plasma total bilirubin measurement (mass/volu me) 0.4 mg/dL 0.1-1.0 Serum or plasma alkaline phosphatase mau surement (enzymatic activity/volume) 80 U/L 40-136 Serum or plasma aspartate aminotransfera se measurement (enzymatic activity/volume) 15 U/L 5-34 Serum or plasma alanine aminotransferase measurement (enzymatic activity/volume) 8 U/L 0-55 Serum or plasma protein measurement (mass/volume) 5.3 g/dL 6.4-8.2 Serum or plasma albumin measurement (mass/volume) 2.9 g/dL 3.2-4.5 CALCIUM CORRECTED 9.9 mg/dL 8.5-10.1 Complete blood count (CBC) with automate d white blood cell (WBC) differential - 11/17/18 04:49 Blood leukocytes automated count (number/volume) 6.2 10*3/uL 4.3-11.0 Blood erythrocytes automated count (number/volume) 2.77 10*6/uL 4.35-5.85 Venous blood hemoglobin measurement (mass/volume) 8.4 g/dL 11.5-16.0 Blood hematocrit (volume fraction) 27 % 35-52 Automated erythrocyte mean corpuscular volume 98 [ foz_us] 80-99 Automated erythrocyte mean corpuscular h emoglobin (mass per erythrocyte) 30 pg 25-34 Automated erythrocyte mean corpuscular h emoglobin concentration measurement (mass/volume) 31 g/dL 32-36 Automated erythrocyte distribution width ratio 13. 6 % 10.0- 14.5 Automated blood platelet count (count/volume) 350 10*3/uL 130-400 Automated blood platelet mean volume measurement 9.2 [foz_us] 7.4-10.4 Automated blood neutrophils/100 leukocytes 51 % 42-75 Automated blood lymphocytes/100 leukocytes 38 % 12-44 Blood monocytes/100 leukocytes 9 % 0-12 Automated blood eosinophils/100 leukocytes 2 % 0-10 Automated blood basophils/100 leukocytes 0 % 0-10 Blood neutrophils automated count (number/volume) 3.1 10*3 1.8-7.8 Blood lymphocytes automated count (number/volume) 2.3 10*3 1.0-4.0 Blood monocytes automated count (number/volume) 0. 6 10*3 0.0-1.0 Automated eosinophil count 0.2 10*3/uL 0 .0-0.3 Automated blood basophil count (count/volume) 0.0 10*3/uL 0.0-0.1 Comprehensive metabolic panel - 11/17/18 04:49 Serum or plasma sodium measurement (moles/volume) 142 mmol/L 135-145 Serum or plasma potassium measurement (moles/volume) 4.3 mmol/L 3.6-5.0 Serum or plasma chloride measurement (moles/volume) 109 mmol/L 98-107 Carbon dioxide 23 mmol/L 21-32 Serum or plasma anion gap determination (moles/volume) 10 mmol/L 5-14 Serum or plasma urea nitrogen measurement (mass/volume ) 15 mg/dL 7-18 Serum or plasma creatinine measurement (mass/volume) 1.03 mg/dL 0.60-1.30 Serum or plasma urea nitrogen/creatinine mass ratio 15 NRG Serum or plasma creatinine measurement w ith calculation of estimated glomerular filtration rate > NRG Serum or plasma glucose measurement (mass/volume) 101 mg/dL 70-105 Serum or plasma calcium measurement (mass/volume) 8.8 mg/dL 8.5-10.1 Serum or plasma total bilirubin measurement (mass/volu me) 0.2 mg/dL 0.1-1.0 Serum or plasma alkaline phosphatase mau surement (enzymatic activity/volume) 90 U/L 40-136 Serum or plasma aspartate aminotransfera se measurement (enzymatic activity/volume) 19 U/L 5-34 Serum or plasma alanine aminotransferase measurement (enzymatic activity/volume) 13 U/L 0-55 Serum or plasma protein measurement (mass/volume) 5.2 g/dL 6.4-8.2 Serum or plasma albumin measurement (mass/volume) 2.9 g/dL 3.2-4.5 CALCIUM CORRECTED 9.7 mg/dL 8.5-10.1 Complete urinalysis with reflex to cultu re - 11/27/18 00:00 Urine color determination YELLOW NRG Urine clarity determination CLOUDY NR G Urine pH measurement by test strip 7.0 5-9 Specific gravity of urine by test strip 1.020 1.016-1.022 Urine protein assay by test strip, semi-quantitative 2+ NEGATIVE Urine glucose detection by automated test strip NE GATIVE NEGATIVE Erythrocytes detection in urine sediment by light micr oscopy 3+ NEGATIVE Urine ketones detection by automated test strip NE GATIVE NEGATIVE Urine nitrite detection by test strip POSITIVE NEGATIVE Urine total bilirubin detection by test strip NEGA TIVE NEGATIVE Urine urobilinogen measurement by automated test strip (mass/volume) 0.2 mg/dL NORMAL Urine leukocyte esterase detection by dipstick 3+ NEGATIVE Automated urine sediment erythrocyte cou nt by microscopy (number/high power field) [HPF] NRG Automated urine sediment leukocyte count by microscopy (number/high power field) > [HPF] NRG Bacteria detection in urine sediment by light microsco py LARGE NRG Squamous epithelial cells detection in u rine sediment by light microscopy NONE NRG Crystals detection in urine sediment by light microsco py NONE NRG Casts detection in urine sediment by light microscopy NONE NRG Mucus detection in urine sediment by light microscopy NEGATIVE NRG Complete urinalysis with reflex to culture YES NRG Bacterial urine culture - 11/27/18 00:00 Bacterial urine culture [id number] NRG COLONY COUNT >100,000/ML NRG FTX;REPORTABLE SUSCEPTIBILITY REPORTED 11-29-18, 13 43 NRG Dirithromycin susceptibility test by dis k diffusion - 11/27/18 00:00 Gentamicin susceptibility test by minimum inhibitory c oncentration 8 NRG Trimethoprim/sulfamethoxazole susceptibi lity test by minimum inhibitoryconcentration <= NRG Levofloxacin susceptibility test by minimum inhibitory concentration <= NRG Ampicillin susceptibility test by minimum inhibitory c oncentration > NRG Cefazolin susceptibility test by minimum inhibitory co ncentration 2 NRG Ceftriaxone susceptibility test by minimum inhibitory concentration <= NRG Ciprofloxacin susceptibility test by minimum inhibitor y concentration <= NRG Meropenem susceptibility test by minimum inhibitory co ncentration <= NRG Nitrofurantoin susceptibility test by mi nimum inhibitory concentration <= NRG Amoxicillin and clavulanate potassium susc ОЛЬГА = NRG CMP - 12/25/18 13:20 GLUCOSE 85 mg/dL 65-99 UREA NITROGEN (BUN) 36 mg/dL 7-25 CREATININE 1.55 mg/dL 0.60-0.88 eGFR NON-AFR. BELGIAN 30 mL/min/1.73m2 > OR = 60 eGFR 35 mL/min/1.73m2 > OR = 60 BUN/CREATININE RATIO 23 (calc) 6-22 SODIUM 138 mmol/L 135-146 POTASSIUM 5.2 mmol/L 3.5-5.3 CHLORIDE 104 mmol/L 98-110 CARBON DIOXIDE 22 mmol/L 20-32 CALCIUM 10.0 mg/dL 8.6-10.4 PROTEIN, TOTAL 6.6 g/dL 6.1-8.1 ALBUMIN 4.2 g/dL 3.6-5.1 GLOBULIN 2.4 g/dL (calc) 1.9-3.7 ALBUMIN/GLOBULIN RATIO 1.8 (calc) 1.0-2. 5 BILIRUBIN, TOTAL 0.4 mg/dL 0.2-1.2 ALKALINE PHOSPHATASE 102 U/L 33-130 AST 22 U/L 10-35 ALT 14 U/L 6-29 TSH - 12/25/18 13:20 TSH 1.28 mIU/L 0.40-4.50 CBC - 12/25/18 13:20 WHITE BLOOD CELL COUNT 9.1 Thousand/uL 3 .8-10.8 RED BLOOD CELL COUNT 4.12 Million/uL 3.8 0-5.10 HEMOGLOBIN 12.5 g/dL 11.7-15.5 HEMATOCRIT 38.0 % 35.0-45.0 MCV 92.2 fL 80.0-100.0 MCH 30.3 pg 27.0-33.0 MCHC 32.9 g/dL 32.0-36.0 RDW 12.9 % 11.0-15.0 PLATELET COUNT 244 Thousand/uL 140-400 MPV 10.3 fL 7.5-12.5 ABSOLUTE NEUTROPHILS 4259 cells/uL 1500- 7800 ABSOLUTE LYMPHOCYTES 3986 cells/uL 850-3 900 ABSOLUTE MONOCYTES 510 cells/uL 200-950 ABSOLUTE EOSINOPHILS 282 cells/uL 15-500 ABSOLUTE BASOPHILS 64 cells/uL 0-200 NEUTROPHILS 46.8 % NRG LYMPHOCYTES 43.8 % NRG MONOCYTES 5.6 % NRG EOSINOPHILS 3.1 % NRG BASOPHILS 0.7 % NRG COMMENT(S) NRG CULTURE, URINE - 12/25/18 13:32 CULTURE, URINE, ROUTINE SEE NOTE NRG Complete blood count (CBC) with automate d white blood cell (WBC) differential - 01/21/19 10:05 Blood leukocytes automated count (number/volume) 11.1 10*3/uL 4.3-11.0 Blood erythrocytes automated count (number/volume) 4.51 10*6/uL 4.35-5.85 Venous blood hemoglobin measurement (mass/volume) 13.7 g/dL 11.5-16.0 Blood hematocrit (volume fraction) 43 % 35-52 Automated erythrocyte mean corpuscular volume 95 [ foz_us] 80-99 Automated erythrocyte mean corpuscular h emoglobin (mass per erythrocyte) 30 pg 25-34 Automated erythrocyte mean corpuscular h emoglobin concentration measurement (mass/volume) 32 g/dL 32-36 Automated erythrocyte distribution width ratio 13. 8 % 10.0- 14.5 Automated blood platelet count (count/volume) 289 10*3/uL 130-400 Automated blood platelet mean volume measurement 9.5 [foz_us] 7.4-10.4 Automated blood neutrophils/100 leukocytes 44 % 42-75 Automated blood lymphocytes/100 leukocytes 47 % 12-44 Blood monocytes/100 leukocytes 6 % 0-12 Automated blood eosinophils/100 leukocytes 2 % 0-10 Automated blood basophils/100 leukocytes 1 % 0-10 Blood neutrophils automated count (number/volume) 4.8 10*3 1.8-7.8 Blood lymphocytes automated count (number/volume) 5.2 10*3 1.0-4.0 Blood monocytes automated count (number/volume) 0. 6 10*3 0.0-1.0 Automated eosinophil count 0.3 10*3/uL 0 .0-0.3 Automated blood basophil count (count/volume) 0.1 10*3/uL 0.0-0.1 Comprehensive metabolic panel - 01/21/19 10:05 Serum or plasma sodium measurement (moles/volume) 139 mmol/L 135-145 Serum or plasma potassium measurement (moles/volume) 4.7 mmol/L 3.6-5.0 Serum or plasma chloride measurement (moles/volume) 101 mmol/L 98-107 Carbon dioxide 23 mmol/L 21-32 Serum or plasma anion gap determination (moles/volume) 15 mmol/L 5-14 Serum or plasma urea nitrogen measurement (mass/volume ) 20 mg/dL 7-18 Serum or plasma creatinine measurement (mass/volume) 1.50 mg/dL 0.60-1.30 Serum or plasma urea nitrogen/creatinine mass ratio 13 NRG Serum or plasma creatinine measurement w ith calculation of estimated glomerular filtration rate 40 NRG Serum or plasma glucose measurement (mass/volume) 125 mg/dL 70-105 Serum or plasma calcium measurement (mass/volume) 10.1 mg/dL 8.5-10.1 Serum or plasma total bilirubin measurement (mass/volu me) 0.4 mg/dL 0.1-1.0 Serum or plasma alkaline phosphatase mau surement (enzymatic activity/volume) 139 U/L 40-136 Serum or plasma aspartate aminotransfera se measurement (enzymatic activity/volume) 30 U/L 5-34 Serum or plasma alanine aminotransferase measurement (enzymatic activity/volume) 22 U/L 0-55 Serum or plasma protein measurement (mass/volume) 7.4 g/dL 6.4-8.2 Serum or plasma albumin measurement (mass/volume) 4.3 g/dL 3.2-4.5 CALCIUM CORRECTED 9.9 mg/dL 8.5-10.1 Magnesium - 01/21/19 10:05 Magnesium 2.0 mg/dL 1.6-2.4 TROPONIN I FS - 01/21/19 10:05 TROPONIN I FS < 0.30 <0.30 PROBNP FS - 01/21/19 10:05 PROBNP FS 413.3 pg/mL <75.0 Lipase - 01/21/19 10:05 Lipase 28 U/L 8-78 PT panel in platelet poor plasma by coag ulation assay - 01/21/19 10:05 Prothrombin time (PT) in platelet poor plasma by coagu lation assay 12.3 s 12.2-14.7 INR in platelet poor plasma or blood by coagulation as say 0.9 0.8-1.4 Activated partial thromboplastin time (a PTT) in platelet poor plasma bycoagulation assay - 01/21/19 10:05 Activated partial thromboplastin time (a PTT) in platelet poor plasma bycoagulation assay 25 s 24-35 Fibrin D-dimer FEU measurement in platel et poor plasma (mass/volume) - 01/21/19 10:05 Fibrin D-dimer FEU measurement in platelet poor plasma (mass/volume) 7.40 ug/mL 0.00-0.49 Complete urinalysis with reflex to cultu re - 01/21/19 11:00 Urine color determination YELLOW NRG Urine clarity determination 7.0 NR G Urine pH measurement by test strip 1.010 5-9 Specific gravity of urine by test strip NEG 1.016-1.022 Urine protein assay by test strip, semi-quantitative NEGATIVE NEGATIVE Urine glucose detection by automated test strip NE GATIVE NEGATIVE Erythrocytes detection in urine sediment by light micr oscopy NEGATIVE NEGATIVE Urine ketones detection by automated test strip NE GATIVE NEGATIVE Urine nitrite detection by test strip NEGATIVE NEGATIVE Urine total bilirubin detection by test strip NEGA TIVE NEGATIVE Urine urobilinogen measurement by automated test strip (mass/volume) 0.2 mg/dL < = 1.0 Urine leukocyte esterase detection by dipstick TRA CE NEGATIVE Automated urine sediment erythrocyte cou nt by microscopy (number/high power field) [HPF] NRG Automated urine sediment leukocyte count by microscopy (number/high power field) [HPF] NRG Bacteria detection in urine sediment by light microsco py NEGATIVE NRG Squamous epithelial cells detection in u rine sediment by light microscopy NONE NRG Crystals detection in urine sediment by light microsco py NONE NRG Casts detection in urine sediment by light microscopy NONE NRG Mucus detection in urine sediment by light microscopy NONE NRG Complete urinalysis with reflex to culture NO NRG Complete blood count (CBC) with automate d white blood cell (WBC) differential - 03/01/19 17:50 Blood leukocytes automated count (number/volume) 10.5 10*3/uL 4.3-11.0 Blood erythrocytes automated count (number/volume) 4.16 10*6/uL 4.35-5.85 Venous blood hemoglobin measurement (mass/volume) 12.5 g/dL 11.5-16.0 Blood hematocrit (volume fraction) 39 % 35-52 Automated erythrocyte mean corpuscular volume 93 [ foz_us] 80-99 Automated erythrocyte mean corpuscular h emoglobin (mass per erythrocyte) 30 pg 25-34 Automated erythrocyte mean corpuscular h emoglobin concentration measurement (mass/volume) 32 g/dL 32-36 Automated erythrocyte distribution width ratio 13. 2 % 10.0- 14.5 Automated blood platelet count (count/volume) 254 10*3/uL 130-400 Automated blood platelet mean volume measurement 9.2 [foz_us] 7.4-10.4 Automated blood neutrophils/100 leukocytes 52 % 42-75 Automated blood lymphocytes/100 leukocytes 37 % 12-44 Blood monocytes/100 leukocytes 7 % 0-12 Automated blood eosinophils/100 leukocytes 3 % 0-10 Automated blood basophils/100 leukocytes 1 % 0-10 Blood neutrophils automated count (number/volume) 5.5 10*3 1.8-7.8 Blood lymphocytes automated count (number/volume) 3.9 10*3 1.0-4.0 Blood monocytes automated count (number/volume) 0. 7 10*3 0.0-1.0 Automated eosinophil count 0.3 10*3/uL 0 .0-0.3 Automated blood basophil count (count/volume) 0.1 10*3/uL 0.0-0.1 Blood lactic acid measurement (moles/vol ume) - 03/01/19 17:50 Blood lactic acid measurement (moles/volume) 1.07 mmol/L 0.50-2.00 Comprehensive metabolic panel - 03/01/19 17:50 Serum or plasma sodium measurement (moles/volume) 138 mmol/L 135-145 Serum or plasma potassium measurement (moles/volume) 5.3 mmol/L 3.6-5.0 Serum or plasma chloride measurement (moles/volume) 103 mmol/L 98-107 Carbon dioxide 23 mmol/L 21-32 Serum or plasma anion gap determination (moles/volume) 12 mmol/L 5-14 Serum or plasma urea nitrogen measurement (mass/volume ) 23 mg/dL 7-18 Serum or plasma creatinine measurement (mass/volume) 1.35 mg/dL 0.60-1.30 Serum or plasma urea nitrogen/creatinine mass ratio 17 NRG Serum or plasma creatinine measurement w ith calculation of estimated glomerular filtration rate 45 NRG Serum or plasma glucose measurement (mass/volume) 121 mg/dL 70-105 Serum or plasma calcium measurement (mass/volume) 9.5 mg/dL 8.5-10.1 Serum or plasma total bilirubin measurement (mass/volu me) 0.2 mg/dL 0.1-1.0 Serum or plasma alkaline phosphatase mau surement (enzymatic activity/volume) 135 U/L 40-136 Serum or plasma aspartate aminotransfera se measurement (enzymatic activity/volume) 108 U/L 5-34 Serum or plasma alanine aminotransferase measurement (enzymatic activity/volume) 44 U/L 0-55 Serum or plasma protein measurement (mass/volume) 6.8 g/dL 6.4-8.2 Serum or plasma albumin measurement (mass/volume) 3.7 g/dL 3.2-4.5 CALCIUM CORRECTED 9.7 mg/dL 8.5-10.1 TROPONIN I FS - 03/01/19 17:50 TROPONIN I FS < 0.30 <0.30 Lipase - 03/01/19 17:50 Lipase 1246 U/L 8-78 Serum or plasma amylase measurement (enz ymatic activity/volume) - 03/01/19 17:50 Serum or plasma amylase measurement (enzymatic activit y/volume) 393 U/L 25-125 Complete urinalysis with reflex to cultu re - 03/01/19 19:01 Urine color determination YELLOW NRG Urine clarity determination CLEAR NR G Urine pH measurement by test strip 5.5 5-9 Specific gravity of urine by test strip 1.015 1.016-1.022 Urine protein assay by test strip, semi-quantitative NEGATIVE NEGATIVE Urine glucose detection by automated test strip NE GATIVE NEGATIVE Erythrocytes detection in urine sediment by light micr oscopy NEGATIVE NEGATIVE Urine ketones detection by automated test strip NE GATIVE NEGATIVE Urine nitrite detection by test strip NEGATIVE NEGATIVE Urine total bilirubin detection by test strip NEGA TIVE NEGATIVE Urine urobilinogen measurement by automated test strip (mass/volume) 0.2 mg/dL < = 1.0 Urine leukocyte esterase detection by dipstick TRA CE NEGATIVE Automated urine sediment erythrocyte cou nt by microscopy (number/high power field) NONE NRG Automated urine sediment leukocyte count by microscopy (number/high power field) [HPF] NRG Bacteria detection in urine sediment by light microsco py TRACE NRG Squamous epithelial cells detection in u rine sediment by light microscopy 10-25 NRG Crystals detection in urine sediment by light microsco py NONE NRG Casts detection in urine sediment by light microscopy NONE NRG Mucus detection in urine sediment by light microscopy SMALL NRG Complete urinalysis with reflex to culture YES NRG Bacterial urine culture - 03/01/19 19:01 Bacterial urine culture NG NRG Complete blood count (CBC) with automate d white blood cell (WBC) differential - 03/02/19 06:26 Blood leukocytes automated count (number/volume) 7.2 10*3/uL 4.3-11.0 Blood erythrocytes automated count (number/volume) 3.96 10*6/uL 4.35-5.85 Venous blood hemoglobin measurement (mass/volume) 11.9 g/dL 11.5-16.0 Blood hematocrit (volume fraction) 36 % 35-52 Automated erythrocyte mean corpuscular volume 92 [ foz_us] 80-99 Automated erythrocyte mean corpuscular h emoglobin (mass per erythrocyte) 30 pg 25-34 Automated erythrocyte mean corpuscular h emoglobin concentration measurement (mass/volume) 33 g/dL 32-36 Automated erythrocyte distribution width ratio 13. 5 % 10.0- 14.5 Automated blood platelet count (count/volume) 239 10*3/uL 130-400 Automated blood platelet mean volume measurement 9.1 [foz_us] 7.4-10.4 Automated blood neutrophils/100 leukocytes 48 % 42-75 Automated blood lymphocytes/100 leukocytes 42 % 12-44 Blood monocytes/100 leukocytes 6 % 0-12 Automated blood eosinophils/100 leukocytes 3 % 0-10 Automated blood basophils/100 leukocytes 1 % 0-10 Blood neutrophils automated count (number/volume) 3.5 10*3 1.8-7.8 Blood lymphocytes automated count (number/volume) 3.1 10*3 1.0-4.0 Blood monocytes automated count (number/volume) 0. 4 10*3 0.0-1.0 Automated eosinophil count 0.2 10*3/uL 0 .0-0.3 Automated blood basophil count (count/volume) 0.0 10*3/uL 0.0-0.1 Comprehensive metabolic panel - 03/02/19 06:26 Serum or plasma sodium measurement (moles/volume) 141 mmol/L 135-145 Serum or plasma potassium measurement (moles/volume) 4.9 mmol/L 3.6-5.0 Serum or plasma chloride measurement (moles/volume) 109 mmol/L 98-107 Carbon dioxide 22 mmol/L 21-32 Serum or plasma anion gap determination (moles/volume) 10 mmol/L 5-14 Serum or plasma urea nitrogen measurement (mass/volume ) 16 mg/dL 7-18 Serum or plasma creatinine measurement (mass/volume) 1.27 mg/dL 0.60-1.30 Serum or plasma urea nitrogen/creatinine mass ratio 13 NRG Serum or plasma creatinine measurement w ith calculation of estimated glomerular filtration rate 48 NRG Serum or plasma glucose measurement (mass/volume) 114 mg/dL 70-105 Serum or plasma calcium measurement (mass/volume) 9.0 mg/dL 8.5-10.1 Serum or plasma total bilirubin measurement (mass/volu me) 0.3 mg/dL 0.1-1.0 Serum or plasma alkaline phosphatase mau surement (enzymatic activity/volume) 120 U/L 40-136 Serum or plasma aspartate aminotransfera se measurement (enzymatic activity/volume) 83 U/L 5-34 Serum or plasma alanine aminotransferase measurement (enzymatic activity/volume) 71 U/L 0-55 Serum or plasma protein measurement (mass/volume) 5.8 g/dL 6.4-8.2 Serum or plasma albumin measurement (mass/volume) 3.3 g/dL 3.2-4.5 CALCIUM CORRECTED 9.6 mg/dL 8.5-10.1 Complete blood count (CBC) with automate d white blood cell (WBC) differential - 03/03/19 05:10 Blood leukocytes automated count (number/volume) 7.9 10*3/uL 4.3-11.0 Blood erythrocytes automated count (number/volume) 3.91 10*6/uL 4.35-5.85 Venous blood hemoglobin measurement (mass/volume) 11.6 g/dL 11.5-16.0 Blood hematocrit (volume fraction) 36 % 35-52 Automated erythrocyte mean corpuscular volume 93 [ foz_us] 80-99 Automated erythrocyte mean corpuscular h emoglobin (mass per erythrocyte) 30 pg 25-34 Automated erythrocyte mean corpuscular h emoglobin concentration measurement (mass/volume) 32 g/dL 32-36 Automated erythrocyte distribution width ratio 13. 7 % 10.0- 14.5 Automated blood platelet count (count/volume) 235 10*3/uL 130-400 Automated blood platelet mean volume measurement 9.1 [foz_us] 7.4-10.4 Automated blood neutrophils/100 leukocytes 44 % 42-75 Automated blood lymphocytes/100 leukocytes 44 % 12-44 Blood monocytes/100 leukocytes 8 % 0-12 Automated blood eosinophils/100 leukocytes 3 % 0-10 Automated blood basophils/100 leukocytes 1 % 0-10 Blood neutrophils automated count (number/volume) 3.5 10*3 1.8-7.8 Blood lymphocytes automated count (number/volume) 3.5 10*3 1.0-4.0 Blood monocytes automated count (number/volume) 0. 6 10*3 0.0-1.0 Automated eosinophil count 0.2 10*3/uL 0 .0-0.3 Automated blood basophil count (count/volume) 0.1 10*3/uL 0.0-0.1 Comprehensive metabolic panel - 03/03/19 05:10 Serum or plasma sodium measurement (moles/volume) 143 mmol/L 135-145 Serum or plasma potassium measurement (moles/volume) 4.7 mmol/L 3.6-5.0 Serum or plasma chloride measurement (moles/volume) 113 mmol/L 98-107 Carbon dioxide 19 mmol/L 21-32 Serum or plasma anion gap determination (moles/volume) 11 mmol/L 5-14 Serum or plasma urea nitrogen measurement (mass/volume ) 12 mg/dL 7-18 Serum or plasma creatinine measurement (mass/volume) 1.19 mg/dL 0.60-1.30 Serum or plasma urea nitrogen/creatinine mass ratio 10 NRG Serum or plasma creatinine measurement w ith calculation of estimated glomerular filtration rate 52 NRG Serum or plasma glucose measurement (mass/volume) 92 mg/dL 70-105 Serum or plasma calcium measurement (mass/volume) 8.7 mg/dL 8.5-10.1 Serum or plasma total bilirubin measurement (mass/volu me) 0.4 mg/dL 0.1-1.0 Serum or plasma alkaline phosphatase mau surement (enzymatic activity/volume) 94 U/L 40-136 Serum or plasma aspartate aminotransfera se measurement (enzymatic activity/volume) 48 U/L 5-34 Serum or plasma alanine aminotransferase measurement (enzymatic activity/volume) 53 U/L 0-55 Serum or plasma protein measurement (mass/volume) 5.5 g/dL 6.4-8.2 Serum or plasma albumin measurement (mass/volume) 3.3 g/dL 3.2-4.5 CALCIUM CORRECTED 9.3 mg/dL 8.5-10.1 Lipase - 03/03/19 05:10 Lipase 40 U/L 8-78 Methicillin resistant Staphylococcus aur eus (MRSA) screening culture - 03/04/19 17:30 Methicillin resistant Staphylococcus aureus (MRSA) scr eening culture NEG NRG Complete blood count (CBC) with automate d white blood cell (WBC) differential - 03/05/19 06:19 Blood leukocytes automated count (number/volume) 5.8 10*3/uL 4.3-11.0 Blood erythrocytes automated count (number/volume) 3.81 10*6/uL 4.35-5.85 Venous blood hemoglobin measurement (mass/volume) 11.0 g/dL 11.5-16.0 Blood hematocrit (volume fraction) 36 % 35-52 Automated erythrocyte mean corpuscular volume 95 [ foz_us] 80-99 Automated erythrocyte mean corpuscular h emoglobin (mass per erythrocyte) 29 pg 25-34 Automated erythrocyte mean corpuscular h emoglobin concentration measurement (mass/volume) 31 g/dL 32-36 Automated erythrocyte distribution width ratio 14. 1 % 10.0- 14.5 Automated blood platelet count (count/volume) 189 10*3/uL 130-400 Automated blood platelet mean volume measurement 9.1 [foz_us] 7.4-10.4 Automated blood neutrophils/100 leukocytes 38 % 42-75 Automated blood lymphocytes/100 leukocytes 48 % 12-44 Blood monocytes/100 leukocytes 7 % 0-12 Automated blood eosinophils/100 leukocytes 6 % 0-10 Automated blood basophils/100 leukocytes 1 % 0-10 Blood neutrophils automated count (number/volume) 2.2 10*3 1.8-7.8 Blood lymphocytes automated count (number/volume) 2.8 10*3 1.0-4.0 Blood monocytes automated count (number/volume) 0. 4 10*3 0.0-1.0 Automated eosinophil count 0.3 10*3/uL 0 .0-0.3 Automated blood basophil count (count/volume) 0.1 10*3/uL 0.0-0.1 Comprehensive metabolic panel - 03/05/19 06:19 Serum or plasma sodium measurement (moles/volume) 142 mmol/L 135-145 Serum or plasma potassium measurement (moles/volume) 4.3 mmol/L 3.6-5.0 Serum or plasma chloride measurement (moles/volume) 113 mmol/L 98-107 Carbon dioxide 18 mmol/L 21-32 Serum or plasma anion gap determination (moles/volume) 11 mmol/L 5-14 Serum or plasma urea nitrogen measurement (mass/volume ) 8 mg/dL 7-18 Serum or plasma creatinine measurement (mass/volume) 1.28 mg/dL 0.60-1.30 Serum or plasma urea nitrogen/creatinine mass ratio 6 NRG Serum or plasma creatinine measurement w ith calculation of estimated glomerular filtration rate 48 NRG Serum or plasma glucose measurement (mass/volume) 89 mg/dL 70-105 Serum or plasma calcium measurement (mass/volume) 8.7 mg/dL 8.5-10.1 Serum or plasma total bilirubin measurement (mass/volu me) 0.3 mg/dL 0.1-1.0 Serum or plasma alkaline phosphatase mau surement (enzymatic activity/volume) 87 U/L 40-136 Serum or plasma aspartate aminotransfera se measurement (enzymatic activity/volume) 28 U/L 5-34 Serum or plasma alanine aminotransferase measurement (enzymatic activity/volume) 35 U/L 0-55 Serum or plasma protein measurement (mass/volume) 5.8 g/dL 6.4-8.2 Serum or plasma albumin measurement (mass/volume) 3.4 g/dL 3.2-4.5 CALCIUM CORRECTED 9.2 mg/dL 8.5-10.1 Complete blood count (CBC) with automate d white blood cell (WBC) differential - 03/06/19 05:45 Blood leukocytes automated count (number/volume) 7.5 10*3/uL 4.3-11.0 Blood erythrocytes automated count (number/volume) 4.01 10*6/uL 4.35-5.85 Venous blood hemoglobin measurement (mass/volume) 12.0 g/dL 11.5-16.0 Blood hematocrit (volume fraction) 37 % 35-52 Automated erythrocyte mean corpuscular volume 92 [ foz_us] 80-99 Automated erythrocyte mean corpuscular h emoglobin (mass per erythrocyte) 30 pg 25-34 Automated erythrocyte mean corpuscular h emoglobin concentration measurement (mass/volume) 32 g/dL 32-36 Automated erythrocyte distribution width ratio 13. 7 % 10.0- 14.5 Automated blood platelet count (count/volume) 258 10*3/uL 130-400 Automated blood platelet mean volume measurement 9.6 [foz_us] 7.4-10.4 Automated blood neutrophils/100 leukocytes 46 % 42-75 Automated blood lymphocytes/100 leukocytes 44 % 12-44 Blood monocytes/100 leukocytes 6 % 0-12 Automated blood eosinophils/100 leukocytes 4 % 0-10 Automated blood basophils/100 leukocytes 1 % 0-10 Blood neutrophils automated count (number/volume) 3.4 10*3 1.8-7.8 Blood lymphocytes automated count (number/volume) 3.3 10*3 1.0-4.0 Blood monocytes automated count (number/volume) 0. 4 10*3 0.0-1.0 Automated eosinophil count 0.3 10*3/uL 0 .0-0.3 Automated blood basophil count (count/volume) 0.1 10*3/uL 0.0-0.1 Comprehensive metabolic panel - 03/06/19 05:45 Serum or plasma sodium measurement (moles/volume) 143 mmol/L 135-145 Serum or plasma potassium measurement (moles/volume) 3.9 mmol/L 3.6-5.0 Serum or plasma chloride measurement (moles/volume) 111 mmol/L 98-107 Carbon dioxide 21 mmol/L 21-32 Serum or plasma anion gap determination (moles/volume) 11 mmol/L 5-14 Serum or plasma urea nitrogen measurement (mass/volume ) 9 mg/dL 7-18 Serum or plasma creatinine measurement (mass/volume) 1.30 mg/dL 0.60-1.30 Serum or plasma urea nitrogen/creatinine mass ratio 7 NRG Serum or plasma creatinine measurement w ith calculation of estimated glomerular filtration rate 47 NRG Serum or plasma glucose measurement (mass/volume) 111 mg/dL 70-105 Serum or plasma calcium measurement (mass/volume) 8.9 mg/dL 8.5-10.1 Serum or plasma total bilirubin measurement (mass/volu me) 0.3 mg/dL 0.1-1.0 Serum or plasma alkaline phosphatase mau surement (enzymatic activity/volume) 83 U/L 40-136 Serum or plasma aspartate aminotransfera se measurement (enzymatic activity/volume) 24 U/L 5-34 Serum or plasma alanine aminotransferase measurement (enzymatic activity/volume) 27 U/L 0-55 Serum or plasma protein measurement (mass/volume) 5.7 g/dL 6.4-8.2 Serum or plasma albumin measurement (mass/volume) 3.3 g/dL 3.2-4.5 CALCIUM CORRECTED 9.5 mg/dL 8.5-10.1 Comprehensive metabolic panel - 03/07/19 06:04 Serum or plasma sodium measurement (moles/volume) 139 mmol/L 135-145 Serum or plasma potassium measurement (moles/volume) 4.1 mmol/L 3.6-5.0 Serum or plasma chloride measurement (moles/volume) 109 mmol/L 98-107 Carbon dioxide 19 mmol/L 21-32 Serum or plasma anion gap determination (moles/volume) 11 mmol/L 5-14 Serum or plasma urea nitrogen measurement (mass/volume ) 11 mg/dL 7-18 Serum or plasma creatinine measurement (mass/volume) 1.18 mg/dL 0.60-1.30 Serum or plasma urea nitrogen/creatinine mass ratio 9 NRG Serum or plasma creatinine measurement w ith calculation of estimated glomerular filtration rate 53 NRG Serum or plasma glucose measurement (mass/volume) 117 mg/dL 70-105 Serum or plasma calcium measurement (mass/volume) 8.5 mg/dL 8.5-10.1 Serum or plasma total bilirubin measurement (mass/volu me) 0.3 mg/dL 0.1-1.0 Serum or plasma alkaline phosphatase mau surement (enzymatic activity/volume) 78 U/L 40-136 Serum or plasma aspartate aminotransfera se measurement (enzymatic activity/volume) 57 U/L 5-34 Serum or plasma alanine aminotransferase measurement (enzymatic activity/volume) 42 U/L 0-55 Serum or plasma protein measurement (mass/volume) 5.8 g/dL 6.4-8.2 Serum or plasma albumin measurement (mass/volume) 3.3 g/dL 3.2-4.5 CALCIUM CORRECTED 9.1 mg/dL 8.5-10.1 Complete blood count (CBC) with automate d white blood cell (WBC) differential - 03/07/19 06:43 Blood leukocytes automated count (number/volume) 14.7 10*3/uL 4.3-11.0 Blood erythrocytes automated count (number/volume) 3.83 10*6/uL 4.35-5.85 Venous blood hemoglobin measurement (mass/volume) 11.6 g/dL 11.5-16.0 Blood hematocrit (volume fraction) 36 % 35-52 Automated erythrocyte mean corpuscular volume 93 [ foz_us] 80-99 Automated erythrocyte mean corpuscular h emoglobin (mass per erythrocyte) 30 pg 25-34 Automated erythrocyte mean corpuscular h emoglobin concentration measurement (mass/volume) 33 g/dL 32-36 Automated erythrocyte distribution width ratio 14. 0 % 10.0- 14.5 Automated blood platelet count (count/volume) 231 10*3/uL 130-400 Automated blood platelet mean volume measurement 9.2 [foz_us] 7.4-10.4 Automated blood neutrophils/100 leukocytes 75 % 42-75 Automated blood lymphocytes/100 leukocytes 20 % 12-44 Blood monocytes/100 leukocytes 5 % 0-12 Automated blood eosinophils/100 leukocytes 0 % 0-10 Automated blood basophils/100 leukocytes 0 % 0-10 Blood neutrophils automated count (number/volume) 11.0 10*3 1.8-7.8 Blood lymphocytes automated count (number/volume) 2.9 10*3 1.0-4.0 Blood monocytes automated count (number/volume) 0. 8 10*3 0.0-1.0 Automated eosinophil count 0.0 10*3/uL 0 .0-0.3 Automated blood basophil count (count/volume) 0.0 10*3/uL 0.0-0.1 Manual absolute plasma cell count - 06/21 06:43 Blood monocytes/100 leukocytes 3 % NRG Manual blood segmented neutrophils/100 leukocytes 76 % NRG Blood band neutrophils/100 leukocytes 0 % NRG Manual blood lymphocytes/100 leukocytes 21 % NRG Manual eosinophils/100 leukocytes in nose 0 % NRG Manual blood basophils/100 leukocytes 0 % NRG Blood erythrocyte morphology finding identification NORMAL NRG Encounters ACCT No. Visit Date/Time Discharge Status Pt. Type Provider Facility Loc./Unit Complaint [id number] 02/27/2019 11:00:00 02/27/2019 23:59: 59 CLS Outpatient SHAYLEE MITCHELL [facility] [id number] 01/01/2019 00:00:00 Document Registration [id number] 01/01/2019 00:00:00 Document Registration [id number] 01/01/2019 00:00:00 Document Registration [id number] 12/25/2018 10:45:00 Document Registration [id number] 07/30/2018 13:30:00 Document Registration [id number] 05/11/2019 09:26:00 11:30:00 DIS Outpatient NORMA AQUINO TAMAR B [facility] ENDO +COLOGUARD/ABD PAIN [id number] 05/05/2019 10:15:00 10:35:00 DIS Outpatient NORMA AQUINO TAMAR B [facility] PREOP COLONOSCOPY/EGD [id number] 03/01/2019 21:06:00 08:18:00 DIS Inpatient NOLAN AQUINO ELENA [facility] 4TH ABD PAIN [id number] 02/20/2019 15:17:00 23:59:59 CLS Preadmit HARPAL FIELD MD [facility] CARD CHEST PAIN,CHRONIC SYST OLIC CONGESTIVE HEART FAILU [id number] 01/27/2019 11:50:00 23:59:59 CLS Preadmit GUERITA HINDS [facility] CARD SOB [id number] 01/21/2019 09:38:00 14:05:00 DIS Emergency AUSTIN DOMALINDA [facility] ER FS HIGH BP; SOB; DIZZINESS [id number] 01/08/2019 10:27:00 23:59:59 CLS Outpatient WYATT SIDDIQUI [facility] RAD FS M54.5 M54.6 [id number] 11/27/2018 11:24:00 23:59:59 CLS Outpatient SHAYLEE MITCHELL MD [facility] LAB FS DYSURIA [id number] 11/01/2018 08:50:00 12:15:00 DIS Inpatient FRANCISCOELENA SCHAEFER DO, [facility] IRF L MELY [id number] 08/11/2018 13:23:00 23:59:59 CLS Outpatient SHAYLEE MITCHELL MD [facility] RAD FS M79.671 [id number] 07/31/2018 19:53:00 10:10:00 DIS Inpatient EDILIA WILKERSON, GHADA May [facility] 4TH RIGHT PAROTITIS [id number] 07/14/2018 17:51:00 19:52:00 DIS Emergency AYAKA MONIQUE DO [facility] ER FS FALL - LT HIP PAIN [id number] 01/03/2017 14:19:00 23:59:59 CLS Outpatient JOEY ROGERS DO [facility] CARD M54.16 LUMBAR RADICULOPATHY
== END 2019-05-11 11:30 | disposition home or self-care (01) ==
LOC: ENDO 09:26
PROVIDERS: ATTEND Surgery
DX: K57.30 Diverticulosis of large intestine without perforation or abscess without bleeding (principal); K64.8 Other hemorrhoids; R19.5 Other fecal abnormalities; K21.9 Gastro-esophageal reflux disease without esophagitis; M19.90 Unspecified osteoarthritis, unspecified site; D64.9 Anemia, unspecified; I50.9 Heart failure, unspecified; I13.0 Hypertensive heart and chronic kidney disease with heart failure and stage 1 through stage 4 chronic kidney disease, or unspecified chronic kidney disease; N18.9 Chronic kidney disease, unspecified; K29.50 Unspecified chronic gastritis without bleeding; J44.9 Chronic obstructive pulmonary disease, unspecified; F03.90 Unspecified dementia, unspecified severity, without behavioral disturbance, psychotic disturbance, mood disturbance, and anxiety; Z88.6 Allergy status to analgesic agent; Z88.1 Allergy status to other antibiotic agents; Z88.8 Allergy status to other drugs, medicaments and biological substances; Z79.899 Other long term (current) drug therapy; Z99.89 Dependence on other enabling machines and devices; Z90.49 Acquired absence of other specified parts of digestive tract; Z90.89 Acquired absence of other organs; Z90.710 Acquired absence of both cervix and uterus; Z79.82 Long term (current) use of aspirin; Z87.891 Personal history of nicotine dependence; Z83.3 Family history of diabetes mellitus

== ENCOUNTER → 2020-06-06 | Outpatient (CLI) | payer MEDICARE, MEDICAID ==
[~2020-06-06] MED LIST changes: +ASPI-1238 PO; -ASPI-983 PO; -PANT40TA3 PO; +PANT40TA52 PO; +TIZA-169 PO; -TIZA2TAB4 PO
== END ==
LOC: CARD 13:48
PROVIDERS: ATTEND Physician Assistant
DX: I10 Essential (primary) hypertension (principal); I34.0 Nonrheumatic mitral (valve) insufficiency
CPT/HCPCS: 93306

== ENCOUNTER 2020-06-30 15:29 | Observation (INO) | payer MEDICARE, MEDICAID ==
[~2020-06-30] VITALS: Ht 157.5 cm; Wt 91.7 kg
[2020-06-30] MEDS ORDERED: NS IV 1000 ML 1,000 ML IV STA (16:26)
--- NOTE | 2020-06-30 16:37 | ED General ---
General Chief Complaint: General Problems/Pain Stated Complaint: GENERAL PAIN; NEAR SYNCOPE Nursing Triage Note: UPPER BACK PAIN AND NECK PAIN THAT HAS BEEN GOING ON OFF AND ON FOR QUITE AWHILE. PT WAS SENT FROM URGENT CARE. Nursing Sepsis Screen: No Definite Risk Source of Information: Patient, Family History of Present Illness Date Seen by Provider: Jun 30, 2020 Time Seen by Provider: 15:38 Initial Comments 84-year-old female presenting with complaints of generally not feeling well, pain in her upper neck and back, increased cough and shortness of breath, pain over the lower abdomen. She is on antibiotics for UTI but states it is amoxicillin which did not help previously. She has a history of COPD and takes oxygen at home for the. She states in the last several days to week she has been more tired and rundown. She has been falling asleep more easily. She had denied any recent falls or injury but was having pain to the sides of her neck and into her shoulders. She also is complaining of some headaches. She denied any nausea, vomiting, diarrhea. She denies fever or chills Allergies and Home Medications Allergies Coded Allergies: aspirin (Verified Allergy, Severe, 05/11/19) clindamycin (Verified Allergy, Severe, swelling, 05/11/19) fosinopril (Verified Allergy, Severe, Rash, 05/11/19) lisinopril (Verified Allergy, Severe, Rash, 05/11/19) Home Medications Acetaminophen 325 Mg Tablet, 325 MG PO Q4H PRN for PAIN-MILD, (Reported) Aspirin 81 Mg Tablet.dr, 81 MG PO DAILY, (Reported) Carvedilol 3.125 Mg Tablet, 3.125 MG PO BID, (Reported) Cholecalciferol (Vitamin D3) 5,000 Unit Capsule, 10,000 UNITS PO Garcia, (Reported) Cyclobenzaprine HCl 10 Mg Tablet, 10 MG PO TID, (Reported) Diclofenac Sodium 100 Gm Gel..gram., 1 GM TOP QID PRN for Pain Prescribed by: ELENA FRNACISCO on 11/16/18 1350 Ferrous Sulfate 325 Mg Tablet, 325 MG PO Q48H, (Reported) Furosemide 20 Mg Tablet, 20 MG PO DAILY, (Reported) Furosemide 20 Mg Tablet, 20 MG PO DAILY PRN for FLUID RETENTION, (Reported) Hydralazine HCl 100 Mg Tablet, 100 MG PO Q6H PRN for BLOOD PRESSURE, (Reported) Hydrocodone Bit/Acetaminophen 1 Each Tablet, 1 TAB PO Q12H PRN for PAIN-MODERATE (5-7), (Reported) Levothyroxine Sodium 50 Mcg Tablet, 50 MCG PO DAILY, (Reported) Meclizine HCl 25 Mg Tablet, 25 MG PO DAILY PRN for DIZZINESS, (Reported) Meloxicam 7.5 Mg Tablet, 7.5 MG PO DAILY, (Reported) Memantine HCl 14 Mg Cap.spr.24, 14 MG PO DAILY, (Reported) Oxycodone HCl 20 Mg Tab.er.12h, 20 MG PO BID, (Reported) Pantoprazole Sodium 40 Mg Tablet.dr, 40 MG PO DAILY, (Reported) Polyethylene Glycol 3350 17 Gm Powd.pack, 17 GM PO DAILY PRN for CONSTIPATION- 2ND LINE, (Reported) Potassium Chloride 10 Meq Tablet.er, 10 MEQ PO 1200, (Reported) Trazodone HCl 50 Mg Tablet, 50 MG PO HS, (Reported) Patient Home Medication List Home Medication List Reviewed: Yes Review of Systems Review of Systems Constitutional: No chills, No fever; malaise, weakness (general) EENTM: no symptoms reported Respiratory: cough (chronic but worse than usual), short of breath (chronic) Cardiovascular: No chest pain, No palpitations, No syncope Gastrointestinal: abdominal pain (suprapubic and worse with palpation and urination); No nausea, No vomiting Genitourinary: dysuria Musculoskeletal: back pain (chronic), joint pain (pain in shoulders), neck pain (pain to both sides of neck for last several days) Skin: No rash Psychiatric/Neurological: Headache; Denies Numbness, Denies Paresthesia; Weakness (general) Past Kpepows-Oecvvq-Gzthhu Hx Past Med/Social Hx: Reviewed Nursing Past Med/Soc Hx Patient Social History Alcohol Use: Denies Use Smoking Status: Never a Smoker Former Smoker, Quit: Nov 02, 1959 2nd Hand Smoke Exposure: No Recent Infectious Disease Expo: No Recent Hopitalizations: Yes Immunizations Up To Date Date of Pneumonia Vaccine: Mar 04, 2016 Date of Influenza Vaccine: Dec 02, 2018 Seasonal Allergies Seasonal Allergies: No Past Medical History Surgeries: Yes Appendectomy, Gallbladder, Hysterectomy, Orthopedic, Pacemaker Respiratory: Yes Asthma, COPD Currently Using CPAP: No Currently Using BIPAP: No Cardiac: Yes Chronic Edema/Swelling, Hypertension 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 Genitourinary: Yes Bladder Infection Gastrointestinal: Yes Gastroesophageal Reflux, Hiatal Hernia Musculoskeletal: Yes (OSTEOARTHRITIS) Endocrine: Yes Hypothyroidsim HEENT: Yes Hearing Impairment: Hard of Hearing Cancer: Yes Cervical What Type of Treatment Did You: Surgical Intervention Psychosocial: No Integumentary: No Blood Disorders: Yes (ANEMIA) Family Medical History Cardiovascular disease G8 BROTHER Diabetes mellitus 19 FATHER FH: leukemia 19 FATHER Hypertension 19 MOTHER Cancer, CAD Under 55 Years Old, Diabetes, Hypertension Physical Exam Vital Signs Vital Signs - First Documented 06/30/20 15:40 Temp 36.4 Pulse 78 Resp 18 B/P (MAP) 94/53 (67) Pulse Ox 95 O2 Delivery Room Air Capillary Refill : Less Than 3 Seconds Height, Weight, BMI Height: 5'2.00" Weight: 163lbs. 1.6oz. 73.266384uo; 30.00 BMI Method:Stated General Appearance: No Apparent Distress, Chronically ill HEENT: PERRL/EOMI; No Moist Mucous Membranes (slightly dry mucous membranes) Neck: Full Range of Motion, Supple, Tender Lateral (tender to palpation on paraspinal and trapezius muscles bilaterally) Respiratory: Chest Non Tender, No Accessory Muscle Use, No Respiratory Distress, Decreased Breath Sounds Cardiovascular: Regular Rate, Rhythm, Normal Peripheral Pulses Gastrointestinal: Normal Bowel Sounds, No Pulsatile Mass, Soft, Tenderness (suprapubic without rebound or guarding) Rectal: Deferred Extremity: Normal Capillary Refill, No Pedal Edema Neurologic/Psychiatric: Alert, Oriented x3, watermaster II-XII Norm as Tested Skin: Normal Color, Warm/Dry Focused Exam Lactate Level 06/30/20 18:18: Lactic Acid Level 0.55 Lactic Acid Level Laboratory Tests Test 06/30/20 18:18 Lactic Acid Level 0.55 MMOL/L (0.50-2.00) Progress/Results/Core Measures Suspected Sepsis Recent Fever Within 48 Hours: No Infection Criteria Present: None New/Unexplained Altered Menta: No Sepsis Screen: No Definite Risk SIRS Temperature: Pulse: 78 Respiratory Rate: 18 Laboratory Tests 06/30/20 16:30: White Blood Count 14.0H Blood Pressure 94 /53 Mean: 67 06/30/20 18:18: Lactic Acid Level 0.55 Laboratory Tests 06/30/20 16:30: Creatinine 2.04H, Platelet Count 196, Total Bilirubin 0.3 Results/Orders Lab Results Laboratory Tests Test 06/30/20 16:30 06/30/20 16:48 06/30/20 18:18 Range/Units White Blood Count 14.0 H 4.3-11.0 10^3/uL Red Blood Count 3.66 L 4.35-5.85 10^6/uL Hemoglobin 11.5 11.5-16.0 G/DL Hematocrit 36 35-52 % Mean Corpuscular Volume 97 80-99 FL Mean Corpuscular Hemoglobin 31 25-34 PG Mean Corpuscular Hemoglobin Concent 32 32-36 G/DL Red Cell Distribution Width 13.8 10.0-14.5 % Platelet Count 196 130-400 10^3/uL Mean Platelet Volume 9.5 7.4-10.4 FL Immature Granulocyte % (Auto) 0 % Neutrophils (%) (Auto) 63 42-75 % Lymphocytes (%) (Auto) 27 12-44 % Monocytes (%) (Auto) 8 0-12 % Eosinophils (%) (Auto) 2 0-10 % Basophils (%) (Auto) 0 0-10 % Neutrophils # (Auto) 8.8 H 1.8-7.8 X 10^3 Lymphocytes # (Auto) 3.8 1.0-4.0 X 10^3 Monocytes # (Auto) 1.1 H 0.0-1.0 X 10^3 Eosinophils # (Auto) 0.3 0.0-0.3 10^3/uL Basophils # (Auto) 0.1 0.0-0.1 10^3/uL Immature Granulocyte # (Auto) 0.1 0.0-0.1 10^3/uL Neutrophils % (Manual) 65 % Lymphocytes % (Manual) 23 % Monocytes % (Manual) 8 % Eosinophils % (Manual) 3 % Basophils % (Manual) 1 % Blood Morphology Comment NORMAL Sodium Level 131 L 135-145 MMOL/L Potassium Level 5.4 H 3.6-5.0 MMOL/L Chloride Level 103 98-107 MMOL/L Carbon Dioxide Level 18 L 21-32 MMOL/L Anion Gap 10 5-14 MMOL/L Blood Urea Nitrogen 37 H 7-18 MG/DL Creatinine 2.04 H 0.60-1.30 MG/DL Estimat Glomerular Filtration Rate 28 BUN/Creatinine Ratio 18 Glucose Level 116 H 70-105 MG/DL Calcium Level 9.0 8.5-10.1 MG/DL Corrected Calcium 9.4 8.5-10.1 MG/DL Total Bilirubin 0.3 0.1-1.0 MG/DL Aspartate Amino Transf (AST/SGOT) 24 5-34 U/L Alanine Aminotransferase (ALT/SGPT) 20 0-55 U/L Alkaline Phosphatase 105 40-136 U/L C-Reactive Protein 7.78 H <0.50 MG/DL Total Protein 6.6 6.4-8.2 GM/DL Albumin 3.5 3.2-4.5 GM/DL Urine Color YELLOW Urine Clarity CLEAR Urine pH 6.0 5-9 Urine Specific [place] 1.015 L 1.016-1.022 Urine Protein NEGATIVE NEGATIVE Urine Glucose (UA) NEGATIVE NEGATIVE Urine Ketones NEGATIVE NEGATIVE Urine Nitrite NEGATIVE NEGATIVE Urine Bilirubin NEGATIVE NEGATIVE Urine Urobilinogen 0.2 < = 1.0 MG/DL Urine Leukocyte Esterase NEGATIVE NEGATIVE Urine RBC (Auto) NEGATIVE NEGATIVE Urine RBC NONE /HPF Urine WBC 2-5 /HPF Urine Squamous Epithelial Cells 0-2 /HPF Urine Crystals NONE /LPF Urine Bacteria NEGATIVE /HPF Urine Casts PRESENT /LPF Urine Hyaline Casts 10-25 H /LPF Urine Mucus NEGATIVE /LPF Urine Culture Indicated NO Lactic Acid Level 0.55 0.50-2.00 MMOL/L My Orders Orders - ABENA MEJIAS MD Cbc With Automated Diff (06/30/20 16:26) Comprehensive Metabolic Panel (06/30/20 16:26) Ua Culture If Indicated (06/30/20 16:26) Chest 1 View Ap/Pa Only (06/30/20 16:26) Ed Iv/Invasive Line Start (06/30/20 16:26) Crp Fs (06/30/20 16:26) Ct Head/Cervical Spine Wo (06/30/20 16:26) Ns Iv 1000 Ml (Sodium Chloride 0.9%) (06/30/20 16:26) Manual Differential (06/30/20 16:30) Blood Culture (06/30/20 17:38) Lactic Acid Analyzer (06/30/20 17:38) Vital Signs/I&O 06/30/20 06/30/20 15:40 18:24 Temp 36.4 36.0 Pulse 78 70 Resp 18 18 B/P (MAP) 94/53 (67) 100/62 Pulse Ox 95 96 O2 Delivery Room Air Room Air Capillary Refill : Less Than 3 Seconds Blood Pressure Mean: 67 Progress Note #1: Progress Note With patient's multiple vague complaints and feeling weak and fatigued will do some general testing. Obtain CT of her head and cervical spine to evaluate for any acute intracranial process or cervical fracture. X-ray of her chest with her complaint of increased shortness of breath and cough. Check basic labs to look for electrolyte imbalance or acute anemia or blood count abnormality. Differential diagnosis includes UTI with sepsis, dehydration, electrolyte imbalance, stroke, pneumonia, anemia, renal failure Progress Note #2: Progress Note Labs shows elevated white blood cell count with mild left shift similar to CBC from March 2019. Her chemistry panel does show elevated BUN and creatinine with BUN of 37 and creatinine of 2.04. This is about twice her baseline. Her urine appears clear without signs of infection. She states that she is taking amoxicillin for UTI but again that appears to be helping, based off of her urinalysis today. The CT head and cervical spine show chronic changes but no acute intracranial abnormality or spine fracture. The chest x-ray does not show any acute infiltrate or effusion. [address] Ott for [facility] about observation admit to hydrate pt and show that her kidney function is improving. She requested lactic acid and blood cultures be added with elevated WBC count. Diagnostic Imaging Diagonstic Imaging: CT Plain Films/CT/US/NM/MRI: c-spine, head Comments NAME: FRANCO CHARLTON [facility] REC#: [id number] PT STATUS: REG ER : 1935 PHYSICIAN: ABENA MEJIAS MD ADMIT DATE: 06/30/20/ER FS Draft Date of Exam:06/30/20 CT HEAD/CERVICAL SPINE WO PROCEDURE: CT head and CT cervical spine without contrast. TECHNIQUE: Multiple contiguous axial images were obtained through the brain and cervical spine without the use of intravenous contrast. Sagittal and coronal reformations through the cervical spine were then performed. Auto Exposure Controls were utilized during the CT exam to meet ALARA standards for radiation dose reduction. INDICATION: Head pain. COMPARISON: No priors. CT Head: There is cerebral cortical atrophy and ventriculomegaly. No periventricular edema. Basilar cisterns are patent. There is no sulcal effacement. No mass effect. No focal or generalized cerebral edema. There are no acute extra-axial fluid collections. There are no findings of hemorrhage. No evidence for an elevation of the intracerebral pressures. Orbits, sinuses and calvarium appeared nonacute. CT cervical spine: There are degenerative changes throughout the cervical spine with disc space narrowing, endplate sclerosis, subcortical cyst, facet arthrosis and uncovertebral joint spurring. There was however no cervical fracture or traumatic malalignment. No findings of a paraspinal hematoma. Degenerative changes at C4-C5 result in mild canal and mild biforaminal stenosis. At C5-C6 there is nxgy-vk-erweshoo canal and sbyq-uu-vmuptnnv bi-foraminal stenosis. Craniocervical relationship in the central skull base appeared intact. IMPRESSION: CT Head: Atrophy and ventriculomegaly without periventricular edema. No hemorrhage or cerebral edema. CT Cervical Spine: Degenerative changes without fracture or traumatic malalignment. Dictated on workstation # [id number] Dict: 06/30/201701 Trans: 06/30/20 1716 [facility] [id number] Interpreted by: NANCY MARTINEZ Electronically signed by: [facility] Imaging: Xray Plain Films/CT/US/NM/MRI: chest Comments [facility] [place] NAME: FRANCO CHARLTON [facility] REC#: [id number] PT STATUS: REG ER : 1935 PHYSICIAN: ABENA MEJIAS MD ADMIT DATE: 06/30/20/ER FS Draft Date of Exam:06/30/20 CHEST 1 VIEW AP/PA ONLY INDICATION: Cough. EXAMINATION: Frontal chest obtained at 05:01 p.m. FINDINGS: Heart is normal in size. Pacemaker is unchanged. There is some scarring in the right midlung versus atelectasis. There is some left basilar scarring versus atelectasis as well. There is no benito consolidation or pneumothorax or pleural fluid. IMPRESSION: Areas of parenchymal scarring and/or atelectasis in both lungs are noted. There is no pneumothorax or pleural fluid or consolidation. Dictated on workstation # [id number] Dict: 06/30/201702 Trans: 06/30/20 1709 [facility] [id number] Interpreted by: HILL WATSON MD Electronically signed by: Departure Communication (Admissions) Time/Spoke to Admitting Phy: 17:32 d/w Dr. Ott about admit for dehydration and acute kidney injury with elevated WBC count. Will add on lactic acid and blood cultures. observation admit for hydration and monitor improving labs and oral intake Impression Primary Impression: Acute kidney injury Additional Impressions: Dehydration Neck muscle strain Qualified Codes: S16.1XXA - Strain of muscle, fascia and tendon at neck level, initial encounter Disposition: 30 STILL A PATIENT Condition: Stable Admissions Decision to Admit Reason: Admit from ER (General) Decision to Admit/Date: Jun 30, 2020 Time/Decision to Admit Time: 17:32 Departure-Patient Inst. Referrals: SHAYLEE MITCHELL MD (PCP/Family) Primary Care Physician ABENA MEJIAS MD Jun 30, 2020 16:37
[2020-06-30 16:42] LABS: BASOPHILS # (AUTO) 0.1 10^3/uL (0.0-0.1); BASOPHILS % (AUTO) 0 % (0-10); EOSINOPHILS # (AUTO) 0.3 10^3/uL (0.0-0.3); EOSINOPHILS % (AUTO) 2 % (0-10); HEMATOCRIT 36 % (35-52); HEMOGLOBIN 11.5 G/DL (11.5-16.0); LYMPHOCYTES # (AUTO) 3.8 X 10^3 (1.0-4.0); LYMPHOCYTES % (AUTO) 27 % (12-44); MEAN CORPUSCULAR HEMOGLOBIN 31 PG (25-34); MEAN CORPUSCULAR HGB CONC 32 G/DL (32-36); MEAN CORPUSCULAR VOLUME 97 FL (80-99); MEAN PLATELET VOLUME 9.5 FL (7.4-10.4); MONOCYTES # (AUTO) 1.1 X 10^3 (0.0-1.0); MONOCYTES % (AUTO) 8 % (0-12); NEUTROPHILS # (AUTO) 8.8 X 10^3 (1.8-7.8); NEUTROPHILS % (AUTO) 63 % (42-75); PLATELET COUNT 196 10^3/uL (130-400)
[2020-06-30 16:53] LABS: BASOPHILS % (MANUAL) 1 %; EOSINOPHILS % (MANUAL) 3 %; LYMPHOCYTES % (MANUAL) 23 %; MONOCYTES % (MANUAL) 8 %; NEUTROPHILS % (MANUAL) 65 %
[2020-06-30 16:54] LABS: RBC MORPH NORMAL
[2020-06-30 16:56] LABS: BILIRUBIN,URINE NEGATIVE (NEGATIVE); CLARITY,URINE CLEAR; COLOR,URINE YELLOW; GLUCOSE, URINE (UA) NEGATIVE (NEGATIVE); KETONES,URINE NEGATIVE (NEGATIVE); LEUKOCYTE ESTERASE ,URINE NEGATIVE (NEGATIVE); NITRITE,URINE NEGATIVE (NEGATIVE); PROTEIN,URINE NEGATIVE (NEGATIVE)
[2020-06-30 16:58] LABS: ALBUMIN 3.5 GM/DL (3.2-4.5); BILIRUBIN,TOTAL 0.3 MG/DL (0.1-1.0); CREATININE SERUM 2.04 MG/DL (0.60-1.30); POTASSIUM 5.4 MMOL/L (3.6-5.0); TOTAL PROTEIN 6.6 GM/DL (6.4-8.2)
[2020-06-30 17:02] LABS: BACTERIA,URINE NEGATIVE /HPF; SQUAMOUS EPITHELIAL CELL,UR 0-2 /HPF
--- NOTE | 2020-06-30 17:09 | Diagnostic Imaging Report ---
INDICATION: Cough. EXAMINATION: Frontal chest obtained at 05:01 p.m. FINDINGS: Heart is normal in size. Pacemaker is unchanged. There is some scarring in the right midlung versus atelectasis. There is some left basilar scarring versus atelectasis as well. There is no benito consolidation or pneumothorax or pleural fluid. IMPRESSION: Areas of parenchymal scarring and/or atelectasis in both lungs are noted. There is no pneumothorax or pleural fluid or consolidation. Dictated by: Dictated on workstation # [id number]
--- NOTE | 2020-06-30 17:17 | Diagnostic Imaging Report ---
PROCEDURE: CT head and CT cervical spine without contrast. TECHNIQUE: Multiple contiguous axial images were obtained through the brain and cervical spine without the use of intravenous contrast. Sagittal and coronal reformations through the cervical spine were then performed. Auto Exposure Controls were utilized during the CT exam to meet ALARA standards for radiation dose reduction. INDICATION: Head pain. COMPARISON: No priors. CT Head: There is cerebral cortical atrophy and ventriculomegaly. No periventricular edema. Basilar cisterns are patent. There is no sulcal effacement. No mass effect. No focal or generalized cerebral edema. There are no acute extra-axial fluid collections. There are no findings of hemorrhage. No evidence for an elevation of the intracerebral pressures. Orbits, sinuses and calvarium appeared nonacute. CT cervical spine: There are degenerative changes throughout the cervical spine with disc space narrowing, endplate sclerosis, subcortical cyst, facet arthrosis and uncovertebral joint spurring. There was however no cervical fracture or traumatic malalignment. No findings of a paraspinal hematoma. Degenerative changes at C4-C5 result in mild canal and mild biforaminal stenosis. At C5-C6 there is atbw-bf-pijfzrkj canal and cpjv-ei-ijgkustw bi-foraminal stenosis. Craniocervical relationship in the central skull base appeared intact. IMPRESSION: CT Head: Atrophy and ventriculomegaly without periventricular edema. No hemorrhage or cerebral edema. CT Cervical Spine: Degenerative changes without fracture or traumatic malalignment. Dictated by: Dictated on workstation # [id number]
[2020-06-30] MEDS ORDERED: CATHETER FLUSH 10 ML SYR IV PRN (19:45)
[2020-06-30 19:48] VITALS: BP 148/67
[2020-06-30] MEDS: NS IV 1000 ML 1,000 ML IV SCH (19:55)
[2020-06-30] MEDS ORDERED: CITA20TA9 PO (20:42)
[2020-06-30] MEDS ORDERED: ZOLP5TAB PO (20:43)
[2020-06-30] MEDS ORDERED: ALLO100T PO (20:44)
[2020-06-30] MEDS ORDERED: FERROUS SULF 325 MG (IRON) TAB PO SCH (20:45)
[2020-06-30] MEDS ORDERED: OXYC18CA PO (20:45)
[2020-06-30] MEDS ORDERED: ACETAMINOPHEN 325 MG TABLET PO PRN (20:45)
[2020-06-30] MEDS ORDERED: OXYCODONE MYRISTATE PO SCH (20:45)
[2020-06-30] MEDS ORDERED: ACHD5005 PO (20:48)
[2020-06-30 21:00] VITALS: BP 94/53
[2020-06-30] MEDS ORDERED: RT-ALBUTEROL/IPRATROPIUM 3 ML (DUONEB) VIAL INH PRN (21:15)
[2020-06-30] MEDS ORDERED: traZODone 50 MG (DESYREL) TAB ONE (21:16)
[2020-06-30] MEDS ORDERED: HYDROcodone/APAP 5 MG/325 MG (LORTAB) TAB ONE (21:16)
[2020-06-30] MEDS ORDERED: FERROUS SULF 325 MG (IRON) TAB PO ONE (21:16)
[2020-06-30] MEDS: traZODone 50 MG (DESYREL) TAB PO SCH (21:25)
[2020-06-30] MEDS: HYDROcodone/APAP 5 MG/325 MG (LORTAB) TAB PO PRN (21:26)
[2020-06-30] MEDS: MEMANTINE 5 MG (NAMENDA) TABLET PO SCH (22:41)
[2020-06-30 23:17] VITALS: BP 113/59
[2020-07-01] MEDS: RT-ALBUTEROL/IPRATROPIUM 3 ML (DUONEB) VIAL INH SCH ×4 (02:30→21:58)
[2020-07-01 03:40] VITALS: BP 112/57
[2020-07-01 06:00] LABS: BASOPHILS % (AUTO) 0 % (0-10); EOSINOPHILS # (AUTO) 0.2 10^3/uL (0.0-0.3); EOSINOPHILS % (AUTO) 2 % (0-10); HEMATOCRIT 34 % (35-52); HEMOGLOBIN 10.7 g/dL (11.5-16.0); LYMPHOCYTES # (AUTO) 3.1 10^3/uL (1.0-4.0); LYMPHOCYTES % (AUTO) 25 % (12-44); MEAN CORPUSCULAR HEMOGLOBIN 31 pg (25-34); MEAN CORPUSCULAR HGB CONC 32 g/dL (32-36); MEAN CORPUSCULAR VOLUME 99 fL (80-99); MEAN PLATELET VOLUME 10.2 fL (9.0-12.2); MONOCYTES # (AUTO) 0.9 10^3/uL (0.0-1.0); MONOCYTES % (AUTO) 7 % (0-12); NEUTROPHILS # (AUTO) 8.3 10^3/uL (1.8-7.8); NEUTROPHILS % (AUTO) 66 % (42-75); PLATELET COUNT 196 10^3/uL (130-400); WHITE BLOOD COUNT 12.5 10^3/uL (4.3-11.0)
[2020-07-01 06:22] LABS: ALBUMIN 3.4 GM/DL (3.2-4.5); BILIRUBIN,TOTAL 0.4 MG/DL (0.1-1.0); CALCIUM 8.8 MG/DL (8.5-10.1); CREATININE SERUM 1.55 MG/DL (0.60-1.30); POTASSIUM 4.6 MMOL/L (3.6-5.0)
[2020-07-01] MEDS: NS IV 1000 ML 1,000 ML IV SCH ×3 (06:32→19:45)
[2020-07-01] MEDS: LEVOTHYROXINE 50 MCG (LEVOTHROID) TAB PO SCH (06:36)
[2020-07-01] MEDS: PANTOPRAZOLE 40 MG (PROTONIX) TAB PO SCH (06:36)
[2020-07-01 06:57] LABS: EOSINOPHILS % (MANUAL) 3 %; LYMPHOCYTES % (MANUAL) 20 %; MONOCYTES % (MANUAL) 4 %; NEUTROPHILS % (MANUAL) 73 %
[2020-07-01 06:58] LABS: RBC MORPH NORMAL
[2020-07-01 07:26] VITALS: BP 124/56
[2020-07-01] MEDS: HYDROcodone/APAP 5 MG/325 MG (LORTAB) TAB PO PRN ×2 (07:41→17:30)
[2020-07-01] MEDS: ASPIRIN E.C. 81 MG (ECOTRIN) TAB PO SCH (07:41)
[2020-07-01] MEDS: MEMANTINE 5 MG (NAMENDA) TABLET PO SCH ×2 (07:42→20:41)
[2020-07-01] MEDS ORDERED: CHOL500044 PO (09:30)
[2020-07-01] MEDS ORDERED: AMOX1TAB11 PO (09:30)
[2020-07-01] MEDS ORDERED: POTA10TA36 PO (09:30)
[2020-07-01] MEDS ORDERED: ZOLP5TAB7 PO (09:30)
--- NOTE | 2020-07-01 11:16 | History & Physical ---
JULIANA FINN,MED STUDENT 07/01/20 1116: HPI History of Present Illness: She reports that she has been feeling more tired and weak the last 3 weeks. She has been sleeping more, and feels like doing less than normal. She has had neck pain, back pain, and chest pain intermittently. Chest pain is intermittent and not exacerbated by exercise, and is across her whole upper chest. She is unsure if it is worsened by movement. She also thinks that her pacemaker may have shifted, which she doesn't' report happening before. Her neck pain is worsened with movement and positioning. Back pain is diffuse, but she has some pain focused on costovertebral areas. She reports some headache pain, which has improved since admission. Denies any falls recently. Denies fevers/chills/SOB. No reported edema. She overall feels a little better today than on admission. Source: patient Exam Limitations: no limitations Time Seen by Provider: 10:00 Attending Physician Ghada Ott MD PCP Haim Talley MD Consult Date of Admission Jun 30, 2020 at 19:28 Home Medications Home Medications Reviewed patient Home Medication Reconciliation performed by pharmacy medication reconciliations cooking appliance repair technician and/or nursing. Patients Allergies have been reviewed. Allergies Coded Allergies: aspirin (Verified Allergy, Severe, 05/11/19) clindamycin (Verified Allergy, Severe, swelling, 05/11/19) fosinopril (Verified Allergy, Severe, Rash, 05/11/19) lisinopril (Verified Allergy, Severe, Rash, 05/11/19) ISZ-Eeuwwk-Quoptf Hx Patient Social History Smoking Status: Former Smoker 2nd Hand Smoke Exposure: No Recent Hopitalizations: Yes Alcohol Use?: No Tobacco type used: Cigarettes Have you traveled recently?: No Immunizations Up To Date Date of Pneumonia Vaccine: Mar 04, 2016 Date of Influenza Vaccine: Dec 02, 2018 Past Medical History PMHx: HTN Pacemaker Alzheimer Osteoarthritis Hypothyroidism Cervical Cancer PSurgHx: Pacemaker Back surgery Appendectomy Hysterectomy Family Medical History Significant Family History: Cancer, CAD Under 55 Years Old, Diabetes, Hypertension Family History: Cardiovascular disease G8 BROTHER Diabetes mellitus 19 FATHER FH: leukemia 19 FATHER Hypertension 19 MOTHER Review of Systems ([facility]) Constitutional: No chills, No diaphoresis; malaise, weakness EENTM: No hearing loss, No vision loss Respiratory: No cough, No short of breath Cardiovascular: chest pain (intermittent, not worsened with exertion); No syncope Gastrointestinal: No abdominal pain, No constipation, No diarrhea, No nausea, No vomiting Genitourinary: No dysuria Musculoskeletal: see HPI Skin: No lesions, No rash Psychiatric/Neurological: Denies Anxiety, Denies Depressed Reviewed Test Results Reviewed Test Results Lab Laboratory Tests Test 06/30/20 16:30 06/30/20 16:48 06/30/20 18:18 07/01/20 05:23 Range/Units White Blood Count 14.0 H 12.5 H 4.3-11.0 10^3/uL Red Blood Count 3.66 L 3.41 L 3.80-5.11 10^6/uL Hemoglobin 11.5 10.7 L 11.5-16.0 g/dL Hematocrit 36 34 L 35-52 % Mean Corpuscular Volume 97 99 80-99 fL Mean Corpuscular Hemoglobin 31 31 25-34 pg Mean Corpuscular Hemoglobin Concent 32 32 32-36 g/dL Red Cell Distribution Width 13.8 13.7 10.0-14.5 % Platelet Count 196 196 130-400 10^3/uL Mean Platelet Volume 9.5 10.2 9.0-12.2 fL Immature Granulocyte % (Auto) 0 1 % Neutrophils (%) (Auto) 63 66 42-75 % Lymphocytes (%) (Auto) 27 25 12-44 % Monocytes (%) (Auto) 8 7 0-12 % Eosinophils (%) (Auto) 2 2 0-10 % Basophils (%) (Auto) 0 0 0-10 % Neutrophils # (Auto) 8.8 H 8.3 H 1.8-7.8 10^3/uL Lymphocytes # (Auto) 3.8 3.1 1.0-4.0 10^3/uL Monocytes # (Auto) 1.1 H 0.9 0.0-1.0 10^3/uL Eosinophils # (Auto) 0.3 0.2 0.0-0.3 10^3/uL Basophils # (Auto) 0.1 0.0 0.0-0.1 10^3/uL Immature Granulocyte # (Auto) 0.1 0.1 0.0-0.1 10^3/uL Neutrophils % (Manual) 65 73 % Lymphocytes % (Manual) 23 20 % Monocytes % (Manual) 8 4 % Eosinophils % (Manual) 3 3 % Basophils % (Manual) 1 % Blood Morphology Comment NORMAL NORMAL Sodium Level 131 L 139 135-145 MMOL/L Potassium Level 5.4 H 4.6 3.6-5.0 MMOL/L Chloride Level 103 107 98-107 MMOL/L Carbon Dioxide Level 18 L 22 21-32 MMOL/L Anion Gap 10 10 5-14 MMOL/L Blood Urea Nitrogen 37 H 30 H 7-18 MG/DL Creatinine 2.04 H 1.55 H 0.60-1.30 MG/DL Estimat Glomerular Filtration Rate 28 38 BUN/Creatinine Ratio 18 19 Glucose Level 116 H 118 H 70-105 MG/DL Calcium Level 9.0 8.8 8.5-10.1 MG/DL Corrected Calcium 9.4 9.3 8.5-10.1 MG/DL Total Bilirubin 0.3 0.4 0.1-1.0 MG/DL Aspartate Amino Transf (AST/SGOT) 24 21 5-34 U/L Alanine Aminotransferase (ALT/SGPT) 20 20 0-55 U/L Alkaline Phosphatase 105 95 40-136 U/L C-Reactive Protein 7.78 H <0.50 MG/DL Total Protein 6.6 6.0 L 6.4-8.2 GM/DL Albumin 3.5 3.4 3.2-4.5 GM/DL Urine Color YELLOW Urine Clarity CLEAR Urine pH 6.0 5-9 Urine Specific [place] 1.015 L 1.016-1.022 Urine Protein NEGATIVE NEGATIVE Urine Glucose (UA) NEGATIVE NEGATIVE Urine Ketones NEGATIVE NEGATIVE Urine Nitrite NEGATIVE NEGATIVE Urine Bilirubin NEGATIVE NEGATIVE Urine Urobilinogen 0.2 < = 1.0 MG/DL Urine Leukocyte Esterase NEGATIVE NEGATIVE Urine RBC (Auto) NEGATIVE NEGATIVE Urine RBC NONE /HPF Urine WBC 2-5 /HPF Urine Squamous Epithelial Cells 0-2 /HPF Urine Crystals NONE /LPF Urine Bacteria NEGATIVE /HPF Urine Casts PRESENT /LPF Urine Hyaline Casts 10-25 H /LPF Urine Mucus NEGATIVE /LPF Urine Culture Indicated NO Lactic Acid Level 0.55 0.50-2.00 MMOL/L Radiology Date of Exam:06/30/20 CHEST 1 VIEW AP/PA ONLY INDICATION: Cough. EXAMINATION: Frontal chest obtained at 05:01 p.m. FINDINGS: Heart is normal in size. Pacemaker is unchanged. There is some scarring in the right midlung versus atelectasis. There is some left basilar scarring versus atelectasis as well. There is no benito consolidation or pneumothorax or pleural fluid. IMPRESSION: Areas of parenchymal scarring and/or atelectasis in both lungs are noted. There is no pneumothorax or pleural fluid or consolidation. Date of Exam:06/30/20 CT HEAD/CERVICAL SPINE WO PROCEDURE: CT head and CT cervical spine without contrast. TECHNIQUE: Multiple contiguous axial images were obtained through the brain and cervical spine without the use of intravenous contrast. Sagittal and coronal reformations through the cervical spine were then performed. Auto Exposure Controls were utilized during the CT exam to meet ALARA standards for radiation dose reduction. INDICATION: Head pain. COMPARISON: No priors. CT Head: There is cerebral cortical atrophy and ventriculomegaly. No periventricular edema. Basilar cisterns are patent. There is no sulcal effacement. No mass effect. No focal or generalized cerebral edema. There are no acute extra-axial fluid collections. There are no findings of hemorrhage. No evidence for an elevation of the intracerebral pressures. Orbits, sinuses and calvarium appeared nonacute. CT cervical spine: There are degenerative changes throughout the cervical spine with disc space narrowing, endplate sclerosis, subcortical cyst, facet arthrosis and uncovertebral joint spurring. There was however no cervical fracture or traumatic malalignment. No findings of a paraspinal hematoma. Degenerative changes at C4-C5 result in mild canal and mild biforaminal stenosis. At C5-C6 there is [id number] canal and voeh-ro-bysccatf bi-foraminal stenosis. Craniocervical relationship in the central skull base appeared intact. IMPRESSION: CT Head: Atrophy and ventriculomegaly without periventricular edema. No hemorrhage or cerebral edema. CT Cervical Spine: Degenerative changes without fracture or traumatic malalignment. Physical Exam-([facility]) Physical Exam Vital Signs VS - Last 72 Hours, by Label 06/30/20 06/30/20 06/30/20 06/30/20 15:40 18:24 19:48 20:43 Temp 36.4 36.0 36.4 Pulse 78 70 88 Resp 18 18 16 B/P (MAP) 94/53 (67) 100/62 148/67 (94) Pulse Ox 95 96 92 O2 Delivery Room Air Room Air Room Air Room Air 06/30/20 06/30/20 06/30/20 07/01/20 21:00 22:11 23:17 02:30 Temp 36.4 36.6 Pulse 78 91 Resp 18 B/P (MAP) 113/59 (77) Pulse Ox 95 86 97 91 O2 Delivery Room Air Nasal Cannula Room Air O2 Flow Rate 4.00 FiO2 21 07/01/20 07/01/20 07/01/20 07/01/20 03:40 07:26 07:48 10:18 Temp 35.6 36.3 Pulse 83 79 Resp 18 18 B/P (MAP) 112/57 (75) 124/56 (78) Pulse Ox 95 96 95 96 O2 Delivery Nasal Cannula Nasal Cannula Nasal Cannula Nasal Cannula O2 Flow Rate 4.00 4.00 4.00 4.00 Capillary Refill : Less Than 3 Seconds General Appearance: WD/WN, no apparent distress Eyes: Bilateral Eye Normal Inspection, Bilateral Eye EOMI HEENT: No scleral icterus (R), No scleral icterus (L) Neck: supple, other (mild tenderness to palpation bilaterally) Respiratory: normal breath sounds, no respiratory distress, no accessory muscle use Cardiovascular: regular rate, rhythm, no edema, no JVD Gastrointestinal: normal bowel sounds, non tender, soft Back: CVA tenderness (R), CVA tenderness (L) Extremities: normal range of motion Neurologic/Psychiatric: alert, normal mood/affect, oriented x 3 Skin: normal color, warm/dry Assessment/Plan Assessment/Plan (1) Acute kidney injury Status: Acute Assessment & Plan: Improved from 2.04 on admission to 1.55 today. Continue fluids. (2) Neck muscle strain Status: Acute Assessment & Plan: Ct Head/Neck negative for any fracture/acute process, showed chronic degeneration in spine. Suspect MSK pain, due to positional nature. Qualifiers: Qualified Codes: S16.1XXA - Strain of muscle, fascia and tendon at neck level, initial encounter (3) Dehydration Status: Acute Assessment & Plan: Hyponatremia resolved at 139 (from 131) today, continue fluids. (4) Hypothyroidism Status: Chronic Assessment & Plan: Continue IVORY POLISHER Levothyroxine (5) Alzheimer disease Status: Chronic Assessment & Plan: Continue IVORY POLISHER Memantine. (6) Leukocytosis Status: Acute Assessment & Plan: Leukocytosis of 14 on admission, down to 12.5. Patient is afebrile, no current sources of infection. Continue to monitor. GHADA OTT MD 07/01/20 1229: Home Medications Allergies Coded Allergies: aspirin (Verified Allergy, Severe, 05/11/19) clindamycin (Verified Allergy, Severe, swelling, 05/11/19) fosinopril (Verified Allergy, Severe, Rash, 05/11/19) lisinopril (Verified Allergy, Severe, Rash, 05/11/19) DZH-Ehrhul-Ciwufi Hx Family Medical History Family History: Cardiovascular disease G8 BROTHER Diabetes mellitus 19 FATHER FH: leukemia 19 FATHER Hypertension 19 MOTHER Physical Exam-([facility]) Physical Exam General Appearance: WD/WN, no apparent distress Respiratory: lungs clear, normal breath sounds, no respiratory distress Cardiovascular: regular rate, rhythm, no edema Gastrointestinal: normal bowel sounds, non tender, soft Neurologic/Psychiatric: alert, normal mood/affect, oriented x 3 Skin: normal color, warm/dry Assessment/Plan Assessment/Plan Admission Status: Observation Supervisory-Addendum Brief Verification & Attestation Participated in pt care: history, MDM, physical Personally performed: exam, history, MDM Care discussed with: Medical Student Procedures: n/a I personally saw and examined patient today, I did my own history which matches that documented by the medical student. See my physical exam for my findings. I directed the plan of care as documented. JULIANA FINN,MED STUDENT Jul 01, 2020 11:16 GHADA OTT MD Jul 01, 2020 12:29
[2020-07-01 11:25] VITALS: BP 103/50
[2020-07-01] MEDS: ENOXAPARIN 30 MG/0.3 ML (LOVENOX) SYR SC SCH (14:22)
[2020-07-01 16:00] VITALS: BP 126/61
[2020-07-01 19:16] VITALS: BP 131/62
[2020-07-01] MEDS: traZODone 50 MG (DESYREL) TAB PO SCH (20:41)
[2020-07-02 00:20] VITALS: BP 121/52
[2020-07-02] MEDS: RT-ALBUTEROL/IPRATROPIUM 3 ML (DUONEB) VIAL INH SCH ×2 (03:04→10:39)
[2020-07-02] MEDS: HYDROcodone/APAP 5 MG/325 MG (LORTAB) TAB PO PRN (04:30)
[2020-07-02] MEDS: PANTOPRAZOLE 40 MG (PROTONIX) TAB PO SCH (04:30)
[2020-07-02] MEDS: LEVOTHYROXINE 50 MCG (LEVOTHROID) TAB PO SCH (04:30)
[2020-07-02 05:12] LABS: MEAN PLATELET VOLUME 9.9 fL (9.0-12.2); WHITE BLOOD COUNT 9.2 10^3/uL (4.3-11.0)
[2020-07-02 05:30] LABS: CALCIUM 8.8 MG/DL (8.5-10.1); CREATININE SERUM 1.14 MG/DL (0.60-1.30); POTASSIUM 4.5 MMOL/L (3.6-5.0)
[2020-07-02 08:00] VITALS: BP 180/65
[2020-07-02] MEDS: ASPIRIN E.C. 81 MG (ECOTRIN) TAB PO SCH (08:03)
[2020-07-02] MEDS: MEMANTINE 5 MG (NAMENDA) TABLET PO SCH (08:04)
--- NOTE | 2020-07-02 10:12 | Discharge Summary ---
Diagnosis/Chief Complaint Date of Admission Jun 30, 2020 at 19:28 Date of Discharge Discharge Date: July 02, 2020 Primary Care Shaylee Talley MD Discharge Summary Discharge Physical Exam Allergies: Coded Allergies: aspirin (Verified Allergy, Severe, 05/11/19) clindamycin (Verified Allergy, Severe, swelling, 05/11/19) fosinopril (Verified Allergy, Severe, Rash, 05/11/19) lisinopril (Verified Allergy, Severe, Rash, 05/11/19) Vitals & I&Os Vital Signs Date Time Temp Pulse Resp B/P (MAP) Pulse Ox O2 Delivery O2 Flow Rate FiO2 07/02/20 08:00 Nasal Cannula 4.00 07/02/20 08:00 36.2 88 20 180/65 (103) 97 06/30/20 21:00 21 General Appearance: No Apparent Distress Respiratory: Chest Non Tender, Lungs Clear, Normal Breath Sounds, No Accessory Muscle Use, No Respiratory Distress Cardiovascular: Regular Rate, Rhythm, No Edema, No Gallop, No JVD, No Murmur, Normal Peripheral Pulses Hospital Course Was the Problem List Reviewed?: Yes She reports that she has been feeling more tired and weak the last 3 weeks. She has been sleeping more, and feels like doing less than normal. She has had neck pain, back pain, and chest pain intermittently. Chest pain is intermittent and not exacerbated by exercise, and is across her whole upper chest. She is unsure if it is worsened by movement. She also thinks that her pacemaker may have shifted, which she doesn't' report happening before. Her neck pain is worsened with movement and positioning. Back pain is diffuse, but she has some pain focused on costovertebral areas. She reports some headache pain, which has improved since admission. Denies any falls recently. Denies fevers/chills/SOB. No reported edema. She overall feels a little better today than on admission. Patient had an uneventful hospital course. Her creatinine decreased from 2 down to 1.1 with a discharge BUN lower as well to 20. She stated that she was feeling well and wished to be discharged. She was tolerating solids and liquids. She reports she still has some neck stiffness but no chills or fever and this has been going on for the past 6days. She was ambulating with her walker independently. Chest x-ray revealed no pneumonia and UA with was not consistent with infection. Advised that she discontinue meloxicam and also stop cyclobenzaprine as well as holding potassium and furosemide for now. She was advised to follow-up with her doctor.Also on review of her record a TSH was not obtained and she is on thyroid replacement so if it is been a while would advocate this as well. Labs (last 24 hrs) Laboratory Tests 07/02/20 04:40: White Blood Count 9.2, Red Blood Count 3.48L, Hemoglobin 11.0L, Hematocrit 35, Mean Corpuscular Volume 102H, Mean Corpuscular Hemoglobin 32, Mean Corpuscular Hemoglobin Concent 31L, Red Cell Distribution Width 13.9, Platelet Count 188, Mean Platelet Volume 9.9, Sodium Level 140, Potassium Level 4.5, Chloride Level 112H, Carbon Dioxide Level 18L, Anion Gap 10, Blood Urea Nitrogen 22H, Creatinine 1.14, Estimat Glomerular Filtration Rate 55, BUN/Creatinine Ratio 19, Glucose Level 117H, Calcium Level 8.8 Microbiology 06/30/20 Blood Culture - Preliminary, Resulted No growth Patient resulted labs reviewed. Pending Labs Laboratory Tests 07/02/20 04:40: White Blood Count 9.2, Red Blood Count 3.48, Hemoglobin 11.0, Hematocrit 35, Mean Corpuscular Volume 102, Mean Corpuscular Hemoglobin 32, Mean Corpuscular Hemoglobin Concent 31, Red Cell Distribution Width 13.9, Platelet Count 188, Mean Platelet Volume 9.9, Sodium Level 140, Potassium Level 4.5, Chloride Level 112, Carbon Dioxide Level 18, Anion Gap 10, Blood Urea Nitrogen 22, Creatinine 1.14, Estimat Glomerular Filtration Rate 55, BUN/Creatinine Ratio 19, Glucose Level 117, Calcium Level 8.8 Discussion & Recommendations Discharge Planning: >30 minutes discharge planning Discharge Home Medications: Active Scripts Active Reported Potassium Chloride 10 Meq Tab.er.prt 10 Meq PO 1200 Zolpidem Tartrate 5 Mg Tablet 5 Mg PO HS PRN Amox Tr-K Clv 500-125 mg Tab (Amoxicillin/Potassium Clav) 1 Each Tablet 1 Ea PO BID FILLED 06-21-2020 #20/ DAY SUPPLY Vitamin D3 (Cholecalciferol (Vitamin D3)) 125 Mcg Tablet 125 Mcg PO SUN Hydrocodone-Acetamin 5-325 mg (Hydrocodone/Acetaminophen) 1 Each Tablet 1 Tab PO TID PRN Xtampza ER (Oxycodone Myristate) 18 Mg Cap.spr.12 1 Cap PO Q12H Allopurinol 100 Mg Tablet 100 Mg PO DAILY Citalopram HBr (Citalopram Hydrobromide) 20 Mg Tablet 20 Mg PO DAILY Meloxicam 7.5 Mg Tablet 7.5 Mg PO 1200 W/MEAL Carvedilol 3.125 Mg Tablet 3.125 Mg PO BID Aspirin EC (Aspirin) 81 Mg Tablet.dr 81 Mg PO DAILY Ferrous Sulfate 325 Mg Tablet 325 Mg PO Q48H Cyclobenzaprine HCl 10 Mg Tablet 10 Mg PO TID Meclizine HCl 25 Mg Tablet 25 Mg PO DAILY PRN Miralax (Polyethylene Glycol 3350) 17 Gm Powd.pack 17 Gm PO DAILY PRN Acetaminophen 325 Mg Tablet 325 Mg PO Q4H PRN Memantine HCl ER (Memantine HCl) 14 Mg Cap.spr.24 14 Mg PO DAILY Trazodone HCl 50 Mg Tablet 50 Mg PO HS Pantoprazole Sodium 40 Mg Tablet.dr 40 Mg PO DAILY Furosemide 20 Mg Tablet 20 Mg PO DAILY Levothyroxine Sodium 50 Mcg Tablet 50 Mcg PO DAILY Instructions to patient/family Please see electronic discharge instructions given to patient. Copy Copies To 1: SHAYLEE TALLEY MD, MARK D MD July 02, 2020 10:12
[2020-07-02] MEDS: NS IV 1000 ML 1,000 ML IV SCH (12:59)
[2020-07-02] MEDS: ENOXAPARIN 30 MG/0.3 ML (LOVENOX) SYR SC SCH (14:36)
[2020-07-02 15:42] VITALS: BP 180/65
== END 2020-07-02 15:42 | disposition home or self-care (01) ==
LOC: EDUNIT# 15:29 → ER FS 15:31 → 4TH 19:28
PROVIDERS: ADMIT Family Medicine; ATTEND Internal Medicine
DX: E86.0 Dehydration (principal); I10 Essential (primary) hypertension; J44.9 Chronic obstructive pulmonary disease, unspecified; K21.9 Gastro-esophageal reflux disease without esophagitis; K44.9 Diaphragmatic hernia without obstruction or gangrene; E03.9 Hypothyroidism, unspecified; S16.1XXA Strain of muscle, fascia and tendon at neck level, initial encounter; N17.9 Acute kidney failure, unspecified; Z79.899 Other long term (current) drug therapy; Z79.82 Long term (current) use of aspirin; Z79.890 Hormone replacement therapy; D64.9 Anemia, unspecified; Z83.3 Family history of diabetes mellitus; Z80.6 Family history of leukemia
CPT/HCPCS: 36415; 70450; 71045; 72125; 80048; 80053 ×2; 81000; 83605; 85007 ×2; 85027 ×3; 86141; 87040; 94640 ×3; 94760; 99284; G0378

== ENCOUNTER → 2020-07-29 | Outpatient (CLI) | payer MEDICARE, MEDICAID ==
[~2020-07-29] MED LIST changes: +ALLO100T PO; +AMOX1TAB11 PO; +CHOL500044 PO; +CITA20TA9 PO; +OXYC18CA PO; +POTA10TA36 PO; +ZOLP5TAB PO; +ZOLP5TAB7 PO
--- NOTE | 2020-07-29 15:01 | Diagnostic Imaging Report ---
INDICATION: Mid and lower back pain. EXAMINATION: Lumbar spine at 2:09 p.m. Three views were obtained. FINDINGS: The prior exam of 01/08/2019 noted dextroscoliosis of the lumbar spine and degenerative disc and bony disease. On this study, the degenerative changes are again evident and do not appear to have progressed significantly. There is still no fracture or acute bony abnormality appreciated. There is no sign of a paraspinal mass. There is mild symmetrical scoliosis of the sacroiliac joint. There does appear to be a minimal impaction fracture of the right femoral neck. I suspect this injury is long-standing in nature. However, if there is clinical concern regarding an acute abnormality in this area then CT would be recommended. The patient does have a pacemaker in place and this would preclude further evaluation by MRI. 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 IMPRESSION: 1. There is still no evidence for an acute bony abnormality of the lumbar spine. 2. The degenerative changes involving the lumbar spine, seen previously, do not appear to have progressed significantly. 3. There does appear to be a minimal impaction fracture of the right femoral neck. This is probably long-standing in nature. Additional considerations as above. Dictated by: Dictated on workstation # [id number]
== END ==
LOC: RAD FS 13:55
PROVIDERS: ATTEND Nurse Practitioner Family
DX: M47.816 Spondylosis without myelopathy or radiculopathy, lumbar region (principal); G89.29 Other chronic pain; M41.86 Other forms of scoliosis, lumbar region; Z98.890 Other specified postprocedural states
CPT/HCPCS: 72100

== ENCOUNTER → 2020-08-04 | Outpatient (CLI) | payer MEDICARE, MEDICAID ==
--- NOTE | 2020-08-04 14:50 | Diagnostic Imaging Report ---
PROCEDURE: CT right lower extremity without contrast. TECHNIQUE: Axially acquired CT was obtained through the right lower extremity without intravenous contrast. Coronal and sagittal reformations were also performed. Auto Exposure Controls were utilized during the CT exam to meet ALARA standards for radiation dose reduction. INDICATION: Fall and right hip pain. COMPARISON: No prior studies are available for comparison. FINDINGS: Femoroacetabular alignment is normal. There are significant osteoarthritic changes to the right hip. There is medial and superior joint space narrowing. There are subchondral cysts present. There are prominent osteophytes at the femoral head neck junction. No fracture is identified. Right-sided superior and inferior pubic rami appear to be intact. Surrounding soft tissues are unremarkable. IMPRESSION: Osteoarthritic changes to the right hip. No acute fracture is identified. Dictated by: Dictated on workstation # [id number]
== END ==
LOC: RAD FS 14:03
PROVIDERS: ATTEND Nurse Practitioner Family
DX: M16.11 Unilateral primary osteoarthritis, right hip (principal)
CPT/HCPCS: 73700

== ENCOUNTER 2020-10-18 12:15 | Inpatient (IN) | payer MEDICARE, MEDICAID ==
[~2020-10-18] VITALS: Ht 157.2 cm; Wt 91.7 kg
[2020-10-18 13:25] LABS: WHITE BLOOD COUNT 11.1 10^3/uL (4.3-11.0)
[2020-10-18 13:26] LABS: BASOPHILS % (AUTO) 1 % (0-10); EOSINOPHILS % (AUTO) 3 % (0-10); HEMATOCRIT 39 % (35-52); HEMOGLOBIN 12.6 G/DL (11.5-16.0); LYMPHOCYTES % (AUTO) 34 % (12-44); MEAN CORPUSCULAR HEMOGLOBIN 31 PG (25-34); MEAN CORPUSCULAR HGB CONC 33 G/DL (32-36); MEAN CORPUSCULAR VOLUME 96 FL (80-99); MEAN PLATELET VOLUME 9.5 FL (7.4-10.4); MONOCYTES % (AUTO) 10 % (0-12); NEUTROPHILS # (AUTO) 5.8 X 10^3 (1.8-7.8); NEUTROPHILS % (AUTO) 53 % (42-75); PLATELET COUNT 244 10^3/uL (130-400)
[2020-10-18 13:27] LABS: BASOPHILS # (AUTO) 0.1 10^3/uL (0.0-0.1); EOSINOPHILS # (AUTO) 0.3 10^3/uL (0.0-0.3); LYMPHOCYTES # (AUTO) 3.8 X 10^3 (1.0-4.0); MONOCYTES # (AUTO) 1.1 X 10^3 (0.0-1.0)
--- NOTE | 2020-10-18 13:35 | Diagnostic Imaging Report ---
HISTORY: Shortness of air, weakness and lethargy COMPARISON: 06/30/2020 TECHNIQUE: Single frontal view of the chest. FINDINGS: There is stable mild cardiomegaly with mild central vascular congestion. There is chronic scarring/atelectasis in the lung bases. There is no pleural effusion or pneumothorax. The left-sided pacemaker leads appear stable. IMPRESSION: 1. Mild cardiomegaly with mild central vascular congestion. 2. Chronic basilar atelectasis or scarring. No new consolidation. Dictated by: Dictated on workstation # [id number]
[2020-10-18 13:51] LABS: ALANINE AMINOTRANSFERASE 10 U/L (0-55); ALKALINE PHOSPHATASE 117 U/L (40-136); BILIRUBIN,TOTAL 0.3 MG/DL (0.1-1.0); BUN/CREATININE RATIO 17; CALCIUM 9.5 MG/DL (8.5-10.1); CARBON DIOXIDE 24 MMOL/L (21-32); CHLORIDE 101 MMOL/L (98-107); GFR ESTIMATED 29; GLUCOSE 113 MG/DL (70-105); POTASSIUM 5.8 MMOL/L (3.6-5.0); SODIUM 134 MMOL/L (135-145)
[2020-10-18 13:52] LABS: TOTAL PROTEIN 6.8 GM/DL (6.4-8.2)
[2020-10-18 14:02] LABS: BACTERIA,URINE TRACE /HPF; BILIRUBIN,URINE NEGATIVE (NEGATIVE); CLARITY,URINE SLT CLOUDY; COLOR,URINE YELLOW; GLUCOSE, URINE (UA) NEGATIVE (NEGATIVE); KETONES,URINE NEGATIVE (NEGATIVE); LEUKOCYTE ESTERASE ,URINE 2+ (NEGATIVE); NITRITE,URINE NEGATIVE (NEGATIVE); PH,URINE 6.5 (5-9); PROTEIN,URINE NEGATIVE (NEGATIVE); WBC,URINE 25-50 /HPF
[2020-10-18] MEDS ORDERED: NS IV 1000 ML 1,000 ML IV SCH ×3 (14:15→18:30)
[2020-10-18] MEDS ORDERED: cefTRIAXone 1,000 MG in WATER (STERILE) FOR INJECTION 10 ML IV ONE (14:15)
[2020-10-18 16:12] VITALS: BP 145/66
[2020-10-18] MEDS ORDERED: NS IV 1000 ML 1,000 ML ONE (17:54)
[2020-10-18] MEDS ORDERED: cefTRIAXone 1,000 MG VIAL ONE (17:54)
[2020-10-18] MEDS: NS IV 1000 ML 1,000 ML IV SCH (19:23)
--- OUTSIDE RECORDS SUMMARY | 2020-10-18 19:34 | XMS REPORT | Clinical Summary ---
Author Author Caryn Pedro Organization [facility] Address Unknown Phone Unavailable Allergies, Adverse Reactions, Alerts Allergy Name Reaction Description Start Date Severity Status Pr ovider ASPIRIN stomach pain Moderate Active Anuel luna MD Conditions or Problems Problem Name Problem Code Onset Date Status Entry Date Provider Comment Standard Description Annotate UTI 599.0 Active Anuel Morales MD Urinary tract infection, site not specified Recurrent bacterial cystitis 595.9 Active Anuel Morales MD Cystitis, unspecified Medication List Medication Instructions Start Date Stop Date Generic Name NDC Status Provider Patient Instruction MACROBID 100 MG ORAL CAPSULE Take one by mouth daily NITROFURANTOIN MONOHYD MACRO [id number] Active Ana Elder Active Advance Directives Directive Description Start Date PERMISSION TO SHARE Diagnostic Results Date Name Value Unit Range Description Office Visit: CN-recurrent uti - Chemis try RBC, urine, dipstick 3+ protein, urine, by sulfasalicylic acid negative bilirubin, by Ictotest, urine negative Office Visit: CN-recurrent uti - PMH sexually transmitted disease no risk noted Office Visit: CN-recurrent uti - Urinal ysis appearance, urine cloudy urine color yellow specific gravity, urine 1.010 pH, urine, semiquantitative 5.0 protein, urine, semiquantitative (dipstick) negative glucose, urine, semiquantitative negative ketones, urine, by test strip negative bilirubin, urine negative nitrite, urine, semiquantitative negative urobilinogen, urine, semiquantitative (dipstick) 0.2 leukocyte esterase, urine, by dipstick 3+ Encounters Code Encounter Date Provider Facility CPT-22180 Level 3 New Patient 22:44:19 CDT Anuel shultz MD [facility] Procedures Code Procedure Name Date Entry Date Standard Desc ription CPT-92111 Bladder Scan 22:44:19 CDT
--- OUTSIDE RECORDS SUMMARY | 2020-10-18 19:34 | XMS REPORT | Clinical Summary ---
Author Author Caryn Pedro Organization [facility] Address Unknown Phone Unavailable Allergies, Adverse Reactions, [...] one by mouth daily NITROFURANTOIN MONOHYD MACRO [id number] Active Ana Elder Active Advance Directives Directive [...] 3+ Encounters Code Encounter Date Provider Facility CPT-97315 Level 3 New Patient 22:44:19 CDT Anuel shultz MD [facility] Procedures Code Procedure Name Date Entry Date Standard Desc ription CPT-92716 Bladder Scan 22:44:19 CDT
--- OUTSIDE RECORDS SUMMARY | 2020-10-18 19:34 | XMS REPORT | Clinical Summary ---
Author Author Admin, Caryn Silva Organization [facility] Address Unknown Phone Unavailable Allergies, [...] one by mouth daily NITROFURANTOIN MONOHYD MACRO [id number] Active Ana Elder Active Advance Directives Directive Description Start Date PERMISSION TO SHARE Encounters Code Encounter Date Provider Facility CPT-13811 Level 3 New Patient 22:44:19 CDT Anuel shultz MD [facility] Procedures Code Procedure Name Date Entry Date Standard Desc ription CPT-62484 Bladder Scan 22:44:19 CDT
--- OUTSIDE RECORDS SUMMARY | 2020-10-18 19:34 | XMS REPORT | Clinical Summary ---
Author Author Admin, Caryn Silva Organization [facility] Address Unknown Phone Unavailable Allergies, Adverse Reactions, [...] one by mouth daily NITROFURANTOIN MONOHYD MACRO [id number] Active Ana Elder Active Advance Directives Directive Description Start Date PERMISSION TO SHARE Encounters Code Encounter Date Provider Facility CPT-71881 Level 3 New Patient 22:44:19 CDT Anuel shultz MD [facility] Procedures Code Procedure Name Date Entry Date Standard Desc ription CPT-17256 Bladder Scan 22:44:19 CDT
--- OUTSIDE RECORDS SUMMARY | 2020-10-18 19:34 | XMS REPORT | Continuity of Care Document ---
Author Author [facility] Organization [facility] Address Unknown Phone Unavailable Care Team Providers Care Activity Assistant Name Role Phone Tigre Morales PCP Encounter [facility] [id number] Date(s): 09/09/20 - 09/09/20 [facility] [address] [facility] [address] [place], [place] [address] [phone] Discharge Disposition: Home or Self Care Attending Physician: Tigre Morales Admitting Physician: Tigre Morales Allergies, Adverse Reactions, Alerts No data available for this section Assessment and Plan Diagnostic Tests Pending* Urine Culture 09/09/20 Functional Status No data available for this section Immunizations No data available for this section Medications No data available for this section Mental Status No data available for this section Problem List No data available for this section Procedures No data available for this section Results No data available for this section Vital Signs No data available for this section Social History No data available for this section Health Concerns No data available for this section Medical Equipment No data available for this section Hospital Discharge Instructions No data available for this section Goals No data available for this section Reason for Referral No data available for this section Hospital Course No data available for this section
--- OUTSIDE RECORDS SUMMARY | 2020-10-18 19:34 | XMS REPORT | Clinical Summary ---
[...] one by mouth daily NITROFURANTOIN MONOHYD MACRO [id number] Active Ana Elder Active Advance Directives Directive [...] 3+ Encounters Code Encounter Date Provider Facility [id number] Level 3 New Patient 22:44:19 CDT Anuel shultz MD [facility] Procedures Code Procedure Name Date Entry Date Standard Desc ription [id number] Bladder Scan 22:44:19 CDT
--- OUTSIDE RECORDS SUMMARY | 2020-10-18 19:34 | XMS REPORT | Clinical Summary ---
Author Author Caryn Pedro Organization [facility] Address Unknown Phone Unavailable Allergies, Adverse Reactions, [...] one by mouth daily NITROFURANTOIN MONOHYD MACRO [id number] Active Ana Elder Active Advance Directives Directive [...] 3+ Encounters Code Encounter Date Provider Facility [id number] Level 3 New Patient 22:44:19 CDT Anuel shultz MD [facility] Procedures Code Procedure Name Date Entry Date Standard Desc ription [id number] Bladder Scan 22:44:19 CDT
[2020-10-18 20:00] VITALS: BP 109/56
[2020-10-18 23:41] VITALS: BP 113/71
--- NOTE | 2020-10-18 23:41 | ED General ---
General Chief Complaint: General Problems/Pain Stated Complaint: HYPERKALEMIA / UTI Nursing Triage Note: Pt presents to ED for general debilitation, weakness, and questionable low SaO2. Pt has home O2 according to son transporting her without. Son states weak over 3 days and he just carries her so she won't fall. Pt with known dementia/Alzheimer's. Nursing Sepsis Screen: No Definite Risk Source of Information: Patient Exam Limitations: No Limitations History of Present Illness Date Seen by Provider: Oct 18, 2020 Time Seen by Provider: 12:15 Initial Comments Patient is an 85-year-old female with history of dementia who lives with her son who helps care for. Patient has generalized debilitation has not been able to walk for the past 3 days. She was reported to have a low oxygen saturation at home and on ED arrival. The patient transported to the ED with oxygen on. Patient denies headache dizziness, chest pain palpitations, shortness of breath, abdominal pain, urinary frequency urgency or dysuria. Denies extremity pain. Denies new or missed medications. Reports chronic back pain. No other acute symptoms or complaints. Timing/Duration: 3-4 Days, Other Severity: Moderate Modifying Factors: improves with Other Associated Systoms: Other Allergies and Home Medications Allergies Coded Allergies: aspirin (Verified Allergy, Severe, 05/11/19) clindamycin (Verified Allergy, Severe, swelling, 05/11/19) fosinopril (Verified Allergy, Severe, Rash, 05/11/19) lisinopril (Verified Allergy, Severe, Rash, 05/11/19) Home Medications Acetaminophen 325 Mg Tablet, 325 MG PO Q4H PRN for PAIN-MILD, (Reported) Allopurinol 100 Mg Tablet, 100 MG PO DAILY, (Reported) Aspirin 81 Mg Tablet.dr, 81 MG PO DAILY, (Reported) Carvedilol 3.125 Mg Tablet, 3.125 MG PO BID, (Reported) Cholecalciferol (Vitamin D3) 125 Mcg Tablet, 125 MCG PO SUN, (Reported) Citalopram Hydrobromide 20 Mg Tablet, 20 MG PO DAILY, (Reported) Ferrous Sulfate 325 Mg Tablet, 325 MG PO Q48H, (Reported) Hydrocodone/Acetaminophen 1 Each Tablet, 1 TAB PO TID PRN for PAIN-SEVERE (8-10) , (Reported) Levothyroxine Sodium 50 Mcg Tablet, 50 MCG PO DAILY, (Reported) Meclizine HCl 25 Mg Tablet, 25 MG PO DAILY PRN for DIZZINESS, (Reported) Memantine HCl 14 Mg Cap.spr.24, 14 MG PO DAILY, (Reported) Oxycodone Myristate 18 Mg Cap.spr.12, 1 CAP PO Q12H, (Reported) Pantoprazole Sodium 40 Mg Tablet.dr, 40 MG PO DAILY, (Reported) Polyethylene Glycol 3350 17 Gm Powd.pack, 17 GM PO DAILY PRN for CONSTIPATION- 2ND LINE, (Reported) Trazodone HCl 50 Mg Tablet, 50 MG PO HS, (Reported) Zolpidem Tartrate 5 Mg Tablet, 5 MG PO HS PRN for SLEEP, (Reported) Patient Home Medication List Home Medication List Reviewed: Yes Review of Systems Review of Systems Constitutional: see HPI EENTM: see HPI Respiratory: see HPI Gastrointestinal: see HPI Genitourinary: see HPI Musculoskeletal: see HPI Skin: see HPI Past Yluafby-Ngzedf-Rcbypo Hx Patient Social History Tobacco Use?: Yes Use of E-Cig and/or Vaping dev: No Substance use?: No Alcohol Use?: No Pt feels they are or have been: No Immunizations Up To Date Influenza Vaccine Up-to-Date: Yes; Up-to-Date First/Initial COVID19 Vaccinat: 07/24/20 Second COVID19 Vaccination Fermin: 08/22/20 COVID19 Vaccine Service Line Layer: OSMANI Seasonal Allergies Seasonal Allergies: No Past Medical History Surgery/Hospitalization HX: Epilepsy, HTN, OA, RA, Anxiety, Atelectasis, UTI, Alzheimers, Dementia, Hyperlipidemia, COPD Surgeries: Yes Appendectomy, Gallbladder, Hysterectomy, Orthopedic, Pacemaker Respiratory: Yes Asthma, COPD Currently Using CPAP: No Currently Using BIPAP: No Cardiac: Yes Chronic Edema/Swelling, Hypertension 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 Genitourinary: Yes Bladder Infection Gastrointestinal: Yes Gastroesophageal Reflux, Hiatal Hernia Musculoskeletal: Yes (OSTEOARTHRITIS) Endocrine: Yes Hypothyroidsim HEENT: Yes Hearing Impairment: Hard of Hearing Cancer: Yes Cervical What Type of Treatment Did You: Surgical Intervention Psychosocial: No Integumentary: No Blood Disorders: Yes (ANEMIA) Family Medical History Cardiovascular disease G8 BROTHER Diabetes mellitus 19 FATHER FH: leukemia 19 FATHER Hypertension 19 MOTHER Cancer, CAD Under 55 Years Old, Diabetes, Hypertension Physical Exam Vital Signs Vital Signs - First Documented 10/18/20 12:15 Temp 36.6 Pulse 86 Resp 22 B/P (MAP) 131/67 (88) Pulse Ox 93 O2 Delivery Room Air Capillary Refill : Less Than 3 Seconds Height, Weight, BMI Height: 5'2.00" Weight: 163lbs. 1.6oz. [id number]; 37.10 BMI Method:Stated General Appearance: No Apparent Distress, WD/WN Eyes: Bilateral Eye Normal Inspection, Bilateral Eye PERRL, Bilateral Eye EOMI HEENT: PERRL/EOMI, Pharynx Normal Neck: Full Range of Motion, Normal Inspection, Non Tender Respiratory: Chest Non Tender, Lungs Clear Cardiovascular: Regular Rate, Rhythm Back: Normal Inspection, No CVA Tenderness Extremity: Normal Capillary Refill Neurologic/Psychiatric: Alert, Oriented x3 Focused Exam Sepsis Stage: Ruled Out Progress/Results/Core Measures Suspected Sepsis Infection Criteria Present: Suspected New Infection Sepsis Screen: No Definite Risk SIRS Temperature: Pulse: 83 Respiratory Rate: 20 Laboratory Tests 10/18/20 13:10: White Blood Count 11.1H Blood Pressure 109 /56 Mean: 73 Laboratory Tests 10/18/20 13:10: Creatinine 2.00H, Platelet Count 244, Total Bilirubin 0.3 Results/Orders Lab Results Laboratory Tests Test 10/18/20 13:10 10/18/20 13:15 10/18/20 13:45 Range/Units White Blood Count 11.1 H 4.3-11.0 10^3/uL Red Blood Count 4.03 L 4.35-5.85 10^6/uL Hemoglobin 12.6 11.5-16.0 G/DL Hematocrit 39 35-52 % Mean Corpuscular Volume 96 80-99 FL Mean Corpuscular Hemoglobin 31 25-34 PG Mean Corpuscular Hemoglobin Concent 33 32-36 G/DL Red Cell Distribution Width 14.2 10.0-14.5 % Platelet Count 244 130-400 10^3/uL Mean Platelet Volume 9.5 7.4-10.4 FL Immature Granulocyte % (Auto) 0 % Neutrophils (%) (Auto) 53 42-75 % Lymphocytes (%) (Auto) 34 12-44 % Monocytes (%) (Auto) 10 0-12 % Eosinophils (%) (Auto) 3 0-10 % Basophils (%) (Auto) 1 0-10 % Neutrophils # (Auto) 5.8 1.8-7.8 X 10^3 Lymphocytes # (Auto) 3.8 1.0-4.0 X 10^3 Monocytes # (Auto) 1.1 H 0.0-1.0 X 10^3 Eosinophils # (Auto) 0.3 0.0-0.3 10^3/uL Basophils # (Auto) 0.1 0.0-0.1 10^3/uL Immature Granulocyte # (Auto) 0.0 0.0-0.1 10^3/uL Sodium Level 134 L 135-145 MMOL/L Potassium Level 5.8 H 3.6-5.0 MMOL/L Chloride Level 101 98-107 MMOL/L Carbon Dioxide Level 24 21-32 MMOL/L Anion Gap 9 5-14 MMOL/L Blood Urea Nitrogen 34 H 7-18 MG/DL Creatinine 2.00 H 0.60-1.30 MG/DL Estimat Glomerular Filtration Rate 29 BUN/Creatinine Ratio 17 Glucose Level 113 H 70-105 MG/DL Calcium Level 9.5 8.5-10.1 MG/DL Corrected Calcium 9.5 8.5-10.1 MG/DL Total Bilirubin 0.3 0.1-1.0 MG/DL Aspartate Amino Transf (AST/SGOT) 18 5-34 U/L Alanine Aminotransferase (ALT/SGPT) 10 0-55 U/L Alkaline Phosphatase 117 40-136 U/L Troponin I < 0.30 <0.30 NG/ML Total Protein 6.8 6.4-8.2 GM/DL Albumin 4.0 3.2-4.5 GM/DL SARS-CoV-2 RNA (RT-PCR) Not Detected Not Detecte Urine Color YELLOW Urine Clarity SLT CLOUDY Urine pH 6.5 5-9 Urine Specific [place] 1.010 L 1.016-1.022 Urine Protein NEGATIVE NEGATIVE Urine Glucose (UA) NEGATIVE NEGATIVE Urine Ketones NEGATIVE NEGATIVE Urine Nitrite NEGATIVE NEGATIVE Urine Bilirubin NEGATIVE NEGATIVE Urine Urobilinogen 0.2 < = 1.0 MG/DL Urine Leukocyte Esterase 2+ H NEGATIVE Urine RBC (Auto) TRACE H NEGATIVE Urine RBC NONE /HPF Urine WBC 25-50 H /HPF Urine Squamous Epithelial Cells NONE /HPF Urine Crystals NONE /LPF Urine Bacteria TRACE /HPF Urine Casts NONE /LPF Urine Mucus NEGATIVE /LPF Urine Culture Indicated YES My Orders Orders - MONIQUE,AYAKA DO Cbc With Automated Diff (10/18/20 12:59) Comprehensive Metabolic Panel (10/18/20 12:59) Covid 19 Inhouse Test (10/18/20 12:59) Troponin I Fs (10/18/20 13:14) Urinalysis (10/18/20 13:14) Chest 1 View Ap/Pa Only (10/18/20 13:14) Ekg Tracing (10/18/20 13:24) Urine Culture (10/18/20 13:45) Ceftriaxone (Rocephin) (10/18/20 14:15) Ns Iv 1000 Ml (Sodium Chloride 0.9%) (10/18/20 14:15) Ns Iv 1000 Ml (Sodium Chloride 0.9%) (10/18/20 14:15) Lactic Acid Analyzer (10/18/20 14:06) Medications Given in ED Current Medications Medications Dose Ordered Sig/Prakash Route Start Time Stop Time Status Last Admin Dose Admin Ceftriaxone Sodium 1000 mg/ Sterile Water 10 ml @ 200 mls/hr ONCE ONCE IV 10/18/20 14:15 10/18/20 14:17 DC 10/18/20 14:21 200 MLS/HR Vital Signs/I&O 10/18/20 10/18/20 12:15 15:00 Temp 36.6 36.4 Pulse 86 84 Resp 22 22 B/P (MAP) 131/67 (88) 133/68 (88) Pulse Ox 93 92 O2 Delivery Room Air Room Air Capillary Refill : Less Than 3 Seconds Blood Pressure Mean: 73 Departure Communication (Admissions) Family Conversation Patient with acute kidney injury with hyperkalemia urinary tract infection likely contributing to weakness. IV fluids antibiotics given. Patient accepted at [facility]. Impression Primary Impression: UTI (urinary tract infection) Additional Impressions: Acute kidney injury Hyperkalemia Disposition: ADMITTED INPATIENT Condition: Stable Admissions Decision to Admit Reason: Admit from ER (General) Decision to Admit/Date: Oct 18, 2020 Time/Decision to Admit Time: 15:00 Departure-Patient Inst. Referrals: SHAYLEE MITCHELL MD (PCP) Primary Care Physician AYAKA MONIQUE DO Oct 18, 2020 23:41
[2020-10-19 03:36] VITALS: BP 121/74
[2020-10-19] MEDS: NS IV 1000 ML 1,000 ML IV SCH ×2 (05:52→16:08)
[2020-10-19] MEDS: HYDROcodone/APAP 5 MG/325 MG (LORTAB) TAB PO PRN ×2 (06:17→17:56)
[2020-10-19 06:47] LABS: BASOPHILS % (AUTO) 0 % (0-10); EOSINOPHILS # (AUTO) 0.2 10^3/uL (0.0-0.3); EOSINOPHILS % (AUTO) 2 % (0-10); HEMATOCRIT 37 % (35-52); HEMOGLOBIN 11.6 g/dL (11.5-16.0); LYMPHOCYTES # (AUTO) 3.4 10^3/uL (1.0-4.0); LYMPHOCYTES % (AUTO) 34 % (12-44); MEAN CORPUSCULAR HEMOGLOBIN 32 pg (25-34); MEAN CORPUSCULAR HGB CONC 31 g/dL (32-36); MEAN CORPUSCULAR VOLUME 101 fL (80-99); MEAN PLATELET VOLUME 10.2 fL (9.0-12.2); MONOCYTES # (AUTO) 0.8 10^3/uL (0.0-1.0); MONOCYTES % (AUTO) 8 % (0-12); NEUTROPHILS # (AUTO) 5.5 10^3/uL (1.8-7.8); NEUTROPHILS % (AUTO) 55 % (42-75)
[2020-10-19 06:50] LABS: POTASSIUM 4.9 MMOL/L (3.6-5.0)
[2020-10-19 06:51] LABS: CALCIUM 8.8 MG/DL (8.5-10.1)
[2020-10-19 06:55] LABS: CREATININE SERUM 1.48 MG/DL (0.60-1.30)
[2020-10-19 07:07] LABS: PLATELET COUNT 157 10^3/uL (130-400); SMEAR SCAN COMMENT YES
[2020-10-19 07:53] VITALS: BP 146/87
[2020-10-19] MEDS: cefTRIAXone 1,000 MG in WATER (STERILE) FOR INJECTION 10 ML IV SCH (09:41)
[2020-10-19] MEDS ORDERED: FERR325T24 PO (11:22)
[2020-10-19] MEDS ORDERED: FLUT9.9S NSEACH (11:22)
[2020-10-19] MEDS ORDERED: NITR100C10 PO (11:22)
[2020-10-19] MEDS ORDERED: POTA10CA43 PO (11:22)
[2020-10-19] MEDS ORDERED: CYCL10TA9 PO (11:22)
[2020-10-19] MEDS ORDERED: CARV6.252 PO (11:22)
[2020-10-19] MEDS ORDERED: ONDA-105 PO (11:22)
[2020-10-19] MEDS ORDERED: FURO20TA4 PO (11:22)
[2020-10-19] MEDS ORDERED: MELO7.5T46 PO (11:22)
[2020-10-19] MEDS ORDERED: CETI10TA17 PO (11:22)
[2020-10-19] MEDS ORDERED: HYDR-3924 PO (11:29)
--- NOTE | 2020-10-19 11:43 | History & Physical ---
HPI History of Present Illness: 85 yo female states she has a hard time remembering what led to her being here, but she does believe she was in the ER yesterday, she says she had been sleeping all the time and having poor appetite so her son got her to go to the ER. Otherwise, she complains only of chronic back pain. Date seen by provider: Oct 19, 2020 Time Seen by Provider: 11:39 Attending Physician Ghada Ott MD PCP Haim Talley MD Consult Date of Admission Oct 18, 2020 at 15:57 Home Medications Home Medications Reviewed patient Home Medication Reconciliation performed by pharmacy medication reconciliations wetlands technician and/or nursing. Patients Allergies have been reviewed. Allergies Coded Allergies: aspirin (Verified Allergy, Severe, 05/11/19) clindamycin (Verified Allergy, Severe, swelling, 05/11/19) fosinopril (Verified Allergy, Severe, Rash, 05/11/19) lisinopril (Verified Allergy, Severe, Rash, 05/11/19) JGY-Kxgoou-Myhsyu Hx Patient Social History Smoking Status: Former Smoker (reports small amount of social smoking) 2nd Hand Smoke Exposure: No Recent Hopitalizations: Yes Alcohol Use?: No Immunizations Up To Date Date of Pneumonia Vaccine: Mar 04, 2016 Date of Influenza Vaccine: Dec 02, 2018 Past Medical History PMHx: HTN Pacemaker Alzheimer Osteoarthritis Hypothyroidism Cervical Cancer PSurgHx: Pacemaker Back surgery Appendectomy Hysterectomy Family Medical History Significant Family History: Cancer, CAD Under 55 Years Old, Diabetes, Hypertension Family History: Cardiovascular disease G8 BROTHER Diabetes mellitus 19 FATHER FH: leukemia 19 FATHER Hypertension 19 MOTHER Review of Systems (CHC) Constitutional: No fever; malaise Respiratory: short of breath (reports occasional and mild, not current) Cardiovascular: chest pain (intermittent, none currently) Gastrointestinal: constipation (intermittent); No diarrhea; nausea, vomiting (2 days ago) Genitourinary: dysuria Musculoskeletal: back pain (chronic) Psychiatric/Neurological: Headache (chronic), Numbness (sometimes at night when lying on side has numbness in leg) Reviewed Test Results Reviewed Test Results Lab Laboratory Tests Test 10/18/20 13:10 10/18/20 13:15 10/18/20 13:45 10/19/20 06:23 Range/Units White Blood Count 11.1 H 10.0 4.3-11.0 10^3/uL Red Blood Count 4.03 L 3.67 L 3.80-5.11 10^6/uL Hemoglobin 12.6 11.6 11.5-16.0 g/dL Hematocrit 39 37 35-52 % Mean Corpuscular Volume 96 101 H 80-99 fL Mean Corpuscular Hemoglobin 31 32 25-34 pg Mean Corpuscular Hemoglobin Concent 33 31 L 32-36 g/dL Red Cell Distribution Width 14.2 14.1 10.0-14.5 % Platelet Count 244 157 130-400 10^3/uL Mean Platelet Volume 9.5 10.2 9.0-12.2 fL Immature Granulocyte % (Auto) 0 0 % Neutrophils (%) (Auto) 53 55 42-75 % Lymphocytes (%) (Auto) 34 34 12-44 % Monocytes (%) (Auto) 10 8 0-12 % Eosinophils (%) (Auto) 3 2 0-10 % Basophils (%) (Auto) 1 0 0-10 % Neutrophils # (Auto) 5.8 5.5 1.8-7.8 10^3/uL Lymphocytes # (Auto) 3.8 3.4 1.0-4.0 10^3/uL Monocytes # (Auto) 1.1 H 0.8 0.0-1.0 10^3/uL Eosinophils # (Auto) 0.3 0.2 0.0-0.3 10^3/uL Basophils # (Auto) 0.1 0.0 0.0-0.1 10^3/uL Immature Granulocyte # (Auto) 0.0 0.0 0.0-0.1 10^3/uL Sodium Level 134 L 138 135-145 MMOL/L Potassium Level 5.8 H 4.9 3.6-5.0 MMOL/L Chloride Level 101 113 #H 98-107 MMOL/L Carbon Dioxide Level 24 15 L 21-32 MMOL/L Anion Gap 9 10 5-14 MMOL/L Blood Urea Nitrogen 34 H 28 H 7-18 MG/DL Creatinine 2.00 H 1.48 H 0.60-1.30 MG/DL Estimat Glomerular Filtration Rate 29 40 BUN/Creatinine Ratio 17 19 Glucose Level 113 H 119 H 70-105 MG/DL Calcium Level 9.5 8.8 8.5-10.1 MG/DL Corrected Calcium 9.5 8.5-10.1 MG/DL Total Bilirubin 0.3 0.1-1.0 MG/DL Aspartate Amino Transf (AST/SGOT) 18 5-34 U/L Alanine Aminotransferase (ALT/SGPT) 10 0-55 U/L Alkaline Phosphatase 117 40-136 U/L Troponin I < 0.30 <0.30 NG/ML Total Protein 6.8 6.4-8.2 GM/DL Albumin 4.0 3.2-4.5 GM/DL SARS-CoV-2 RNA (RT-PCR) Not Detected Not Detecte Urine Color YELLOW Urine Clarity SLT CLOUDY Urine pH 6.5 5-9 Urine Specific [place] 1.010 L 1.016-1.022 Urine Protein NEGATIVE NEGATIVE Urine Glucose (UA) NEGATIVE NEGATIVE Urine Ketones NEGATIVE NEGATIVE Urine Nitrite NEGATIVE NEGATIVE Urine Bilirubin NEGATIVE NEGATIVE Urine Urobilinogen 0.2 < = 1.0 MG/DL Urine Leukocyte Esterase 2+ H NEGATIVE Urine RBC (Auto) TRACE H NEGATIVE Urine RBC NONE /HPF Urine WBC 25-50 H /HPF Urine Squamous Epithelial Cells NONE /HPF Urine Crystals NONE /LPF Urine Bacteria TRACE /HPF Urine Casts NONE /LPF Urine Mucus NEGATIVE /LPF Urine Culture Indicated YES Percent Immature Platelet Fraction 2.1 0.0-7.6 % Smear Scan YES Physical Exam-([facility]) Physical Exam Vital Signs VS - Last 72 Hours, by Label 10/18/20 10/18/20 10/18/20 10/18/20 12:15 15:00 16:12 17:23 Temp 36.6 36.4 36.2 Pulse 86 84 80 Resp 22 22 18 B/P (MAP) 131/67 (88) 133/68 (88) 145/66 (92) Pulse Ox 93 92 100 100 O2 Delivery Room Air Room Air Nasal Cannula Nasal Cannula O2 Flow Rate 4.00 4.00 10/18/20 10/18/20 10/18/20 10/18/20 20:00 21:00 21:07 23:41 Temp 36.4 36.4 Pulse 87 83 72 Resp 20 16 B/P (MAP) 109/56 (73) 113/71 (85) Pulse Ox 93 98 98 O2 Delivery Nasal Cannula Nasal Cannula Nasal Cannula O2 Flow Rate 4.00 4.00 4.00 10/19/20 10/19/20 10/19/2010/19/21 01:00 03:36 07:04 07:53 Temp 36.6 35.6 Pulse 73 64 81 82 Resp 18 20 B/P (MAP) 121/74 (90) 146/87 (106) Pulse Ox 97 95 O2 Delivery Nasal Cannula Room Air O2 Flow Rate 2.00 10/19/20 10/19/20 10/19/20 10/19/20 08:00 11:54 12:03 15:43 Temp 36.8 36.8 Pulse 94 89 82 Resp 20 20 B/P (MAP) 102/68 (79) 133/63 (86) Pulse Ox 95 91 95 O2 Delivery Room Air Room Air Room Air 10/19/20 10/19/20 19:00 20:03 Temp 36.8 Pulse 95 103 Resp 20 B/P (MAP) 110/67 (81) Pulse Ox 94 O2 Delivery Room Air Capillary Refill : Less Than 3 Seconds General Appearance: WD/WN, no apparent distress Respiratory: lungs clear, normal breath sounds Cardiovascular: regular rate, rhythm, no edema, no murmur Gastrointestinal: normal bowel sounds, non tender, soft Extremities: no pedal edema Neurologic/Psychiatric: alert, normal mood/affect, oriented x 3, abnormal photogrammetric stereo compiler II-XII, motor weakness (4/5 strength in legs bilaterally) Skin: warm/dry Assessment/Plan Assessment/Plan Admission Status: Inpatient Order (span 2 midnights) Reason for Inpatient Admission: urinary tract infection with acute renal insufficiency and underlying comorbidities (1) Acute kidney injury Status: Acute Assessment & Plan: Improved overnight with IVF, hold home diuretic and monitor. (2) Hyperkalemia Status: Acute Assessment & Plan: Mild, improved with improved renal function. (3) Leukocytosis Status: Acute Assessment & Plan: Improved after antibiotics yesterday, continue to monitor. (4) UTI (urinary tract infection) Status: Acute Assessment & Plan: Ceftriaxone initiated in ER, urine culture prelim with pro teus, awaiting sensitivities Qualifiers: Qualified Codes: N30.00 - Acute cystitis without hematuria (5) Hypertension Status: Chronic Assessment & Plan: Continue home carvedilol Qualifiers: Qualified Codes: I10 - Essential (primary) hypertension (6) Chronic pain Status: Chronic Assessment & Plan: Resume home medications, holding meloxicam due to KENIA. (7) Hypothyroidism Status: Chronic Assessment & Plan: Resume home levothyroxine (8) Alzheimer disease Status: Chronic Assessment & Plan: Without significant current issues, continue home medication (9) DVT prophylaxis Status: Acute Assessment & Plan: Enoxaparin GHADA OTT MD Oct 19, 2020 11:43
[2020-10-19 11:54] VITALS: BP 102/68
[2020-10-19] MEDS: guaiFENesin (MUCINEX) 600 MG TAB PO SCH ×2 (12:59→20:22)
[2020-10-19] MEDS ORDERED: polyethylene glycoL POWDER 17 GM (MIRALAX) PACK PO SCH (14:30)
[2020-10-19 15:43] VITALS: BP 133/63
[2020-10-19] MEDS ORDERED: OXYCODONE MYRISTATE PO SCH (16:45)
[2020-10-19] MEDS ORDERED: ZOLPIDEM 5 MG (AMBIEN) TAB PO PRN (16:45)
[2020-10-19] MEDS ORDERED: ENOXAPARIN 40 MG/0.4 ML (LOVENOX) SYR SQ SCH (16:45)
[2020-10-19] MEDS ORDERED: ACETAMINOPHEN 325 MG TABLET PO PRN (16:45)
[2020-10-19] MEDS ORDERED: ENOXAPARIN 30 MG/0.3 ML (LOVENOX) SYR SC SCH (17:00)
[2020-10-19 20:03] VITALS: BP 110/67
[2020-10-19] MEDS: CYCLOBENZAPRINE 10 MG (FLEXERIL) TAB PO SCH (20:22)
[2020-10-19] MEDS ORDERED: RX-CYCLOBENZAPRINE 10 MG (FLEXERIL) TAB PPK#3 PO SCH (21:00)
[2020-10-19] MEDS ORDERED: traZODone 50 MG (DESYREL) TAB PO SCH (21:00)
[2020-10-19] MEDS ORDERED: NON-FORMULARY MEDICATION 1 EA EA (Cetirizine HCl 10 MG) PO SCH (21:00)
[2020-10-19] MEDS ORDERED: LORATADINE (CLARITIN) 10 MG TAB PO SCH (21:00)
[2020-10-20] VITALS: BP 132/79
[2020-10-20 01:02] VITALS: BP 132/79
[2020-10-20] MEDS: NS IV 1000 ML 1,000 ML IV SCH ×2 (02:42→11:16)
[2020-10-20 04:15] VITALS: BP 134/76
[2020-10-20 06:06] LABS: HEMATOCRIT 35 % (35-52); HEMOGLOBIN 10.9 g/dL (11.5-16.0); MEAN CORPUSCULAR HEMOGLOBIN 31 pg (25-34); MEAN CORPUSCULAR HGB CONC 32 g/dL (32-36); MEAN CORPUSCULAR VOLUME 98 fL (80-99); MEAN PLATELET VOLUME 9.4 fL (9.0-12.2); PLATELET COUNT 206 10^3/uL (130-400); WHITE BLOOD COUNT 7.8 10^3/uL (4.3-11.0)
[2020-10-20 06:20] LABS: POTASSIUM 4.8 MMOL/L (3.6-5.0)
[2020-10-20 06:21] LABS: CALCIUM 8.7 MG/DL (8.5-10.1)
[2020-10-20] MEDS: HYDROcodone/APAP 5 MG/325 MG (LORTAB) TAB PO PRN ×2 (06:23→12:05)
[2020-10-20 06:25] LABS: CREATININE SERUM 1.19 MG/DL (0.60-1.30)
[2020-10-20] MEDS ORDERED: LEVOTHYROXINE 50 MCG (LEVOTHROID) TAB PO SCH (06:30)
[2020-10-20 07:28] VITALS: BP 149/89
[2020-10-20] MEDS: CYCLOBENZAPRINE 10 MG (FLEXERIL) TAB PO SCH ×2 (08:13→12:05)
[2020-10-20] MEDS: guaiFENesin (MUCINEX) 600 MG TAB PO SCH (08:13)
[2020-10-20] MEDS: cefTRIAXone 1,000 MG in WATER (STERILE) FOR INJECTION 10 ML IV SCH (08:13)
--- NOTE | 2020-10-20 08:52 | Progress Note ---
Subjective Subjective/Events-last exam Caryn Leslie is an 85 year old female we are following due to a UTI. Patient reported she still has pain with urination, but that it was improved from yesterday. She still reports back pain, which she suffers from chronically as well as left hip pain which she also reports having prior. Otherwise patient feels good with no shortness of breath, chest pain, N/V/D. Reported feeling constipated although bowel movements have been charted for her. Objective Exam Last Set of Vital Signs Vital Signs Date Time Temp Pulse Resp B/P (MAP) Pulse Ox O2 Delivery O2 Flow Rate FiO2 10/20/20 07:28 35.8 80 18 149/89 (109) 94 Room Air 10/19/20 03:36 2.00 Capillary Refill : Less Than 3 Seconds I&O Intake and Output 10/20/20 00:00 Intake Total 1370 ml Balance 1370 ml Intake Oral 1370 ml # Voids 8 Results/Procedures Lab Laboratory Tests 10/20/20 05:40: White Blood Count 7.8, Red Blood Count 3.51L, Hemoglobin 10.9L, Hematocrit 35, Mean Corpuscular Volume 98, Mean Corpuscular Hemoglobin 31, Mean Corpuscular Hemoglobin Concent 32, Red Cell Distribution Width 14.3, Platelet Count 206, Mean Platelet Volume 9.4, Sodium Level 143, Potassium Level 4.8, Chloride Level 118H, Carbon Dioxide Level 17L, Anion Gap 8, Blood Urea Nitrogen 19H, Creatinine 1.19, Estimat Glomerular Filtration Rate 52, BUN/Creatinine Ratio 16, Glucose Level 116H, Calcium Level 8.7 Microbiology 10/18/20 Urine Culture - Preliminary, Resulted Proteus species Assessment/Plan Assessment/Plan (1) Acute kidney injury Status: Acute Assessment & Plan: Improved overnight with IVF, hold home diuretic and monitor. (2) Hyperkalemia Status: Acute Assessment & Plan: Mild, improved with improved renal function. (3) Leukocytosis Status: Acute Assessment & Plan: Improved after antibiotics yesterday, continue to monitor. (4) UTI (urinary tract infection) Status: Acute Assessment & Plan: Ceftriaxone initiated in ER, urine culture prelim with proteus, awaiting sensitivities Qualifiers: Qualified Codes: N30.00 - Acute cystitis without hematuria (5) Hypertension Status: Chronic Assessment & Plan: Continue home carvedilol Qualifiers: Qualified Codes: I10 - Essential (primary) hypertension (6) Chronic pain Status: Chronic Assessment & Plan: Resume home medications, holding meloxicam due to KENIA. (7) Hypothyroidism Status: Chronic Assessment & Plan: Resume home levothyroxine (8) Alzheimer disease Status: Chronic Assessment & Plan: Without significant current issues, continue home medication (9) DVT prophylaxis Status: Acute Assessment & Plan: Enoxaparin JASSI MARQUEZ Oct 20, 2020 08:52
[2020-10-20] MEDS ORDERED: ASPIRIN E.C. 81 MG (ECOTRIN) TAB PO SCH (09:00)
[2020-10-20] MEDS ORDERED: PANTOPRAZOLE 40 MG (PROTONIX) TAB PO SCH (09:00)
[2020-10-20] MEDS ORDERED: MEMANTINE 5 MG (NAMENDA) TABLET PO SCH (09:00)
[2020-10-20] MEDS ORDERED: CEFD300C3 PO (10:12)
--- NOTE | 2020-10-20 10:16 | Discharge Summary ---
Discharge Summary Instructions for Patient Via [facility] [place], Assessment/Instructions Follow up with Dr. Talley on 10/25 at 3:15 pm. Physician to follow Patient: Gerri Discharge Diet for Home: Cardiac Diet Hospital Course Date of Admission: Oct 18, 2020 at 15:57 Admission Diagnosis : Family Physician/Provider: Haim Talley MD Date of Discharge: 10/20/20 Discharge Diagnosis: see problem list Hospital Course: Pt admitted with acute renal insufficiency and hyperkalemia, likely due to poor intake from not feeling well with UTI. She was given ceftriaxone and IVF and had resolution of KENIA and improvement in urinary symptoms. Urine culture showed proteus, final pending at d/c, was discharged on cefdinir. Home meloxicam held due to KENIA. Labs and Pending Lab Test: Laboratory Tests 10/20/20 05:40: White Blood Count 7.8, Red Blood Count 3.51L, Hemoglobin 10.9L, Hematocrit 35, Mean Corpuscular Volume 98, Mean Corpuscular Hemoglobin 31, Mean Corpuscular Hemoglobin Concent 32, Red Cell Distribution Width 14.3, Platelet Count 206, Mean Platelet Volume 9.4, Sodium Level 143, Potassium Level 4.8, Chloride Level 118H, Carbon Dioxide Level 17L, Anion Gap 8, Blood Urea Nitrogen 19H, Creatinine 1.19, Estimat Glomerular Filtration Rate 52, BUN/Creatinine Ratio 16, Glucose Level 116H, Calcium Level 8.7 Microbiology 10/18/20 Urine Culture - Preliminary, Resulted Proteus species Home Meds Active Reported Hydralazine HCl 50 Mg Tablet 100 Mg PO Q6H PRN TAKES 2 (50MG) TABS Flonase Allergy Relief (Fluticasone Propionate) 9.9 Ml [place].susp 2 [place] NSEACH DAILY PRN Cyclobenzaprine HCl 10 Mg Tablet 10 Mg PO TID Ondansetron HCl 4 Mg Tablet 4 Mg PO Q8H PRN Potassium Chloride 10 Meq Capsule.er 10 Meq PO 1200 Meloxicam 7.5 Mg Tablet 7.5 Mg PO 1200 W/LUNCH Carvedilol 6.25 Mg Tablet 6.25 Mg PO BID Cetirizine HCl 10 Mg Tablet 10 Mg PO HS Nitrofurantoin Mcleod-Mcr 100 mg (Nitrofurantoin Monohyd/M-Cryst) 100 Mg Capsule 100 Mg PO DAILY Furosemide 20 Mg Tablet 20 Mg PO DAILY Ferosul (Ferrous Sulfate) 325 Mg Tablet 325 Mg PO Q48H Zolpidem Tartrate 5 Mg Tablet 5 Mg PO HS PRN Vitamin D3 (Cholecalciferol (Vitamin D3)) 125 Mcg Tablet 125 Mcg PO SUN Hydrocodone-Acetamin 5-325 mg (Hydrocodone/Acetaminophen) 1 Each Tablet 1 Tab PO TID PRN Xtampza ER (Oxycodone Myristate) 18 Mg Cap.spr.12 1 Cap PO Q12H Allopurinol 100 Mg Tablet 100 Mg PO DAILY Citalopram HBr (Citalopram Hydrobromide) 20 Mg Tablet 20 Mg PO DAILY Aspirin EC (Aspirin) 81 Mg Tablet.dr 81 Mg PO DAILY Meclizine HCl 25 Mg Tablet 25 Mg PO DAILY PRN Miralax (Polyethylene Glycol 3350) 17 Gm Powd.pack 17 Gm PO DAILY PRN Acetaminophen 325 Mg Tablet 325 Mg PO Q4H PRN Memantine HCl ER (Memantine HCl) 14 Mg Cap.spr.24 14 Mg PO DAILY Trazodone HCl 50 Mg Tablet 50 Mg PO HS Pantoprazole Sodium 40 Mg Tablet.dr 40 Mg PO DAILY Levothyroxine Sodium 50 Mcg Tablet 50 Mcg PO DAILY Patient Allergies: Coded Allergies: aspirin (Verified Allergy, Severe, 05/11/19) clindamycin (Verified Allergy, Severe, swelling, 05/11/19) fosinopril (Verified Allergy, Severe, Rash, 05/11/19) lisinopril (Verified Allergy, Severe, Rash, 05/11/19) Height (Feet): 5 Height (Inches): 2.00 Weight (Pounds): 163 Weight (Ounces): 1.6 Home Health Need/Face to Face Date of Face to Face: Oct 20, 2020 Clinical Findings: Generalized weakness and fatigue I have seen Pt [id number]: Yes Discharged To: Home Diagnosis/Conditions: Urinary tract infection Acute renal insufficiency- resolved Alzheimer disease Problems/Diagnosis/Condition: (1) UTI (urinary tract infection) (2) Hypertension (3) Chronic pain (4) Hypothyroidism (5) Acute kidney injury (6) Alzheimer disease (7) Leukocytosis (8) Hyperkalemia Patient is Homebound due to: CognItive deficits Homebound Status Due to the above stated illness, injury or surgical procedure (medical condition or diagnosis) and associated clinical findings, the patient is homebound because of his/her inability to leave home except with aid of a supportive device and/or person AND leaving the home requires a considerable and taxing effort or is medically contraindicated. Pt req the following assistanc: Aid of another person Home Health Nursing Orders Home Health Services Order: Nursing Services Certify Stmt I certify that this patient is under my care and that I, a nurse practitioner or a physician; a bankruptcy assistant working with me, had a face to face encounter that - meets the physician face to face encounter requirements with this patient as dated. Discharge Physical Exam General: Alert, No Acute Distress Lungs: Clear to Auscultation, Normal Air Movement Heart: Regular Rate, No Murmurs Extremities: No Edema Neuro: Normal Speech Psych/Mental Status: Mood NL GHADA YEBOAH MD Oct 20, 2020 10:16
[2020-10-20 11:55] VITALS: BP 128/80
[2020-10-20 14:07] VITALS: BP 128/80
[2020-10-20] MEDS ORDERED: ENOXAPARIN 40 MG/0.4 ML (LOVENOX) SYR SC SCH (17:00)
== END 2020-10-20 14:10 | disposition home health service (06) | DRG 683 ==
LOC: EDUNIT# 12:15 → ER FS 12:17 → 4TH 15:57
PROVIDERS: ADMIT Family Medicine; ATTEND Family Medicine
DX: N17.9 Acute kidney failure, unspecified (principal); N39.0 Urinary tract infection, site not specified; D72.829 Elevated white blood cell count, unspecified; I10 Essential (primary) hypertension; G89.29 Other chronic pain; E87.5 Hyperkalemia; E03.9 Hypothyroidism, unspecified; G30.9 Alzheimer's disease, unspecified; F02.80 Dementia in other diseases classified elsewhere, unspecified severity, without behavioral disturbance, psychotic disturbance, mood disturbance, and anxiety; Z20.822 Contact with and (suspected) exposure to COVID-19; Z95.0 Presence of cardiac pacemaker; M19.90 Unspecified osteoarthritis, unspecified site; Z87.891 Personal history of nicotine dependence; Z88.5 Allergy status to narcotic agent; Z88.1 Allergy status to other antibiotic agents; Z79.82 Long term (current) use of aspirin; Z79.899 Other long term (current) drug therapy; E78.5 Hyperlipidemia, unspecified; J44.9 Chronic obstructive pulmonary disease, unspecified; K21.9 Gastro-esophageal reflux disease without esophagitis
CPT/HCPCS: 36415; 51701; 71045; 80048; 80053; 81000; 84484; 85025; 85027; 87077; 87088; 87186; 87636; 93005

== ENCOUNTER 2020-11-23 13:45 | Inpatient (IN) | payer MEDICARE, MEDICAID ==
[~2020-11-23] VITALS: Ht 157.5 cm; Wt 85.0 kg
[~2020-11-23 13:45] MED LIST changes: +CEFD300C3 PO; +CETI10TA17 PO; +FERR325T24 PO; +FLUT9.9S NSEACH; +HYDR-3924 PO; +NITR100C10 PO; +ONDA-105 PO; +POTA10CA43 PO
--- NOTE | 2020-11-23 13:56 | ED Chest Pain ---
General Chief Complaint: Respiratory Problems Stated Complaint: LOW O2; LETHARGY Source: patient Exam Limitations: no limitations History of Present Illness Date Seen by Provider: Nov 23, 2020 Time Seen by Provider: 13:56 Initial Comments Patient is an 85-year-old female who presents with respiratory depression and low oxygen level. Patient wears o 2 L of supplemental oxygen at night. This morning she was found off oxygen somnolent with an O2 saturation of 80% per her home health aide. Patient somnolent on exam but alerts to tactile and verbal stimulation. Denies fever cough, sore throat. No chest pain chest tightness abdominal pain or leg pain or swelling. History is limited by the patient's alertness. Timing/Duration: 1 hour Severity/Quality: mild Location: other Radiation: other Activities at Onset: other Prior CP/Workup: other Allergies and Home Medications Allergies Coded Allergies: aspirin (Verified Allergy, Severe, 05/11/19) clindamycin (Verified Allergy, Severe, swelling, 05/11/19) fosinopril (Verified Allergy, Severe, Rash, 05/11/19) lisinopril (Verified Allergy, Severe, Rash, 05/11/19) Patient Home Medication List Home Medication List Reviewed: Yes Acetaminophen (Acetaminophen) 325 Mg Tablet, 325 MG PO Q4H PRN for PAIN-MILD, (Reported) Entered as Reported by: LO FISHER on 11/04/18 1119 Allopurinol (Allopurinol) 100 Mg Tablet, 100 MG PO DAILY, (Reported) Entered as Reported by: GHADA YEBOAH on 06/30/202043 Aspirin (Aspirin EC) 81 Mg Tablet.dr, 81 MG PO DAILY, (Reported) Entered as Reported by: DAVIDSON CASTILLO on 03/02/19 0930 Carvedilol (Carvedilol) 6.25 Mg Tablet, 6.25 MG PO BID, (Reported) Entered as Reported by: DAVIDSON CASTILLO on 10/19/20 112 Cefdinir (Cefdinir) 300 Mg Capsule, 300 MG PO BID Prescribed by: GHADA YEBOAH on 10/20/20 1012 Cetirizine HCl (Cetirizine HCl) 10 Mg Tablet, 10 MG PO HS, (Reported) Entered as Reported by: DAVIDSON CASTILLO on 10/19/20 1122 Cholecalciferol (Vitamin D3) (Vitamin D3) 125 Mcg Tablet, 125 MCG PO SUN, (Reported) Entered as Reported by: DAVIDSON CASTILLO on 07/01/20929 Citalopram Hydrobromide (Citalopram HBr) 20 Mg Tablet, 20 MG PO DAILY, (Reported) Entered as Reported by: GHADA YEBOAH on 06/30/202041 Cyclobenzaprine HCl (Cyclobenzaprine HCl) 10 Mg Tablet, 10 MG PO TID, (Reported) Entered as Reported by: DAVIDSON CASTILLO on 10/19/201121 Ferrous Sulfate (Ferosul) 325 Mg Tablet, 325 MG PO Q48H, (Reported) Entered as Reported by: DAVIDSON CASTILLO on 10/19/201121 Fluticasone Propionate (Flonase Allergy Relief) 9.9 Ml [place].susp, 2 [place] NSEACH DAILY PRN for CONGESTION, (Reported) Entered as Reported by: DAVIDSON CASTILLO on 10/19/201121 Furosemide (Furosemide) 20 Mg Tablet, 20 MG PO DAILY, (Reported) Entered as Reported by: DAVIDSON CASTILLO on 10/19/201121 Hydralazine HCl (Hydralazine HCl) 50 Mg Tablet, 100 MG PO Q6H PRN for BLOOD PRESSURE, (Reported) Entered as Reported by: DAVIDSON CASTILLO on 10/19/20 112 Hydrocodone/Acetaminophen (Hydrocodone-Acetamin 5-325 mg) 1 Each Tablet, 1 TAB PO TID PRN for PAIN-MODERATE (5-7), (Reported) Entered as Reported by: GHADA YEBOAH on 06/30/202047 Levothyroxine Sodium (Levothyroxine Sodium) 50 Mcg Tablet, 50 MCG PO DAILY, (Reported) Entered as Reported by: LO FISHER on 08/01/181001 Meclizine HCl (Meclizine HCl) 25 Mg Tablet, 25 MG PO DAILY PRN for DIZZINESS, (Reported) Entered as Reported by: LO FISHER on 11/04/18 112 Memantine HCl (Memantine HCl ER) 14 Mg Cap.spr.24, 14 MG PO DAILY, (Reported) Entered as Reported by: LO FISHER on 08/01/18 1002 Nitrofurantoin Monohyd/M-Cryst (Nitrofurantoin Hendricks-Mcr 100 mg) 100 Mg Capsule, 100 MG PO DAILY, (Reported) Entered as Reported by: DAVIDSON CASTILLO on 10/19/20 1122 Ondansetron HCl (Ondansetron HCl) 4 Mg Tablet, 4 MG PO Q8H PRN for NAUSEA/VOMITING-1ST LINE, (Reported) Entered as Reported by: DAVIDSON CASTILLO on 10/19/20 112 Oxycodone Myristate (Xtampza ER) 18 Mg Cap.spr.12, 1 CAP PO Q12H, (Reported) Entered as Reported by: GHADA YEBOAH on 06/30/20 204 Pantoprazole Sodium (Pantoprazole Sodium) 40 Mg Tablet.dr, 40 MG PO DAILY, (Reported) Entered as Reported by: LO FISHER on 08/01/18 1002 Polyethylene Glycol 3350 (Miralax) 17 Gm Powd.pack, 17 GM PO DAILY PRN for CONSTIPATION-2ND LINE, (Reported) Entered as Reported by: LO FISHER on 11/04/18 1119 Potassium Chloride (Potassium Chloride) 10 Meq Capsule.er, 10 MEQ PO 1200, (Reported) Entered as Reported by: DAVIDSON CASTILLO on 10/19/20 112 Trazodone HCl (Trazodone HCl) 50 Mg Tablet, 50 MG PO HS, (Reported) Entered as Reported by: LO FISHER on 08/01/18 1002 Zolpidem Tartrate (Zolpidem Tartrate) 5 Mg Tablet, 5 MG PO HS PRN for SLEEP, (Reported) Entered as Reported by: DAVIDSON CASTILLO on 07/01/20 0930 Review of Systems Review of Systems Constitutional: see HPI EENTM: See HPI Respiratory: See HPI Cardiovascular: See HPI Gastrointestinal: See HPI Genitourinary: See HPI Musculoskeletal: see HPI Skin: see HPI Psychiatric/Neurological: See HPI Endocrine: See HPI Hematologic/Lymphatic: See HPI All Other Systems Reviewed Negative Unless Noted: Yes Past Fxkzeuq-Bonlyi-Lefmbg Hx Patient Social History Tobacco Use?: Yes Seasonal Allergies Seasonal Allergies: No Past Medical History Surgery/Hospitalization HX: Epilepsy, HTN, OA, RA, Anxiety, Atelectasis, UTI, Alzheimers, Dementia, Hyperlipidemia, COPD Surgeries: Yes Appendectomy, Gallbladder, Hysterectomy, Orthopedic, Pacemaker Respiratory: Yes Asthma, COPD Currently Using CPAP: No Currently Using BIPAP: No Cardiac: Yes Chronic Edema/Swelling, Hypertension Neurological: Yes Dementia [employer]IG [employer]IC History: Hysterectomy Genitourinary: Yes Bladder Infection Gastrointestinal: Yes Gastroesophageal Reflux, Hiatal Hernia Musculoskeletal: Yes (OSTEOARTHRITIS) Endocrine: Yes Hypothyroidsim HEENT: Yes Hearing Impairment: Hard of Hearing Cancer: Yes Cervical What Type of Treatment Did You: Surgical Intervention Psychosocial: No Integumentary: No Blood Disorders: Yes (ANEMIA) Family Medical History Cardiovascular disease G8 BROTHER Diabetes mellitus 19 FATHER FH: leukemia 19 FATHER Hypertension 19 MOTHER Cancer, CAD Under 55 Years Old, Diabetes, Hypertension Physical Exam Vital Signs Vital Signs - First Documented 11/23/20 14:00 Temp 36.5 Pulse 64 Resp 14 B/P (MAP) 118/55 (76) Pulse Ox 95 O2 Delivery Nasal Cannula O2 Flow Rate 5.00 Capillary Refill : Height, Weight, BMI Height: 5'2.00" Weight: 163lbs. 1.6oz. 73.672813on; 37.10 BMI Method:Stated General Appearance: No Apparent Distress, WD/WN, Anxious, Other (Somnolent) HEENT: PERRL/EOMI, Pharynx Normal Neck: Non Tender, Supple Respiratory: Lungs Clear, Normal Breath Sounds Cardiovascular: Regular Rate, Rhythm Gastrointestinal: Non Tender, Soft Neurologic/Psychiatric: Alert, Oriented x3, Normal Mood/Affect, surg physician asst II-XII Norm as Tested Focused Exam Sepsis Stage: Ruled Out Lactate Level 11/23/20 14:06: Lactic Acid Level 1.43 Lactic Acid Level Laboratory Tests Test 11/23/20 14:06 Lactic Acid Level 1.43 MMOL/L (0.50-2.00) Progress/Results/Core Measures Results/Orders Lab Results Laboratory Tests Test 11/23/20 14:06 11/23/20 14:10 11/23/20 16:11 Range/Units White Blood Count 10.8 4.3-11.0 10^3/uL Red Blood Count 4.00 3.80-5.11 10^6/uL Hemoglobin 12.5 11.5-16.0 g/dL Hematocrit 40 35-52 % Mean Corpuscular Volume 101 H 80-99 fL Mean Corpuscular Hemoglobin 31 25-34 pg Mean Corpuscular Hemoglobin Concent 31 L 32-36 g/dL Red Cell Distribution Width 14.3 10.0-14.5 % Platelet Count 261 130-400 10^3/uL Mean Platelet Volume 9.8 9.0-12.2 fL Immature Granulocyte % (Auto) 0 % Neutrophils (%) (Auto) 53 42-75 % Lymphocytes (%) (Auto) 37 12-44 % Monocytes (%) (Auto) 7 0-12 % Eosinophils (%) (Auto) 2 0-10 % Basophils (%) (Auto) 1 0-10 % Neutrophils # (Auto) 5.7 1.8-7.8 X 10^3 Lymphocytes # (Auto) 4.0 1.0-4.0 X 10^3 Monocytes # (Auto) 0.8 0.0-1.0 X 10^3 Eosinophils # (Auto) 0.3 0.0-0.3 10^3/uL Basophils # (Auto) 0.1 0.0-0.1 10^3/uL Immature Granulocyte # (Auto) 0.0 0.0-0.1 10^3/uL Neutrophils % (Manual) 60 % Lymphocytes % (Manual) 27 % Monocytes % (Manual) 3 % Eosinophils % (Manual) 0 % Basophils % (Manual) 1 % Band Neutrophils 0 % Atypical Lymphocytes 9 % Sodium Level 139 135-145 MMOL/L Potassium Level 5.3 H 3.6-5.0 MMOL/L Chloride Level 103 98-107 MMOL/L Carbon Dioxide Level 25 21-32 MMOL/L Anion Gap 11 5-14 MMOL/L Blood Urea Nitrogen 31 H 7-18 MG/DL Creatinine 1.85 H 0.60-1.30 MG/DL Estimat Glomerular Filtration Rate 31 BUN/Creatinine Ratio 17 Glucose Level 129 H 70-105 MG/DL Lactic Acid Level 1.43 0.50-2.00 MMOL/L Calcium Level 9.0 8.5-10.1 MG/DL Corrected Calcium 8.8 8.5-10.1 MG/DL Total Bilirubin 0.2 0.1-1.0 MG/DL Aspartate Amino Transf (AST/SGOT) 24 5-34 U/L Alanine Aminotransferase (ALT/SGPT) 13 0-55 U/L Alkaline Phosphatase 123 40-136 U/L Troponin I < 0.30 <0.30 NG/ML Pro-B-Type Natriuretic Peptide 368.3 H <75.0 PG/ML Total Protein 7.1 6.4-8.2 GM/DL Albumin 4.3 3.2-4.5 GM/DL Blood Gas Puncture Site RT RADIAL LT. RADIAL Blood Gas Patient Temperature 36.5 36.5 Arterial Blood pH 7.26 *L 7.28 *L 7.37-7.43 Arterial Blood Partial Pressure CO2 60 H 60 H 35-45 MMHG Arterial Blood Partial Pressure O2 80 163 H 79-93 MMHG Arterial Blood HCO3 27 28 H 23-27 MMOL/L Arterial Blood Total CO2 28.7 30.0 21.0-31.0 MMOL/L Arterial Blood Oxygen Saturation 94 99 94-100 % Arterial Blood Base Excess -1.2 0.3 -2.5-2.5 MMOL/L Keny Test OK YES-POS Blood Gas Ventilator Setting NO NO Blood Gas Inspired Oxygen 5 L 60% BIPAP My Orders Orders - AYAKA MONIQUE DO Cbc With Automated Diff (11/23/20 14:00) Comprehensive Metabolic Panel (11/23/20 14:00) Troponin I Fs (11/23/20 14:00) Chest 1 View Ap/Pa Only (11/23/20 14:00) Probnp Fs (11/23/20 14:00) Arterial Blood Gas (11/23/20 14:03) Lactic Acid Analyzer (11/23/20 14:03) Blood Culture (11/23/20 14:03) Ekg Tracing (11/23/20 14:24) Bipap (Bilevel) Set Up (11/23/20 14:28) Bipap (Bilevel) Set Up (11/23/20 14:31) Blood Culture (11/23/20 14:14) Manual Differential (11/23/20 14:06) Furosemide Injection (Lasix Injection) (11/23/20 15:15) Arterial Blood Gas (11/23/20 15:58) Ua Culture If Indicated (11/23/20 16:38) Medications Given in ED Current Medications Medications Dose Ordered Sig/Prakash Route Start Time Stop Time Status Last Admin Dose Admin Furosemide 40 mg ONCE ONCE IVP 11/23/20 15:15 11/23/20 15:16 DC 11/23/20 16:23 40 MG Vital Signs/I&O 11/23/20 14:00 Temp 36.5 Pulse 64 Resp 14 B/P (MAP) 118/55 (76) Pulse Ox 95 O2 Delivery Nasal Cannula O2 Flow Rate 5.00 Departure Communication (Admissions) EKG: Normal sinus rhythm. No acute ST-T wave changes Chest x-ray: No cardiopulmonary disease Patient with respiratory depression likely secondary to polypharmacy. She is on oxycodone, Ambien and trazodone and other psychotropic medications. O2 saturation improved with BiPAP. Lab work otherwise nondiagnostic. Dr. Enriquez to admit to [facility]. Impression Primary Impression: Acute respiratory failure with hypoxia and hypercapnia Additional Impression: Polypharmacy Disposition: ADMITTED INPATIENT Condition: Stable Admissions Decision to Admit Reason: Admit from ER (General) Decision to Admit/Date: Nov 23, 2020 Time/Decision to Admit Time: 16:00 Transfer Method of Transfer: EMS Departure-Patient Inst. Referrals: SHAYLEE MITCHELL MD (PCP/Family) Primary Care Physician AYAKA MONIQUE DO Nov 23, 2020 13:56
[2020-11-23 14:14] LABS: HEMATOCRIT 40 % (35-52); HEMOGLOBIN 12.5 g/dL (11.5-16.0); MEAN CORPUSCULAR HEMOGLOBIN 31 pg (25-34); MEAN CORPUSCULAR HGB CONC 31 g/dL (32-36); MEAN CORPUSCULAR VOLUME 101 fL (80-99); MEAN PLATELET VOLUME 9.8 fL (9.0-12.2); PLATELET COUNT 261 10^3/uL (130-400); WHITE BLOOD COUNT 10.8 10^3/uL (4.3-11.0)
[2020-11-23 14:15] LABS: BASOPHILS # (AUTO) 0.1 10^3/uL (0.0-0.1); BASOPHILS % (AUTO) 1 % (0-10); EOSINOPHILS # (AUTO) 0.3 10^3/uL (0.0-0.3); EOSINOPHILS % (AUTO) 2 % (0-10); LYMPHOCYTES % (AUTO) 37 % (12-44); MONOCYTES # (AUTO) 0.8 X 10^3 (0.0-1.0); MONOCYTES % (AUTO) 7 % (0-12); NEUTROPHILS # (AUTO) 5.7 X 10^3 (1.8-7.8); NEUTROPHILS % (AUTO) 53 % (42-75)
[2020-11-23 14:28] LABS: ABG BASE EXCESS -1.2 MMOL/L (-2.5-2.5); ABG OXYGEN SATURATION 94 % (94-100); ABG PCO2 60 MMHG (35-45); ABG PH 7.26 (7.37-7.43); ABG PO2 80 MMHG (79-93); ABG TCO2 28.7 MMOL/L (21.0-31.0)
[2020-11-23 14:29] LABS: ALLENS TEST OK; INSPIRED O2 5 L; PATIENT TEMP 36.5; VENTILATOR NO
[2020-11-23 14:39] LABS: SODIUM 139 MMOL/L (135-145)
[2020-11-23 14:40] LABS: ALANINE AMINOTRANSFERASE 13 U/L (0-55); ALKALINE PHOSPHATASE 123 U/L (40-136); BILIRUBIN,TOTAL 0.2 MG/DL (0.1-1.0); BUN/CREATININE RATIO 17; CARBON DIOXIDE 25 MMOL/L (21-32); CHLORIDE 103 MMOL/L (98-107); CREATININE SERUM 1.85 MG/DL (0.60-1.30); GFR ESTIMATED 31; GLUCOSE 129 MG/DL (70-105); POTASSIUM 5.3 MMOL/L (3.6-5.0)
[2020-11-23 14:41] LABS: ALBUMIN 4.3 GM/DL (3.2-4.5); TOTAL PROTEIN 7.1 GM/DL (6.4-8.2)
--- NOTE | 2020-11-23 14:56 | Diagnostic Imaging Report ---
EXAMINATION: Chest, one view. HISTORY: Chest pain. COMPARISON: 10/18/2020. FINDINGS: Stable enlargement of the cardiac silhouette. Left-sided cardiac device is unchanged. Stable prominence of the pulmonary vasculature. Stable mild interstitial opacities within the lungs. No pleural effusion or pneumothorax. Degenerative changes of the thoracic spine. Osseous structures are otherwise intact. IMPRESSION: 1. Stable cardiomegaly and findings of pulmonary vascular congestion. 2. Stable mild interstitial opacities within the lungs, which can be seen with background chronic lung disease, atypical infection, or pulmonary edema in the appropriate clinical setting. Dictated by: Dictated on workstation # [id number]
[2020-11-23 15:05] LABS: ATYPICAL LYMPHOCYTES 9 %; BAND NEUTROPHILS 0 %; BASOPHILS % (MANUAL) 1 %; EOSINOPHILS % (MANUAL) 0 %; LYMPHOCYTES % (MANUAL) 27 %; MONOCYTES % (MANUAL) 3 %; NEUTROPHILS % (MANUAL) 60 %
[2020-11-23] MEDS ORDERED: FUROSEMIDE 40 MG/4 ML INJ (LASIX) IVP ONE (15:15)
[2020-11-23 16:20] LABS: ABG BASE EXCESS 0.3 MMOL/L (-2.5-2.5); ABG OXYGEN SATURATION 99 % (94-100); ABG PCO2 60 MMHG (35-45); ABG PH 7.28 (7.37-7.43); ABG PO2 163 MMHG (79-93)
[2020-11-23 16:21] LABS: ALLENS TEST YES-POS
[2020-11-23 16:22] LABS: INSPIRED O2 60% BIPAP; PATIENT TEMP 36.5; VENTILATOR NO
[2020-11-23 17:11] LABS: BILIRUBIN,URINE NEGATIVE (NEGATIVE); COLOR,URINE YELLOW; GLUCOSE, URINE (UA) NEGATIVE (NEGATIVE); KETONES,URINE TRACE (NEGATIVE); LEUKOCYTE ESTERASE ,URINE NEGATIVE (NEGATIVE); NITRITE,URINE NEGATIVE (NEGATIVE); PH,URINE 5.5 (5-9); PROTEIN,URINE NEGATIVE (NEGATIVE)
[2020-11-23 17:17] LABS: BACTERIA,URINE NEGATIVE /HPF; CALCIUM OXALATE CRYSTALS,UR MODERATE /LPF; CLARITY,URINE SL CLOUDY; SQUAMOUS EPITHELIAL CELL,UR RARE /HPF
[2020-11-23 17:18] LABS: HYALINE CASTS, URINE 25-50 /LPF
[2020-11-23 20:00] VITALS: BP 103/90
[2020-11-23] MEDS ORDERED: ENOXAPARIN 40 MG/0.4 ML (LOVENOX) SYR SC SCH (20:45)
[2020-11-23] MEDS ORDERED: ALPRAZolam 0.25 MG (XANAX) TAB PO PRN (20:45)
[2020-11-23] MEDS ORDERED: ONDANSETRON 4 MG (ZOFRAN) ORAL DISSOLVE TAB PO PRN (20:45)
[2020-11-23] MEDS ORDERED: ONDANSETRON 4 MG/2 ML (SDV) Z0FRAN IVP PRN (20:45)
[2020-11-23] MEDS ORDERED: diphenhydrAMINE 25 MG TAB (BENADRYL) PO PRN (20:45)
[2020-11-23] MEDS ORDERED: MELATONIN 3 MG TABLET PO PRN (20:45)
[2020-11-23] MEDS ORDERED: CALCIUM CARBONATE 500 MG (TUMS) TAB.CHEW PO PRN (20:45)
[2020-11-23] MEDS ORDERED: DOCUSATE SODIUM 100 MG (COLACE) CAP PO PRN (20:45)
[2020-11-23] MEDS: SENNA W/DOCUSATE (SENOKOT S) TABLET PO SCH (21:00)
[2020-11-23] MEDS: polyethylene glycoL POWDER 17 GM (MIRALAX) PACK PO SCH (21:00)
[2020-11-23] MEDS ORDERED: ACETAMINOPHEN 325 MG TABLET PO PRN (21:30)
[2020-11-23] MEDS: NS IV 1000 ML 1,000 ML IV SCH (21:43)
[2020-11-23] MEDS: HYDROcodone/APAP 5 MG/325 MG (LORTAB) TAB PO PRN (21:43)
[2020-11-23 22:09] VITALS: BP 118/55
[2020-11-23] MEDS ORDERED: RT-ALBUTEROL/IPRATROPIUM 3 ML (DUONEB) VIAL INH PRN (22:30)
[2020-11-24] VITALS: BP 121/69
[2020-11-24 02:05] LABS: ABG PCO2 56 MMHG (35-45); ABG PH 7.31 (7.37-7.43); ABG PO2 97 MMHG (79-93); ABG TCO2 53.8 MMOL/L (21.0-31.0)
[2020-11-24 02:06] LABS: ABG BASE EXCESS 1.9 MMOL/L (-2.5-2.5); ABG OXYGEN SATURATION 97 % (94-100); ALLENS TEST POS; INSPIRED O2 5L; PATIENT TEMP 36.2; VENTILATOR NO
[2020-11-24] MEDS: RT-ALBUTEROL/IPRATROPIUM 3 ML (DUONEB) VIAL INH SCH ×4 (03:09→21:24)
[2020-11-24 03:10] VITALS: BP 98/50
[2020-11-24 06:24] LABS: BASOPHILS # (AUTO) 0.1 10^3/uL (0.0-0.1); BASOPHILS % (AUTO) 1 % (0-10); EOSINOPHILS # (AUTO) 0.3 10^3/uL (0.0-0.3); EOSINOPHILS % (AUTO) 3 % (0-10); HEMATOCRIT 36 % (35-52); HEMOGLOBIN 11.2 g/dL (11.5-16.0); LYMPHOCYTES # (AUTO) 3.2 10^3/uL (1.0-4.0); LYMPHOCYTES % (AUTO) 33 % (12-44); MEAN CORPUSCULAR HEMOGLOBIN 31 pg (25-34); MEAN CORPUSCULAR HGB CONC 31 g/dL (32-36); MEAN CORPUSCULAR VOLUME 100 fL (80-99); MEAN PLATELET VOLUME 10.2 fL (9.0-12.2); MONOCYTES % (AUTO) 10 % (0-12); NEUTROPHILS # (AUTO) 5.1 10^3/uL (1.8-7.8); NEUTROPHILS % (AUTO) 53 % (42-75); PLATELET COUNT 197 10^3/uL (130-400); WHITE BLOOD COUNT 9.6 10^3/uL (4.3-11.0)
[2020-11-24 06:40] LABS: ALBUMIN 3.5 GM/DL (3.2-4.5); POTASSIUM 4.2 MMOL/L (3.6-5.0)
[2020-11-24 06:41] LABS: CALCIUM 8.9 MG/DL (8.5-10.1)
[2020-11-24 06:42] LABS: TOTAL PROTEIN 5.9 GM/DL (6.4-8.2)
[2020-11-24 06:44] LABS: BILIRUBIN,TOTAL 0.4 MG/DL (0.1-1.0)
[2020-11-24 06:46] LABS: CREATININE SERUM 1.63 MG/DL (0.60-1.30)
[2020-11-24 07:37] LABS: ABG BASE EXCESS 1.8 MMOL/L (-2.5-2.5); ABG OXYGEN SATURATION 96 % (94-100); ABG PCO2 48 MMHG (35-45); ABG PH 7.36 (7.37-7.43); ABG PO2 69 MMHG (79-93); ABG TCO2 28.5 MMOL/L (21.0-31.0)
[2020-11-24 07:38] LABS: ALLENS TEST YES-POS; INSPIRED O2 30%; PATIENT TEMP 35.6; VENTILATOR YES
[2020-11-24] MEDS: SENNA W/DOCUSATE (SENOKOT S) TABLET PO SCH ×2 (07:45→20:53)
[2020-11-24] MEDS: ENOXAPARIN 30 MG/0.3 ML (LOVENOX) SYR SC SCH (07:45)
[2020-11-24] MEDS: polyethylene glycoL POWDER 17 GM (MIRALAX) PACK PO SCH ×2 (07:45→20:53)
[2020-11-24] MEDS: HYDROcodone/APAP 5 MG/325 MG (LORTAB) TAB PO PRN ×2 (09:37→18:38)
[2020-11-24] MEDS: NS IV 1000 ML 1,000 ML IV SCH (09:48)
[2020-11-24] MEDS: FUROSEMIDE 40 MG/4 ML INJ (LASIX) IVP SCH ×2 (10:07→16:52)
--- NOTE | 2020-11-24 10:40 | Consultation-Cardiology ---
HPI-Cardiology Cardiology Consultation Date of Consultation 11/24/20 Date of Admission Time Seen by Provider: 08:00 Indication: Dyspnea HPI Caryn Leslie is an 85 y/o F who presented yesterday to the ER with respiratory distress. Pt has a PMHx of CAD, CHF, pacemaker due to sick sinus syndrome, HTN, COPD, and HLD. She was brought into the ER yesterday after being found by a home health aid with an oxygen saturation of 80%. Pt reports that she began having SOB yesterday in the afternoon. At home she was taking multiple medications for pain such as hydrocodone/acetaminophen and oxycodone. She denies taking any medications she is not prescribed and denied taking more of the medication than she was suppose to. Currently reports having SOB and is on BIPAP. Denies any current chest pain or palpitations. Home Medications & Allergies Allergies: Coded Allergies: aspirin (Verified Allergy, Severe, 05/11/19) clindamycin (Verified Allergy, Severe, swelling, 05/11/19) fosinopril (Verified Allergy, Severe, Rash, 05/11/19) lisinopril (Verified Allergy, Severe, Rash, 05/11/19) metronidazole (Verified Allergy, Unknown, 11/23/20) sulfamethoxazole (Verified Allergy, Unknown, 11/23/20) trimethoprim (Verified Allergy, Unknown, 11/23/20) Home Medication List Reviewed: Yes KQT-Apkrjv-Yrbczm Hx Patient Social History Marital Status: Living Status: reports that she is living with her son Employed/Student: retired Smoking Status: Smoker Current Status UNK 2nd Hand Smoke Exposure: No Recent Hopitalizations: Yes Have you traveled recently?: No Alcohol Use?: No Immunizations Up To Date Date of Pneumonia Vaccine: Mar 04, 2016 Date of Influenza Vaccine: Dec 02, 2018 Past Medical History Discussed below Family Medical History Significant Family History: Cancer, CAD Under 55 Years Old, Diabetes, Hypertension Family History: Cardiovascular disease G8 BROTHER Diabetes mellitus 19 FATHER FH: leukemia 19 FATHER Hypertension 19 MOTHER Review of Systems-General Review of Systems Constitutional: No chills, No dizziness, No fever; malaise, weakness EENTM: No blurred vision, No double vision Respiratory: see HPI, cough, orthopnea, short of breath Cardiovascular: see HPI; No chest pain, No palpitations Gastrointestinal: see HPI; No abdominal pain, No nausea, No vomiting Genitourinary: see HPI Musculoskeletal: see HPI, back pain, muscle pain Skin: see HPI Psychiatric/Neurological: See HPI; Denies Headache; Numbness (numbness in hands); Denies Tingling All Other Systems Reviewed Negative Unless Noted: Yes Reviewed Test Results Reviewed Test Results Lab Laboratory Tests 11/23/20 14:06 11/24/20 05:25 Laboratory Tests Test 11/23/20 14:10 11/23/20 16:11 11/23/20 22:25 11/24/20 07:30 Blood Gas Puncture Site RT RADIAL LT. RADIAL RGHT RAD RT RAD Blood Gas Patient Temperature 36.5 36.5 36.2 35.6 Arterial Blood pH 7.26 7.28 7.31 7.36 Arterial Blood Partial Pressure CO2 60 MMHG 60 MMHG 56 MMHG 48 MMHG Arterial Blood Partial Pressure O2 80 MMHG 163 MMHG 97 MMHG 69 MMHG Arterial Blood HCO3 27 MMOL/L 28 MMOL/L 28 MMOL/L 27 MMOL/L Arterial Blood Total CO2 28.7 MMOL/L 30.0 MMOL/L 53.8 MMOL/L 28.5 MMOL/L Arterial Blood Oxygen Saturation 94 % 99 % 97 % 96 % Arterial Blood Base Excess -1.2 MMOL/L 0.3 MMOL/L 1.9 MMOL/L 1.8 MMOL/L Keny Test OK YES-POS POS YES-POS Blood Gas Ventilator Setting NO NO NO YES Blood Gas Inspired Oxygen 5 L 60% BIPAP 5L 30% Physical Exam Physical Exam Vital Signs Vital Signs - First Documented 11/23/20 11/23/20 14:00 22:09 Temp 36.5 Pulse 64 Resp 14 B/P (MAP) 118/55 (76) Pulse Ox 95 O2 Delivery Nasal Cannula O2 Flow Rate 5.00 FiO2 40 Capillary Refill : Less Than 3 Seconds Height, Weight, BMI Height: 5'2.00" Weight: 163lbs. 1.6oz. 73.354943th; 34.26 BMI Method:Stated General Appearance: WD/WN, Anxious, Other (Somnolent) HEENT: PERRL/EOMI; No Photophobia Neck: Supple; No JVD Respiratory: Lungs Clear, Normal Breath Sounds Cardiovascular: Regular Rate, Rhythm, No Murmur Gastrointestinal: Non Tender, Soft Extremity: Non Tender, Pedal Edema (pedal edema with no pitting edema) Neurologic/Psychiatric: Alert, Oriented x3, Normal Mood/Affect Skin: Normal Color, Warm/Dry A/P-Cardiology Admission Diagnosis Acute respiratory failure Coronary artery disease Hypertension Cardiac risk Assessment/Plan Acute respiratory depression w/ hypoxemia and hypercapnia. Improving with BIPAP use. Possibly due to underlying to COPD or polypharmacy. Negative PCR for COVID- 19. History of congestive heart failure, maintained on beta vicente, Lasix. No signs of increasing heart failure at this time. Last BNP was 31.9. Troponin negative. Cardiac catheterization done Dr. Stroud in [facility] done in March 2017 reporting normal coronary repeat cardiac catheterization with Dr. 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 Sick sinus syndrome, history of permanent pacemaker implant done by Dr. Sharp and, last interrogation was done in my office in April 2020 showing good sensing and capture activity, no significant arrhythmia. Echocardiogram done in June 2020. EF 55-60%. Mild mitral regurgitation. Pulmonary artery systolic pressure of 55-60mmHg Hypertension, patient reports labile hypertension, Coreg recently decreased by primary care physician. Blood pressure well-controlled at this time. Continue to monitor. Nonobstructive carotid artery stenosis. Hyperlipidemia, controlled. continue to monitor. Chronic kidney disease, mild renal insufficiency, History of left hip replacement surgery Supervisory-Addendum Brief Verification & Attestation Participated in pt care: history, MDM, physical Personally performed: exam, history, MDM, supervision of care Care discussed with: Medical Student Procedures: n/a Results interpretation: Verified all documentation Verification and Attestation of Medical Student E/M Service A medical student performed and documented this service in my presence. I reviewed and verified all information documented by the medical student and made modifications to such information, when appropriate. I personally performed the physical exam and medical decision making. Elicia Maloney, Nov 24, 2020,13:59 AMNA JACKSON Nov 24, 2020 10:40 ELICIA MALONEY MD Nov 24, 2020 14:00
--- NOTE | 2020-11-24 13:45 | History & Physical-Hospitalist ---
LAYTON FIERRO 11/24/20 1344: History of Present Illness HPI/Chief Complaint CC: Low oxygen saturation and difficulty to arouse HPI: A 85yo F was brought to the ED from [place] via EMS due to lethargy and low O2 saturation with difficulty to arouse in the morning. She is on 2L of oxygen at home and is currently on BIPAP at 30L/min at FiO2 of 98, due to her improving O2 saturation she was taken off BIPAP today. She also reported CP and shoulder pain on the left side yesterday but denies these symptoms today. Her CXR did not indicate anything concerning except for stable cardiomeagly and her EKG did not show an NH but showed slightly prolonged IN interval, prolonged QRS, Prolonged QT with Left [place] deviation, and normal troponin levels. She is heavily medicated on pain pills and she denies taking more then she is suppose to in a given day. She reports new onset back pain as she is not taking as much pain meds. Source: patient Exam Limitations: no limitations Date Seen 11/24/20 Time Seen by a Provider: 09:00 Attending Physician Catalina Francisco Pankaj K MD Referring Physician Date of Admission Nov 23, 2020 at 18:40 Home Medications & Allergies Home Medications Reviewed patient Home Medication Reconciliation performed by pharmacy medication reconciliations precision agriculture technician and/or nursing. Patients Allergies have been reviewed. Allergies Allergies Coded Allergies aspirin (Verified Allergy, Severe, 05/11/19) clindamycin (Verified Allergy, Severe, swelling, 05/11/19) fosinopril (Verified Allergy, Severe, Rash, 05/11/19) lisinopril (Verified Allergy, Severe, Rash, 05/11/19) metronidazole (Verified Allergy, Unknown, 11/23/20) sulfamethoxazole (Verified Allergy, Unknown, 11/23/20) trimethoprim (Verified Allergy, Unknown, 11/23/20) Past Sfznqsl-Utaudk-Xjppzb Hx Patient Social History Living Status: reports that she is living with her son Employed/Student: retired Tobacco Use?: No Smoking Status: Former Smoker Substance use?: No Alcohol Use?: No Pt feels they are or have been: No Immunizations Up To Date Date of Influenza Vaccine: Dec 02, 2018 First/Initial COVID19 Vaccinat: 05/2020 Second COVID19 Vaccination Fermin: 06/2020 Tetanus Booster (TDap): Unknown Hepatitis A: No Hepatitis B: No Date of Pneumonia Vaccine: Mar 04, 2016 Seasonal Allergies Seasonal Allergies: No Current Status Advance Directives: No Communicates: Verbally Primary Language: Uzbek Preferred Spoken Language: Uzbek Sensory deficits: Hearing impairment Implanted or Applied Medical D: Pacemaker Past Medical History Surgeries: Appendectomy, Gallbladder, Hysterectomy, Orthopedic, Pacemaker Asthma, COPD Currently Using CPAP: No Currently Using BIPAP: No Chronic Edema/Swelling, Hypertension 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: Hysterectomy Bladder Infection Gastroesophageal Reflux, Hiatal Hernia Hypothyroidsim Hearing Impairment: Hard of Hearing Cervical What Type of Treatment Did You: Surgical Intervention Blood Disorders: Yes (ANEMIA) PMHx: HTN Pacemaker Alzheimer Osteoarthritis Hypothyroidism Cervical Cancer PSurgHx: Pacemaker Back surgery Appendectomy Hysterectomy Family Medical History Cardiovascular disease G8 BROTHER Diabetes mellitus 19 FATHER FH: leukemia 19 FATHER Hypertension 19 MOTHER Cancer, CAD Under 55 Years Old, Diabetes, Hypertension Review of Systems Constitutional: No fever Cardiovascular: chest pain (on 11/23 but not today), other Gastrointestinal: No constipation, No diarrhea, No nausea, No vomiting; other (no urination issues) Physical Exam Physical Exam Vital Signs Vital Signs - First Documented 11/23/20 11/23/20 14:00 22:09 Temp 36.5 Pulse 64 Resp 14 B/P (MAP) 118/55 (76) Pulse Ox 95 O2 Delivery Nasal Cannula O2 Flow Rate 5.00 FiO2 40 Capillary Refill : Less Than 3 Seconds Height, Weight, BMI Height: 5'2.00" Weight: 163lbs. 1.6oz. 73.784942in; 34.26 BMI Method:Stated General Appearance: Chronically ill, Moderate Distress Respiratory: Lungs Clear, No Accessory Muscle Use, No Respiratory Distress Cardiovascular: Regular Rate, Rhythm Results Results/Procedures Labs Laboratory Tests 11/23/20 14:06 11/24/20 05:25 Patient resulted labs reviewed. Assessment/Plan Assessment and Plan Assessment: Respiratory depression by poly pharmacy COPD exacerbation Plan: PT and OT, move to fourth floor, stop BIPAP and catheter, advance diet, and stop fluid. Acute respiratory depression w/ hypoxemia and hypercapnia. Improving with BIPAP use. Possibly due to underlying to COPD or polypharmacy. Negative PCR for COVID- 19. History of congestive heart failure, maintained on beta vicente, Lasix. No signs of increasing heart failure at this time. Last BNP was 31.9. Troponin negative. Cardiac catheterization done Dr. Stroud in [facility] done in March 2017 reporting normal coronary repeat cardiac catheterization with Dr. 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 Sick sinus syndrome, history of permanent pacemaker implant done by Dr. Sharp and, last interrogation was done in my office in April 2020 showing good sensing and capture activity, no significant arrhythmia. Echocardiogram done in June 2020. EF 55-60%. Mild mitral regurgitation. Pulmonary artery systolic pressure of 55-60mmHg Hypertension, patient reports labile hypertension, Coreg recently decreased by primary care physician. Blood pressure well-controlled at this time. Continue to monitor. CATALINA FRANCISCO DO 11/25/20 0539: History of Present Illness HPI/Chief Complaint Chief complaint: Acute hypoxic hypercapnic respiratory failure History present illness: This is an 85-year-old -Kittitian female who p resented to the [facility] with low oxygen saturation per home health nurse. She was found to have acute hypoxic hypercapnic respiratory failure likely due to polypharmacy. She was placed on BiPAP with good results and resolution of her acute issues on ABG. Past Bgjuuml-Fcjljl-Vbdizw Hx Patient Social History Marrital Status: single Smoking Status: Former Smoker Family Medical History Cardiovascular disease G8 BROTHER Diabetes mellitus 19 FATHER FH: leukemia 19 FATHER Hypertension 19 MOTHER Review of Systems Constitutional: see HPI Respiratory: short of breath Physical Exam Physical Exam General Appearance: No Apparent Distress, Chronically ill Eyes: Right Eye Normal Inspection, Right Eye PERRL HEENT: PERRL/EOMI, Normal ENT Inspection, Pharynx Normal, Moist Mucous Membranes Neck: Full Range of Motion, Normal Inspection, Non Tender Respiratory: Chest Non Tender, Lungs Clear, Normal Breath Sounds, No Accessory Muscle Use, No Respiratory Distress Cardiovascular: Regular Rate, Rhythm, No Edema, No Gallop, No JVD, No Murmur, Normal Peripheral Pulses Gastrointestinal: Normal Bowel Sounds, No Organomegaly, No Pulsatile Mass, Non Tender, Soft Back: Normal Inspection, No CVA Tenderness, No Vertebral Tenderness Extremity: Normal Capillary Refill, Normal Inspection, Normal Range of Motion, Non Tender, No Calf Tenderness, No Pedal Edema Neurologic/Psychiatric: Alert, Oriented x3, No Motor/Sensory Deficits, Normal Mood/Affect Skin: Normal Color, Warm/Dry Lymphatic: No Adenopathy Assessment/Plan Admission Diagnosis Assessment: Acute hypoxic hypercapnic respiratory failure Polypharmacy with oversedation Advanced age at 85 years old Plan: DC BiPAP Transfer to fourth floor Monitor closely Minimize polypharmacy Admission Status: Inpatient Order (span 2 midnights) Reason for Inpatient Admission: Acute respiratory failure Supervisory-Addendum Brief Verification & Attestation Participated in pt care: history, MDM, physical Personally performed: exam, history, MDM, supervision of care Care discussed with: Medical Student Procedures: n/a Results interpretation: Verified all documentation Verification and Attestation of Medical Student E/M Service A medical student performed and documented this service in my presence. I reviewed and verified all information documented by the medical student and made modifications to such information, when appropriate. I personally performed the physical exam and medical decision making. Catalina Francisco, Nov 25, 2020,05:39 LAYTON FIERRO Nov 24, 2020 13:44 CATALINA FRANCISCO DO Nov 25, 2020 05:39
--- NOTE | 2020-11-24 14:14 | Pulmonary Consultation ---
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 CKD Cr 1.6 [facility] has pacemaker, recently interrogated HLD, COPD, CAD, recent cath 2017, Allergies and Home Medications Allergies Coded Allergies: aspirin (Verified Allergy, Severe, 05/11/19) clindamycin (Verified Allergy, Severe, swelling, 05/11/19) fosinopril (Verified Allergy, Severe, Rash, 05/11/19) lisinopril (Verified Allergy, Severe, Rash, 05/11/19) metronidazole (Verified Allergy, Unknown, 11/23/20) sulfamethoxazole (Verified Allergy, Unknown, 11/23/20) trimethoprim (Verified Allergy, Unknown, 11/23/20) Home Medications Acetaminophen 325 Mg Tablet, 325 MG PO Q4H PRN for PAIN-MILD, (Reported) Allopurinol 100 Mg Tablet, 100 MG PO DAILY, (Reported) Aspirin 81 Mg Tablet.dr, 81 MG PO DAILY, (Reported) Carvedilol 6.25 Mg Tablet, 6.25 MG PO BID, (Reported) Cetirizine HCl 10 Mg Tablet, 10 MG PO HS, (Reported) Cholecalciferol (Vitamin D3) 125 Mcg Tablet, 125 MCG PO SUN, (Reported) Citalopram Hydrobromide 20 Mg Tablet, 20 MG PO DAILY, (Reported) Cyclobenzaprine HCl 10 Mg Tablet, 10 MG PO TID, (Reported) Ferrous Sulfate 325 Mg Tablet, 325 MG PO Q48H, (Reported) Fluticasone Propionate 9.9 Ml [place].susp, 2 SPRAY NSEACH DAILY PRN for CONGESTION, (Reported) Furosemide 20 Mg Tablet, 20 MG PO DAILY, (Reported) Hydralazine HCl 50 Mg Tablet, 100 MG PO Q6H PRN for BLOOD PRESSURE, (Reported) TAKES 2 (50MG) TABS Hydrocodone/Acetaminophen 1 Each Tablet, 1 TAB PO TID PRN for PAIN-MODERATE (5- 7), (Reported) Levothyroxine Sodium 50 Mcg Tablet, 50 MCG PO DAILY, (Reported) Meclizine HCl 25 Mg Tablet, 25 MG PO DAILY PRN for DIZZINESS, (Reported) Memantine HCl 14 Mg Cap.spr.24, 14 MG PO DAILY, (Reported) Nitrofurantoin Monohyd/M-Cryst 100 Mg Capsule, 100 MG PO DAILY, (Reported) Ondansetron HCl 4 Mg Tablet, 4 MG PO Q8H PRN for NAUSEA/VOMITING-1ST LINE, (Reported) Oxycodone Myristate 18 Mg Cap.spr.12, 1 CAP PO Q12H, (Reported) Pantoprazole Sodium 40 Mg Tablet.dr, 40 MG PO DAILY, (Reported) Polyethylene Glycol 3350 17 Gm Powd.pack, 17 GM PO DAILY PRN for CONSTIPATION- 2ND LINE, (Reported) Potassium Chloride 10 Meq Capsule.er, 10 MEQ PO 1200, (Reported) Trazodone HCl 50 Mg Tablet, 50 MG PO HS, (Reported) Zolpidem Tartrate 5 Mg Tablet, 5 MG PO HS PRN for SLEEP, (Reported) Past Medical/Social/Family Hx Patient Social History Marrital Status: Living Status: reports that she is living with her son Employed/Student: retired Tobacco Use?: No Smoking Status: Former Smoker Substance use?: No Alcohol Use?: No Pt stated abuse/neglect: No Immunizations Up To Date Influenza Vaccine Up-to-Date: No; Not Current First/Initial COVID19 Vaccinat: 05/2020 Second COVID19 Vaccination Fermin: 06/2020 Tetanus Booster (TDap): Unknown Hepatitis A: No Hepatitis B: No TB Skin Test: None Date of Pneumonia Vaccine: Mar 04, 2016 Current Status Advance Directives: No Communicates: Verbally Primary Language: Syrian Preferred Spoken Language: Syrian Sensory deficits: Hearing impairment Implanted or Applied Medical D: Pacemaker Past Medical History PMHx: HTN Pacemaker Alzheimer Osteoarthritis Hypothyroidism Cervical Cancer PSurgHx: Pacemaker Back surgery Appendectomy Hysterectomy Review of Systems Constitutional: no symptoms reported Respiratory: see HPI Sepsis Event Evaluation Height, Weight, BMI Height: 5'2.00" Weight: 163lbs. 1.6oz. 73.235604kl; 34.26 BMI Method:Stated Exam Exam Patient acknowledged, consented, and participated in this virtual visit which was conducted using real time audio/video Vital Signs Date Time Temp Pulse Resp B/P (MAP) Pulse Ox O2 Delivery O2 Flow Rate FiO2 11/24/20 12:43 69 11/24/20 12:32 36.6 11/24/20 10:49 69 24 95 30.00 11/24/20 07:47 36.9 11/24/20 07:42 NIV Bilevel 30.00 98 11/24/20 06:39 66 14 97 30.00 11/24/20 06:31 67 11/24/20 04:01 36.4 NIV Bilevel 11/24/20 03:41 NIV Bilevel 30.00 11/24/20 03:20 17 99 30.00 11/24/20 03:10 63 18 99 30.00 11/24/20 01:00 67 11/24/20 00:00 36.2 65 16 121/69 (86) 99 Nasal Cannula 5.00 11/23/20 23:41 Nasal Cannula 5.00 11/23/20 22:13 36.2 11/23/20 22:09 36.5 64 95 40 11/23/20 21:43 36.2 11/23/20 20:00 36.2 65 16 103/90 (94) 96 Nasal Cannula 3.00 11/23/20 19:40 Nasal Cannula 5.00 11/23/20 19:03 70 11/23/20 17:58 60 16 116/62 95 Nasal Cannula 5.00 I & O 11/24/20 07:00 Intake Total 1280 ml Output Total 1400 ml Balance -120 ml Height & Weight Height: 5'2.00" Weight: 163lbs. 1.6oz. 73.533205vo; 34.26 BMI Method:Stated General Appearance: WD/WN, Anxious, Other (Somnolent) HEENT: PERRL/EOMI; No Photophobia Neck: Supple; No JVD Respiratory: Lungs Clear, Normal Breath Sounds, Rhonci Cardiovascular: Regular Rate, Rhythm, No Murmur Capillary Refill: Less Than 3 Seconds Gastrointestinal: normal bowel sounds, non tender Extremity: Non Tender, Pedal Edema (pedal edema with no pitting edema) Neurologic/Psychiatric: Alert, Oriented x3, Normal Mood/Affect Skin: Normal Color, Warm/Dry Results Lab Laboratory Tests 11/23/20 14:06 11/24/20 05:25 Assessment/Plan Assessment/Plan Mild CHF, CO2 rise may have been in part from meds, Looks much more awake now, sounds like had been on either AVAPS or BIPAPs Looks better, would continue present management, flu vaccine Time spent with patient (mins): 25 WOLFGANG CAGLE MD Nov 24, 2020 14:14
--- NOTE | 2020-11-24 14:58 | Occupational Therapy Eval ---
OT Evaluation-General/PLF Medical Diagnosis Admission Date Nov 23, 2020 at 18:40 Medical Diagnosis: RESP DE/FAILURE Onset Date: Nov 23, 2020 Therapy Diagnosis Therapy Diagnosis: decreased ADL Status, weakness Height/Weight Height (Feet): 5 Height (Inches): 2.00 Weight (Pounds): 163 Weight (Ounces): 1.6 Precautions Precautions/Isolations: Airborne Isolation, Fall Prevention Referral Physician: Jr Referral Reason: Evaluation/Treatment Medical History Pertinent Medical History: COPD, Dementia, GERD, HTN, [place], OA, Renal Insufficiency Additional Medical History Epilepsy, HTN, OA, RA, anxiety, atelectasis, Alzheimers, Dementia, HLD, COPD, Pacemaker, Asthma, GERD, hypothyroidism, hiatal hernia, cervical cancer, anemia Current History ED due to low O2 level. Home health aide found pt at 80% O2 saturation without oxygen. Social History Home: Single Level Current Living Status: Children Pt states she lives with her son but they aren't on good terms right now. ADL-Prior Level of Function SCALE: Activities may be completed with or without assistive devices. 1-Wtvoqqmspf-kvbsiam completes the activity by him/herself with no assistance from a helper. 5-Set-up or Clean-up Assistance-helper sets up or cleans up; patient completes activity. [place] assists only prior to or following the activity. 4-Supervision or Touching Assistance-helper provides verbal cues and/or touching/steadying and/or contact guard assistance as patient completes activity. Assistance may be provided throughout the activity or intermittently. 3-Partial/Moderate Assistance-helper does LESS THAN HALF the effort. [place] lifts, holds or supports trunk or limbs, but provides less than half the effort. 2-Substantial/Maximal Assistance-helper does MORE THAN HALF the effort. [place] lifts or holds trunk or limbs and provides more than half the effort. 4-Qaqgylrwf-oqvvzf does ALL the effort. Patient does none of the effort to complete the activity. Or, the assistance of 2 or more helpers is required for the patient to complete the activity. If activity was not attempted, code reason: 7-Patient Refused. 9-Not Applicable-not attempted and the patient did not perform the activity before the current illness, exacerbation or injury. 10-Not Attempted due to Environmental Limitations-(lack of equipment, weather restraints, etc.). 88-Not Attempted due to Medical Conditions or Safety Concerns. ADL PLOF Comments Pt indicates she is able to complete dressing and toileting by herself. Requires some assistance in the shower. Pt denies having home health assistance, but per chart review home health aide found pt with low O2 saturation leading to hospitalization. Accuracy of pt's history unknown due to history of dementia. Self Care: Needed Some Help Functional Cognition: Needed Some Help OT Current Status Subjective Pt in bed finished with lunch. She is on the phone with dietary to order a dessert. Mental Status/Objective Patient Orientation: Person, Place Attachments: Mason Catheter, Oxygen Current Glasses/Contacts: Yes Upper Extremity ROM WFL, BUE shoulder flexion to approx 140 degrees Upper Extremity Coordination WFL Upper Extremity Strength grossly 3+/5 ADL-Treatment Eating (QC): 6 (Pt IND with lunch and able to open lid of Powerade) Oral Hygiene (QC): 9 Toileting Hygiene (QC): 1 (catheter) Other Treatments Pt laying in bed, agreeable to OT evaluation and tx. Pt provided information about PLOF and home set up, accuracy of provided information unknown due to pt's history of dementia. Pt states she isn't on good terms with her son today, later in conversation pt revealed her son was talking about NICHELLE with pt. Pt declines OOB activities at this time, as she is waiting on dietary to bring her dessert that she ordered. Pt agreeable to UE exercises in order to increase BUE Strength and activity tolerance. Pt completed x10 reps each of the following BUE exercises: shoulder flexion, elbow flexion, elbow extension, finger flexion/extension. Pt took rest breaks as needed, O2 saturation remained in mid 90%'s throughout tx. Per PT evaluation, pt requires SBA with functional mobility using FWW for safety, and is IND with bed mobility and supine to/from sit. Post tx, pt in bed, call light in reach and all needs met. Education OT Patient Education: Correct positioning, Modified ADL techniques, Progress toward Goal/Update tx plan, Purpose of tx/functional activities, Rehab process Teaching Recipient: Patient Teaching Methods: Discussion Response to Teaching: Verbalize Understanding OT Group Home Goals Manager Skilled Goals Time Frame: Dec 09, 2020 Toileting Hygiene (QC): 6 Shower/Bathe Self (QC): 4 Upper Body Dressing (QC): 6 Lower Body Dressing (QC): 6 On/Off Footwear (QC): 6 Additional Goals: 1-Demonstrate ADL Tasks, 2-Verbalize Understanding, 3-ImproveStrength/[place] 1=Demonstrate adherence to instructed precautions during ADL tasks. 2=Patient will verbalize/demonstrate understanding of assistive devices/modifications for ADL. 3=Patient will improve strength/tolerance for activity to enable patient to perf orm ADL's. OT Education/Plan Problem List/Assessment Assessment: Decreased Activ Tolerance, Decreased UE Strength, Impaired Funct Balance, Impaired I ADL's, Impaired Self-Care Skills Discharge Recommendations Plan/Recommendations: Continue POC Treatment Plan/Plan of Care Patient would benefit from OT for education, treatment and training to promote independence in ADL's, mobility, safety and/or upper extremity function for ADL's. Plan of Care: ADL Retraining, Functional Mobility, UE Funct Exercise/Act Treatment Duration: Dec 09, 2020 Frequency: 5 times per week Estimated Hrs Per Day: .25 hour per day Time/GCodes Start Time: 14:29 Stop Time: 14:42 Total Time Billed (hr/min): 13 Billed Treatment Time 1, ROD COWART OT Nov 24, 2020 14:58
--- NOTE | 2020-11-24 15:15 | Physical Therapy Evaluation ---
PT Evaluation-General Medical Diagnosis Admission Date Nov 23, 2020 at 18:40 Medical Diagnosis: RESP DE/FAILURE Onset Date: Nov 23, 2020 Therapy Diagnosis Therapy Diagnosis: debility/weakness Height/Weight Height (Feet): 5 Height (Inches): 2.00 Weight (Pounds): 163 Weight (Ounces): 1.6 Precautions Precautions/Isolations: Fall Prevention, Standard Precautions Referral Physician: Jr Reason for Referral: Evaluation/Treatment Medical History Pertinent Medical History: CAD (pacemaker), COPD, Dementia, GERD, HTN, AR, OA, Renal Insufficiency Current History EMS secondary to SOA Social History Home: Single Level Current Living Status: Children Entry Into Home: Level Entry Prior Prior Level of Function SCALE: Activities may be completed with or without assistive devices. 1-Gioabxatre-sbzdgtr completes the activity by him/herself with no assistance from a helper. 5-Set-up or Clean-up Assistance-helper sets up or cleans up; patient completes activity. [place] assists only prior to or following the activity. 4-Supervision or Touching Assistance-helper provides verbal cues and/or touching/steadying and/or contact guard assistance as patient completes activity . Assistance may be provided throughout the activity or intermittently. 3-Partial/Moderate Assistance-helper does LESS THAN HALF the effort. [place] lifts, holds or supports trunk or limbs, but provides less than half the effort. 2-Substantial/Maximal Assistance-helper does MORE THAN HALF the effort. [place] lifts or holds trunk or limbs and provides more than half the effort. 8-Wdgaskcyh-ixdikl does ALL the effort. Patient does none of the effort to complete the activity. Or, the assistance of 2 or more helpers is required for the patient to complete the activity. If activity was not attempted, code reason: 7-Patient Refused. 9-Not Applicable-not attempted and the patient did not perform the activity before the current illness, exacerbation or injury. 10-Not Attempted due to Environmental Limitations-(lack of equipment, weather restraints, etc.). 88-Not Attempted due to Medical Conditions or Safety Concerns. Bed Mobility: 6 Transfers (B,C,W/C): 6 Gait: 6 Indoor Mobility (Ambulation): Independent Stairs: Not Applicalbe Prior Devices Use: Walker PT Evaluation-Current Subjective Patient agrees to PT. Declined gait belt use. Objective Patient Orientation: Person, Time, Situation Attachments: Oxygen ROM/Strength ROM Lower Extremities bilateral LE WFL Strength Lower Extremities 4-/5 grossly bilateral LE Integumentary/Posture Bladder Incontinence: Mason Cath Posture slight trunk flexed posture Neuromuscular (Tone, Coordination, Reflexes) grossly intact Sensory Vision: Functional Hearing: Functional Transfers Roll Left to Right (QC): 6 Sit to Lying (QC): 6 Lying to Sitting/Side of Bed(Q: 6 Sit to Stand (QC): 4 Chair/Fsv-bj-Mvpcx Xfer(QC): 4 SBA for safety Gait Does the Patient Walk?: Yes Mode of Locomotion: Walk Anticipated Mode of Locomotion: Walk Walk 10 feet (QC): 4 Walk 50 ft with 2 Turns(QC): 4 Gait Assistive Device: FWW Comments/Gait Description steady gait sequence Wheelchair Training Does the Pt Use a Wheelchair?: No Balance Sitting Static: Normal Sitting Dynamic: Normal Standing Static: Good Standing Dynamic: Good Assessment/Needs 85 y.o. female, will be seen short term by skilled PT to address functional mobility to ensure safe return to home at maximum LOF Rehab Potential: Fair PT Balance Bridge Inspector Goals Assisted Goals PT Balance Bridge Inspector Goals Time Frame: Dec 03, 2020 Roll Left & Right (QC): 6 Sit to Lying (QC): 6 Lying-Sitting on Side/Bed(QC): 6 Sit to Stand (QC): 6 Chair/Bgi-ht-Tcsku Xfer(QC): 6 Toilet Transfer (QC): 6 Walk 10 feet (QC): 6 Walk 50ft with 2 Turns (QC): 6 Walk 150 ft (QC): 6 PT Plan Problem List Problem List: Activity Tolerance, Safety, Gait Treatment/Plan Treatment Plan: Continue Plan of Care Treatment Plan: Bed Mobility, Education, Functional Activity Hayden, Functional Strength, Gait, Safety, Therapeutic Exercise, Transfers Treatment Duration: Dec 03, 2020 Frequency: 6 times per week Estimated Hrs Per Day: .25 hour per day Time/GCodes Time In: 1450 Time Out: 1507 Total Billed Treatment Time: 17 Total Billed Treatment 1 visit EVModC 17 min STALIN GRADY PT Nov 24, 2020 15:14
[2020-11-24 15:30] VITALS: BP 105/51
[2020-11-24 19:09] VITALS: BP 109/55
[2020-11-24] MEDS ORDERED: RT-ALBUTEROL/IPRATROPIUM 3 ML (DUONEB) VIAL ONE (21:20)
[2020-11-24] MEDS ORDERED: HYDROcodone/APAP 5 MG/325 MG (LORTAB) TAB PO PRN (21:30)
[2020-11-24] MEDS ORDERED: ZOLPIDEM 5 MG (AMBIEN) TAB PO PRN (21:30)
[2020-11-24] MEDS ORDERED: ACETAMINOPHEN 325 MG TABLET PO PRN (21:30)
[2020-11-24] MEDS ORDERED: MECLIZINE 25 MG (ANTIVERT) TAB PO PRN (21:30)
[2020-11-24] MEDS ORDERED: polyethylene glycoL POWDER 17 GM (MIRALAX) PACK PO PRN (21:30)
[2020-11-24] MEDS ORDERED: NON-FORMULARY MEDICATION 1 EA EA (Hydralazine HCl 100 MG) PO PRN (21:30)
[2020-11-24] MEDS ORDERED: FERROUS SULF 325 MG (IRON) TAB PO SCH (21:30)
[2020-11-24] MEDS ORDERED: NON-FORMULARY MEDICATION 1 EA EA (Ondansetron HCl 4 MG) PO PRN (21:30)
[2020-11-24] MEDS ORDERED: CYCLOBENZAPRINE 10 MG (FLEXERIL) TAB PO PRN (21:30)
[2020-11-24] MEDS ORDERED: FLUTICASONE NASAL SPRAY (FLONASE) 16 GM BTL NS PRN (22:30)
[2020-11-25] VITALS: BP 103/67
[2020-11-25] MEDS: RT-ALBUTEROL/IPRATROPIUM 3 ML (DUONEB) VIAL INH SCH ×3 (02:48→10:33)
[2020-11-25 04:12] VITALS: BP 113/74
[2020-11-25] MEDS: FUROSEMIDE 40 MG/4 ML INJ (LASIX) IVP SCH (05:54)
[2020-11-25 06:56] LABS: BASOPHILS # (AUTO) 0.1 10^3/uL (0.0-0.1); BASOPHILS % (AUTO) 1 % (0-10); EOSINOPHILS # (AUTO) 0.2 10^3/uL (0.0-0.3); EOSINOPHILS % (AUTO) 3 % (0-10); HEMATOCRIT 37 % (35-52); HEMOGLOBIN 11.9 g/dL (11.5-16.0); LYMPHOCYTES # (AUTO) 3.5 10^3/uL (1.0-4.0); LYMPHOCYTES % (AUTO) 37 % (12-44); MEAN CORPUSCULAR HEMOGLOBIN 31 pg (25-34); MEAN CORPUSCULAR HGB CONC 32 g/dL (32-36); MEAN CORPUSCULAR VOLUME 97 fL (80-99); MEAN PLATELET VOLUME 9.2 fL (9.0-12.2); MONOCYTES # (AUTO) 0.6 10^3/uL (0.0-1.0); MONOCYTES % (AUTO) 6 % (0-12); NEUTROPHILS # (AUTO) 5.2 10^3/uL (1.8-7.8); NEUTROPHILS % (AUTO) 54 % (42-75); PLATELET COUNT 205 10^3/uL (130-400); WHITE BLOOD COUNT 9.6 10^3/uL (4.3-11.0)
[2020-11-25 07:09] LABS: ALBUMIN 3.6 GM/DL (3.2-4.5)
[2020-11-25 07:10] LABS: CALCIUM 9.1 MG/DL (8.5-10.1)
[2020-11-25 07:11] LABS: TOTAL PROTEIN 6.3 GM/DL (6.4-8.2)
[2020-11-25 07:13] LABS: BILIRUBIN,TOTAL 0.3 MG/DL (0.1-1.0)
[2020-11-25 07:15] LABS: CREATININE SERUM 1.5 MG/DL (0.60-1.30)
[2020-11-25 07:44] VITALS: BP 129/76
[2020-11-25] MEDS ORDERED: ASPIRIN E.C. 81 MG (ECOTRIN) TAB PO SCH (09:00)
[2020-11-25] MEDS ORDERED: NITROFURANTOIN 100 MG (MACROBID) CAPSULE PO SCH (09:00)
[2020-11-25] MEDS ORDERED: FUROSEMIDE 20 MG (LASIX) TAB PO SCH (09:00)
[2020-11-25] MEDS ORDERED: ALLOPURINOL 100 MG (ZYLOPRIM) TAB PO SCH (09:00)
[2020-11-25] MEDS ORDERED: PANTOPRAZOLE 40 MG (PROTONIX) TAB PO SCH (09:00)
[2020-11-25] MEDS ORDERED: MEMANTINE 5 MG (NAMENDA) TABLET PO SCH (09:00)
[2020-11-25] MEDS ORDERED: LEVOTHYROXINE 50 MCG (LEVOTHROID) TAB PO SCH (09:00)
[2020-11-25] MEDS: ENOXAPARIN 30 MG/0.3 ML (LOVENOX) SYR SC SCH (09:22)
[2020-11-25] MEDS: polyethylene glycoL POWDER 17 GM (MIRALAX) PACK PO SCH ×2 (09:23→09:31)
[2020-11-25] MEDS: SENNA W/DOCUSATE (SENOKOT S) TABLET PO SCH ×2 (09:24→09:31)
--- NOTE | 2020-11-25 10:30 | Occ Therapy Progress Note ---
Therapy Progress Note OT attempted tx, pt adamantly declined. OT educated pt on purpose and benefit of therapy, encouraging pt to complete ADL tx or UE exercises. She continued to refuse tx at this time, stating her arms are strong and she is able to take care of herself when she leaves. Pt does not want to shower at this time as she only has dirty clothes and she expressed that she would not want this therapist to be in the bathroom with her as she took a shower. OT attempted to educate pt on safety aspects and reasoning for therapy, but pt continued to refuse, talking over this therapist at times. OT will attempt tx again later. 1, refusal 1012 ROD ORNELAS OT Nov 25, 2020 10:30
--- NOTE | 2020-11-25 11:17 | Physical Therapy Daily Note ---
PT Daily Note-Current Subjective Patient agrees to PT. Mental Status Patient Orientation: Person, Time, Situation Attachments: Mason Catheter Transfers SCALE: Activities may be completed with or without assistive devices. 8-Trddwgaylp-bdtyqtg completes the activity by him/herself with no assistance from a helper. 5-Set-up or Clean-up Assistance-helper sets up or cleans up; patient completes activity. [place] assists only prior to or following the activity. 4-Supervision or Touching Assistance-helper provides verbal cues and/or touching/steadying and/or contact guard assistance as patient completes activity. Assistance may be provided throughout the activity or intermittently. 3-Partial/Moderate Assistance-helper does LESS THAN HALF the effort. [place] lifts, holds or supports trunk or limbs, but provides less than half the effort. 2-Substantial/Maximal Assistance-helper does MORE THAN HALF the effort. [place] lifts or holds trunk or limbs and provides more than half the effort. 1-Kfttktbju-nwcnka does ALL the effort. Patient does none of the effort to complete the activity. Or, the assistance of 2 or more helpers is required for the patient to complete the activity. If activity was not attempted, code reason: 7-Patient Refused. 9-Not Applicable-not attempted and the patient did not perform the activity before the current illness, exacerbation or injury. 10-Not Attempted due to Environmental Limitations-(lack of equipment, weather restraints, etc.). 88-Not Attempted due to Medical Conditions or Safety Concerns. Sit to Stand (QC): 5 Chair/Ylj-lk-Qfxho Xfer(QC): 5 Gait Training Does the Patient Walk?: Yes Distance: 50' Walk 10 feet (QC): 5 Walk 50 ft with 2 Turns(QC): 5 Gait Assistive Device: FWW safe and functional with no deviation Assessment Patient up in recliner with needs met. Increase activity. PT Long-Term Goals Long-Term Goals PT Management Trainee Program Stores Goals Time Frame: Dec 03, 2020 Roll Left & Right (QC): 6 Sit to Lying (QC): 6 Lying-Sitting on Side/Bed(QC): 6 Sit to Stand (QC): 6 Chair/Mre-lv-Pjmyb Xfer(QC): 6 Toilet Transfer (QC): 6 Walk 10 feet (QC): 6 Walk 50ft with 2 Turns (QC): 6 Walk 150 ft (QC): 6 PT Plan Treatment/Plan Treatment Plan: Continue Plan of Care Treatment Plan: Bed Mobility, Education, Functional Activity Hayden, Functional Strength, Gait, Safety, Therapeutic Exercise, Transfers Treatment Duration: Dec 03, 2020 Frequency: 6 times per week Estimated Hrs Per Day: .25 hour per day Time/GCodes Time In: 801 Time Out: 815 Total Billed Treatment Time: 14 Total Billed Treatment 1 visit FA 14 min STALIN GRADY PT Nov 25, 2020 11:17
[2020-11-25] MEDS ORDERED: CYCL10TA9 PO (11:29)
[2020-11-25] MEDS ORDERED: TRZ50T PO (11:29)
--- NOTE | 2020-11-25 11:30 | D/C HH Face to Face Order ---
D/C Face to Face Orders Reconcile Patient Problems Problems Reviewed?: Yes Instructions for Patient HH Patient Instructions/FollowUp: Debility Physician to follow Patient: [facility] Discharge Diet for Home: No Restrictions Patient Problems: Debility Patient Data-Allergies,Ht & Wt Patient Allergies: Coded Allergies: aspirin (Verified Allergy, Severe, 05/11/19) clindamycin (Verified Allergy, Severe, swelling, 05/11/19) fosinopril (Verified Allergy, Severe, Rash, 05/11/19) lisinopril (Verified Allergy, Severe, Rash, 05/11/19) metronidazole (Verified Allergy, Unknown, 11/23/20) sulfamethoxazole (Verified Allergy, Unknown, 11/23/20) trimethoprim (Verified Allergy, Unknown, 11/23/20) Height (Feet): 5 Height (Inches): 2.00 Weight (Pounds): 163 Weight (Ounces): 1.6 Home Health Need/Face to Face Date of Face to Face: Nov 25, 2020 Clinical Findings: Generalized weakness and fatigue, Instability, Muscle weakness, Unsteady gait I have seen Pt dlln-fj-rucl: Yes Discharged To: Home Diagnosis/Conditions: Debility Patient is Homebound due to: Cl fall risk due to instabilty, Muscle weakness Homebound Status Due to the above stated illness, injury or surgical procedure (medical condition or diagnosis) and associated clinical findings, the patient is homebound because of his/her inability to leave home except with aid of a supportive device and/or person AND leaving the home requires a considerable and taxing effort or is medically contraindicated. Pt req the following assistanc: Walker Home Health Nursing Orders Home Health Services Order: Nursing Services, Associate Medical Director-Evaluate & Treat, Physical Therapy-Evaluate & Treat Home Health Infusion Therapy Line Start Date: Nov 23, 2020 Certify Stmt I certify that this patient is under my care and that I, a nurse practitioner or a physician; a fire assistant working with me, had a face to face encounter that - meets the physician face to face encounter requirements with this patient as dated. ELENA FRANCISCO DO Nov 25, 2020 11:30
--- NOTE | 2020-11-25 11:31 | Discharge Summary ---
Discharge Summary Hospital Course Was the Problem List Reviewed?: Yes Problems/Dx: (1) Acute respiratory failure with hypoxia and hypercapnia Status: Acute (2) Alzheimer disease Status: Chronic (3) Dehydration Status: Acute (4) Hypothyroidism Status: Chronic (5) Acute kidney injury Status: Acute (6) Oxygen dependent Status: Chronic (7) Chronic pain Status: Chronic (8) Hypertension Status: Chronic Hospital Course Date of Admission: Nov 23, 2020 at 18:40 Admission Diagnosis : Family Physician/Provider: Elicia Maloney MD Date of Discharge: 11/25/20 Discharge Diagnosis: Acute hypoxic hypercapnic respiratory failure due to oversedation from polypharmacy Hospital Course: LAYTON FIERRO 11/25/20 1351: Discharge On 11/23 a 85yo F was brought to the ED from [place] via EMS due to lethargy and low O2 saturation with difficulty to arouse in the morning. She was assessed by ED that determined she was too heavily medicated on pain pills which caused her respiratory depression. She is on 2L of oxygen at home and is currently on BIPAP at 30L/min at FiO2 of 98, due to her improving O2 saturation she was taken off BIPAP on 11/24. She also reported CP and shoulder pain on the left side on 11/23 but denies these symptoms on 11/24. Her CXR did not indicate anything concerning except for stable cardiomeagly and her EKG did not show any IA but showed slightly prolonged MI interval, slightly prolonged QRS, Prolonged QT with Left [place] deviation, and normal troponin levels. Her breathing improved during the next two days and was given 3L/min via N/C as needed. She will be discharged on 11/25 with home health, orders to follow up with PCP to adjust her medications, and see ENT for her persistent nosebleeds. Labs and Pending Lab Test: Laboratory Tests 11/25/20 06:45: White Blood Count 9.6, Red Blood Count 3.85, Hemoglobin 11.9, Hematocrit 37, Mean Corpuscular Volume 97, Mean Corpuscular Hemoglobin 31, Mean Corpuscular Hemoglobin Concent 32, Red Cell Distribution Width 13.8, Platelet Count 205, Mean Platelet Volume 9.2, Immature Granulocyte % (Auto) 0, Neutrophils (%) (Auto) 54, Lymphocytes (%) (Auto) 37, Monocytes (%) (Auto) 6, Eosinophils (%) (Auto) 3, Basophils (%) (Auto) 1, Neutrophils # (Auto) 5.2, Lymphocytes # (Auto) 3.5, Monocytes # (Auto) 0.6, Eosinophils # (Auto) 0.2, Basophils # (Auto) 0.1, Immature Granulocyte # (Auto) 0.0, Sodium Level 138, Potassium Level 4.0, Chloride Level 102, Carbon Dioxide Level 25, Anion Gap 11, Blood Urea Nitrogen 25H, Creatinine 1.50H, Estimat Glomerular Filtration Rate 40, BUN/Creatinine Ratio 17, Glucose Level 131H, Calcium Level 9.1, Corrected Calcium 9.4, Total Bilirubin 0.3, Aspartate Amino Transf (AST/SGOT) 15, Alanine Aminotransferase (ALT/SGPT) 11, Alkaline Phosphatase 94, Total Protein 6.3L, Albumin 3.6 Microbiology 11/23/20 Blood Culture - Preliminary, Resulted No growth Home Meds Active Trazodone HCl 50 Mg Tablet 100 Mg PO HS Cyclobenzaprine HCl 10 Mg Tablet 5 Mg PO BID PRN Reported Hydralazine HCl 50 Mg Tablet 100 Mg PO Q6H PRN TAKES 2 (50MG) TABS Flonase Allergy Relief (Fluticasone Propionate) 9.9 Ml [place].susp 2 [place] NSEACH DAILY PRN Cyclobenzaprine HCl 10 Mg Tablet 10 Mg PO TID Ondansetron HCl 4 Mg Tablet 4 Mg PO Q8H PRN Potassium Chloride 10 Meq Capsule.er 10 Meq PO 1200 Carvedilol 6.25 Mg Tablet 6.25 Mg PO BID Cetirizine HCl 10 Mg Tablet 10 Mg PO HS Nitrofurantoin [place]-Mcr 100 mg (Nitrofurantoin Monohyd/M-Cryst) 100 Mg Capsule 100 Mg PO DAILY Furosemide 20 Mg Tablet 20 Mg PO DAILY Ferosul (Ferrous Sulfate) 325 Mg Tablet 325 Mg PO Q48H Zolpidem Tartrate 5 Mg Tablet 5 Mg PO HS PRN Vitamin D3 (Cholecalciferol (Vitamin D3)) 125 Mcg Tablet 125 Mcg PO SUN Hydrocodone-Acetamin 5-325 mg (Hydrocodone/Acetaminophen) 1 Each Tablet 1 Tab PO TID PRN Xtampza ER (Oxycodone Myristate) 18 Mg Cap.spr.12 1 Cap PO Q12H Allopurinol 100 Mg Tablet 100 Mg PO DAILY Citalopram HBr (Citalopram Hydrobromide) 20 Mg Tablet 20 Mg PO DAILY Aspirin EC (Aspirin) 81 Mg Tablet.dr 81 Mg PO DAILY Meclizine HCl 25 Mg Tablet 25 Mg PO DAILY PRN Miralax (Polyethylene Glycol 3350) 17 Gm Powd.pack 17 Gm PO DAILY PRN Acetaminophen 325 Mg Tablet 325 Mg PO Q4H PRN Memantine HCl ER (Memantine HCl) 14 Mg Cap.spr.24 14 Mg PO DAILY Trazodone HCl 50 Mg Tablet 50 Mg PO HS Pantoprazole Sodium 40 Mg Tablet.dr 40 Mg PO DAILY Levothyroxine Sodium 50 Mcg Tablet 50 Mcg PO DAILY Assessment/Pt Instructions PCP in 1 week Discharge Planning: <30 minutes discharge planning Discharge Instructions Discharge Diet: No Restrictions Discharge Physical Examination Vital Signs Vital Signs Date Time Temp Pulse Resp B/P (MAP) Pulse Ox O2 Delivery O2 Flow Rate FiO2 11/25/20 10:33 90 Room Air 11/25/20 07:44 35.9 74 18 129/76 (93) 11/25/20 04:12 3.00 11/24/20 20:00 96 General Appearance: No Apparent Distress, WD/WN, Chronically ill Respiratory: Lungs Clear Cardiovascular: Regular Rate, Rhythm Neurologic/Psychiatric: Alert, Oriented x3 Allergies: Coded Allergies: aspirin (Verified Allergy, Severe, 05/11/19) clindamycin (Verified Allergy, Severe, swelling, 05/11/19) fosinopril (Verified Allergy, Severe, Rash, 05/11/19) lisinopril (Verified Allergy, Severe, Rash, 05/11/19) metronidazole (Verified Allergy, Unknown, 11/23/20) sulfamethoxazole (Verified Allergy, Unknown, 11/23/20) trimethoprim (Verified Allergy, Unknown, 11/23/20) Discharge Summary Date of Admission Nov 23, 2020 at 18:40 Date of Discharge Discharge Date: Nov 25, 2020 Admission Diagnosis Assessment: Acute hypoxic hypercapnic respiratory failure Polypharmacy with oversedation Advanced age at 85 years old Plan: DC BiPAP Transfer to fourth floor Monitor closely Minimize polypharmacy ELENA FRANCISCO DO Nov 25, 2020 11:31
[2020-11-25] MEDS ORDERED: KCL 10 MEQ TAB (MICRO K) PO SCH (12:00)
[2020-11-25 12:03] VITALS: BP 121/77
--- NOTE | 2020-11-25 12:45 | Cardiology Progress Note ---
Subjective Date Seen by Provider: Nov 25, 2020 Time Seen by Provider: 12:43 Subjective/Events-last exam Patient was seen at bedside, sitting comfortably, breathing better. No new complaint Review of Systems General: No Chills, No Night Sweats, No Fatigue, No Malaise, No Appetite, No Other HEENT: No Head Aches, No Visual Changes, No Eye Pain, No Ear Pain, No Dysphas ia, No Sinus Congestion, No Post Nasal Drip, No Sore Throat, No Other Pulmonary: No Dyspnea, No Cough, No Pleuritic Chest Pain, No Other Cardiovascular: No: Chest Pain, Palpitations, Orthopnea, Paroxysmal Noc. Dyspnea, Edema, Lt Headedness, Other Focused Exam Lactate Level 11/23/20 14:06: Lactic Acid Level 1.43 Objective-Cardiology Exam Last Set of Vital Signs Vital Signs 11/24/20 11/25/20 11/25/20 20:00 04:12 12:03 Temp 37.0 Pulse 78 Resp 16 B/P (MAP) 121/77 (92) Pulse Ox 93 O2 Delivery Room Air O2 Flow Rate 3.00 FiO2 96 I&O Intake and Output 11/25/20 00:00 Intake Total 1940 ml Output Total 3475 ml Balance -1535 ml Intake Oral 1940 ml Output Urine Total 3475 ml General: Alert, Oriented X3, Cooperative HEENT: Atraumatic, PERRLA Neck: Supple, No JVD, No Thyromegaly Lungs: Clear to Auscultation, Normal Air Movement Heart: Regular Rate, Normal S1, Normal S2, No Murmurs Abdomen: Normal Bowel Sounds, Soft, No Tenderness, No Hepatosplenomegaly, No Masses Extremities: No Clubbing, No Cyanosis, No Edema, Normal Pulses, No Tenderness/Swelling Skin: No Rashes, No Breakdown, No Significant Lesion Neuro: Normal Gait, Normal Speech, Strength at 5/5 X4 Ext, Normal Tone, Sensation Intact Psych/Mental Status: Mental Status NL, Mood NL Results Lab Laboratory Tests 11/25/20 06:45 A/P-Cardiology Admission Diagnosis Acute respiratory failure Coronary artery disease Hypertension Cardiac risk Assessment/Plan Status post acute respiratory failure with hypercapnia and hypoxemia, improved, back to her baseline, had negative COVID-19 test. Followed and managed by Dr. Norris. History of congestive heart failure, maintained on beta vicente, Lasix. No signs of increasing heart failure at this time. Last BNP was 31.9. Troponin negative. Cardiac catheterization done Dr. Stroud in [facility] done in March 2017 reporting normal coronary repeat cardiac catheterization with Dr. 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 Sick sinus syndrome, history of permanent pacemaker implant done by Dr. Sharp and, last interrogation was done in my office in April 2020 showing good sensing and capture activity, no significant arrhythmia. Echocardiogram done in June 2020. EF 55-60%. Mild mitral regurgitation. Pulmonary artery systolic pressure of 55-60mmHg Hypertension, patient reports labile hypertension, Coreg recently decreased by primary care physician. Blood pressure well-controlled at this time. Continue to monitor. Nonobstructive carotid artery stenosis. Hyperlipidemia, controlled. continue to monitor. Chronic kidney disease, mild renal insufficiency, History of left hip replacement surgery Patient has improved, feeling better, okay for discharge from cardiology standpoint HARPAL FIELD MD Nov 25, 2020 12:45
--- NOTE | 2020-11-25 13:48 | Occ Therapy Progress Note ---
Therapy Progress Note OT attempted treatment this afternoon, pt declined as she is supposed to be discharging later today. OT educated pt on purpose and benefit of OT, but she continued to decline. OT will attempt again next available time if pt still admitted to hospital. 1, refusal 1330 ROD ORNELAS OT Nov 25, 2020 13:48
--- NOTE | 2020-11-25 13:51 | Progress Note ---
WALESKABRENDENCIARARYANVISHNUSHA 11/25/20 1351: Progress Note Discharge On 11/23 a 85yo F was brought to the ED from [place] via EMS due to lethargy and low O2 saturation with difficulty to arouse in the morning. She was assessed by ED that determined she was too heavily medicated on pain pills which caused her respiratory depression. She is on 2L of oxygen at home and is currently on BIPAP at 30L/min at FiO2 of 98, due to her improving O2 saturation she was taken off BIPAP on 11/24. She also reported CP and shoulder pain on the left side on 11/23 but denies these symptoms on 11/24. Her CXR did not indicate anything concerning except for stable cardiomeagly and her EKG did not show any NC but showed slightly prolonged [place] interval, slightly prolonged QRS, Prolonged QT with Left [place] deviation, and normal troponin levels. Her breathing improved during the next two days and was given 3L/min via N/C as needed. She will be discharged on 11/25 with home health, orders to follow up with PCP to adjust her medications, and see ENT for her persistent nosebleeds. ELENA FRANCISCO DO 11/26/20 0631: Supervisory-Addendum Brief Verification & Attestation Participated in pt care: history, MDM, physical Personally performed: exam, history, MDM, supervision of care Care discussed with: Medical Student Procedures: n/a Results interpretation: Verified all documentation Verification and Attestation of Medical Student E/M Service A medical student performed and documented this service in my presence. I reviewed and verified all information documented by the medical student and made modifications to such information, when appropriate. I personally performed the physical exam and medical decision making. Elena Francisco, Nov 26, 2020,06:31 LAYTON FIERRO Nov 25, 2020 13:51 ELENA FRANCISCO DO Nov 26, 2020 06:31
[2020-11-25] MEDS ORDERED: LORATADINE (CLARITIN) 10 MG TAB PO SCH (21:00)
[2020-11-25] MEDS ORDERED: traZODone 50 MG (DESYREL) TAB PO SCH (21:00)
[2020-11-27] MEDS ORDERED: VITAMIN D3 125 MCG (5,000 UNITS) CAPSULE PO SCH (09:00)
== END 2020-11-25 17:00 | disposition home health service (06) | DRG 189 ==
LOC: EDUNIT# 13:45 → ER FS 13:48 → CSD 18:40 → 4TH 11-24 15:30
PROVIDERS: ADMIT Internal Medicine; ATTEND Internal Medicine
PROC: 5A09357 Assistance with Respiratory Ventilation, Less than 24 Consecutive Hours, Continuous Positive Airway Pressure (ICD-10-PCS; principal; 2020-11-23)
PROC: 5A0935A Assistance with Respiratory Ventilation, Less than 24 Consecutive Hours, High Flow/Velocity Cannula (ICD-10-PCS; 2020-11-23)
DX: J96.21 Acute and chronic respiratory failure with hypoxia (principal); I13.0 Hypertensive heart and chronic kidney disease with heart failure and stage 1 through stage 4 chronic kidney disease, or unspecified chronic kidney disease; J96.22 Acute and chronic respiratory failure with hypercapnia; T40.2X5A Adverse effect of other opioids, initial encounter; T42.6X5A Adverse effect of other antiepileptic and sedative-hypnotic drugs, initial encounter; T43.215A Adverse effect of selective serotonin and norepinephrine reuptake inhibitors, initial encounter; Z20.822 Contact with and (suspected) exposure to COVID-19; J44.9 Chronic obstructive pulmonary disease, unspecified; N18.9 Chronic kidney disease, unspecified; I50.9 Heart failure, unspecified; G30.9 Alzheimer's disease, unspecified; F02.80 Dementia in other diseases classified elsewhere, unspecified severity, without behavioral disturbance, psychotic disturbance, mood disturbance, and anxiety; E78.5 Hyperlipidemia, unspecified; F41.9 Anxiety disorder, unspecified; M19.91 Primary osteoarthritis, unspecified site; M06.9 Rheumatoid arthritis, unspecified; G40.909 Epilepsy, unspecified, not intractable, without status epilepticus; K21.9 Gastro-esophageal reflux disease without esophagitis; E03.9 Hypothyroidism, unspecified; H91.90 Unspecified hearing loss, unspecified ear; I25.10 Atherosclerotic heart disease of native coronary artery without angina pectoris; I49.5 Sick sinus syndrome; N28.9 Disorder of kidney and ureter, unspecified; Z85.41 Personal history of malignant neoplasm of cervix uteri; Z99.81 Dependence on supplemental oxygen; Z96.642 Presence of left artificial hip joint; Z79.82 Long term (current) use of aspirin; Z88.6 Allergy status to analgesic agent; Z88.1 Allergy status to other antibiotic agents; Z88.8 Allergy status to other drugs, medicaments and biological substances; Z82.49 Family history of ischemic heart disease and other diseases of the circulatory system
CPT/HCPCS: 36415; 36600; 51702; 71045; 80053; 81000; 82805; 83605; 83880; 84484; 85007; 85025; 85027; 87040; 87636; 93005; 94640; 94660; 94760; 96374

== ENCOUNTER 2021-01-29 13:50 | Emergency (ER) | payer MEDICARE, MEDICAID ==
[~2021-01-29] VITALS: Ht 157.5 cm; Wt 70.3 kg
[~2021-01-29 13:50] MED LIST changes: +CYCL10TA25 PO; -CYCL10TA9 PO; -POTA10TA36 PO; +POTA10TA37 PO
--- NOTE | 2021-01-29 13:57 | ED General ---
General Chief Complaint: COVID19 Suspect/Confirmed Stated Complaint: COVID POSTIVE Source of Information: Patient History of Present Illness Date Seen by Provider: Jan 29, 2021 Time Seen by Provider: 13:52 Initial Comments 85-year-old female presenting from urgent care with complaints of being positive for Covid. She states that she has chronic nasal congestion but it has been worse in the last several days. She denies any fever, chills, nausea, vomiting, diarrhea. She does have mild cough and sinus pressure headache. She had a positive test at the urgent care today and they sent her here to the emergency department. The patient's only complaint is the increased nasal congestion on top of her chronic nasal congestion she has. Associated Systoms: No Chest Pain; Cough; No Diaphoresis, No Fever/Chills; Headaches (frontal and maxillary sinus headache); No Loss of Appetite, No Malaise, No Nausea/Vomiting, No Rash, No Seizure; Shortness of Air (some mild chronic soa, no worse than usual); No Syncope, No Weakness Allergies and Home Medications Allergies Coded Allergies: aspirin (Verified Allergy, Severe, 05/11/19) clindamycin (Verified Allergy, Severe, swelling, 05/11/19) fosinopril (Verified Allergy, Severe, Rash, 05/11/19) lisinopril (Verified Allergy, Severe, Rash, 05/11/19) metronidazole (Verified Allergy, Unknown, 11/23/20) sulfamethoxazole (Verified Allergy, Unknown, 11/23/20) trimethoprim (Verified Allergy, Unknown, 11/23/20) Patient Home Medication List Home Medication List Reviewed: Yes Acetaminophen (Acetaminophen) 325 Mg Tablet, 325 MG PO Q4H PRN for PAIN-MILD, (Reported) Entered as Reported by: LO FISHER on 11/04/18 1119 Allopurinol (Allopurinol) 100 Mg Tablet, 100 MG PO DAILY, (Reported) Entered as Reported by: GHADA YEBOAH on 06/30/202043 Aspirin (Aspirin EC) 81 Mg Tablet.dr, 81 MG PO DAILY, (Reported) Entered as Reported by: DAVIDSON CASTILLO on 03/02/19 0930 Azithromycin (Azithromycin) 500 Mg Tablet, 500 MG PO DAILY Prescribed by: ABENA MEJIAS on 01/29/21 1514 Carvedilol (Carvedilol) 6.25 Mg Tablet, 6.25 MG PO BID, (Reported) Entered as Reported by: DAVIDSON CASTILLO on 10/19/20 112 Cetirizine HCl (Cetirizine HCl) 10 Mg Tablet, 10 MG PO HS, (Reported) Entered as Reported by: DAVIDSON CASTILLO on 10/19/201121 Cholecalciferol (Vitamin D3) (Vitamin D3) 125 Mcg Tablet, 125 MCG PO SUN, (Reported) Entered as Reported by: DAVIDSON CASTILLO on 07/01/20 0930 Citalopram Hydrobromide (Citalopram HBr) 20 Mg Tablet, 20 MG PO DAILY, (Reported) Entered as Reported by: GHADA YEBOAH on 06/30/202041 Cyclobenzaprine HCl (Cyclobenzaprine HCl) 10 Mg Tablet, 5 MG PO BID PRN for MUSCLE SPASMS Prescribed by: ELENA FRANCISCO on 11/25/20 112 Ferrous Sulfate (Ferosul) 325 Mg Tablet, 325 MG PO Q48H, (Reported) Entered as Reported by: DAVIDSON CASTILLO on 10/19/201121 Fluticasone Propionate (Flonase Allergy Relief) 9.9 Ml Sproul.susp, 2 SPRAY NSEACH DAILY PRN for CONGESTION, (Reported) Entered as Reported by: DAVIDSON CASTILLO on 10/19/201121 Fluticasone Propionate (Fluticasone Propionate) 16 Gm Sproul.susp, 2 SPRAYS NSEACH DAILY Prescribed by: ABENA MEJIAS on 01/29/21 1514 Furosemide (Furosemide) 20 Mg Tablet, 20 MG PO DAILY, (Reported) Entered as Reported by: DAVIDSON CASTILLO on 10/19/201121 Hydralazine HCl (Hydralazine HCl) 50 Mg Tablet, 100 MG PO Q6H PRN for BLOOD PRESSURE, (Reported) Entered as Reported by: DAVIDSON CASTILLO on 10/19/201128 Hydrocodone/Acetaminophen (Hydrocodone-Acetamin 5-325 mg) 1 Each Tablet, 1 TAB PO TID PRN for PAIN-MODERATE (5-7), (Reported) Entered as Reported by: GHADA YEBOAH on 06/30/202047 Levothyroxine Sodium (Levothyroxine Sodium) 50 Mcg Tablet, 50 MCG PO DAILY, (Reported) Entered as Reported by: LO FISHER on 08/01/18 1002 Meclizine HCl (Meclizine HCl) 25 Mg Tablet, 25 MG PO DAILY PRN for DIZZINESS, (Reported) Entered as Reported by: LO FISHER on 11/04/18 112 Memantine HCl (Memantine HCl ER) 14 Mg Cap.spr.24, 14 MG PO DAILY, (Reported) Entered as Reported by: LO FISHER on 08/01/18 1002 Ondansetron HCl (Ondansetron HCl) 4 Mg Tablet, 4 MG PO Q8H PRN for NAUSEA/VOMITI NG-1ST LINE, (Reported) Entered as Reported by: DAVIDSON CASTILLO on 10/19/20 1122 Pantoprazole Sodium (Pantoprazole Sodium) 40 Mg Tablet.dr, 40 MG PO DAILY, (Reported) Entered as Reported by: LO FISHER on 08/01/18 1002 Polyethylene Glycol 3350 (Miralax) 17 Gm Powd.pack, 17 GM PO DAILY PRN for CONSTIPATION-2ND LINE, (Reported) Entered as Reported by: LO FISHER on 11/04/18 1119 Potassium Chloride (Potassium Chloride) 10 Meq Capsule.er, 10 MEQ PO 1200, (Reported) Entered as Reported by: DAVIDSON CASTILLO on 10/19/20 112 Prednisone (Prednisone) 20 Mg Tab, 40 MG PO DAILY Prescribed by: ABENA MEJIAS on 01/29/21 1514 Trazodone HCl (Trazodone HCl) 50 Mg Tablet, 100 MG PO HS Prescribed by: ELENA FRANCISCO on 11/25/20 1129 Review of Systems Review of Systems Constitutional: No chills, No fever EENTM: see HPI, nose congestion; No epistaxis Respiratory: see HPI, cough Cardiovascular: No chest pain Gastrointestinal: no symptoms reported Genitourinary: no symptoms reported Musculoskeletal: no symptoms reported Skin: No rash Psychiatric/Neurological: See HPI Past Kqujdhj-Upmwsy-Istzmd Hx Immunizations Up To Date First/Initial COVID19 Vaccinat: 05/2020 Second COVID19 Vaccination Fermin: 06/2020 Seasonal Allergies Seasonal Allergies: No Past Medical History Surgery/Hospitalization HX: Epilepsy, HTN, OA, RA, Anxiety, Atelectasis, UTI, Alzheimers, Dementia, Hyperlipidemia, COPD Surgeries: Yes Appendectomy, Gallbladder, Hysterectomy, Orthopedic, Pacemaker Respiratory: Yes Asthma, COPD Currently Using CPAP: No Currently Using BIPAP: No Cardiac: Yes Chronic Edema/Swelling, Hypertension Neurological: Yes Dementia 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 Genitourinary: Yes Bladder Infection Gastrointestinal: Yes Gastroesophageal Reflux, Hiatal Hernia Musculoskeletal: Yes (OSTEOARTHRITIS) Endocrine: Yes Hypothyroidsim HEENT: Yes Hearing Impairment: Hard of Hearing Cancer: Yes Cervical What Type of Treatment Did You: Surgical Intervention Psychosocial: No Integumentary: No Blood Disorders: Yes (ANEMIA) Family Medical History Cardiovascular disease G8 BROTHER Diabetes mellitus 19 FATHER FH: leukemia 19 FATHER Hypertension 19 MOTHER Cancer, CAD Under 55 Years Old, Diabetes, Hypertension Physical Exam Vital Signs Vital Signs - First Documented 01/29/21 14:05 Temp 36.0 Pulse 79 Resp 20 B/P (MAP) 116/64 (81) Pulse Ox 97 O2 Delivery Room Air Capillary Refill : Height, Weight, BMI Height: 5'2.00" Weight: 163lbs. 1.6oz. [id number]; 34.26 BMI Method:Stated General Appearance: No Apparent Distress, WD/WN Eyes: Bilateral Eye PERRL, Bilateral Eye EOMI HEENT: PERRL/EOMI, Moist Mucous Membranes, Pharyngeal Erythema; No Photophobia, No Tonsillar Exudate; Other (Tender to palpation over the maxillary and frontal sinuses. Clear nasal sinus drainage.) Neck: Full Range of Motion, Normal Inspection, Non Tender, Supple Respiratory: Chest Non Tender, Lungs Clear, Normal Breath Sounds, No Accessory Muscle Use, No Respiratory Distress Cardiovascular: Regular Rate, Rhythm, Normal Peripheral Pulses Gastrointestinal: Normal Bowel Sounds, No Pulsatile Mass, Non Tender, Soft Rectal: Deferred Back: No CVA Tenderness Extremity: Normal Capillary Refill, No Pedal Edema Neurologic/Psychiatric: Alert, Oriented x3 Skin: Normal Color, Warm/Dry Progress/Results/Core Measures Suspected Sepsis SIRS Temperature: Pulse: Respiratory Rate: Blood Pressure / Mean: Results/Orders My Orders Orders - ABENA MEJIAS MD Prednisone Tablet (Deltasone Tablet) (01/29/21 14:59) Azithromycin Tablet (Zithromax Tablet) (01/29/21 14:59) Vital Signs/I&O 01/29/21 14:05 Temp 36.0 Pulse 79 Resp 20 B/P (MAP) 116/64 (81) Pulse Ox 97 O2 Delivery Room Air Capillary Refill : Progress Note : Progress Note With her oxygen saturation at 100% on room air will try adding in nasal steroid spray that she has used previously to help with nasal congestion. Do a short course of oral steroids in addition to a Z-Pk for possible sinus infection since she has had symptoms for 2 weeks, but worse in the last several days Departure Impression Primary Impression: Upper respiratory tract infection due to 2019-nCoV Additional Impression: Acute recurrent maxillary sinusitis Disposition: HOME, SELF-CARE Condition: Stable Departure-Patient Inst. Decision time for Depature: 15:08 Referrals: SHAYLEE MITCHELL MD (PCP) Primary Care Physician HARPAL FIELD MD (Family) Primary Care Physician Patient Instructions: COVID-19 After You Have Been Vaccinated, Sinusitis, Adult ED, COVID-19 ED Add. Discharge Instructions: Use the nasal steroid spray to help with nasal congestion and drainage. Take the oral steroid and antibiotic to help with congestion and sinus drainage. Check back with clinic if not improving or having continued concerns. Quarantine for next 7 days until your symptoms improve from your Covid infection. All discharge instructions reviewed with patient and/or family. Voiced understanding. Scripts Fluticasone Propionate (Fluticasone Propionate) 16 Gm Sproul.susp 2 SPRAYS NSEACH DAILY for sinusitis for 30 Days, #16 GM 0 Refills Prov: ABENA MEJIAS MD 01/29/21 Azithromycin (Azithromycin) 500 Mg Tablet 500 MG PO DAILY for sinusitis for 4 Days, #4 TAB 0 Refills Prov: ABENA MEJIAS MD 01/29/21 Prednisone (Prednisone) 20 Mg Tab 40 MG PO DAILY for sinusitis for 5 Days, #10 TAB 0 Refills Prov: ABENA MEJIAS MD 01/29/21 ABENA MEJIAS MD Jan 29, 2021 13:57
[2021-01-29 14:05] VITALS: BP 116/64
[2021-01-29] MEDS ORDERED: predniSONE 20 MG TAB PO STA (14:59)
[2021-01-29] MEDS ORDERED: AZITHROMYCIN 250 MG TAB (ZITHROMAX) PO STA (14:59)
[2021-01-29] MEDS ORDERED: AZIT500T9 PO (15:14)
[2021-01-29] MEDS ORDERED: FLUT16SP22 NSEACH (15:14)
[2021-01-29] MEDS ORDERED: PRD20T PO (15:14)
== END 2021-01-29 15:17 | disposition home or self-care (01) ==
LOC: EDUNIT# 13:50 → ER FS 13:52
DX: U07.1 COVID-19 (principal); J06.9 Acute upper respiratory infection, unspecified; J01.01 Acute recurrent maxillary sinusitis; I10 Essential (primary) hypertension; G30.9 Alzheimer's disease, unspecified; F02.80 Dementia in other diseases classified elsewhere, unspecified severity, without behavioral disturbance, psychotic disturbance, mood disturbance, and anxiety; E03.9 Hypothyroidism, unspecified; F41.9 Anxiety disorder, unspecified; K21.9 Gastro-esophageal reflux disease without esophagitis; M06.9 Rheumatoid arthritis, unspecified; D64.9 Anemia, unspecified; G40.909 Epilepsy, unspecified, not intractable, without status epilepticus; J44.9 Chronic obstructive pulmonary disease, unspecified; Z73.0 Burn-out; Z88.1 Allergy status to other antibiotic agents; Z88.2 Allergy status to sulfonamides; Z88.6 Allergy status to analgesic agent; Z88.8 Allergy status to other drugs, medicaments and biological substances; Z79.51 Long term (current) use of inhaled steroids; Z79.52 Long term (current) use of systemic steroids; Z79.82 Long term (current) use of aspirin; Z79.890 Hormone replacement therapy; Z79.899 Other long term (current) drug therapy
CPT/HCPCS: 99283

== ENCOUNTER → 2021-02-23 | Outpatient (CLI) | payer MEDICARE, MEDICAID ==
[~2021-02-23] MED LIST changes: +AZIT500T9 PO; +FLUT16SP22 NSEACH; +PRD20T PO
--- NOTE | 2021-02-23 18:19 | Diagnostic Imaging Report ---
INDICATION: Right knee pain. TIME OF EXAM: 1:33 p.m. FINDINGS: Three views of the right knee were obtained. Alignment is normal. There is tricompartmental degenerative change with joint space narrowing. There appears to be some chondrocalcinosis of the lateral compartment. No effusion is seen. There is no fracture. IMPRESSION: Degenerative changes. No acute bony abnormality is detected. Dictated by: Dictated on workstation # [id number]
== END ==
LOC: RAD FS 13:10
PROVIDERS: ATTEND Nurse Practitioner
DX: M17.11 Unilateral primary osteoarthritis, right knee (principal)
CPT/HCPCS: 73562

== ENCOUNTER 2021-10-29 16:36 | Emergency (ER) | payer MEDICARE, MEDICAID ==
[2021-10-29] MEDS ORDERED: NS IV 1000 ML 1,000 ML IV STA (16:55)
[2021-10-29] MEDS ORDERED: PANTOPRAZOLE 40 MG (PROTONIX) VIAL IV STA (16:55)
[2021-10-29] MEDS ORDERED: ONDANSETRON 4 MG/2 ML (SDV) Z0FRAN IVP STA (16:55)
--- NOTE | 2021-10-29 17:01 | ED GI ---
General Stated Complaint: HEMATEMESIS Source of Information: Patient, Old Records History of Present Illness Date Seen by Provider: Oct 29, 2021 Time Seen by Provider: 16:39 Initial Comments 86-year-old female presenting with complaints of epigastric abdominal pain and vomiting blood. She states since last night she is thrown up 3 times and has had some bright red blood and clots at times. She denies any black tarry stool. She states she does have a history of esophageal stricture and ulcers. She re ports that the ulcers were 50 years ago and it has been a while since she had issues with the esophageal stricture. She denies having fever, chills, cough, shortness of breath, pain with urination, black tarry stools. She does have a lot of issues with her sinuses and has had frequent nosebleeds. She denies taking any blood thinners. Timing/Duration: 24 Hours Severity/Quality: Mild, Cramping (Especially when she vomits) Location: Epigastric Radiation: Epigastric Activities at Onset: None Modifying Factors: Worsens With Vomiting (Cramping epigastric pain when she vomits) Associated Symptoms: No Back Pain, No Chest Pain, No Diaphoresis, No Fever/Chills, No Fatigue, No Headache; Heartburn, Nausea/Vomiting; No Shortness of Air, No Swelling/Mass in Abdomen, No Syncope, No Weakness Allergies and Home Medications Allergies Coded Allergies: aspirin (Verified Allergy, Severe, 05/11/19) clindamycin (Verified Allergy, Severe, swelling, 05/11/19) fosinopril (Verified Allergy, Severe, Rash, 05/11/19) lisinopril (Verified Allergy, Severe, Rash, 05/11/19) metronidazole (Verified Allergy, Unknown, 11/23/20) sulfamethoxazole (Verified Allergy, Unknown, 11/23/20) trimethoprim (Verified Allergy, Unknown, 11/23/20) Patient Home Medication List Home Medication List Reviewed: Yes Acetaminophen (Acetaminophen) 325 Mg Tablet, 325 MG PO Q4H PRN for PAIN-MILD, (Reported) Entered as Reported by: LO FISHER on 11/04/18 1119 Allopurinol (Allopurinol) 100 Mg Tablet, 100 MG PO DAILY, (Reported) Entered as Reported by: GHADA YEBOAH on 06/30/202043 Aspirin (Aspirin EC) 81 Mg Tablet.dr, 81 MG PO DAILY, (Reported) Entered as Reported by: DAVIDSON CASTILLO on 03/02/19929 Azithromycin (Azithromycin) 500 Mg Tablet, 500 MG PO DAILY Prescribed by: ABENA MEJIAS on 01/29/21 151 Carvedilol (Carvedilol) 6.25 Mg Tablet, 6.25 MG PO BID, (Reported) Entered as Reported by: DAVIDSON CASTILLO on 10/19/201121 Cetirizine HCl (Cetirizine HCl) 10 Mg Tablet, 10 MG PO HS, (Reported) Entered as Reported by: DAVIDSON CASTILLO on 10/19/201121 Cholecalciferol (Vitamin D3) (Vitamin D3) 125 Mcg Tablet, 125 MCG PO SUN, (Reported) Entered as Reported by: DAVIDSON CASTILLO on 07/01/20929 Citalopram Hydrobromide (Citalopram HBr) 20 Mg Tablet, 20 MG PO DAILY, (Reported) Entered as Reported by: GHADA YEBOAH on 06/30/202041 Cyclobenzaprine HCl (Cyclobenzaprine HCl) 10 Mg Tablet, 5 MG PO BID PRN for MUS IMELDA SPASMS Prescribed by: ELENA FRANCISCO on 11/25/201128 Ferrous Sulfate (Ferosul) 325 Mg Tablet, 325 MG PO Q48H, (Reported) Entered as Reported by: DAVIDSON CASTILLO on 10/19/201121 Fluticasone Propionate (Flonase Allergy Relief) 9.9 Ml [place].susp, 2 SPRAY NSEACH DAILY PRN for CONGESTION, (Reported) Entered as Reported by: DAVIDSON CASTILLO on 10/19/201121 Fluticasone Propionate (Fluticasone Propionate) 16 Gm [place].susp, 2 SPRAYS NSEACH DAILY Prescribed by: ABENA MEJIAS on 01/29/21 151 Furosemide (Furosemide) 20 Mg Tablet, 20 MG PO DAILY, (Reported) Entered as Reported by: DAVIDSON CASTILLO on 10/19/201121 Hydralazine HCl (Hydralazine HCl) 50 Mg Tablet, 100 MG PO Q6H PRN for BLOOD PRESSURE, (Reported) Entered as Reported by: DAVIDSON CASTILLO on 10/19/201128 Hydrocodone/Acetaminophen (Hydrocodone-Acetamin 5-325 mg) 1 Each Tablet, 1 TAB PO TID PRN for PAIN-MODERATE (5-7), (Reported) Entered as Reported by: GHADA YEBOAH on 06/30/202047 Levothyroxine Sodium (Levothyroxine Sodium) 50 Mcg Tablet, 50 MCG PO DAILY, (Reported) Entered as Reported by: LO FISHER on 08/01/18 1002 Meclizine HCl (Meclizine HCl) 25 Mg Tablet, 25 MG PO DAILY PRN for DIZZINESS, (Reported) Entered as Reported by: LO FISHER on 11/04/18 112 Memantine HCl (Memantine HCl ER) 14 Mg Cap.spr.24, 14 MG PO DAILY, (Reported) Entered as Reported by: LO FISHER on 08/01/18 1002 Ondansetron (Ondansetron Odt) 4 Mg Tab.rapdis, 4 MG PO Q6H PRN for NAUSEA/VOMITING Prescribed by: ABENA MEJIAS on 10/29/21 174 Ondansetron HCl (Ondansetron HCl) 4 Mg Tablet, 4 MG PO Q8H PRN for NAUSEA/VOMITING-1ST LINE, (Reported) Entered as Reported by: DAVIDSON CASTILLO on 10/19/20 112 Pantoprazole Sodium (Pantoprazole Sodium) 40 Mg Tablet.dr, 40 MG PO DAILY, (Reported) Entered as Reported by: LO FISHER on 08/01/18 1002 Polyethylene Glycol 3350 (Miralax) 17 Gm Powd.pack, 17 GM PO DAILY PRN for CONSTIPATION-2ND LINE, (Reported) Entered as Reported by: LO FISHER on 11/04/18 1119 Potassium Chloride (Potassium Chloride) 10 Meq Capsule.er, 10 MEQ PO 1200, (Reported) Entered as Reported by: DAVIDSON CASTILLO on 10/19/20 1122 Prednisone (Prednisone) 20 Mg Tab, 40 MG PO DAILY Prescribed by: ABENA MEJIAS on 01/29/21 1514 Sucralfate (Sucralfate) 1 Gram Tablet, 1 GM PO ACHS Prescribed by: ABENA MEJIAS on 10/29/21 1746 Trazodone HCl (Trazodone HCl) 50 Mg Tablet, 100 MG PO HS Prescribed by: ELENA FRANCISCO on 11/25/20 1129 Review of Systems Review of Systems Constitutional: No chills; dizziness (chronic and takes meclizine for it but has not had it for a few days); No fever EENTM: See HPI, Other (chronic nasal congestion with frequent nose bleeds recently) Respiratory: Denies Cough, Denies Shortness of Air Cardiovascular: Denies Chest Pain Gastrointestinal: See HPI; Denies Blood Streaked Stools, Denies Constipated, Denies Diarrhea; Nausea, Vomiting Genitourinary: No Symptoms Reported Musculoskeletal: no symptoms reported Skin: No change in color Psychiatric/Neurological: Denies Headache Endocrine: No Symptoms Reported Hematologic/Lymphatic: Denies Blood Clots Past Xznhtug-Nwiens-Awibxy Hx Patient Social History Tobacco Use?: No Use of E-Cig and/or Vaping dev: No Substance use?: No Alcohol Use?: No Immunizations Up To Date First/Initial COVID19 Vaccinat: Apr 2020 Second COVID19 Vaccination Fermin: May 2020 Seasonal Allergies Seasonal Allergies: No Past Medical History Surgery/Hospitalization HX: Epilepsy, HTN, OA, RA, Anxiety, Atelectasis, UTI, Alzheimers, Dementia, Hyperlipidemia, COPD Surgeries: Yes Appendectomy, Gallbladder, Hysterectomy, Orthopedic, Pacemaker Respiratory: Yes Asthma, COPD Currently Using CPAP: No Currently Using BIPAP: No Cardiac: Yes Chronic Edema/Swelling, Hypertension Neurological: Yes Dementia 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 Genitourinary: Yes Bladder Infection Gastrointestinal: Yes Gastroesophageal Reflux, Hiatal Hernia Musculoskeletal: Yes (OSTEOARTHRITIS) Endocrine: Yes Hypothyroidsim HEENT: Yes Hearing Impairment: Hard of Hearing Cancer: Yes Cervical What Type of Treatment Did You: Surgical Intervention Psychosocial: No Integumentary: No Blood Disorders: Yes (ANEMIA) Family Medical History Cardiovascular disease G8 BROTHER Diabetes mellitus 19 FATHER FH: leukemia 19 FATHER Hypertension 19 MOTHER Cancer, CAD Under 55 Years Old, Diabetes, Hypertension Physical Exam Vital Signs Vital Signs - First Documented 10/29/21 10/29/21 16:45 17:51 Temp 35.9 Pulse 92 Resp 16 B/P (MAP) 123/72 (89) Pulse Ox 94 O2 Delivery Room Air O2 Flow Rate 4.00 Capillary Refill : Height/Weight/BMI Height: 5'2.00" Weight: 163lbs. 1.6oz. 73.294543gs; 28.00 BMI Method:Stated General Appearance: WD/WN, no apparent distress HEENT: PERRL/EOMI, pharynx normal Neck: non-tender, full range of motion, supple, normal inspection Respiratory: chest non-tender, lungs clear, normal breath sounds, no respiratory distress, no accessory muscle use Cardiovascular: normal peripheral pulses, regular rate, rhythm, systolic murmur (3/6 holosystolic PAT) Gastrointestinal: normal bowel sounds, soft, no pulsatile mass; No distended, No guarding, No rebound; tenderness (epigastric) Rectal: normal exam, normal rectal tone, heme negative stool Extremities: normal range of motion, non-tender, normal capillary refill 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, alert, oriented x 3 Skin: normal color, warm/dry Progress/Results/Core Measures Results/Orders Lab Results Laboratory Tests Test 10/29/21 16:49 Range/Units White Blood Count 12.1 H 4.3-11.0 10^3/uL Red Blood Count 4.56 3.80-5.11 10^6/uL Hemoglobin 14.3 11.5-16.0 g/dL Hematocrit 43 35-52 % Mean Corpuscular Volume 94 80-99 fL Mean Corpuscular Hemoglobin 31 25-34 pg Mean Corpuscular Hemoglobin Concent 33 32-36 g/dL Red Cell Distribution Width 13.9 10.0-14.5 % Platelet Count 248 130-400 10^3/uL Mean Platelet Volume 9.5 9.0-12.2 fL Immature Granulocyte % (Auto) 0 % Neutrophils (%) (Auto) 56 42-75 % Lymphocytes (%) (Auto) 38 12-44 % Monocytes (%) (Auto) 6 0-12 % Eosinophils (%) (Auto) 1 0-10 % Basophils (%) (Auto) 1 0-10 % Neutrophils # (Auto) 6.7 1.8-7.8 10^3/uL Lymphocytes # (Auto) 4.5 H 1.0-4.0 10^3/uL Monocytes # (Auto) 0.7 0.0-1.0 10^3/uL Eosinophils # (Auto) 0.1 0.0-0.3 10^3/uL Basophils # (Auto) 0.1 0.0-0.1 10^3/uL Immature Granulocyte # (Auto) 0.0 0.0-0.1 10^3/uL Prothrombin Time 13.4 12.2-14.7 SEC INR Comment 1.0 0.8-1.4 Activated Partial Thromboplast Time 26 24-35 SEC Sodium Level 141 135-145 MMOL/L Potassium Level 4.4 3.6-5.0 MMOL/L Chloride Level 104 98-107 MMOL/L Carbon Dioxide Level 23 21-32 MMOL/L Anion Gap 14 5-14 MMOL/L Blood Urea Nitrogen 39 H 7-18 MG/DL Creatinine 1.42 H 0.60-1.30 MG/DL Estimat Glomerular Filtration Rate 36 BUN/Creatinine Ratio 27 Glucose Level 127 H 70-105 MG/DL Calcium Level 10.2 H 8.5-10.1 MG/DL Corrected Calcium 9.8 8.5-10.1 MG/DL Magnesium Level 2.2 1.6-2.4 MG/DL Total Bilirubin 0.5 0.1-1.0 MG/DL Aspartate Amino Transf (AST/SGOT) 24 5-34 U/L Alanine Aminotransferase (ALT/SGPT) 15 0-55 U/L Alkaline Phosphatase 113 40-136 U/L Total Protein 7.3 6.4-8.2 GM/DL Albumin 4.5 3.2-4.5 GM/DL Lipase 28 8-78 U/L My Orders Orders - ABENA MEJIAS MD Cbc With Automated Diff (10/29/21 16:53) Magnesium (10/29/21 16:53) Comprehensive Metabolic Panel (10/29/21 16:53) Protime With Inr (10/29/21 16:53) Partial Thromboplastin Time (10/29/21 16:53) O2 (10/29/21 16:53) Monitor-Rhythm Ecg Trace Only (10/29/21 16:53) Ed Iv/Invasive Line Start (10/29/21 16:53) Lipase (10/29/21 16:53) Fecal Occult Bedside (10/29/21 16:53) Ct Abdomen/Pelvis Wo (10/29/21 16:54) Ns Iv 1000 Ml (Sodium Chloride 0.9%) (10/29/21 16:55) Pantoprazole Injection (Protonix Injecti (10/29/21 16:55) Ondansetron Injection (Zofran Injectio (10/29/21 16:55) Sucralfate Tablet (Carafate Tablet) (10/29/21 17:52) Vital Signs/I&O 10/29/21 10/29/21 10/29/21 16:45 17:51 17:52 Temp 35.9 35.9 Pulse 92 77 Resp 16 16 B/P (MAP) 123/72 (89) 123/72 Pulse Ox 94 100 100 O2 Delivery Room Air Nasal Cannula Nasal Cannula O2 Flow Rate 4.00 4.00 Progress Progress Note #1: Progress Note check labs and CT scan of abdomen/pelvis to evaluate for signs of obstruction, bowel perforation, abdominal mass, anemia, coagulopathy Give NS 1 L IVF bolus for hydration, Protonix 40 mg IV for possible gastritis/ulcer causing hematemesis, Zofran 4 mg IV for nausea. Progress Note #2: Progress Note CT scan was done without contrast since pt has history of chronic renal insufficiency and periodically has had acute kidney injury as well. The CT scan without IV contrast did not show any acute abnormality to account for her vomiting blood. There did appear to be a hiatal hernia which may be contributing to her epigastric pain. Her CBC showed mild elevation of her white blood cell count 12,000 but her hemoglobin was following at 14.3. She has no acute significant abnormality on her chemistry panel. She has chronic renal insufficiency and her BUN is 39 today with a creatinine of 1.42 and a GFR of 36. She would likely benefit from having an EGD done but is currently hemodynamically stable. The Hemoccult test was negative and did not show evidence of blood in her stool. Since she already takes Protonix will add in Carafate in case there is an ulcer and encourage a bland diet until she can have an EGD area with the surgeons. Diagnostic Imaging Diagonstic Imaging: CT Plain Films/CT/US/NM/MRI: abdomen, pelvis Comments [facility]. [place], [place] NAME: FRANCO CHARLTON [facility] REC#: [id number] PT STATUS: REG ER : 1935 PHYSICIAN: ABENA MEJIAS MD ADMIT DATE: 10/29/21/ER FS Draft Date of Exam:08/28/22 CT ABDOMEN/PELVIS WO PROCEDURE: CT abdomen and pelvis without contrast. TECHNIQUE: Multiple contiguous axial images were obtained through the abdomen and pelvis without the use of intravenous contrast. Auto Exposure Controls were utilized during the CT exam to meet ALARA standards for radiation dose reduction. DATE: October 29, 2021. COMPARISON: March 01, 2019. INDICATION: 86-year-old female, epigastric pain, hematemesis. FINDINGS: There are limitations for evaluation of the abdominal organs, neoplastic processes, abscess, and limited evaluation of the vasculature relating to the lack of intravenous contrast. There are very mild linear opacities in the right middle lobe, right lower lobe, left lower lobe and lingula consistent with mild scarring and/or atelectasis. The blood pool appears low in attenuation which may reflect anemia. Recommend correlation with laboratory values. The heart is not enlarged. There is no pericardial effusion. The liver is unremarkable in size and contour. The gallbladder is unremarkable. There is no identified biliary ductal dilation. The main pancreatic duct is not grossly dilated. Limited noncontrast assessment of the pancreatic parenchyma is unremarkable. The spleen is normal in size. The adrenal glands are unremarkable. There is a 5 mm low-attenuation right renal lesion on axial image 88 which is too small to characterize. There is also an 8 mm right renal lesion on axial image 70 which is too small to characterize. The urinary collecting systems are not distended. There is no identified renal or ureteral stone. The urinary bladder is unremarkable. There is streak artifact from a left total hip prosthesis which does limit some evaluation of the pelvis. There is diverticulosis without evidence of acute diverticulitis. The intestinal tract is not distended. There is no evidence to suggest acute appendicitis. There is a small to moderate size hiatal hernia. There is no free intraperitoneal air. There is no drainable fluid collection. There is no sizable volume free fluid in the abdomen or pelvis. There are atherosclerotic calcifications. There is no identified abnormally enlarged lymph node in the abdomen or pelvis which meets CT size criteria for adenopathy. As mentioned above, there is a left total hip prosthesis. There is advanced osteoarthritis of the right hip. There are bilateral sacroiliac degenerative changes. There are multilevel degenerative changes of the spine. There is scoliosis. There is no identified acute bony abnormality. IMPRESSION: CT abdomen and pelvis: 1. Mild to moderate size hiatal hernia. 2. No identified acute abnormality in the abdomen or pelvis. Dictated on workstation # [id number] Dict: 10/29/21 1724 Trans: 10/29/21 1733 [facility] [id number] Interpreted by: COLTON MESSER MD Electronically signed by: Reviewed: Reviewed by Me Departure Impression Primary Impression: Epigastric abdominal pain Additional Impressions: Hematemesis Qualified Codes: K92.0 - Hematemesis Hiatal hernia Disposition: 01 HOME, SELF-CARE Condition: Stable Departure-Patient Inst. Decision time for Depature: 17:44 Referrals: SHAYLEE MITCHELL MD (PCP) Primary Care Physician GENARO ALBERTS DO Patient Instructions: Nausea and Vomiting, Adult ED, Ulcer and Gastritis Diet, Gastritis ED, Hiatal Hernia (DC) Add. Discharge Instructions: Follow-up bland diet to help with irritation to lining of esophagus and stomach. Use nausea medicine to help keep your stomach settled. Take Sucralfate 1 gram pill before meals and at bedtime. Dissolve the pill in a small amount of water and then drink it as a slurry. This will help coat the lining of your esophagus and stomach and let irritation to the lining heal. Continue taking Pantoprazole (Protonix) daily to help with acid in the stomach. Call surgeon to arrange for EGD or scope to look at the lining of your stomach a nd esophagus to see if there are ulcers or why you had blood when you threw up. Scripts Ondansetron (Ondansetron Odt) 4 Mg Tab.rapdis 4 MG PO Q6H PRN for NAUSEA/VOMITING for 3 Days, #12 TAB 0 Refills Prov: ABENA MEJIAS MD 10/29/21 Sucralfate (Sucralfate) 1 Gram Tablet 1 GM PO ACHS for Hematemesis for 14 Days, #56 TAB 0 Refills Prov: ABENA MEJIAS MD 10/29/21 ABENA MEJIAS MD Oct 29, 2021 17:01
[2021-10-29 17:02] LABS: BASOPHILS # (AUTO) 0.1 10^3/uL (0.0-0.1); BASOPHILS % (AUTO) 1 % (0-10); EOSINOPHILS # (AUTO) 0.1 10^3/uL (0.0-0.3); EOSINOPHILS % (AUTO) 1 % (0-10); HEMATOCRIT 43 % (35-52); HEMOGLOBIN 14.3 g/dL (11.5-16.0); LYMPHOCYTES # (AUTO) 4.5 10^3/uL (1.0-4.0); LYMPHOCYTES % (AUTO) 38 % (12-44); MEAN CORPUSCULAR HEMOGLOBIN 31 pg (25-34); MEAN CORPUSCULAR HGB CONC 33 g/dL (32-36); MEAN CORPUSCULAR VOLUME 94 fL (80-99); MEAN PLATELET VOLUME 9.5 fL (9.0-12.2); MONOCYTES # (AUTO) 0.7 10^3/uL (0.0-1.0); MONOCYTES % (AUTO) 6 % (0-12); NEUTROPHILS # (AUTO) 6.7 10^3/uL (1.8-7.8); NEUTROPHILS % (AUTO) 56 % (42-75); PLATELET COUNT 248 10^3/uL (130-400); WHITE BLOOD COUNT 12.1 10^3/uL (4.3-11.0)
[2021-10-29 17:11] LABS: PROTHROMBIN TIME PATIENT 13.4 SEC (12.2-14.7)
[2021-10-29 17:21] LABS: POTASSIUM 4.4 MMOL/L (3.6-5.0)
[2021-10-29 17:22] LABS: ALBUMIN 4.5 GM/DL (3.2-4.5); BILIRUBIN,TOTAL 0.5 MG/DL (0.1-1.0); CALCIUM 10.2 MG/DL (8.5-10.1); CREATININE SERUM 1.42 MG/DL (0.60-1.30); MAGNESIUM 2.2 MG/DL (1.6-2.4); TOTAL PROTEIN 7.3 GM/DL (6.4-8.2)
--- NOTE | 2021-10-29 17:33 | Diagnostic Imaging Report ---
PROCEDURE: CT abdomen and pelvis without contrast. TECHNIQUE: Multiple contiguous axial images were obtained through the abdomen and pelvis without the use of intravenous contrast. Auto Exposure Controls were utilized during the CT exam to meet ALARA standards for radiation dose reduction. DATE: October 29, 2021. COMPARISON: March 01, 2019. INDICATION: 86-year-old female, epigastric pain, hematemesis. FINDINGS: There are limitations for evaluation of the abdominal organs, neoplastic processes, abscess, and limited evaluation of the vasculature relating to the lack of intravenous contrast. There are very mild linear opacities in the right middle lobe, right lower lobe, left lower lobe and lingula consistent with mild scarring and/or atelectasis. The blood pool appears low in attenuation which may reflect anemia. Recommend correlation with laboratory values. The heart is not enlarged. There is no pericardial effusion. The liver is unremarkable in size and contour. The gallbladder is unremarkable. There is no identified biliary ductal dilation. The main pancreatic duct is not grossly dilated. Limited noncontrast assessment of the pancreatic parenchyma is unremarkable. The spleen is normal in size. The adrenal glands are unremarkable. There is a 5 mm low-attenuation right renal lesion on axial image 88 which is too small to characterize. There is also an 8 mm right renal lesion on axial image 70 which is too small to characterize. The urinary collecting systems are not distended. There is no identified renal or ureteral stone. The urinary bladder is unremarkable. There is streak artifact from a left total hip prosthesis which does limit some evaluation of the pelvis. There is diverticulosis without evidence of acute diverticulitis. The intestinal tract is not distended. There is no evidence to suggest acute appendicitis. There is a small to moderate size hiatal hernia. There is no free intraperitoneal air. There is no drainable fluid collection. There is no sizable volume free fluid in the abdomen or pelvis. There are atherosclerotic calcifications. There is no identified abnormally enlarged lymph node in the abdomen or pelvis which meets CT size criteria for adenopathy. As mentioned above, there is a left total hip prosthesis. There is advanced osteoarthritis of the right hip. There are bilateral sacroiliac degenerative changes. There are multilevel degenerative changes of the spine. There is scoliosis. There is no identified acute bony abnormality. IMPRESSION: CT abdomen and pelvis: 1. Mild to moderate size hiatal hernia. 2. No identified acute abnormality in the abdomen or pelvis. Dictated by: Dictated on workstation # [id number]
[2021-10-29] MEDS ORDERED: SUCR1TAB PO (17:46)
[2021-10-29] MEDS ORDERED: ONDA4TAB11 PO (17:46)
[2021-10-29 17:51] VITALS: BP 123/72
[2021-10-29] MEDS ORDERED: SUCRALFATE 1 GM (CARAFATE) TAB PO STA (17:52)
== END 2021-10-29 18:01 | disposition home or self-care (01) ==
LOC: EDUNIT# 16:36 → ER FS 16:38
DX: K44.9 Diaphragmatic hernia without obstruction or gangrene (principal); K92.0 Hematemesis; I12.9 Hypertensive chronic kidney disease with stage 1 through stage 4 chronic kidney disease, or unspecified chronic kidney disease; N18.9 Chronic kidney disease, unspecified; D72.829 Elevated white blood cell count, unspecified
CPT/HCPCS: 36415; 74176; 80053; 82274; 83690; 83735; 85025; 85610; 85730; 93041

== ENCOUNTER → 2022-05-14 | Outpatient (CLI) | payer MEDICARE, MEDICAID ==
[~2022-05-14] MED LIST changes: +ONDA4TAB11 PO; +POTA-177 PO; -POTA10CA43 PO; +POTA10CA44 PO; -POTA10TA37 PO; +SUCR1TAB PO
--- NOTE | 2022-05-14 16:13 | Diagnostic Imaging Report ---
EXAMINATION: Right shoulder radiographs, 4 views. COMPARISON: None. HISTORY: 86-year-old female, right shoulder pain. FINDINGS: The humeral head is normally positioned relative to the glenoid. There is severe glenohumeral joint space loss. There are anchors in the humeral head likely reflecting prior rotator cuff tendon repair. The acromioclavicular joint is normally aligned. There are mild acromioclavicular degenerative changes without large undersurface osteophyte. There is calcific attenuation near the superolateral humeral head likely reflecting calcific tendinitis/bursitis. There is no identified acute fracture IMPRESSION: . 1. Severe glenohumeral arthritis. 2. Calcific attenuation adjacent to the superolateral aspect of the humeral head likely reflecting calcific tendinitis/bursitis. 3. Mild acromioclavicular degenerative changes without large undersurface osteophyte. Dictated by: Dictated on workstation # [id number]
== END ==
LOC: RAD FS 09:43
PROVIDERS: ATTEND Nurse Practitioner
DX: M19.011 Primary osteoarthritis, right shoulder (principal)
CPT/HCPCS: 73030

== ENCOUNTER 2022-12-23 13:27 | Emergency (ER) | payer MEDICARE, MEDICAID ==
[~2022-12-23] VITALS: Ht 157.5 cm; Wt 70.3 kg
[~2022-12-23 13:27] MED LIST changes: -MECL-149 PO; +MECL-291 PO; -POTA10CA44 PO; +POTA10CA84 PO
[2022-12-23] MEDS ORDERED: ACETAMINOPHEN 325 MG TABLET PO STA (13:34)
[2022-12-23] MEDS ORDERED: ONDANSETRON 4 MG ORAL DISSOLVE TABLET PO STA (13:34)
--- NOTE | 2022-12-23 13:40 | ED Headache ---
General Stated Complaint: ELEV BP Source: patient, EMS History of Present Illness Date Seen by Provider: Dec 23, 2022 Time Seen by Provider: 13:21 Initial Comments 87-year-old female presenting with complaints of headache to the top of her head. She had taken her blood pressure at home and it was 156/91. She did take some hydralazine prior to EMS arrival. EMS had blood pressure of 128/61. Her headache was still there but improving. She had some mild nausea. She denies any chest pain, abdominal pain, vomiting, diarrhea, fever, chills, pain with urination. She cannot remember when they had stopped her blood pressure medications. Timing/Duration: 1-3 hours Severity/Quality: severe, throbbing Location: other (Top of her head) Prior Headaches/Recent Trauma: no recent headache/trauma Modifying Factors: improves with medication Associated Symptoms: No fatigue, No facial pain, No fever/chills, No flushing, No loss of consciousness; nausea/vomiting (Nausea but no vomiting); No nasal congestion, No nasal drainage, No numbness in legs/feet, No rash, No seizures, No sinus infection, No stiff neck, No vision changes, No weakness Allergies and Home Medications Allergies Coded Allergies: aspirin (Verified Allergy, Severe, 05/11/19) clindamycin (Verified Allergy, Severe, swelling, 05/11/19) fosinopril (Verified Allergy, Severe, Rash, 05/11/19) lisinopril (Verified Allergy, Severe, Rash, 05/11/19) metronidazole (Verified Allergy, Unknown, 11/23/20) sulfamethoxazole (Verified Allergy, Unknown, 11/23/20) trimethoprim (Verified Allergy, Unknown, 11/23/20) Patient Home Medication List Home Medication List Reviewed: Yes Acetaminophen (Acetaminophen) 325 Mg Tablet, 325 MG PO Q4H PRN for PAIN-MILD, (Reported) Entered as Reported by: LO FISHER on 11/04/18 1119 Allopurinol (Allopurinol) 100 Mg Tablet, 100 MG PO DAILY, (Reported) Entered as Reported by: GHADA YEBOAH on 06/30/202043 Aspirin (Aspirin EC) 81 Mg Tablet.dr, 81 MG PO DAILY, (Reported) Entered as Reported by: DAVIDSON CASTILLO on 03/02/19 0930 Azithromycin (Azithromycin) 500 Mg Tablet, 500 MG PO DAILY Prescribed by: ABENA MEJIAS on 01/29/21 1514 Carvedilol (Carvedilol) 6.25 Mg Tablet, 6.25 MG PO BID, (Reported) Entered as Reported by: DAVIDSON CASTILLO on 10/19/20 112 Cephalexin (Cephalexin) 500 Mg Capsule, 500 MG PO TID Prescribed by: ABENA MEJIAS on 12/23/22 1508 Cetirizine HCl (Cetirizine HCl) 10 Mg Tablet, 10 MG PO HS, (Reported) Entered as Reported by: DAVIDSON CASTILLO on 10/19/20 112 Cholecalciferol (Vitamin D3) (Vitamin D3) 125 Mcg Tablet, 125 MCG PO SUN, (Reported) Entered as Reported by: DAVIDSON CASTILLO on 07/01/20 09 Citalopram Hydrobromide (Citalopram HBr) 20 Mg Tablet, 20 MG PO DAILY, (Reported) Entered as Reported by: GHADA YEBOAH on 06/30/202041 Cyclobenzaprine HCl (Cyclobenzaprine HCl) 10 Mg Tablet, 5 MG PO BID PRN for MUSCLE SPASMS Prescribed by: ELENA FRANCISCO on 11/25/20 112 Ferrous Sulfate (Ferosul) 325 Mg Tablet, 325 MG PO Q48H, (Reported) Entered as Reported by: DAVIDSON CASTILLO on 10/19/20 112 Fluticasone Propionate (Flonase Allergy Relief) 9.9 Ml [place].susp, 2 SPRAY NSEACH DAILY PRN for CONGESTION, (Reported) Entered as Reported by: DAVIDSON CASTILLO on 10/19/20 112 Fluticasone Propionate (Fluticasone Propionate) 16 Gm [place].susp, 2 SPRAYS NSEACH DAILY Prescribed by: ABENA MEJIAS on 01/29/21 1514 Furosemide (Furosemide) 20 Mg Tablet, 20 MG PO DAILY, (Reported) Entered as Reported by: DAVIDSON CASTILLO on 10/19/20 112 Hydralazine HCl (Hydralazine HCl) 50 Mg Tablet, 100 MG PO Q6H PRN for BLOOD PRESSURE, (Reported) Entered as Reported by: DAVIDSON CASTILLO on 10/19/20 112 Hydralazine HCl (Hydralazine HCl) 25 Mg Tablet, 25 MG PO TID PRN for BLOOD PRESSURE Prescribed by: ABENA MEJIAS on 12/23/22 1345 Hydrocodone/Acetaminophen (Hydrocodone-Acetamin 5-325 mg) 1 Each Tablet, 1 TAB PO TID PRN for PAIN-MODERATE (5-7), (Reported) Entered as Reported by: GHADA YEBOAH on 06/30/202047 Levothyroxine Sodium (Levothyroxine Sodium) 50 Mcg Tablet, 50 MCG PO DAILY, (Reported) Entered as Reported by: LO FISHER on 08/01/18 1002 Meclizine HCl (Meclizine HCl) 25 Mg Tablet, 25 MG PO DAILY PRN for DIZZINESS, (Reported) Entered as Reported by: LO FISHER on 11/04/18 112 Memantine HCl (Memantine HCl ER) 14 Mg Cap.spr.24, 14 MG PO DAILY, (Reported) Entered as Reported by: LO FISHER on 08/01/18 1002 Ondansetron (Ondansetron Odt) 4 Mg Tab.rapdis, 4 MG PO Q6H PRN for NAUSEA/VOMITING Prescribed by: ABENA MEJIAS on 10/29/21 1746 Ondansetron HCl (Ondansetron HCl) 4 Mg Tablet, 4 MG PO Q8H PRN for NAUSEA/VOMITING-1ST LINE, (Reported) Entered as Reported by: DAVIDSON CASTILLO on 10/19/20 1122 Pantoprazole Sodium (Pantoprazole Sodium) 40 Mg Tablet.dr, 40 MG PO DAILY, (Reported) Entered as Reported by: LO FISHER on 08/01/18 1002 Polyethylene Glycol 3350 (Miralax) 17 Gm Powd.pack, 17 GM PO DAILY PRN for CONSTIPATION-2ND LINE, (Reported) Entered as Reported by: LO FISHER on 11/04/18 1119 Potassium Chloride (Potassium Chloride) 10 Meq Capsule.er, 10 MEQ PO 1200, (Reported) Entered as Reported by: DAVIDSON CASTILLO on 10/19/20 1122 Prednisone (Prednisone) 20 Mg Tab, 40 MG PO DAILY Prescribed by: ABENA MEJIAS on 01/29/21 1514 Sucralfate (Sucralfate) 1 Gram Tablet, 1 GM PO ACHS Prescribed by: ABENA MEJIAS on 10/29/21 1746 Trazodone HCl (Trazodone HCl) 50 Mg Tablet, 100 MG PO HS Prescribed by: ELENA FRANCISCO on 11/25/20 1129 Review of Systems Review of Systems Constitutional: No chills, No diaphoresis, No dizziness, No fever Eyes: Denies Blurred Vision, Denies Photophobia, Denies Vision Changes Ears, Nose, Mouth, Throat: no symptoms reported Respiratory: no symptoms reported Cardiovascular: no symptoms reported Gastrointestinal: see HPI, nausea; No vomiting Genitourinary: No dysuria Musculoskeletal: no symptoms reported Skin: no symptoms reported Psychiatric/Neurological: Headache; Denies Numbness, Denies Paresthesia Past Jlnugpt-Hckzbk-Qrbdtd Hx Patient Social History Tobacco Use?: No Use of E-Cig and/or Vaping dev: No Substance use?: No Alcohol Use?: No Immunizations Up To Date First/Initial COVID19 Vaccinat: Apr 2020 Second COVID19 Vaccination [place]: May 2020 Third COVID19 Vaccination Date: Jan 2021 Seasonal Allergies Seasonal Allergies: No Past Medical History Surgery/Hospitalization HX: Epilepsy, HTN, OA, RA, Anxiety, Atelectasis, UTI, Alzheimers, Dementia, Hyperlipidemia, COPD Surgeries: Yes Appendectomy, Gallbladder, Hysterectomy, Orthopedic, Pacemaker Respiratory: Yes Asthma, COPD Currently Using CPAP: No Currently Using BIPAP: No Cardiac: Yes Chronic Edema/Swelling, Hypertension Neurological: Yes Dementia [employer] History: Hysterectomy Genitourinary: Yes Bladder Infection Gastrointestinal: Yes Gastroesophageal Reflux, Hiatal Hernia Musculoskeletal: Yes (OSTEOARTHRITIS) Endocrine: Yes Hypothyroidsim HEENT: Yes Hearing Impairment: Hard of Hearing Cancer: Yes Cervical What Type of Treatment Did You: Surgical Intervention Psychosocial: No Integumentary: No Blood Disorders: Yes (ANEMIA) Family Medical History Cardiovascular disease G8 BROTHER Diabetes mellitus 19 FATHER FH: leukemia 19 FATHER Hypertension 19 MOTHER Cancer, CAD Under 55 Years Old, Diabetes, Hypertension Physical Exam Vital Signs Vital Signs - First Documented 12/23/22 13:27 Temp 36.7 Pulse 88 Resp 18 B/P (MAP) 118/57 (77) O2 Delivery Room Air Capillary Refill : Height, Weight, BMI Height: 5'2.00" Weight: 163lbs. 1.6oz. [id number]; 28.00 BMI Method:Stated General Appearance: WD/WN, no apparent distress HEENT: PERRL/EOMI, pharynx normal Cardiovascular: normal peripheral pulses, regular rate, rhythm Respiratory: chest non-tender, lungs clear, normal breath sounds Gastrointestinal: normal bowel sounds, non tender, soft, no pulsatile mass Extremities: normal range of motion, non-tender, normal capillary refill Psychiatric: alert, oriented x 3 [place] Nerves: normal hearing, normal speech, PERRL Coordination/Gait: normal gait Motor/Sensory: no motor deficit, no sensory deficit Skin: normal color, warm/dry Progress/Results/Core Measures Results/Orders Lab Results Laboratory Tests Test 12/23/22 13:45 12/23/22 14:50 Range/Units White Blood Count 11.9 H 4.3-11.0 10^3/uL Red Blood Count 3.88 3.80-5.11 10^6/uL Hemoglobin 12.0 11.5-16.0 g/dL Hematocrit 37 35-52 % Mean Corpuscular Volume 95 80-99 fL Mean Corpuscular Hemoglobin 31 25-34 pg Mean Corpuscular Hemoglobin Concent 33 32-36 g/dL Red Cell Distribution Width 14.7 H 10.0-14.5 % Platelet Count 285 130-400 10^3/uL Mean Platelet Volume 9.9 9.0-12.2 fL Immature Granulocyte % (Auto) 0 % Neutrophils (%) (Auto) 44 42-75 % Lymphocytes (%) (Auto) 49 H 12-44 % Monocytes (%) (Auto) 5 0-12 % Eosinophils (%) (Auto) 1 0-10 % Basophils (%) (Auto) 1 0-10 % Neutrophils # (Auto) 5.2 1.8-7.8 10^3/uL Lymphocytes # (Auto) 5.9 H 1.0-4.0 10^3/uL Monocytes # (Auto) 0.6 0.0-1.0 10^3/uL Eosinophils # (Auto) 0.1 0.0-0.3 10^3/uL Basophils # (Auto) 0.1 0.0-0.1 10^3/uL Immature Granulocyte # (Auto) 0.0 0.0-0.1 10^3/uL Sodium Level 139 135-145 MMOL/L Potassium Level 3.7 3.6-5.0 MMOL/L Chloride Level 106 98-107 MMOL/L Carbon Dioxide Level 19 L 21-32 MMOL/L Anion Gap 14 5-14 MMOL/L Blood Urea Nitrogen 15 7-18 MG/DL Creatinine 1.08 0.60-1.30 MG/DL Estimat Glomerular Filtration Rate 49 BUN/Creatinine Ratio 14 Glucose Level 130 H 70-105 MG/DL Calcium Level 9.5 8.5-10.1 MG/DL Corrected Calcium 9.5 8.5-10.1 MG/DL Total Bilirubin 0.5 0.1-1.0 MG/DL Aspartate Amino Transf (AST/SGOT) 32 5-34 U/L Alanine Aminotransferase (ALT/SGPT) 25 0-55 U/L Alkaline Phosphatase 100 40-136 U/L Total Protein 6.5 6.4-8.2 GM/DL Albumin 4.0 3.2-4.5 GM/DL Urine Color YELLOW Urine Clarity TURBID Urine pH 7.0 5-9 Urine Specific [place] 1.010 L 1.016-1.022 Urine Protein NEGATIVE NEGATIVE Urine Glucose (UA) NEGATIVE NEGATIVE Urine Ketones NEGATIVE NEGATIVE Urine Nitrite NEGATIVE NEGATIVE Urine Bilirubin NEGATIVE NEGATIVE Urine Urobilinogen 0.2 < = 1.0 MG/DL Urine Leukocyte Esterase 3+ H NEGATIVE Urine RBC (Auto) NEGATIVE NEGATIVE Urine RBC /HPF Urine WBC TNTC H /HPF Urine Crystals NONE /LPF Urine Bacteria /HPF Urine Casts NONE /LPF Urine Mucus NEGATIVE /LPF Urine Culture Indicated YES My Orders Orders - ABENA MEJIAS MD Comprehensive Metabolic Panel (12/23/22 13:34) Cbc And Automated Diff (12/23/22 13:34) Acetaminophen Tablet (Acetaminophen Ta (12/23/22 13:34) Ondansetron Oral Dissolve Tab (Ondanset (12/23/22 13:34) Ct Head Wo (12/23/22 13:48) Ua Culture If Indicated (12/23/22 14:44) Urine Culture (12/23/22 14:50) Ceftriaxone Iv/Im (Ceftriaxone Iv/Im) (12/23/22 15:05) Lidocaine 1% Inj 20 Ml (Xylocaine 1% Inj (12/23/22 15:15) Medications Given in ED Current Medications Medications Dose Ordered Sig/Prakash Route Start Time Stop Time Status Last Admin Dose Admin Lidocaine HCl 2.1 ml ONCE ONCE INJ 12/23/22 15:15 12/23/22 15:16 DC 12/23/22 15:14 2.1 ML Vital Signs/I&O 12/23/22 13:27 Temp 36.7 Pulse 88 Resp 18 B/P (MAP) 118/57 (77) O2 Delivery Room Air Progress Progress Note #1: Progress Note Differential diagnosis is untreated hypertension, general headache, anxiety, stress reaction. Administer acetaminophen 650 mg p.o. x1 for headache, Zofran ODT 4 mg for her nausea. Her blood pressure is already down to 118/58. Can prescribe more of the hydralazine to have it available if her blood pressure runs high. Encouraged her to follow back up with clinic regarding blood pressure and headaches. Will try to draw CBC and CMP if she lets us. She was upset that we were trying to draw blood initially. Progress Note #2: Progress Note Complete blood count showed white blood cell count at the upper limit of normal at 11.9. Hemoglobin was lower limit of normal at 12. Comprehensive metabolic profile did not show any acute electrolyte abnormality. She had mild elevation of her glucose to 130. Her CT scan of the head did not show any acute ischemia, mass, hemorrhage. She had some chronic age-related changes. Patient has had anxiety here in the ED and was easily agitated at times. This likely is related back to her dementia as there is no acute changes with her labs were CT scan that would account for this. Her blood pressure continues to run lower. Can prescribe some hydralazine 25 mg p.o. 3 times daily as needed hypertension and have her check back with the clinic for continued concerns. Progress Note #3: Progress Note CT scan of the head did not show any acute process. Her labs were also stable other than mild elevation in white blood cell count. When reviewing results with the patient she stated that she was upset because she felt like she was having more trouble with her memory. She also voiced now that she was having pain with urination which she had denied earlier. Obtain a urinalysis to look for UTI. Progress Note #4: Progress Note Urinalysis is positive for UTI. We will give a dose of Rocephin 1 g IM here in the ED to get medicine started and send a prescription to [facility] in [place] for continuing oral cephalexin 500 mg p.o. 3 times daily x5 days Diagnostic Imaging Diagonstic Imaging: CT Plain Films/CT/US/NM/MRI: head Comments [facility], [place] NAME: FRANCO [facility] REC#: [id number] PT STATUS: REG ER : 1935 PHYSICIAN: ABENA MEJIAS MD ADMIT DATE: 12/23/22/ER FS Signed Date of Exam:12/23/22 CT HEAD WO EXAMINATION: CT head without contrast. TECHNIQUE: Multiple contiguous axial images were obtained through the brain without the use of intravenous contrast. All CT scans use one or more of the following dose optimizing techniques: automated exposure control, MA and/or KvP adjustment based on patient size and exam type or iterative reconstruction. HISTORY: Headache. Dizziness. COMPARISON: 06/30/2020. FINDINGS: No large acute territorial ischemia, mass, or hemorrhage. No midline shift or mass effect. Decreased attenuation is seen in the periventricular and subcortical white matter. The ventricles and cortical sulci are prominent. The basilar cisterns are patent and unremarkable. The orbits are normal. Chronic atelectasis is seen in the right maxillary sinus. Mastoid air cells are clear. No soft tissue abnormality is seen. No osseus lesions or fractures are seen. IMPRESSION: 1. No large acute territorial ischemia, mass, or hemorrhage. 2. Chronic microvascular disease. 3. Generalized parenchymal volume loss. Dictated by: Dictated on workstation # [id number] Dict: 12/23/22 1409 Trans: 12/23/[address] [facility] [id number] Interpreted by: TERA DIMAS DO Electronically signed by: TERA DIMAS DO 12/23/22 1415 Reviewed: Reviewed by Nj Departure Impression Primary Impression: Acute cystitis without hematuria Additional Impressions: Hypertension Qualified Codes: I10 - Essential (primary) hypertension Headache Qualified Codes: R51.9 - Headache, unspecified Disposition: 01 HOME, SELF-CARE Condition: Stable Departure-Patient Inst. Decision time for Depature: 15:07 Referrals: SHAYLEE MITCHELL MD (PCP) Primary Care Physician Patient Instructions: Headache, Adult ED, High Blood Pressure ED, Urinary Tract Infection, Adult ED Add. Discharge Instructions: Take the full course of antibiotics to treat for urine infection. Check back with the clinic about your elevated blood pressure. They may need to continue a blood pressure medicine to help keep it under control. Stay well-hydrated and drink plenty of fluids. May take acetaminophen and/or ibuprofen if needed to help with headache. Scripts Cephalexin (Cephalexin) 500 Mg Capsule 500 MG PO TID for UTI for 5 Days, #15 CAP 0 Refills Prov: ABENA MEJIAS MD 12/23/22 Hydralazine HCl (Hydralazine HCl) 25 Mg Tablet 25 MG PO TID PRN for BLOOD PRESSURE for 10 Days, #30 TAB 0 Refills Prov: ABENA MEJIAS MD 12/23/22 ABENA MEJIAS MD Dec 23, 2022 13:40
[2022-12-23] MEDS ORDERED: HYDR-3923 PO (13:45)
[2022-12-23 13:49] LABS: BASOPHILS # (AUTO) 0.1 10^3/uL (0.0-0.1); BASOPHILS % (AUTO) 1 % (0-10); EOSINOPHILS # (AUTO) 0.1 10^3/uL (0.0-0.3); EOSINOPHILS % (AUTO) 1 % (0-10); HEMATOCRIT 37 % (35-52); LYMPHOCYTES # (AUTO) 5.9 10^3/uL (1.0-4.0); LYMPHOCYTES % (AUTO) 49 % (12-44); MEAN CORPUSCULAR HEMOGLOBIN 31 pg (25-34); MEAN CORPUSCULAR HGB CONC 33 g/dL (32-36); MEAN CORPUSCULAR VOLUME 95 fL (80-99); MEAN PLATELET VOLUME 9.9 fL (9.0-12.2); MONOCYTES # (AUTO) 0.6 10^3/uL (0.0-1.0); MONOCYTES % (AUTO) 5 % (0-12); NEUTROPHILS # (AUTO) 5.2 10^3/uL (1.8-7.8); NEUTROPHILS % (AUTO) 44 % (42-75); PLATELET COUNT 285 10^3/uL (130-400); WHITE BLOOD COUNT 11.9 10^3/uL (4.3-11.0)
[2022-12-23 13:59] LABS: BILIRUBIN,TOTAL 0.5 MG/DL (0.1-1.0); CALCIUM 9.5 MG/DL (8.5-10.1); POTASSIUM 3.7 MMOL/L (3.6-5.0); TOTAL PROTEIN 6.5 GM/DL (6.4-8.2)
[2022-12-23 14:03] LABS: CREATININE SERUM 1.08 MG/DL (0.60-1.30)
--- NOTE | 2022-12-23 14:12 | Diagnostic Imaging Report ---
EXAMINATION: CT head without contrast. TECHNIQUE: Multiple contiguous axial images were obtained through the brain without the use of intravenous contrast. All CT scans use one or more of the following dose optimizing techniques: automated exposure control, MA and/or KvP adjustment based on patient size and exam type or iterative reconstruction. HISTORY: Headache. Dizziness. COMPARISON: 06/30/2020. FINDINGS: No large acute territorial ischemia, mass, or hemorrhage. No midline shift or mass effect. Decreased attenuation is seen in the periventricular and subcortical white matter. The ventricles and cortical sulci are prominent. The basilar cisterns are patent and unremarkable. The orbits are normal. Chronic atelectasis is seen in the right maxillary sinus. Mastoid air cells are clear. No soft tissue abnormality is seen. No osseus lesions or fractures are seen. IMPRESSION: 1. No large acute territorial ischemia, mass, or hemorrhage. 2. Chronic microvascular disease. 3. Generalized parenchymal volume loss. Dictated by: Dictated on workstation # [id number]
[2022-12-23 15:00] LABS: BILIRUBIN,URINE NEGATIVE (NEGATIVE); COLOR,URINE YELLOW; GLUCOSE, URINE (UA) NEGATIVE (NEGATIVE); KETONES,URINE NEGATIVE (NEGATIVE); LEUKOCYTE ESTERASE ,URINE 3+ (NEGATIVE); NITRITE,URINE NEGATIVE (NEGATIVE); PROTEIN,URINE NEGATIVE (NEGATIVE)
[2022-12-23 15:03] LABS: CLARITY,URINE TURBID; WBC,URINE TNTC /HPF
[2022-12-23] MEDS ORDERED: cefTRIAXone 1,000 MG VIAL IV/IM IM STA (15:05)
[2022-12-23] MEDS ORDERED: CEPH500C PO (15:08)
[2022-12-23] MEDS ORDERED: LIDOCAINE 1% INJ 20 ML VIAL INJ ONE (15:15)
[2022-12-23 15:16] VITALS: BP 139/64
== END 2022-12-23 15:16 | disposition home or self-care (01) ==
LOC: EDUNIT# 13:27 → ER FS 13:28
DX: I10 Essential (primary) hypertension (principal); N30.00 Acute cystitis without hematuria; R73.9 Hyperglycemia, unspecified; R11.0 Nausea; Z88.0 Allergy status to penicillin; Z88.2 Allergy status to sulfonamides; Z88.6 Allergy status to analgesic agent
CPT/HCPCS: 36415; 70450; 80053; 81000; 85025; 87077; 87088; 87186